=== PATIENT | male | born 1935 ===

== ENCOUNTER 2017-02-27 14:33 | Emergency (ER) | payer MEDICARE, OTHER ==
[2017-02-27 14:39] VITALS: TEMP 98.5
--- NOTE | 2017-02-27 14:57 | C.PDOC ---
History Of Present Illness 81 year old male with a history of hypertension was brought to the ED by family after concern for the patient becoming pale and unresponsive. Patient's in the ED a couple of hours prior to the symptoms onset. He denies chest pain, headache, nausea, or abdominal pain. Time Seen by Provider: 02/27/17 14:49 Chief Complaint (Nursing): Altered Mental Status History Per: Patient, Family History/Exam Limitations: None Onset/Duration Of Symptoms: Mins Onset Of Symptoms: <3 Hours (Patient's and while grieving in the ED symptoms began) Current Symptoms Are (Timing): Still Present Usual Baseline: Alert Oriented, Ambulatory Use Of Anticoag/Antiplatelets: No Recent travel outside of the [place]: No Associated Symptoms: denies: Fever, Chills, Chest Pain, Headache, Vomiting, Diarrhea Past Medical History Reviewed: Historical Data, Nursing Documentation, Vital Signs Vital Signs: Last Vital Signs Temp 98.5 F 02/27/17 14:35 Pulse 68 02/27/17 15:13 Resp 18 02/27/17 15:13 BP 130/72 02/27/17 15:13 Pulse Ox 97 02/27/17 16:39 - Medical History PMH: Alzheimer's Disease, Dementia, HTN Family History: States: Unknown Family Hx - Social History Hx Alcohol Use: No Hx Substance Use: No - Immunization History Hx Tetanus Toxoid Vaccination: No Hx Influenza Vaccination: Yes (2016) Hx Pneumococcal Vaccination: Yes (2016) Review Of Systems Constitutional: Positive for: Other (Patient was pale and cold as per family ). Negative for: Fever, Chills Cardiovascular: Negative for: Chest Pain Respiratory: Negative for: Shortness of Breath Gastrointestinal: Negative for: Nausea, Vomiting, Abdominal Pain, Diarrhea Physical Exam - Physical Exam Appears: Non-toxic, No Acute Distress Skin: Warm, Dry Head: Atraumatic Eye(s): bilateral: Normal Inspection, PERRL, EOMI Oral Mucosa: Moist Neck: Supple Chest: Symmetrical, No Deformity Cardiovascular: Rhythm Regular Respiratory: Normal Breath Sounds, No Rhonchi, No Wheezing Gastrointestinal/Abdominal: Soft, No Tenderness, No Distention, No Guarding, No Rebound Neurological/Psych: Oriented x3, Normal Speech, Normal Cognition, Normal Cranial Nerves, Normal Motor, Normal Sensation ED Course And Treatment O2 Sat by Pulse Oximetry: 97 (room air ) Progress Note: EKG was performed. Disposition Counseled Patient/Family Regarding: Diagnosis, Need For Followup - Disposition Disposition: HOME/ ROUTINE Disposition Time: 14:56 Instructions: Syncope (ED) Forms: [facility] (Hungarian), Gen Discharge Inst Ugandan - POA Present On Arrival: None - Clinical Impression Clinical Impression: Vasovagal episode - Scribe Statement The provider has reviewed the documentation as recorded by the Scribe Baylee Encarnacion All medical record entries made by the Annibe were at my direction and personally dictated by me. I have reviewed the chart and agree that the record accurately reflects my personal performance of the history, physical exam, medical decision making, and the department course for this patient. I have also personally directed, reviewed, and agree with the discharge instructions and disposition.
[2017-02-27 15:13] VITALS: BP 130/72; PULSE 68; RESP 18
[2017-02-27 16:31] VITALS: O2SAT 97
--- NOTE | 2017-02-28 12:28 | CARD ---
APPROVED REPORT EKG Measurement Heart [id number] <Conclusion> Sinus rhythm with 1st degree AV block with premature atrial complexes Incomplete right bundle branch block Cannot rule out Inferior infarct, age undetermined Abnormal ECG
== END 2017-02-27 15:14 | disposition home or self-care (01) ==
LOC: C.ER 14:33
DX: R55 Syncope and collapse (principal); I10 Essential (primary) hypertension; G30.9 Alzheimer's disease, unspecified; F02.80 Dementia in other diseases classified elsewhere, unspecified severity, without behavioral disturbance, psychotic disturbance, mood disturbance, and anxiety

== ENCOUNTER 2018-04-08 12:25 | Inpatient (IN) | payer MEDICARE ==
[2018-04-08 12:51] VITALS: BMI 24.4
[2018-04-08 13:22] LABS: EOS % 0.1 % (0.0-4.0); MONO # 1.6 K/uL (0.0-0.8)
[2018-04-08 13:36] LABS: ALBUMIN 3.3 g/dL (3.5-5.0); ALT/SGPT 59 U/L (21-72); AST/SGOT 32 U/L (17-59); BLOOD UREA NITROGEN 27 mg/dL (9-20); CALCIUM 9.8 mg/dl (8.6-10.4); GFR NON-AFRICAN AMERICAN > 60; LIPASE 73 U/L (23-300)
[2018-04-08 13:44] LABS: BASO # 0.2 K/uL (0.0-0.2); LYMPH # 1.5 K/uL (1.0-4.3); LYMPH % 8.8 % (20.0-40.0); MEAN CELL VOLUME 88.7 fL (80.0-94.0); MEAN CORPUSCULAR HEMOGLOBIN 32.4 pg (27.0-31.0); MEAN CORPUSCULAR HGB CONC 36.5 g/dL (33.0-37.0); MEAN PLATELET VOLUME 7.9 fL (7.2-11.7); MONO % 9.3 % (0.0-10.0); NEUT # 13.6 K/uL (1.8-7.0); NEUT % 80.8 % (50.0-75.0); PLATELET COUNT 259 K/uL (130-400); RBC 4.09 Mil/uL (4.40-5.90); RED CELL DISTRIBUTION WIDTH 13.9 % (11.5-14.5); WHITE BLOOD COUNT 16.8 K/uL (4.8-10.8)
[2018-04-08 13:45] LABS: HEMOGLOBIN 13.2 g/dL (12.0-18.0)
--- NOTE | 2018-04-08 13:53 | RAD ---
Date of service: 04/08/2018 PROCEDURE: Radiographs of the Lumbar Spine. HISTORY: low back pain, atraumatic COMPARISON: No prior. FINDINGS: BONES: There is mild degenerative retrolisthesis of L1 on L2. There is exaggerated lumbar lordosis. There is mild dextrocurvature in the lumbar spine. There is diffuse bone demineralization. There is no acute fracture. DISC SPACES: There are advanced multilevel degenerative changes with large anterior osteophytes, reduced disc heights and multilevel facet arthropathy, worse at L5-S1. OTHER FINDINGS: There are no pathologic soft tissue calcifications. Both sacroiliac joints are normal. IMPRESSION: No acute fracture. Advanced multilevel degenerative disc disease, worse at L5-S1.
[2018-04-08 13:57] LABS: SQUAMOUS EPITHIAL 6 /hpf (0-5); URINE BACTERIA RARE (<OCC); URINE BILIRUBIN 1+ (NEGATIVE); URINE BLOOD 1+ (NEGATIVE); URINE CLARITY Hazy (Clear); URINE COLOR Amber (YELLOW); URINE GLUCOSE (UA) NORMAL (Normal); URINE LEUKOCYTE ESTERASE 2+ Leu/uL (Negative); URINE PROTEIN 1+ mg/dL (NEGATIVE)
--- NOTE | 2018-04-08 14:08 | C.PDOC ---
History Of Present Illness 82 y/o male with PMHx of Alzheimer's Disease and HTN brought to ED by EMS for evaluation of worsening low back pain for the past 3 months. Patient states he "can't take it anymore". Patient is poor historian secondary to Alzheimer's disease. He denies abdominal pain, fever, sensory changes, extremity weakness, urinary retention, bowel/bladder incontinence, chest pain, SOB, palpitations, dysuria, hematuria, fever. Time Seen by Provider: 04/08/18 12:53 Chief Complaint (Nursing): Back Pain History Per: Patient, EMS History/Exam Limitations: no limitations Onset/Duration Of Symptoms: Persistent (months) Current Symptoms Are (Timing): Still Present Quality Of Discomfort: "Pain" Severity: Moderate Past Medical History Reviewed: Historical Data, Nursing Documentation, Vital Signs Vital Signs: Last Vital Signs Temp 98.4 F 04/13/18 07:51 Pulse 81 04/13/18 07:51 Resp 20 04/13/18 07:51 BP 173/71 H 04/13/18 07:51 Pulse Ox 95 04/13/18 07:51 - Medical History PMH: Alzheimer's Disease, Dementia, HTN Surgical History: No Surg Hx Family History: States: No Known Family Hx - Social History Hx Alcohol Use: No Hx Substance Use: No - Immunization History Hx Tetanus Toxoid Vaccination: No Hx Influenza Vaccination: Yes (2016) Hx Pneumococcal Vaccination: Yes (2016) Review Of Systems Constitutional: Negative for: Fever, Chills Cardiovascular: Negative for: Chest Pain, Palpitations Respiratory: Negative for: Cough, Shortness of Breath Gastrointestinal: Negative for: Nausea, Vomiting, Abdominal Pain, Diarrhea Genitourinary: Negative for: Dysuria, Hematuria Musculoskeletal: Positive for: Back Pain. Negative for: Neck Pain Skin: Negative for: Rash Neurological: Negative for: Weakness, Numbness Physical Exam - Physical Exam Appears: Well, Non-toxic, Other (In mild pain) Skin: Warm, Dry, No Rash Head: Atraumatic, Normacephalic Eye(s): bilateral: Normal Inspection Oral Mucosa: Moist Neck: Normal, Normal ROM, No Midline Cervical Tenderness, No Paracervical Tenderness, No Step Off Deformity, Supple Cardiovascular: Rhythm Regular Respiratory: Normal Breath Sounds, No Rales, No Rhonchi, No Wheezing Gastrointestinal/Abdominal: Normal Exam, Bowel Sounds, Soft, No Tenderness, No Guarding, No Rebound, Other (Obese abdomen) Back: No CVA Tenderness, Other (Diffuse lumbar tenderness to palpation) Extremity: Normal ROM, No Deformity, No Swelling Extremity: Bilateral: Atraumatic, Normal Color And Temperature, Normal ROM Neurological/Psych: Normal Motor, Normal Sensation, Other (awake, alert, mildly confused ) ED Course And Treatment - Laboratory Results Result Diagrams: 04/10/18 08:45 04/12/18 07:06 O2 Sat by Pulse Oximetry: 95 (RA) Pulse Ox Interpretation: Normal - Other Rad LS SPINE XRAY X-Ray: Viewed By Me, Read By Radiologist Interpretation: Accession No. : [id number]. Patient Name / ID : WALDEMAR JACOBSEN / [id number]. Exam Date : 04/08/2018 13:13:37 ( Approved ). Study Comment : Sex / Age : M / 82Y. Creator : Katie Mejia MD. Dictator : Katie Mejia MD. Geophysical Computer : Organizational Development Director : Katie Mejia MD. Approver2 : Report Date : 04/08/2018 13:51:51. My Comment : . Date of service: 04/08/2018. PROCEDURE: Radiographs of the Lumbar Spine. HISTORY: low back pain, atraumatic. COMPARISON: No prior. FINDINGS: BONES: There is mild degenerative retrolisthesis of L1 on L2. There is exaggerated lumbar lordosis. There is mild dextrocurvature in the lumbar spine. There is diffuse bone demineralization. There is no acute fracture. DISC SPACES: There are advanced multilevel degenerative changes with large anterior osteophytes, reduced disc heights and multilevel facet arthropathy, worse at L5-S1. OTHER FINDINGS: There are no pathologic soft tissue calcifications. Both sacroiliac joints are normal. IMPRESSION: No acute fracture. Advanced multilevel degenerative disc disease, worse at L5-S1. - CT Scan/US ct abd/pelvis Other Rad Studies (CT/US): Read By Radiologist, Radiology Report Reviewed CT/US Interpretation: Accession No. : [id number]. Patient Name / ID : WALDEMAR JACOBSEN / [id number]. Exam Date : 04/08/2018 14:44:12 ( Approved ). Study Comment : Sex / Age : M / 82Y. Creator : Katie Mejia MD. Dictator : Katie Mejia MD. Geophysical Computer : Organizational Development Director : Katie Mejia MD. Approver2 : Report Date : 04/08/2018 15:13:16. My Comment : . Date of service: 04/08/2018. PROCEDURE: CT Abdomen and Pelvis without intravenous contrast. HISTORY: SEVERE BACK PAIN, ABD PAIN. COMPARISON: None. TECHNIQUE : CT scan of the abdomen and pelvis was performed without administration of intravenous contrast. Oral contrast was not administered. Coronal and sagittal reformatted images were obtained. . Radiation dose: Total exam DLP = 1147.12 mGy-cm. This CT exam was performed using one or more of the following dose reduction techniques: Automated exposure control, adjustment of the mA and/or kV according to patient size, and/or use of iterative reconstruction technique. FINDINGS: LOWER THORAX: Mild centrilobular emphysema in the lung bases. Mild cardiomegaly and trace pericardial effusion. There is a small sliding hiatal hernia. LIVER: Normal in size. No intrahepatic ductal dilatation. GALLBLADDER AND BILE DUCTS: There is hyperdense sludge/gallstones within the gallbladder. PANCREAS: Normal in size. No ductal dilatation. SPLEEN: Mild splenomegaly. ADRENALS: Normal in size. No discrete nodule. KIDNEYS AND URETERS: Normal in size without nephrolithiasis. No hydronephrosis. VASCULATURE: No aortic aneurysm. BOWEL: The small bowel loops are normal in caliber. There is scattered colonic diverticulosis without CT evidence for acute diverticulitis. No bowel dilatation or wall thickening. No bowel obstruction. APPENDIX: Normal appendix. PERITONEUM: No free fluid. No free air. LYMPH NODES: No enlarged lymph nodes. BLADDER: Well distended and grossly normal in appearance. REPRODUCTIVE: There is severe enlargement of the prostate gland with median lobe hypertrophy and mass effect on the bladder base. BONES: No acute fracture. Diffuse bone demineralization and advanced multilevel degenerative disc disease. OTHER FINDINGS: None. IMPRESSION: 1. No acute abdominal or pelvic abnormality. Scattered colonic diverticulosis without CT evidence for acute diverticulitis. Severe enlargement of the prostate gland with median lobe hypertrophy indenting on the base of the urinary bladder. Please correlate with PSA levels. Small sliding hiatal hernia. Progress Note: Blood work, UA, Xray LS spine, and CT abd/pelvis ordered and reviewed. Patient given IV NS bolus, IV toradol, IV rocephin for UTI, PO Kdur for mild hypokalemia. - Physician Consult Information Physician Contacted: Esau Jacobs Outcome Of Conversation: Discussed patient with Dr. Jacobs, he agrees with admission to his service for UTI, severely enlarged prostate, leukocytosis, lumbar arthritis, severe low back pain. Disposition - Disposition Disposition: HOSPITALIZED Disposition Time: 16:26 Condition: STABLE - Clinical Impression Clinical Impression: Arthritis, lumbar spine, Leukocytosis, Enlarged prostate, Low back pain, UTI ( urinary tract infection) - Scribe Statement The provider has reviewed the documentation as recorded by the Scribheaven Sandhu All medical record entries made by the Scribe were at my direction and personally dictated by me. I have reviewed the chart and agree that the record accurately reflects my personal performance of the history, physical exam, medical decision making, and the department course for this patient. I have also personally directed, reviewed, and agree with the discharge instructions and disposition. Decision To Admit - Pt Status Changed To: Hospital Disposition Of: Inpatient - Admit Certification Admit to Inpatient:: After my assessment, the patient will require hospitalization for at least two midnights. This is because of the severity of symptoms shown, intensity of services needed, and/or the medical risk in this patient being treated as an outpatient. - InPatient: Physician Admission Certification:: see notes - . Bed Request Type: Regular Admitting Physician: Esau Jacobs Patient Diagnosis: Low back pain, Arthritis, lumbar spine, UTI (urinary tract infection), Leukocytosis, Enlarged prostate
[2018-04-08 14:14] LABS: BANDS 1 % (0-2); LYMPHOCYTE 7 % (20-40); MONOCYTE 9 % (0-10); NEUTROPHIL 82 % (50-75); NUCLEATED RED BLOOD CELL 1 % (0-0); PLATELET ESTIMATE NORMAL (NORMAL); REACTIVE LYMPHOCYTES 1 % (0-0); TOTAL CELLS COUNTED 100
[2018-04-08 14:15] LABS: ANISOCYTOSIS SLIGHT; HYPOCHROMIC SLIGHT; POLYCHROMIC SLIGHT
[2018-04-08] MEDS ORDERED: Sodium Chloride 0.9% 500 ML IV ONE ×2 (14:25→14:34)
[2018-04-08] MEDS ORDERED: cefTRIAXone IV 1 gm in Dextros 50 ML IV STA (14:30)
[2018-04-08] MEDS ORDERED: Potassium Chloride 20 mEq ER Tab PO STA (14:31)
--- NOTE | 2018-04-08 15:14 | CT ---
Date of service: 04/08/2018 PROCEDURE: CT Abdomen and Pelvis without intravenous contrast HISTORY: SEVERE BACK PAIN, ABD PAIN COMPARISON: None. TECHNIQUE: CT scan of the abdomen and pelvis was performed without administration of intravenous contrast. Oral contrast was not administered. Coronal and sagittal reformatted images were obtained. . Radiation dose: Total exam DLP = 1147.12 mGy-cm. This CT exam was performed using one or more of the following dose reduction techniques: Automated exposure control, adjustment of the mA and/or kV according to patient size, and/or use of iterative reconstruction technique. FINDINGS: LOWER THORAX: Mild centrilobular emphysema in the lung bases. Mild cardiomegaly and trace pericardial effusion. There is a small sliding hiatal hernia. LIVER: Normal in size. No intrahepatic ductal dilatation. GALLBLADDER AND BILE DUCTS: There is hyperdense sludge/gallstones within the gallbladder. PANCREAS: Normal in size. No ductal dilatation. SPLEEN: Mild splenomegaly. ADRENALS: Normal in size. No discrete nodule. KIDNEYS AND URETERS: Normal in size without nephrolithiasis. No hydronephrosis. VASCULATURE: No aortic aneurysm. BOWEL: The small bowel loops are normal in caliber. There is scattered colonic diverticulosis without CT evidence for acute diverticulitis. No bowel dilatation or wall thickening. No bowel obstruction. APPENDIX: Normal appendix. PERITONEUM: No free fluid. No free air. LYMPH NODES: No enlarged lymph nodes. BLADDER: Well distended and grossly normal in appearance. REPRODUCTIVE: There is severe enlargement of the prostate gland with median lobe hypertrophy and mass effect on the bladder base. BONES: No acute fracture. Diffuse bone demineralization and advanced multilevel degenerative disc disease. OTHER FINDINGS: None. IMPRESSION: 1. No acute abdominal or pelvic abnormality. Scattered colonic diverticulosis without CT evidence for acute diverticulitis. Severe enlargement of the prostate gland with median lobe hypertrophy indenting on the base of the urinary bladder. Please correlate with PSA levels. Small sliding hiatal hernia.
--- NOTE | 2018-04-08 17:58 | RAD ---
HISTORY: admission, fever COMPARISON: None available TECHNIQUE: Chest, one view. FINDINGS: Examination markedly limited by habitus and hypoinflation. LUNGS: Moderate interstitial prominence may reflect edema or infection. Please note that chest x-ray has limited sensitivity for the detection of pulmonary masses. PLEURA: No significant pleural effusion identified. No definite pneumothorax . CARDIOVASCULAR: Borderline cardiomegaly. Atherosclerotic calcifications. OSSEOUS STRUCTURES: Degenerative changes of the spine. VISUALIZED UPPER ABDOMEN: Unremarkable. OTHER FINDINGS: None. IMPRESSION: Hypoinflation. Borderline cardiomegaly. Moderate interstitial prominence consistent with edema or infection. Correlate clinically.
[2018-04-08] MEDS ORDERED: Sodium Chloride 0.9% 1,000 ML ONE (17:59)
[2018-04-08] MEDS: Sodium Chloride 0.9% 1,000 ML IV SCH (18:05)
[2018-04-08 19:05] VITALS: RESP 20
--- NOTE | 2018-04-08 22:55 | CP.PCM.HP ---
Past Patient History - Past Medical History & Family History Past Medical History?: Yes - Past Social History Smoking Status: Never Smoked - CARDIAC Hx Hypertension: Yes - NEUROLOGICAL Hx Alzheimer's Disease: Yes Hx Dementia: Yes - MUSCULOSKELETAL/RHEUMATOLOGICAL Hx Falls: Yes - PSYCHIATRIC Hx Substance Use: No - SURGICAL HISTORY Hx Surgeries: No - ANESTHESIA Hx Anesthesia: No Meds Allergies/Adverse Reactions: Allergies Allergy/AdvReac Type Severity Reaction Status Date / Time No Known Allergies Allergy Verified 02/27/17 14:40 Results - Vital Signs Recent Vital Signs: Last Vital Signs Temp 99.3 F 04/08/18 19:04 Pulse 97 H 04/08/18 19:04 Resp 20 04/08/18 19:04 BP 145/75 04/08/18 19:04 Pulse Ox 97 04/08/18 19:04 - Labs Result Diagrams: 04/08/18 13:17 04/08/18 13:17 Labs: Laboratory Results - last 24 hr 04/08/18 04/08/18 04/08/18 13:17 13:17 13:43 WBC 16.8 H RBC 4.09 L Hgb 13.2 Hct 36.2 MCV 88.7 MCH 32.4 H MCHC 36.5 RDW 13.9 Plt Count 259 MPV 7.9 Neut % (Auto) 80.8 H Lymph % (Auto) 8.8 L [place] % (Auto) 9.3 Eos % (Auto) 0.1 Baso % (Auto) 1.0 Neut # (Auto) 13.6 H Lymph # (Auto) 1.5 [place] # (Auto) 1.6 H Eos # (Auto) 0.0 Baso # (Auto) 0.2 Neutrophils % (Manual) 82 H Band Neutrophils % 1 Lymphocytes % (Manual) 7 L Reactive Lymphs % 1 H Monocytes % (Manual) 9 Nucleated RBC % 1 H Platelet Estimate Normal Polychromasia Slight Hypochromasia (manual) Slight Anisocytosis (manual) Slight Sodium 137 Potassium 3.3 L Chloride 98 Carbon Dioxide 25 Anion Gap 17 BUN 27 H Creatinine 0.8 Est GFR ( Amer) > 60 Est GFR (Non-Af Amer) > 60 Random Glucose 133 H Calcium 9.8 Total Bilirubin 5.4 H AST 32 ALT 59 Alkaline Phosphatase 154 H Total Protein 6.6 Albumin 3.3 L Globulin 3.4 Albumin/Globulin Ratio 1.0 Lipase 73 Prostate Specific Ag Urine Color Marni Urine Clarity Hazy Urine pH 5.0 Ur Specific [place] 1.026 Urine Protein 1+ H Urine Glucose (UA) Normal Urine Ketones Negative Urine Blood 1+ H Urine Nitrate Negative Urine Bilirubin 1+ H Urine Urobilinogen 4.0 Ur Leukocyte Esterase 2+ H Urine WBC (Auto) 82 H Urine RBC (Auto) 8 H Ur Squamous Epith Cells 6 H Urine Bacteria Rare 04/08/18 16:58 WBC RBC Hgb Hct MCV MCH MCHC RDW Plt Count MPV Neut % (Auto) Lymph % (Auto) [place] % (Auto) Eos % (Auto) Baso % (Auto) Neut # (Auto) Lymph # (Auto) [place] # (Auto) Eos # (Auto) Baso # (Auto) Neutrophils % (Manual) Band Neutrophils % Lymphocytes % (Manual) Reactive Lymphs % Monocytes % (Manual) Nucleated RBC % Platelet Estimate Polychromasia Hypochromasia (manual) Anisocytosis (manual) Sodium Potassium Chloride Carbon Dioxide Anion Gap BUN Creatinine Est GFR ( Amer) Est GFR (Non-Af Amer) Random Glucose Calcium Total Bilirubin AST ALT Alkaline Phosphatase Total Protein Albumin Globulin Albumin/Globulin Ratio Lipase Prostate Specific Ag 5.00 H Urine Color Urine Clarity Urine pH Ur Specific [place] Urine Protein Urine Glucose (UA) Urine Ketones Urine Blood Urine Nitrate Urine Bilirubin Urine Urobilinogen Ur Leukocyte Esterase Urine WBC (Auto) Urine RBC (Auto) Ur Squamous Epith Cells Urine Bacteria
[2018-04-09] MEDS: Sodium Chloride 0.9% 1,000 ML IV SCH ×3 (05:47→23:43)
--- NOTE | 2018-04-09 06:59 | HP ---
CHIEF COMPLAINT: Severe weakness. HISTORY OF PRESENT ILLNESS: This is an 82-year-old male, who has history of underlying Alzheimer's. He also has history of benign prostatic hyperplasia. He was brought into emergency room by his family because of neck pain and back pain. According to the family, the patient has history of Alzheimer's and hypertension. The patient has been deteriorating health felder in last few months, poor health at home and he has been more and more bedridden, sick, weak, tired, and fatigued. According to the patient, "I cannot take anymore." The patient is a poor historian. He keeps complaining of some abdominal symptoms, he is not able to describe. The patient denies any fever, chills, rigor. He denies any tingling, numbness, paresthesia. He has lower abdominal pain. He has also incontinence. He denies any history of shortness of breath, chest pain, hematuria, pyuria. He denies any sneezing, itchy eyes, itchy nose. He denies any history of chest pain. He denies any history of trauma or fall. No seizure like activity. There is no history of joint back, but he has incontinence. He has frequency of urination. He has urgency, hesitancy. PAST MEDICAL HISTORY: Alzheimer's, hypertension. SOCIAL HISTORY: Nonsmoker, non-ETOH user. CURRENT MEDICATIONS: He is on Namenda and losartan. ALLERGIES: UNKNOWN ALLERGIES. PHYSICAL EXAMINATION: GENERAL: An elderly male, in no acute distress, looks sick . VITAL SIGNS: BP 168/92, pulse 104, respiratory rate 18, temperature 100.6. SKIN: Flush. No bruises. No purpura. No petechiae. HEENT: Atraumatic, normocephalic. Negative pallor. Negative jaundice. Extraocular movements are intact. NECK: Supple. No JVD. No lymph node. No thyromegaly. No carotid bruit. CHEST WALL: Bilaterally symmetrical expansion. LUNGS: Bilaterally clear. No rales. No rhonchi. CVS: S1 and S2. Regular. No heave, no thrill. ABDOMEN: Soft. Nontender. Bowel sounds are positive. RECTAL: Enlarged prostate. No tenderness. No adenopathy. EXTREMITIES: No clubbing, cyanosis, or edema. PRESS SUPERVISOR: The patient is awake, alert, is forgetful. Moves all extremities. Power seems to be 5/5 in all four extremities. Unable to assess sensory system, gait, or cerebellar signs. ASSESSMENT: 1. Urinary tract infection, rule out septicemia. 2. Enlarged prostrate, rule out benign prostatic versus malignancy. 3. Alzheimer. 4. Dehydration. PLAN: Admit. The patient is discussed with ER doctor. Orders have been placed. The patient has been seen and examined. The patient will be followed up closely. Esau Jacobs MD
[2018-04-09] MEDS: Enoxaparin 30 mg Syringe SC SCH (10:21)
--- NOTE | 2018-04-09 18:22 | US ---
Date of service: 04/09/2018 PROCEDURE: Ultrasound of the Kidneys HISTORY: ultrasound before and after passing urine to see COMPARISON: None available. TECHNIQUE: Sonogram of the kidneys. FINDINGS: RIGHT KIDNEY: Measures: 4.9 x 11.6 cm. Normal in size, contour and echogenicity. No stone, solid mass lesion or hydronephrosis visualized. LEFT KIDNEY: Measures: 6.3 x 12.9 cm. Normal in size, contour and echogenicity. No stone, solid mass lesion or hydronephrosis visualized. OTHER FINDINGS: Urinary bladder assessment: Prevoid volume: 227.3 ml Postvoid residual: 108.2 ml Intrinsic, mural, perivesical abnormalities: None Ureteral jets: Documented bilaterally. Transabdominal prostate volume 55.6 mL. IMPRESSION: Small capacitance bladder, large postvoid residual. No focal urinary bladder abnormalities identified. Unremarkable upper tracts
--- NOTE | 2018-04-09 22:44 | CP.PCM.PN ---
Objective - Vital Signs/Intake and Output Vital Signs (last 24 hours): Temp Pulse Resp BP Pulse Ox 99.3 F 77 20 160/81 H 97 04/09/18 16:01 04/09/18 16:01 04/09/18 16:01 04/09/18 16:01 04/09/18 16:01 Intake and Output: 04/09/18 04/10/18 18:59 06:59 Intake Total 800 Output Total 300 Balance 500 - Medications Medications: Current Medications Acetaminophen (Tylenol 325mg Tab) 650 mg PO Q6 PRN PRN Reason: Pain, moderate (4-7) Enoxaparin Sodium (Lovenox) 30 mg SC DAILY [facility] Last Admin: 04/09/18 10:21 Dose: 30 mg Hydrochlorothiazide (Microzide) 12.5 mg PO BID [facility] Last Admin: 04/09/18 18:10 Dose: 12.5 mg Ceftriaxone Sodium 1 gm/ (Sodium Chloride) 100 mls @ 100 mls/hr IVPB DAILY [facility] PRN Reason: Protocol Last Admin: 04/09/18 10:22 Dose: 100 mls/hr Sodium Chloride (Sodium Chloride 0.9%) 1,000 mls @ 100 mls/hr IV .Q10H [facility] Last Admin: 04/09/18 15:23 Dose: 100 mls/hr Losartan Potassium (Cozaar) 100 mg PO DAILY [facility] Memantine (Namenda) 5 mg PO DAILY [facility] Last Admin: 04/09/18 10:21 Dose: 5 mg Tamsulosin HCl (Flomax) 0.4 mg PO BID [facility] Last Admin: 04/09/18 18:10 Dose: 0.4 mg Tramadol HCl (Ultram) 50 mg PO TID PRN PRN Reason: Pain, severe (8-10) - Labs Labs: 04/08/18 13:17 04/08/18 13:17
--- NOTE | 2018-04-10 02:29 | CON ---
DATE: 04/09/2018 HISTORY OF PRESENT ILLNESS: The patient is an 82-year-old [place] gentleman who was admitted to the hospital because of back pain. CT scan revealed large prostate. The patient has wbc's in his urine, mild frequency but no dysuria and no hematuria. The patient did not have any surgery, did not complain of any flank pain. PSA with a large prostate came back moderate on the level of 5. PHYSICAL EXAMINATION: GASTROINTESTINAL: Revealed abdomen is soft. No flank tenderness. No kidney palpable. GENITOURINARY: No suprapubic fullness or tenderness. Testes in the scrotum. Penis within normal limits. RECTAL: Could not be done. NEUROLOGIC: The patient cannot move from the bed to the side. IMPRESSION: Prostatic hypertrophy, recurrent urinary tract infections, and elevated prostate-specific antigen. PLAN: Pelvic ultrasound before and after voiding to evaluate the residual and estimate the prostate size. Plan to follow him. Bettina Sage MD
--- NOTE | 2018-04-10 03:40 | PN ---
DATE: 04/09/2018 SUBJECTIVE: The patient feels better. He is more alert. He is afebrile. Son on bedside. I explained to him the working diagnosis and plan of care. He understands and agrees. The patient has been seen by Urology. PHYSICAL EXAMINATION: VITAL SIGNS: BP 161/96, pulse 88, respiratory rate 16, temperature 99. LUNGS: Clear. CARDIOVASCULAR SYSTEM: S1 and S2 regular. ABDOMEN: Soft. ASSESSMENT: 1. Urinary tract infection, rule out septicemia. 2. Obstructive uropathy, rule out benign prostatic hypertrophy. 3. Hypertension. 4. Dehydration, . PLAN: Urology evaluation. Antibiotics. Monitor the patient. Esau Jacobs MD
[2018-04-10 09:24] LABS: BASO # 0.1 K/uL (0.0-0.2); BASO % 0.6 % (0.0-2.0); EOS % 0.4 % (0.0-4.0); HEMOGLOBIN 12.6 g/dL (12.0-18.0); LYMPH # 1.4 K/uL (1.0-4.3); LYMPH % 11.9 % (20.0-40.0); MEAN CELL VOLUME 88.5 fL (80.0-94.0); MEAN CORPUSCULAR HEMOGLOBIN 31.9 pg (27.0-31.0); MEAN PLATELET VOLUME 8.1 fL (7.2-11.7); MONO # 1.3 K/uL (0.0-0.8); MONO % 11.5 % (0.0-10.0); NEUT # 8.6 K/uL (1.8-7.0); NEUT % 75.6 % (50.0-75.0); NRBC % 0.2 % (0.0-2.0); RBC 3.94 Mil/uL (4.40-5.90); RED CELL DISTRIBUTION WIDTH 14.1 % (11.5-14.5); WHITE BLOOD COUNT 11.4 K/uL (4.8-10.8)
[2018-04-10 09:33] LABS: BLOOD UREA NITROGEN 18 mg/dL (9-20); CALCIUM 8.6 mg/dl (8.6-10.4); GFR NON-AFRICAN AMERICAN > 60
[2018-04-10] MEDS: Sodium Chloride 0.9% 1,000 ML IV SCH (10:00)
[2018-04-10] MEDS: Enoxaparin 30 mg Syringe SC SCH (10:54)
[2018-04-10] MEDS ORDERED: Potassium Chloride 20 mEq ER Tab PO ONE (12:00)
--- NOTE | 2018-04-10 22:40 | CP.PCM.PN ---
Objective - Vital Signs/Intake and Output Vital Signs (last 24 hours): Temp Pulse Resp BP Pulse Ox 97.9 F 78 20 134/69 95 04/10/18 16:00 04/10/18 16:00 04/10/18 16:00 04/10/18 16:00 04/10/18 16:00 Intake and Output: 04/10/18 04/11/18 18:59 06:59 Intake Total 780 Output Total 300 Balance 480 - Medications Medications: Current Medications Acetaminophen (Tylenol 325mg Tab) 650 mg PO Q6 PRN PRN Reason: Pain, moderate (4-7) Enoxaparin Sodium (Lovenox) 30 mg SC DAILY [facility] Last Admin: 04/10/18 10:54 Dose: 30 mg Hydrochlorothiazide (Microzide) 12.5 mg PO BID [facility] Last Admin: 04/10/18 17:20 Dose: 12.5 mg Ceftriaxone Sodium 1 gm/ (Sodium Chloride) 100 mls @ 100 mls/hr IVPB DAILY [facility] PRN Reason: Protocol Last Admin: 04/10/18 10:00 Dose: 100 mls/hr Losartan Potassium (Cozaar) 100 mg PO DAILY [facility] Last Admin: 04/10/18 10:54 Dose: 100 mg Memantine (Namenda) 5 mg PO DAILY [facility] Last Admin: 04/10/18 10:53 Dose: 5 mg Tamsulosin HCl (Flomax) 0.4 mg PO BID [facility] Last Admin: 04/10/18 17:20 Dose: 0.4 mg Tramadol HCl (Ultram) 50 mg PO TID [facility] Last Admin: 04/10/18 17:20 Dose: 50 mg - Labs Labs: 04/10/18 08:45 04/10/18 08:45
--- NOTE | 2018-04-11 08:10 | PN ---
DATE: 04/10/2018 The patient voiding okay. No dysuria. No urgency. No suprapubic fullness. Has low back pain, improved. The patient with the prostatic hypertrophy. We will follow his pelvic ultra and post-void residual. Bettina Sage MD
--- NOTE | 2018-04-11 09:56 | PN ---
DATE: 04/10/2018 SUBJECTIVE: The patient is feeling better. He is stronger. Blood pressure went down. No fever. PHYSICAL EXAMINATION: VITAL SIGNS: Blood pressure 134/69, pulse 78, respiratory rate 20, temperature 97.9. LUNGS: Clear. CARDIOVASCULAR: S1 and S2, regular. ABDOMEN: Soft. ASSESSMENT: 1. Urinary tract infection. 2. Obstructive uropathy. 3. Alzheimer's. PLAN: Monitor the patient. The patient had a bladder ultrasound done and the urinary bladder ultrasound revealed small capacity bladder with large postvoid residual, and the patient will be followed up by Urology. In the meantime, we will monitor the patient. His prostate specific antigen is 5. Esau Jacobs MD
[2018-04-11] MEDS: Enoxaparin 30 mg Syringe SC SCH (10:20)
[2018-04-11 12:10] LABS: BLOOD UREA NITROGEN 19 mg/dL (9-20); CALCIUM 9.3 mg/dl (8.6-10.4); GFR NON-AFRICAN AMERICAN > 60
[2018-04-11] MEDS: Potassium Chloride 20 mEq ER Tab PO SCH (12:37)
--- NOTE | 2018-04-11 22:29 | CP.PCM.PN ---
Objective - Vital Signs/Intake and Output Vital Signs (last 24 hours): Temp Pulse Resp BP Pulse Ox 98.3 F 82 20 126/76 95 04/11/18 16:54 04/11/18 16:54 04/11/18 16:54 04/11/18 16:54 04/11/18 16:54 Intake and Output: 04/11/18 04/12/18 18:59 06:59 Intake Total 550 Output Total 400 Balance 150 - Medications Medications: Current Medications Acetaminophen (Tylenol 325mg Tab) 650 mg PO Q6 PRN PRN Reason: Pain, moderate (4-7) Enoxaparin Sodium (Lovenox) 30 mg SC DAILY [facility] Last Admin: 04/11/18 10:20 Dose: 30 mg Hydrochlorothiazide (Microzide) 12.5 mg PO BID [facility] Last Admin: 04/11/18 17:41 Dose: 12.5 mg Ceftriaxone Sodium 1 gm/ (Sodium Chloride) 100 mls @ 100 mls/hr IVPB DAILY [facility] PRN Reason: Protocol Last Admin: 04/11/18 10:21 Dose: 100 mls/hr Losartan Potassium (Cozaar) 100 mg PO DAILY [facility] Last Admin: 04/11/18 10:22 Dose: 100 mg Memantine (Namenda) 5 mg PO DAILY [facility] Last Admin: 04/11/18 10:21 Dose: 5 mg Potassium Chloride (K-Dur 20 Meq Er Tab) 40 meq PO DAILY [facility] Stop: 04/13/18 12:16 Last Admin: 04/11/18 12:37 Dose: 40 meq Tamsulosin HCl (Flomax) 0.4 mg PO BID [facility] Last Admin: 04/11/18 17:41 Dose: 0.4 mg Tramadol HCl (Ultram) 50 mg PO TID [facility] Last Admin: 04/11/18 17:41 Dose: 50 mg - Labs Labs: 04/10/18 08:45 04/11/18 11:41
--- NOTE | 2018-04-12 04:55 | PN ---
DATE: 04/11/2018 SUBJECTIVE: The patient is feeling better. Afebrile. He has responded to any kind of urological procedure. He is afebrile. He is on antibiotics. His cultures have been negative; however, he needed antibiotics. PHYSICAL EXAMINATION: VITAL SIGNS: BP 126/76, pulse 82, respiratory rate 20, temperature 98.3. LUNGS: Clear. CARDIOVASCULAR SYSTEM: S1 and S2, regular. CENTRAL NERVOUS SYSTEM: The patient has dementia with poor memory. ASSESSMENT: 1. Urinary tract infection. 2. Obstructive uropathy. 3. Hypertension. 4. Alzheimer's. PLAN: Continue current medications. Monitor the patient. Esau Jacobs MD
[2018-04-12 08:00] LABS: BLOOD UREA NITROGEN 17 mg/dL (9-20); CALCIUM 8.8 mg/dl (8.6-10.4); GFR NON-AFRICAN AMERICAN > 60
[2018-04-12] MEDS: Enoxaparin 30 mg Syringe SC SCH (11:43)
[2018-04-12] MEDS: Potassium Chloride 20 mEq ER Tab PO SCH (11:47)
--- NOTE | 2018-04-12 12:19 | CP.PCM.PN ---
Subjective - Date & Time of Evaluation Date of Evaluation: 04/12/18 Time of Evaluation: 11:00 - Subjective Subjective: Patient seen today, denies any chest pain, sob, abdominal pain, dysuria, c/o pain to the back , improved with pain medications, reported voiding better a febrile Objective - Vital Signs/Intake and Output Vital Signs (last 24 hours): Temp Pulse Resp BP Pulse Ox 98.2 F 86 20 135/75 96 04/12/18 07:30 04/12/18 07:30 04/12/18 07:30 04/12/18 07:30 04/12/18 07:30 Intake and Output: 04/12/18 04/12/18 06:59 18:59 Intake Total 660 Output Total 400 Balance 260 - Medications Medications: Current Medications Acetaminophen (Tylenol 325mg Tab) 650 mg PO Q6 PRN PRN Reason: Pain, moderate (4-7) Enoxaparin Sodium (Lovenox) 30 mg SC DAILY [facility] Last Admin: 04/12/18 11:43 Dose: 30 mg Hydrochlorothiazide (Microzide) 12.5 mg PO BID [facility] Last Admin: 04/12/18 11:47 Dose: 12.5 mg Ceftriaxone Sodium 1 gm/ (Sodium Chloride) 100 mls @ 100 mls/hr IVPB DAILY [facility] PRN Reason: Protocol Last Admin: 04/12/18 11:47 Dose: 100 mls/hr Losartan Potassium (Cozaar) 100 mg PO DAILY [facility] Last Admin: 04/12/18 11:44 Dose: 100 mg Memantine (Namenda) 5 mg PO DAILY [facility] Last Admin: 04/12/18 11:47 Dose: 5 mg Potassium Chloride (K-Dur 20 Meq Er Tab) 40 meq PO DAILY [facility] Stop: 04/13/18 12:16 Last Admin: 04/12/18 11:47 Dose: 40 meq Tamsulosin HCl (Flomax) 0.4 mg PO BID [facility] Last Admin: 04/12/18 11:47 Dose: 0.4 mg Tramadol HCl (Ultram) 50 mg PO TID [facility] Last Admin: 04/12/18 11:43 Dose: 50 mg - Labs Labs: 04/10/18 08:45 04/12/18 07:06 Assessment and Plan - Assessment and Plan (Free Text) Assessment: A/P 82 y/o male with PMHx of Alzheimer's Disease and HTN brought to ED by EMS for evaluation of worsening bhaskar back pain for the past 3 months and admitted with UTI and started on antibiotics Dr. Sage consulted for enlarged prostate , started on flomax , and patient voids better Dr. Sage d/w Patient son regarding urological procedure and son reluctant for any procedure Patient accepted at [facility] fo r rehab D/W Dr. Jacobs cleared for discharge to [facility] today
[2018-04-12 22:56] LABS: SQUAMOUS EPITHIAL < 1 /hpf (0-5); URINE BACTERIA OCC (<OCC); URINE BILIRUBIN NEGATIVE (NEGATIVE); URINE BLOOD NEGATIVE (NEGATIVE); URINE CLARITY Clear (Clear); URINE GLUCOSE (UA) NORMAL (Normal); URINE LEUKOCYTE ESTERASE TRACE Leu/uL (Negative); URINE PROTEIN NEGATIVE (NEGATIVE)
[2018-04-12 23:12] LABS: URINE COLOR YELLOW (YELLOW)
--- NOTE | 2018-04-13 00:05 | CP.PCM.PN ---
Subjective - Date & Time of Evaluation Date of Evaluation: 04/12/18 - Subjective Subjective: feels better, no fever, no sob, bp is better, no fever Objective - Vital Signs/Intake and Output Vital Signs (last 24 hours): Temp Pulse Resp BP Pulse Ox 98.2 F 77 20 147/77 96 04/12/18 16:49 04/12/18 16:49 04/12/18 16:49 04/12/18 16:49 04/12/18 16:49 Intake and Output: 04/12/18 04/13/18 18:59 06:59 Intake Total 340 Output Total 350 Balance -10 - Medications Medications: Current Medications Acetaminophen (Tylenol 325mg Tab) 650 mg PO Q6 PRN PRN Reason: Pain, moderate (4-7) Aspirin (Aspirin Chewable) 81 mg PO DAILY [facility] Last Admin: 04/12/18 18:02 Dose: 81 mg Enoxaparin Sodium (Lovenox) 30 mg SC DAILY [facility] Last Admin: 04/12/18 11:43 Dose: 30 mg Finasteride (Proscar) 5 mg PO DAILY [facility] Hydrochlorothiazide (Microzide) 12.5 mg PO BID [facility] Last Admin: 04/12/18 18:02 Dose: 12.5 mg Ceftriaxone Sodium 1 gm/ (Sodium Chloride) 100 mls @ 100 mls/hr IVPB DAILY [facility] PRN Reason: Protocol Last Admin: 04/12/18 11:47 Dose: 100 mls/hr Losartan Potassium (Cozaar) 100 mg PO DAILY [facility] Last Admin: 04/12/18 11:44 Dose: 100 mg Memantine (Namenda) 5 mg PO DAILY [facility] Last Admin: 04/12/18 11:47 Dose: 5 mg Potassium Chloride (K-Dur 20 Meq Er Tab) 40 meq PO DAILY [facility] Stop: 04/13/18 12:16 Last Admin: 04/12/18 11:47 Dose: 40 meq Rosuvastatin Calcium (Crestor) 5 mg PO HS [facility] Last Admin: 04/12/18 22:25 Dose: 5 mg Tamsulosin HCl (Flomax) 0.4 mg PO BID [facility] Last Admin: 04/12/18 18:03 Dose: 0.4 mg Tramadol HCl (Ultram) 50 mg PO TID [facility] Last Admin: 04/12/18 18:03 Dose: 50 mg - Labs Labs: 04/10/18 08:45 04/12/18 07:06 - Constitutional Appears: Non-toxic, No Acute Distress - Head Exam Head Exam: ATRAUMATIC, NORMAL INSPECTION, NORMOCEPHALIC - Eye Exam Eye Exam: EOMI, Normal appearance, PERRL Pupil Exam: NORMAL ACCOMODATION - ENT Exam ENT Exam: Mucous Membranes Moist, Normal Exam, Normal Oropharynx, TM's Normal Bilaterally - Neck Exam Neck Exam: Normal Inspection - Respiratory Exam Respiratory Exam: NORMAL BREATHING PATTERN - Cardiovascular Exam Cardiovascular Exam: REGULAR RHYTHM, +S1, +S2 - GI/Abdominal Exam GI & Abdominal Exam: Soft, Normal Bowel Sounds - Rectal Exam Rectal Exam: NORMAL INSPECTION - Extremities Exam Extremities Exam: Normal Capillary Refill - Neurological Exam Neurological Exam: Abnormal Gait, Alert, Awake, CN II-XII Intact. 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
[2018-04-13 07:51] VITALS: BP 173/71; PULSE 81; TEMP 98.4; O2SAT 95
[2018-04-13] MEDS: Potassium Chloride 20 mEq ER Tab PO SCH (09:34)
[2018-04-13] MEDS: Enoxaparin 30 mg Syringe SC SCH (09:35)
--- NOTE | 2018-04-13 19:57 | CP.PCM.PN ---
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
== END 2018-04-13 10:16 | DRG 690 ==
LOC: C.ER 12:25 → C.9E 16:26 → C.3T 18:19
PROVIDERS: ADMIT Internal Medicine; ATTEND Internal Medicine
DX: N39.0 Urinary tract infection, site not specified (principal); N40.1 Benign prostatic hyperplasia with lower urinary tract symptoms; E86.0 Dehydration; R97.20 Elevated prostate specific antigen [PSA]; D72.829 Elevated white blood cell count, unspecified; M47.897 Other spondylosis, lumbosacral region; I10 Essential (primary) hypertension; M46.96 Unspecified inflammatory spondylopathy, lumbar region; M40.57 Lordosis, unspecified, lumbosacral region; G30.9 Alzheimer's disease, unspecified; F02.80 Dementia in other diseases classified elsewhere, unspecified severity, without behavioral disturbance, psychotic disturbance, mood disturbance, and anxiety; K44.9 Diaphragmatic hernia without obstruction or gangrene; K57.30 Diverticulosis of large intestine without perforation or abscess without bleeding; Z87.440 Personal history of urinary (tract) infections; Z74.01 Bed confinement status

== ENCOUNTER 2018-04-30 12:49 | Inpatient (IN) | payer MEDICARE ==
[2018-04-30 12:49] VITALS: BMI 24.4
[2018-04-30] MEDS ORDERED: Piperacillin/Tazobact 3.375 gm 100 ML IV STA (13:14)
[2018-04-30] MEDS ORDERED: Sodium Chloride 0.9% 1,000 ML IV ONE (13:15)
[2018-04-30] MEDS ORDERED: Vancomycin 1 GM 1 GM/250 ML BAG IV STA (13:15)
[2018-04-30 13:35] LABS: VENOUS BLOOD GAS BASE EXCESS 2.2 mmol/L (0.0-2.0); VENOUS BLOOD GAS PCO2 33 mmHg (40-60); VENOUS BLOOD GAS PO2 46 mm/Hg (30-55); VENOUS BLOOD PH 7.49 (7.32-7.43)
[2018-04-30 13:41] LABS: BASO % 0.4 % (0.0-2.0); HEMOGLOBIN 12.4 g/dL (12.0-18.0); LYMPH % 17.8 % (20.0-40.0); MEAN CORPUSCULAR HEMOGLOBIN 32.4 pg (27.0-31.0); MEAN CORPUSCULAR HGB CONC 36.4 g/dL (33.0-37.0); MEAN PLATELET VOLUME 8.8 fL (7.2-11.7); MONO % 8.3 % (0.0-10.0); NEUT # 8.4 K/uL (1.8-7.0); NEUT % 73.5 % (50.0-75.0); NRBC % 0.1 % (0.0-2.0); RBC 3.82 Mil/uL (4.40-5.90); RED CELL DISTRIBUTION WIDTH 14.3 % (11.5-14.5); WHITE BLOOD COUNT 11.4 K/uL (4.8-10.8)
[2018-04-30] MEDS ORDERED: Vancomycin 1 GM 1 GM/250 ML BAG IVPB ONE (13:50)
[2018-04-30] MEDS ORDERED: Sodium Chloride 0.9% 1,000 ML ONE (13:50)
[2018-04-30 13:51] LABS: ALB/GLOB RATIO 0.9 (1.0-2.1); ALBUMIN 3.1 g/dL (3.5-5.0); ALT/SGPT 64 U/L (21-72); AST/SGOT 39 U/L (17-59); BLOOD UREA NITROGEN 47 mg/dL (9-20); CALCIUM 9.2 mg/dl (8.6-10.4); GFR NON-AFRICAN AMERICAN > 60
[2018-04-30 14:00] LABS: B-TYPE NATRIURETIC PEPTIDE 1430 pg/mL (0-900)
--- NOTE | 2018-04-30 14:56 | C.PDOC ---
History Of Present Illness 83 y/o male brought [facility] ER by ambulance [facility] for fever and lethargy. long term staff states that patient does not want to eat. Patient was admitted for UTI at [facility] in March 2018.Denies having CP, SOB, n ausea, and vomiting. Time Seen by Provider: 04/30/18 13:03 Chief Complaint (Nursing): Fever History Per: Patient History/Exam Limitations: no limitations Onset/Duration Of Symptoms: Days Current Symptoms Are (Timing): Still Present Severity: Moderate Past Medical History Reviewed: Historical Data, Nursing Documentation, Vital Signs Vital Signs: Last Vital Signs Temp 101.9 F H 04/30/18 13:03 Pulse 98 H 04/30/18 13:58 Resp 20 04/30/18 13:58 BP 146/81 04/30/18 13:58 Pulse Ox 98 04/30/18 13:58 - Medical History PMH: Alzheimer's Disease, Arthritis (back), COPD, Dementia, HTN Surgical History: No Surg Hx Family History: States: No Known Family Hx - Social History Hx Alcohol Use: No Hx Substance Use: No - Immunization History Hx Tetanus Toxoid Vaccination: No Hx Influenza Vaccination: Yes (2016) Hx Pneumococcal Vaccination: Yes (2016) Review Of Systems Except As Marked, All Systems Reviewed And Found Negative. Constitutional: Positive for: Fever, Other (lethargy). Negative for: Chills Cardiovascular: Negative for: Chest Pain Respiratory: Negative for: Shortness of Breath Gastrointestinal: Negative for: Nausea, Vomiting Physical Exam - Physical Exam Appears: Non-toxic, No Acute Distress Skin: Normal Color, Warm, Dry Head: Atraumatic, Normacephalic Eye(s): bilateral: Normal Inspection Nose: Normal Oral Mucosa: Moist Throat: Normal, No Erythema, No Exudate Neck: Supple Chest: Symmetrical Cardiovascular: Rhythm Regular, Murmur (holosystolic murmur with carotid upstroke) Respiratory: Normal Breath Sounds, No Rales, No Rhonchi, No Wheezing Male Genital: Other (urethral stricture,unable to pass urine) Neurological/Psych: Other (patient has dementia) ED Course And Treatment - Laboratory Results Result Diagrams: 04/30/18 13:24 04/30/18 13:24 Lab Interpretation: Abnormal ECG: Interpreted By Ne ECG Rhythm: Atrial Fibrillation (87) O2 Sat by Pulse Oximetry: 98 Pulse Ox Interpretation: Normal - Radiology CXR: Interpreted by Me CXR Interpretation: Yes: No Acute Disease Reevaluation Time: 14:57 Reassessment Condition: Improved - Physician Consult Information Outcome Of Conversation: 1615 and 1500: d/w Dr. Jacobs, ok to admit tele. 134o: d/w Dr. Carrillo, as req Dr. Jacobs, unavailable Medical Decision Making Medical Decision Making: urinary incontinence with uretheral stricture, only 130 cc's on bladder scan, no need for emergent Brown Cover empirically for UTI/Sepsis Suppose recurrent UTI as 03/16 but unable to collect urine neg lactate and coherent pt, ok for tele adm Disposition Doctor Will See Patient In The: Hospital Counseled Patient/Family Regarding: Studies Performed, Diagnosis - Disposition Disposition: HOSPITALIZED Disposition Time: 14:59 Condition: GOOD - Clinical Impression Clinical Impression: Fever - Scribe Statement The provider has reviewed the documentation as recorded by the Jr Ellison Provider Attestation: All medical record entries made by the Scribe were at my direction and personally dictated by me. I have reviewed the chart and agree that the record accurately reflects my personal performance of the history, physical exam, medical decision making, and the department course for this patient. I have also personally directed, reviewed, and agree with the discharge instructions and disposition.
[2018-04-30] MEDS ORDERED: Piperacillin/Tazobact 3.375 gm 100 ML IVPB ONE (15:32)
--- NOTE | 2018-04-30 15:59 | RAD ---
Date of service: 04/30/2018 PROCEDURE: CHEST RADIOGRAPH, 1 VIEW HISTORY: SOB COMPARISON: None available. FINDINGS: LUNGS: Shallow lung volumes. No ward consolidation. PLEURA: No pneumothorax. Small bilateral pleural effusions probable CARDIOVASCULAR: Despite the shallow inspiration, cardiomegaly and mild pulmonary venous congestion are still suspect. OSSEOUS STRUCTURES: Thoracic spondylosis. Bilateral shoulder arthrosis. Left acromioclavicular joint asymmetrically wider correlate clinically. No superior inferior offset here VISUALIZED UPPER ABDOMEN: Normal. OTHER FINDINGS: None. IMPRESSION: Shallow lung volumes. Nevertheless cardiomegaly and pulmonary venous congestion are suspect. Small bilateral pleural effusions right slightly greater than left also suspect. No ward consolidation appreciated Other findings as above.
[2018-04-30] MEDS: Magnesium Hydroxide Susp 30 ml UD PO SCH (21:58)
[2018-04-30] MEDS ORDERED: Piperacill/Tazo 3.375gm in Dex 3.375 GM/50 ML BAG IVPB SCH (22:00)
[2018-04-30] MEDS: Piperacill/Tazo 3.375gm in Dex 3.375 GM/50 ML BAG IVPB SCH (22:01)
[2018-04-30 22:20] LABS: SQUAMOUS EPITHIAL 2 /hpf (0-5); URINE BACTERIA FEW (<OCC); URINE BILIRUBIN NEGATIVE (NEGATIVE); URINE BLOOD NEGATIVE (NEGATIVE); URINE CLARITY Clear (Clear); URINE COLOR Amber (YELLOW); URINE GLUCOSE (UA) NORMAL (Normal); URINE LEUKOCYTE ESTERASE 2+ Leu/uL (Negative); URINE PROTEIN NEGATIVE (NEGATIVE)
[2018-05-01] MEDS: Piperacill/Tazo 3.375gm in Dex 3.375 GM/50 ML BAG IVPB SCH ×3 (05:48→21:43)
[2018-05-01 09:12] LABS: BLOOD UREA NITROGEN 40 mg/dL (9-20); CALCIUM 8.9 mg/dl (8.6-10.4); GFR NON-AFRICAN AMERICAN > 60
[2018-05-01 09:17] LABS: HEMOGLOBIN 12.5 g/dL (12.0-18.0); MEAN CORPUSCULAR HEMOGLOBIN 33.4 pg (27.0-31.0); MEAN CORPUSCULAR HGB CONC 36.6 g/dL (33.0-37.0); MEAN PLATELET VOLUME 8.4 fL (7.2-11.7); RBC 3.75 Mil/uL (4.40-5.90); RED CELL DISTRIBUTION WIDTH 14.5 % (11.5-14.5)
[2018-05-01 09:21] LABS: MEAN CELL VOLUME 91.3 fL (80.0-94.0)
[2018-05-01] MEDS ORDERED: Influenza Vaccine 60 MCG/0.5 ML SYR (3 yr & up) IM ONE (10:00)
[2018-05-01] MEDS: Enoxaparin 30 mg Syringe SC SCH (12:24)
--- NOTE | 2018-05-01 13:19 | CARD ---
APPROVED REPORT Date of service: 04/30/2018 EKG Measurement Heart [id number] <Conclusion> Atrial fibrillation with premature ventricular or aberrantly conducted complexes Nonspecific intraventricular conduction delay Abnormal ECG
[2018-05-01] MEDS: Magnesium Sulfate 1 gm in D5W 1 GM/100 ML BAG IVPB SCH ×2 (21:00→21:42)
[2018-05-01] MEDS: Magnesium Hydroxide Susp 30 ml UD PO SCH (21:44)
[2018-05-01] MEDS: Dextrose 5%/0.45% NS 1,000 ML IV SCH (21:44)
--- NOTE | 2018-05-01 22:19 | CP.PCM.HP ---
Past Patient History - Past Medical History & Family History Past Medical History?: Yes - Past Social History Smoking Status: Never Smoked - CARDIAC Hx Hypertension: Yes - PULMONARY Hx Chronic Obstructive Pulmonary Disease (COPD): Yes - NEUROLOGICAL Hx Neurological Disorder: Yes Hx Alzheimer's Disease: Yes Hx Dementia: Yes - HEENT Hx HEENT Problems: No - RENAL Hx Chronic Kidney Disease: No - ENDOCRINE/METABOLIC Hx Endocrine Disorders: No - HEMATOLOGICAL/ONCOLOGICAL Hx Blood Disorders: No - INTEGUMENTARY Hx Dermatological Problems: No - MUSCULOSKELETAL/RHEUMATOLOGICAL Hx Arthritis: Yes - GASTROINTESTINAL Hx Gastrointestinal Disorders: No - GENITOURINARY/GYNECOLOGICAL Hx Genitourinary Disorders: Yes Hx Prostate Problems: Yes (enlarged prostate) Hx Urinary Tract Infection: Yes - PSYCHIATRIC Hx Psychophysiologic Disorder: No Hx Substance Use: No - SURGICAL HISTORY Hx Surgeries: No - ANESTHESIA Hx Anesthesia: No Hx Anesthesia Reactions: No Hx Malignant Hyperthermia: No Has any member of the family had a problem w/ anesthesia?: No Meds Allergies/Adverse Reactions: Allergies Allergy/AdvReac Type Severity Reaction Status Date / Time No Known Allergies Allergy Verified 02/27/17 14:40 Results - Vital Signs Recent Vital Signs: Last Vital Signs Temp 98.0 F 05/01/18 16:00 Pulse 79 05/01/18 17:00 Resp 20 05/01/18 16:00 BP 147/85 05/01/18 16:00 Pulse Ox 100 05/01/18 16:00 - Labs Result Diagrams: 05/01/18 08:50 05/01/18 08:50 Labs: Laboratory Results - last 24 hr 04/30/18 04/30/18 05/01/18 22:10 22:33 08:50 WBC 12.0 H RBC 3.75 L Hgb 12.5 Hct 34.2 L MCV 91.3 D MCH 33.4 H MCHC 36.6 RDW 14.5 Plt Count 193 MPV 8.4 Sodium Potassium Chloride Carbon Dioxide Anion Gap BUN Creatinine Est GFR ( Amer) Est GFR (Non-Af Amer) POC Glucose (mg/dL) 111 H Random Glucose Calcium Magnesium Urine Color Marni Urine Clarity Clear Urine pH 5.0 Ur Specific [place] 1.020 Urine Protein Negative Urine Glucose (UA) Normal Urine Ketones Negative Urine Blood Negative Urine Nitrate Negative Urine Bilirubin Negative Urine Urobilinogen 4.0 Ur Leukocyte Esterase 2+ H Urine WBC (Auto) 12 H Urine RBC (Auto) 1 Ur Squamous Epith Cells 2 Urine Bacteria Few H 05/01/18 08:50 WBC RBC Hgb Hct MCV MCH MCHC RDW Plt Count MPV Sodium 140 Potassium 3.3 L Chloride 103 Carbon Dioxide 27 Anion Gap 14 BUN 40 H Creatinine 1.1 Est GFR ( Amer) > 60 Est GFR (Non-Af Amer) > 60 POC Glucose (mg/dL) Random Glucose 99 Calcium 8.9 Magnesium 1.3 L Urine Color Urine Clarity Urine pH Ur Specific [place] Urine Protein Urine Glucose (UA) Urine Ketones Urine Blood Urine Nitrate Urine Bilirubin Urine Urobilinogen Ur Leukocyte Esterase Urine WBC (Auto) Urine RBC (Auto) Ur Squamous Epith Cells Urine Bacteria
[2018-05-02] MEDS: Vancomycin 750mg/NS 150 ml 150 ML IVPB SCH ×3 (00:11→22:56)
[2018-05-02] MEDS: Piperacill/Tazo 3.375gm in Dex 3.375 GM/50 ML BAG IVPB SCH ×3 (06:01→22:09)
--- NOTE | 2018-05-02 08:09 | HP ---
CHIEF COMPLAINT: Fever x4 days and poor intake for four days. HISTORY OF PRESENT ILLNESS: This is an 83-year-old male, well known to me with Alzheimer's, obstructive uropathy, hypertension who is currently in a subacute rehab facility in [place] who is mostly wheelchair bound, and he is dependent on rehab for activities of daily living. He is mostly wheelchair bound. The patient is compliant with diet and medication. The patient was recently seen by me. For the last four days, he has been having difficulty staying awake. He feels weak, drowsy, lethargic along with fever, and he was brought into emergency room. Poor oral intake. Getting more and more dehydrated. The patient is a poor historian but as per record, there is no history of dysuria or hematuria. There is a history of frequency of urination and incontinence. He has nausea. No vomiting. He has generalized aches, pains, body aches, headache, fever, and chills. There is no history of back pain, hip pain, leg pain. He denies any tingling, numbness, paresthesias of extremity. CURRENT MEDICATIONS: At home, the patient is on magnesium hydroxide, Cipro, nystatin, Silvadene cream, Flomax, Tylenol, Microzide, Namenda, Cozaar, aspirin, Ultram, Crestor. SOCIAL HISTORY: Nonsmoker, nonEtOH user. PAST MEDICAL HISTORY: Obstructive uropathy. ASSESSMENT: 1. Gram-positive septicemia. The patient's blood cultures are positive for gram-positive cocci. 2. Dehydration. 3. Obstructive uropathy. 4. Hypertension. 5. Dementia. PLAN: Septic workup. Continue antibiotics. Monitor the patient. Esau Jacobs MD
[2018-05-02 10:55] LABS: BASO # 0.1 K/uL (0.0-0.2); EOS # 0.1 K/uL (0.0-0.7); HEMOGLOBIN 11.8 g/dL (12.0-18.0); MONO # 1.3 K/uL (0.0-0.8)
[2018-05-02] MEDS: Enoxaparin 30 mg Syringe SC SCH (10:57)
[2018-05-02 11:20] LABS: BASO % 0.7 % (0.0-2.0); EOS % 0.7 % (0.0-4.0); LYMPH # 2.7 K/uL (1.0-4.3); LYMPH % 22.5 % (20.0-40.0); MEAN CORPUSCULAR HGB CONC 36.1 g/dL (33.0-37.0); MEAN PLATELET VOLUME 8.1 fL (7.2-11.7); MONO % 10.7 % (0.0-10.0); NEUT # 7.7 K/uL (1.8-7.0); NEUT % 65.4 % (50.0-75.0); NRBC % 0.3 % (0.0-2.0); RBC 3.82 Mil/uL (4.40-5.90); RED CELL DISTRIBUTION WIDTH 14.3 % (11.5-14.5); WHITE BLOOD COUNT 11.8 K/uL (4.8-10.8)
[2018-05-02 11:21] LABS: BLOOD UREA NITROGEN 29 mg/dL (9-20); CALCIUM 9.1 mg/dl (8.6-10.4); GFR NON-AFRICAN AMERICAN > 60
[2018-05-02 11:24] LABS: MEAN CELL VOLUME 88.5 fL (80.0-94.0)
[2018-05-02] MEDS: Dextrose 5%/0.45% NS 1,000 ML IV SCH ×2 (11:50→16:27)
--- NOTE | 2018-05-02 12:55 | CT ---
Date of service: 05/02/2018 PROCEDURE: CT HEAD WITHOUT CONTRAST. HISTORY: lathargic, ams COMPARISON: None available. TECHNIQUE: Axial computed tomography images were obtained through the head/brain without intravenous contrast. Radiation dose: Total exam DLP = 1521.72 mGy-cm. This CT exam was performed using one or more of the following dose reduction techniques: Automated exposure control, adjustment of the mA and/or kV according to patient size, and/or use of iterative reconstruction technique. FINDINGS: HEMORRHAGE: No intracranial hemorrhage. BRAIN: Diffuse moderate atrophy with prominence of the ventricles and sulci noted. No mass effect or edema. Dense intracranial atherosclerosis. Patchy hypodense regions involving the medial right frontal vertex; finding may reflect chronic ischemia however acute/subacute component is not excluded. VENTRICLES: No hydrocephalus. CALVARIUM: Unremarkable. PARANASAL SINUSES: Unremarkable as visualized. No significant inflammatory changes. MASTOID AIR CELLS: Unremarkable as visualized. No inflammatory changes. OTHER FINDINGS: None. IMPRESSION: Patchy hypodense regions involving the medial right frontal vertex; finding may reflect chronic ischemic infarction however acute/subacute component is not excluded.Please note that MRI with diffusion imaging is more sensitive in the detection of acute ischemic event. Moderate atrophy. Nonspecific white matter changes. Findings discussed with the patient's RN Ariadna on 05/02/18 at 12:52 p.m.
--- NOTE | 2018-05-02 17:27 | PCM.URO ---
Urology Progress Note - Objective Lab Studies: Reviewed (will discuss plans thanks for gu consult no intervention for now) Lab Results Last 24 Hours: Laboratory Results - last 24 hr 05/02/18 05/02/18 05/02/18 10:48 10:48 10:48 WBC 11.8 H RBC 3.82 L Hgb 11.8 L Hct 32.8 L MCV 88.5 D MCH 31.0 MCHC 36.1 RDW 14.3 Plt Count 221 MPV 8.1 Neut % (Auto) 65.4 Lymph % (Auto) 22.5 [place] % (Auto) 10.7 H Eos % (Auto) 0.7 Baso % (Auto) 0.7 Neut # (Auto) 7.7 H Lymph # (Auto) 2.7 [place] # (Auto) 1.3 H Eos # (Auto) 0.1 Baso # (Auto) 0.1 Sodium 140 Potassium 3.3 L Chloride 105 Carbon Dioxide 26 Anion Gap 12 BUN 29 H Creatinine 0.7 L Est GFR ( Amer) > 60 Est GFR (Non-Af Amer) > 60 Random Glucose 132 H Calcium 9.1 Ammonia 20 Intake & Output: Intake & Output 05/01/18 05/02/18 05/02/18 18:59 06:59 18:59 Intake Total 0 570 Output Total 400 Balance -400 570 Intake: Intake, IV Amount 570 Left Hand 570 Oral 0 Output: Urine 400 Urine, Voided 400 Other: # Bowel Movements 0 1 Vital Signs: Vital Signs - 24 hr 05/01/18 05/02/18 05/02/18 23:50 01:00 07:34 Temperature 97.6 F Pulse Rate 71 83 66 Respiratory 20 Rate Blood Pressure 121/62 O2 Sat by Pulse 98 Oximetry 05/02/18 05/02/18 05/02/18 08:10 12:00 16:06 Temperature 98.0 F 983 F H Pulse Rate 75 66 77 Respiratory 20 20 Rate Blood Pressure 127/65 156/71 H O2 Sat by Pulse 97 98 Oximetry
--- NOTE | 2018-05-02 21:56 | CP.PCM.PN ---
Subjective - Subjective Subjective: dictated Objective - Vital Signs/Intake and Output Vital Signs (last 24 hours): Temp Pulse Resp BP Pulse Ox 983 F H 77 20 156/71 H 98 05/02/18 16:06 05/02/18 16:06 05/02/18 16:06 05/02/18 16:06 05/02/18 16:06 Intake and Output: 05/02/18 05/03/18 18:59 06:59 Intake Total 570 Balance 570 - Medications Medications: Current Medications Acetaminophen (Tylenol 325mg Tab) 650 mg PO Q6 PRN PRN Reason: Pain, moderate (4-7) Aspirin (Aspirin Chewable) 81 mg PO DAILY [facility] Last Admin: 05/02/18 10:48 Dose: Not Given Clopidogrel Bisulfate (Plavix) 75 mg PO DAILY [facility] Last Admin: 05/02/18 14:15 Dose: Not Given Enoxaparin Sodium (Lovenox) 30 mg SC DAILY [facility] Last Admin: 05/02/18 10:57 Dose: 30 mg Hydrochlorothiazide (Microzide) 12.5 mg PO BID [facility] Last Admin: 05/02/18 17:10 Dose: 12.5 mg Piperacillin Sod/Tazobactam Sod (Zosyn 3.375 Gm Iv Premix) 3.375 gm in 50 mls @ 100 mls/hr IVPB Q8 [facility]; Protocol Last Admin: 05/02/18 15:06 Dose: Not Given Dextrose/Sodium Chloride (Dextrose 5%/0.45% Ns 1000 Ml) 1,000 mls @ 70 mls/hr IV .[id number] [facility] Last Admin: 05/02/18 16:27 Dose: 70 mls/hr Vancomycin HCl (Vancocin 750mg/Ns 150 Ml) 150 mls @ 125 mls/hr IVPB Q12 [facility]; Protocol Last Admin: 05/02/18 10:57 Dose: 125 mls/hr Losartan Potassium (Cozaar) 100 mg PO DAILY [facility] Last Admin: 05/02/18 10:48 Dose: Not Given Magnesium Hydroxide (Milk Of Magnesia) 30 ml PO Q24H [facility] Last Admin: 05/01/18 21:44 Dose: 30 ml Memantine (Namenda) 5 mg PO DAILY [facility] Last Admin: 05/02/18 10:48 Dose: Not Given Nystatin (Nystop Topical Powder) 0 applic TOP TID [facility] Last Admin: 05/02/18 17:10 Dose: 1 applic Rosuvastatin Calcium (Crestor) 5 mg PO HS [facility] Last Admin: 05/01/18 21:44 Dose: 5 mg Tamsulosin HCl (Flomax) 0.4 mg PO BID [facility] Last Admin: 05/02/18 17:10 Dose: 0.4 mg - Labs Labs: 05/02/18 10:48 05/02/18 10:48
[2018-05-02] MEDS: Magnesium Hydroxide Susp 30 ml UD PO SCH (22:04)
--- NOTE | 2018-05-02 22:35 | CARD ---
APPROVED REPORT Date of service: 05/02/2018 EXAM: Two-dimensional and M-mode echocardiogram with Doppler and color Doppler. Other Information Quality : TDSRhythm : INDICATION CVA/TIA Fever RISK FACTORS Hypertension 2D DIMENSIONS IVSd1.5 (0.7-1.1cm)LVDd4.1 (3.9-5.9cm) LVOT Diameter2.0 (1.8-2.4cm)PWd1.3 (0.7-1.1cm) LA Inpijv31 (18-58mL)LVDs2.5 (2.5-4.0cm) FS (%) 39.9 %LVEF (%)71.0 (>50%) LVEF (Garza's)60.98 % M-Mode DIMENSIONS Left Atrium (MM)4.74 (2.5-4.0cm)IVSd1.37 (0.7-1.1cm) Aortic Root4.23 (2.2-3.7cm)LVDd4.73 (4.0-5.6cm) Aortic Cusp Exc.2.48 (1.5-2.0cm)PWd1.24 (0.7-1.1cm) FS (%) 32 %LVDs3.22 (2.0-3.8cm) LVEF (%)60 (>50%) Aortic Valve AoV Peak Ofrviyqn084.7cm/sAoV VTI49.1cmAO Peak GR.32mmHg LVOT Peak Wbiwyrnt138.9cm/sLVOT VTI21.08cmAO Mean GR.20mmHg POORNIMA (VMAX)1.36la7YSY (VTI)1.98ox9GX P 1/2 [id number] Mitral Valve MV E Rywaxdoj817.7cm/sE/A ratio0.0 TDI Lateral E' Peak V12.00cm/sMedial E' Peak V8.61cm/sE/Lateral E'11.6 E/Medial E'16.2 Tricuspid Valve TR Peak Syseenzc984lh/sTR Peak Gr.07wlEiTWXY31axVs LEFT VENTRICLE The left ventricle is normal size. There is mild concentric left ventricular hypertrophy. Left ventricle systolic function is normal. The Ejection Fraction is 60-65%. There is normal LV segmental wall motion. The left ventricular diastolic function is normal. No left ventricle thrombus noted on this study. RIGHT VENTRICLE The right ventricle is normal size. The right ventricular systolic function is normal. ATRIA The left atrium is moderately dilated. The interatrial septum is intact with no evidence for an atrial septal defect. AORTIC VALVE The aortic valve is moderately to severely calcified. The aortic valve is trileaflet. There is mild to moderate aortic regurgitation. There is moderate valvular aortic stenosis. Calculated aortic valve area is 1.1 cm2 with maximum pressure gradient of 32 mmHg and mean pressure gradient of 20 mmHg. Cannot exclude aortic valvular vegetation. MITRAL VALVE Mitral annular calcification is mild. There is no evidence of mitral valve prolapse. There is no mitral valve stenosis. Mitral regurgitation is mild. TRICUSPID VALVE The tricuspid valve is normal in structure. There is mild tricuspid regurgitation. Right ventricular systolic pressure is estimated at 30-40 mmHg. There is no pulmonary hypertension. PULMONIC VALVE The pulmonic valve is not well visualized. There is no pulmonic valvular regurgitation. GREAT VESSELS There is mildmild aortic root dilatation. The IVC is normal in size and collapses >50% with inspiration. PERICARDIAL EFFUSION There is no pericardial effusion. There is no pleural effusion. <Conclusion> There is mild concentric left ventricular hypertrophy. Left ventricle systolic function is normal. The Ejection Fraction is 60-65%. The left ventricular diastolic function is normal. The right ventricle is normal size. The right ventricular systolic function is normal. The left atrium is moderately dilated. There is mild to moderate aortic regurgitation. There is moderate valvular aortic stenosis. Calculated aortic valve area is 1.1 cm2 with maximum pressure gradient of 32 mmHg and mean pressure gradient of 20 mmHg. Mitral regurgitation is mild. There is mild tricuspid regurgitation.
[2018-05-03] MEDS: Piperacill/Tazo 3.375gm in Dex 3.375 GM/50 ML BAG IVPB SCH ×3 (05:17→22:13)
--- NOTE | 2018-05-03 07:01 | PN ---
DATE: 05/02/2018 SUBJECTIVE: The patient remains drowsy and lethargic. The patient is afebrile. He is arousable. He opens eyes. He does not respond by answering questions. PHYSICAL EXAMINATION: VITAL SIGNS: Blood pressure 156/71, pulse 77, respiratory rate 20, temperature 98.3. LUNGS: Clear. CARDIOVASCULAR SYSTEM: S1 and S2, regular. ABDOMEN: Soft. ASSESSMENT: 1. Toxic metabolic encephalopathy. 2. Dehydration. 3. Hypertension. 4. Urinary tract infection, obstructive uropathy. PLAN: Continue antibiotics, cultures. The patient's blood cultures are positive for gram-positive cocci, pending sensitivity. In the meantime, we will continue his vancomycin. Monitor the patient. Esau Jacobs MD
--- NOTE | 2018-05-03 07:01 | CP.PCM.CON ---
History of Present Illness - History of Present Illness History of Present Illness: CONSULT DICTATED B/L CEREBRAL DYSFUNCTION LEFT HEMIPLEGIC CAT RGHT HIGH FRONTAL LUCENCY MASS /STROKE ?? POST ICTAL Vs ICTAL TOXIC/METABOLIC ENCEPHALOPATHY MRI/EEG/CAROTID/ECHO/LABS ASA/PLAVIX HYDRATION APPROPRIATE ANTIIBIOTIC Past Patient History - Past Medical History & Family History Past Medical History?: Yes - Past Social History Smoking Status: Never Smoked - CARDIAC Hx Hypertension: Yes - PULMONARY Hx Chronic Obstructive Pulmonary Disease (COPD): Yes - NEUROLOGICAL Hx Neurological Disorder: Yes Hx Alzheimer's Disease: Yes Hx Dementia: Yes - HEENT Hx HEENT Problems: No - RENAL Hx Chronic Kidney Disease: No - ENDOCRINE/METABOLIC Hx Endocrine Disorders: No - HEMATOLOGICAL/ONCOLOGICAL Hx Blood Disorders: No - INTEGUMENTARY Hx Dermatological Problems: No - MUSCULOSKELETAL/RHEUMATOLOGICAL Hx Arthritis: Yes - GASTROINTESTINAL Hx Gastrointestinal Disorders: No - GENITOURINARY/GYNECOLOGICAL Hx Genitourinary Disorders: Yes Hx Prostate Problems: Yes (enlarged prostate) Hx Urinary Tract Infection: Yes - PSYCHIATRIC Hx Psychophysiologic Disorder: No Hx Substance Use: No - SURGICAL HISTORY Hx Surgeries: No - ANESTHESIA Hx Anesthesia: No Hx Anesthesia Reactions: No Hx Malignant Hyperthermia: No Has any member of the family had a problem w/ anesthesia?: No Meds Allergies/Adverse Reactions: Allergies Allergy/AdvReac Type Severity Reaction Status Date / Time No Known Allergies Allergy Verified 02/27/17 14:40 - Medications Medications: Current Medications Acetaminophen (Tylenol 325mg Tab) 650 mg PO Q6 PRN PRN Reason: Pain, moderate (4-7) Aspirin (Aspirin Chewable) 81 mg PO DAILY [facility] Last Admin: 05/02/18 10:48 Dose: Not Given Clopidogrel Bisulfate (Plavix) 75 mg PO DAILY [facility] Last Admin: 05/02/18 14:15 Dose: Not Given Enoxaparin Sodium (Lovenox) 30 mg SC DAILY [facility] Last Admin: 05/02/18 10:57 Dose: 30 mg Hydrochlorothiazide (Microzide) 12.5 mg PO BID [facility] Last Admin: 05/02/18 17:10 Dose: 12.5 mg Piperacillin Sod/Tazobactam Sod (Zosyn 3.375 Gm Iv Premix) 3.375 gm in 50 mls @ 100 mls/hr IVPB Q8 [facility]; Protocol Last Admin: 05/03/18 05:17 Dose: 100 mls/hr Dextrose/Sodium Chloride (Dextrose 5%/0.45% Ns 1000 Ml) 1,000 mls @ 70 mls/hr IV .[id number] [facility] Last Admin: 05/02/18 16:27 Dose: 70 mls/hr Vancomycin HCl (Vancocin 750mg/Ns 150 Ml) 150 mls @ 125 mls/hr IVPB Q12 [facility]; Protocol Last Admin: 05/02/18 22:56 Dose: 125 mls/hr Losartan Potassium (Cozaar) 100 mg PO DAILY [facility] Last Admin: 05/02/18 10:48 Dose: Not Given Magnesium Hydroxide (Milk Of Magnesia) 30 ml PO Q24H [facility] Last Admin: 05/02/18 22:04 Dose: Not Given Memantine (Namenda) 5 mg PO DAILY [facility] Last Admin: 05/02/18 10:48 Dose: Not Given Nystatin (Nystop Topical Powder) 0 applic TOP TID [facility] Last Admin: 05/02/18 17:10 Dose: 1 applic Rosuvastatin Calcium (Crestor) 5 mg PO HS [facility] Last Admin: 05/02/18 22:08 Dose: 5 mg Tamsulosin HCl (Flomax) 0.4 mg PO BID [facility] Last Admin: 05/02/18 17:10 Dose: 0.4 mg Results - Vital Signs Recent Vital Signs: Last Vital Signs Temp 98.6 F 05/03/18 00:00 Pulse 89 05/03/18 00:10 Resp 20 05/03/18 00:00 BP 140/78 05/03/18 00:00 Pulse Ox 99 05/03/18 00:00 - Labs Result Diagrams: 05/02/18 10:48 05/02/18 10:48 Labs: Laboratory Results - last 24 hr 05/02/18 05/02/18 05/02/18 10:48 10:48 10:48 WBC 11.8 H RBC 3.82 L Hgb 11.8 L Hct 32.8 L MCV 88.5 D MCH 31.0 MCHC 36.1 RDW 14.3 Plt Count 221 MPV 8.1 Neut % (Auto) 65.4 Lymph % (Auto) 22.5 [place] % (Auto) 10.7 H Eos % (Auto) 0.7 Baso % (Auto) 0.7 Neut # (Auto) 7.7 H Lymph # (Auto) 2.7 [place] # (Auto) 1.3 H Eos # (Auto) 0.1 Baso # (Auto) 0.1 Sodium 140 Potassium 3.3 L Chloride 105 Carbon Dioxide 26 Anion Gap 12 BUN 29 H Creatinine 0.7 L Est GFR ( Amer) > 60 Est GFR (Non-Af Amer) > 60 Random Glucose 132 H Calcium 9.1 Ammonia 20
[2018-05-03 09:31] LABS: BLOOD UREA NITROGEN 24 mg/dL (9-20); CALCIUM 9.1 mg/dl (8.6-10.4); GFR NON-AFRICAN AMERICAN > 60; HDL CHOLESTEROL 19 mg/dL (30-70)
[2018-05-03 09:37] LABS: LDL CHOLESTEROL 49 mg/dL (0-129)
[2018-05-03] MEDS: Dextrose 5%/0.45% NS 1,000 ML IV SCH ×2 (10:34→20:29)
[2018-05-03] MEDS: Vancomycin 750mg/NS 150 ml 150 ML IVPB SCH ×2 (10:35→22:14)
[2018-05-03] MEDS: Enoxaparin 30 mg Syringe SC SCH (10:36)
--- NOTE | 2018-05-03 11:48 | VASCLAB ---
Date of service: 05/02/2018 PROCEDURE: Carotid Duplex Exam. HISTORY: Altered Mental Status COMPARISON: None available. TECHNIQUE: Grayscale and duplex Doppler evaluation of the cervical carotid and vertebral arteries were performed. The common carotid, carotid bifurcations and cervical Internal Carotid Artery (ICA) and proximal External Carotid Artery (ECA) were evaluated. The vertebral arteries were evaluated for gross patency and flow direction. Report prepared by JAYSON Barkley FINDINGS: RIGHT CAROTID ARTERIES: 1. Common Carotid Artery: Heterogeneous plaque formation of the right common carotid artery. Maximum Peak Systolic velocity: 126 cm/sec: End-diastolic velocity 12 cm/sec. 2. Carotid Bifurcation: Heterogeneous plaque formation. Maximum Peak Systolic velocity: 50 cm/sec: End-diastolic velocity 0 cm/sec. 3. Internal Carotid Artery: Plaque description: Heterogeneous 3.1. Proximal Segment: Peak systolic velocity 52 cm/sec: End-diastolic velocity 9 cm/sec - % stenosis 0-15% 3.2. Middle Segment: Peak systolic velocity 63 cm/sec: End-diastolic velocity 9 cm/sec - % stenosis 0-15% 3.3. Distal Segment: Peak systolic velocity 32 cm/sec: End-diastolic velocity 6 cm/sec - % stenosis 0-15% 4. External Carotid Artery: No significant focal plaque formation. Peak systolic velocity 85 cm/sec 5. ICA/CCA Ratio: 0.7 LEFT CAROTID ARTERIES: 1. Common Carotid Artery: No significant focal plaque formation of the left common carotid artery. Maximum Peak Systolic velocity: 82 cm/sec: End-diastolic velocity 0 cm/sec. 2. Carotid Bifurcation: plaque formation. Maximum Peak Systolic velocity: 51 cm/sec: End-diastolic velocity 0 cm/sec. 3. Internal Carotid Artery: Plaque description: Minimal calcific 3.1. Proximal Segment: Peak systolic velocity 63 cm/sec: End-diastolic velocity 10 cm/sec - % stenosis 0-15% 3.2. Middle Segment: Peak systolic velocity 51 cm/sec: End-diastolic velocity 8 cm/sec - % stenosis 0-15% 3.3. Distal Segment: Peak systolic velocity 66 cm/sec: End-diastolic velocity 19 cm/sec - % stenosis 0-15% 4. External Carotid Artery: No significant focal plaque formation. Peak systolic velocity 106 cm/sec 5. ICA/CCA Ratio: 1.2 VERTEBRAL ARTERIES: 1. Right Vertebral Artery: Unable to visualize. 2. Left Vertebral Artery: The left vertebral artery flow direction is antegrade. OTHER FINDINGS: None. IMPRESSION: RIGHT: Duplex scan does not suggest hemodynamically significant stenosis of the right extracranial carotid arteries. LEFT: Duplex scan does not suggest hemodynamically significant stenosis of the left extracranial carotid arteries.
--- NOTE | 2018-05-03 17:38 | CON ---
DATE: 05/03/2018 ATTENDING PHYSICIAN: Esau Jacobs MD REASON FOR CONSULTATION: Change in mental status and weakness. LOCATION: The patient is in room #556, bed A. CHIEF COMPLAINT: The patient was brought in from the senior care abnormal CAT scan and from neurological point of view, I was called in to evaluate him for further management. HISTORY OF PRESENT ILLNESS: Mr. Fredrick Dennison is an 83-year-old moderately built senior care resident being brought into [facility] with a history of dizziness, fever, and weakness. No obvious history of fall, involuntary movements, or loss of consciousness from the documentation. The patient was recently discharged from [facility] last year for her urinary tract infection. No further history is available at this time. PAST MEDICAL HISTORY: Significant for dementia, arthritis, COPD, and hypertension. SOCIAL HISTORY: No history of smoking or alcohol use as per the documentation. ALLERGIES: NO KNOWN ALLERGIES. REVIEW OF SYSTEMS: The 12-point system being reviewed. From neuro, no change in mental status, and weakness with abnormal CAT scan. MEDICATIONS: Aspirin, Cozaar, Crestor, Flomax, Lovenox, Microzide, magnesium supplement, Namenda, statin, Tylenol, vancomycin, piperacillin. PHYSICAL EXAMINATION: VITAL SIGNS: Blood pressure 140/78, mean artery pressure of 98, respiratory rate 18-20 per minute, pulse rate 89 and regular, respiratory rate 16, temperature 98.3 degrees Fahrenheit. HEENT: Eyes are closed. Spontaneous movement noted on the right side. NECK: Supple. No meningismus. No Brudzinski sign or Kernig sign noted. HEART: Heart sounds tachycardic. EXTREMITIES: Both legs are externally rotated. NEUROLOGIC: The patient is not arousable on calling his first as well as the last name. On noxious stimuli, some moaning noted. Spontaneous movement of right side noted purposefully to compare with the left side. No movement noted at all during my examination on his left side. Speech: Only mumbling. No output of speech noted. Eyes are closed. On forcefully opening the eyelid, a little bit of spasm. Some rolling conjugate gaze noted. Good corneal reflex. Pupils could not be assessed at this time. No facial asymmetry. There is gag, I am unable to establish at present. Mouth seems to be dry. Motor examination: Left hemiplegia. Both legs are externally rotated. Deep tendon reflexes areflexic. Plantars are upgoing on both sides. Sensory examination: Noxious stimuli. Responds to pain on his right side. Left side, some moaning on pain. Coordination: Gait deferred at this time. IMPRESSION: As per neurological examination, Ms. Fredrick Dennison has been presenting with global cerebral dysfunction superimposed with left hemiplegia, probably secondary to right cerebral dysfunction consistent with a CAT scan finding of new vascular versus space-occupying lesion at high sagittal right frontoparietal region. WORKUP: CT of the head reviewed by me as documented above. EKG: Normal sinus rhythm. LABORATORY DATA: Blood workup: WBC 11.8, hemoglobin 11.8, hematocrit 32.8, platelets 221. ABG in room air was pH level 7.49, pO2 was 46, pCO2 was 33, bicarbonate 26.1, with saturations of 89.1% at the time of admission. No followup blood gas was done. Chemistries: Sodium 140, potassium 3.3 on potassium supplement, chloride 105, bicarbonate 26, BUN 29, creatinine 0.6, GFR more than 60, glucose 132, calcium 9.1. Urinalysis shows 2+ leukocyte esterase, wbc's 12, few bacteria noted. RECOMMENDATIONS: 1. Proper hydration with antibiotics. 2. No stroke prophylaxis. Plavix is added in addition to aspirin because of respiratory failure. 3. Blood workup as per the order. 4. MRI of the brain to further assess her radiological evidence of CAT scan finding. 5. EEG to rule out seizures. 6. Echocardiogram to assess the cardiac status for his neurological presentation. 7. Carotid Doppler to assess the stenosis. The patient should be hydrated well. Fall precaution and EEG to be done to rule out nonconvulsive seizures. The patient should follow up with his seizures for evaluation and keep him with aspiration precaution. Matthew Rendon MD JR
--- NOTE | 2018-05-03 17:51 | CT ---
Date of service: 05/03/2018 PROCEDURE: CT HEAD WITHOUT CONTRAST. HISTORY: Repeat exam COMPARISON: None available. TECHNIQUE: Axial computed tomography images were obtained through the head/brain without intravenous contrast. Radiation dose: Total exam DLP = 1521.72 mGy-cm. This CT exam was performed using one or more of the following dose reduction techniques: Automated exposure control, adjustment of the mA and/or kV according to patient size, and/or use of iterative reconstruction technique. FINDINGS: HEMORRHAGE: No intracranial hemorrhage. BRAIN: Diffuse cerebral atrophy and limited chronic microangiopathy are reiterated. However, there is a geographic lucency identified at the medial right frontal lobe near the vertex with limited local mass-effect suspicious for possible infarct in evolution and a branch of the right DOMI distribution. Follow-up MRI is advised for added characterization of this finding. No additional pertinent parenchymal findings VENTRICLES: Unremarkable. No hydrocephalus. CALVARIUM: Unremarkable. PARANASAL SINUSES: Unremarkable as visualized. No significant inflammatory changes. MASTOID AIR CELLS: Unremarkable as visualized. No inflammatory changes. OTHER FINDINGS: None. 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 There is a minimal local mass effect related to the site of likely infarction. Follow-up MRI recommended without contrast when feasible. Reiterated age related neuro degenerative findings. Findings discussed with Dr. Rendon with written down and read back verification 05/03/2018 at 5:45 p.m..
--- NOTE | 2018-05-03 19:22 | CP.PCM.CON ---
History of Present Illness - History of Present Illness History of Present Illness: INFECTIOUS DISEASE CONSULT; HPI; 83-year-old male who was brought in to [facility] on 04/30/18 by ambulance from alf for increasing fever and lethargy. As noted by the nursing staff patient was eating very poorly. Patient also was noted to be in A. fib with temperature of 101. A CT scan of the head on admission without contrast showed patchy hypodense region medial right frontal vertex ? Chronic ischemic changes-moderate atrophy and nonspecific white matter changes. Neurology was involved and presently on the case. Patient was admitted in March 2018 at [facility] for evaluation of worsening back pain for about past 3 months and UTI. Patient was found to have enlarged prostate and started on Flomax and voiding well as per chart. Infectious disease consult requested by PMD as blood cultures today reported as strep. viridans. History obtained mainly from the chart/and nurse practitioner MS MOTA. Patient presently sedated with Ativan for MRI of the head as reported today. PATIENT WAS PLACED ON iv ZOSYN 3.375 MILLIGRAMS iv PIGGYBAC EVERY 8 HOURLY ON 04/30/18 AND iv VANCOMYCIN 750 MILLIGRAMS IVPB EVERY 12 HOURLY SINCE 05/01/18.FOR PROBABLE UROSEPSIS/AND BACTEREMIA PMH: Alzheimer's Disease, Arthritis (back), COPD, Dementia, HTN Surgical History: No Surg Hx Family History: States: No Known Family Hx - Social History Hx Alcohol Use: No Hx Substance Use: No - Immunization History Hx Tetanus Toxoid Vaccination: No Hx Influenza Vaccination: Yes (2016) Hx Pneumococcal Vaccination: Yes (2016) Review Of Systems PER CHART. Except As Marked, All Systems Reviewed And Found Negative. Constitutional: Positive for: Fever, Other (lethargy). 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 aS PER NEURO. Past Patient History - Past Medical History & Family History Past Medical History?: Yes - Past Social History Smoking Status: Never Smoked - CARDIAC Hx Hypertension: Yes - PULMONARY Hx Chronic Obstructive Pulmonary Disease (COPD): Yes - NEUROLOGICAL Hx Neurological Disorder: Yes Hx Alzheimer's Disease: Yes Hx Dementia: Yes - HEENT Hx HEENT Problems: No - RENAL Hx Chronic Kidney Disease: No - ENDOCRINE/METABOLIC Hx Endocrine Disorders: No - HEMATOLOGICAL/ONCOLOGICAL Hx Blood Disorders: No - INTEGUMENTARY Hx Dermatological Problems: No - MUSCULOSKELETAL/RHEUMATOLOGICAL Hx Arthritis: Yes - GASTROINTESTINAL Hx Gastrointestinal Disorders: No - GENITOURINARY/GYNECOLOGICAL Hx Genitourinary Disorders: Yes Hx Prostate Problems: Yes (enlarged prostate) Hx Urinary Tract Infection: Yes - PSYCHIATRIC Hx Psychophysiologic Disorder: No Hx Substance Use: No - SURGICAL HISTORY Hx Surgeries: No - ANESTHESIA Hx Anesthesia: No Hx Anesthesia Reactions: No Hx Malignant Hyperthermia: No Has any member of the family had a problem w/ anesthesia?: No Meds Allergies/Adverse Reactions: Allergies Allergy/AdvReac Type Severity Reaction Status Date / Time No Known Allergies Allergy Verified 02/27/17 14:40 - Medications Medications: Current Medications Acetaminophen (Tylenol 325mg Tab) 650 mg PO Q6 PRN PRN Reason: Pain, moderate (4-7) Aspirin (Aspirin Chewable) 81 mg PO DAILY [facility] Last Admin: 05/03/18 10:35 Dose: 81 mg Clopidogrel Bisulfate (Plavix) 75 mg PO DAILY [facility] Last Admin: 05/03/18 10:35 Dose: 75 mg Enoxaparin Sodium (Lovenox) 30 mg SC DAILY [facility] Last Admin: 05/03/18 10:36 Dose: 30 mg Hydrochlorothiazide (Microzide) 12.5 mg PO BID [facility] Last Admin: 05/03/18 18:51 Dose: Not Given Piperacillin Sod/Tazobactam Sod (Zosyn 3.375 Gm Iv Premix) 3.375 gm in 50 mls @ 100 mls/hr IVPB Q8 [facility]; Protocol Last Admin: 05/03/18 14:03 Dose: 100 mls/hr Dextrose/Sodium Chloride (Dextrose 5%/0.45% Ns 1000 Ml) 1,000 mls @ 70 mls/hr IV .[id number] [facility] Last Admin: 05/03/18 10:34 Dose: 70 mls/hr Vancomycin HCl (Vancocin 750mg/Ns 150 Ml) 150 mls @ 125 mls/hr IVPB Q12 [facility]; Protocol Last Admin: 05/03/18 10:35 Dose: 125 mls/hr Losartan Potassium (Cozaar) 100 mg PO DAILY [facility] Last Admin: 05/03/18 10:35 Dose: 100 mg Magnesium Hydroxide (Milk Of Magnesia) 30 ml PO Q24H [facility] Last Admin: 05/02/18 22:04 Dose: Not Given Memantine (Namenda) 5 mg PO DAILY [facility] Last Admin: 05/03/18 10:35 Dose: 5 mg Nystatin (Nystop Topical Powder) 0 applic TOP TID [facility] Last Admin: 05/03/18 13:59 Dose: 1 applic Potassium Chloride (Potassium Chloride Oral Soln) 20 meq PO DAILY [facility] Rosuvastatin Calcium (Crestor) 5 mg PO HS [facility] Last Admin: 05/02/18 22:08 Dose: 5 mg Tamsulosin HCl (Flomax) 0.4 mg PO BID [facility] Last Admin: 05/03/18 18:51 Dose: Not Given Physical Exam - Constitutional Appears: No Acute Distress Additional comments: DROWSY, YAWNING. sEDATED-RECEIVED aTIVAN FOR mri OF THE HEAD. - Head Exam Head Exam: NORMAL INSPECTION - Eye Exam Eye Exam: PERRL, Scleral icterus - ENT Exam ENT Exam: Mucous Membranes Dry - Neck Exam Neck exam: Positive for: Normal Inspection. Negative for: Meningismus - Respiratory Exam Respiratory Exam: Decreased Breath Sounds - Cardiovascular Exam Cardiovascular Exam: Tachycardia, Irregular Rhythm, +S1, +S2 - GI/Abdominal Exam GI & Abdominal Exam: Normal Bowel Sounds, Soft. absent: Organomegaly, Tenderness - Extremities Exam Extremities exam: Positive for: pedal edema (1+), pedal pulses present. Negative for: calf tenderness - Neurological Exam Neurological exam: Altered - Skin Skin Exam: Normal Color, Warm Results - Vital Signs Recent Vital Signs: Last Vital Signs Temp 98.0 F 05/03/18 15:00 Pulse 77 05/03/18 16:39 Resp 20 05/03/18 15:00 BP 114/62 05/03/18 15:00 Pulse Ox 98 05/03/18 15:00 - Labs Result Diagrams: 05/04/18 17:10 05/04/18 06:44 Labs: Laboratory Results - last 24 hr 05/03/18 05/03/18 08:12 09:04 Sodium 142 Potassium 3.4 L Chloride 107 Carbon Dioxide 24 Anion Gap 14 BUN 24 H Creatinine 0.8 Est GFR ( Amer) > 60 Est GFR (Non-Af Amer) > 60 Random Glucose 128 H Calcium 9.1 Magnesium 1.6 Ammonia 22 Triglycerides 101 Cholesterol 87 LDL Cholesterol Direct 49 HDL Cholesterol 19 L Assessment & Plan (1) Streptococcus viridans infection Assessment and Plan: CONTINUE iv ZOSYN 3.375 iv PIGGYBACK EVERY 8 HOURLY. 04/30/18 CONTINUE iv VANCOMYCIN 750 MG EVERY 12 HOURLY 05/01/18. F/U vANCO TROUGH PRIOR TO THE FOURTH DOSE-AND KEEP BETWEEN 10 AND 20. ESR CRP C2,C4.CH50. RHEUMATOID FACTOR. ASO TITRE. IRINA R/O SBE CT LUMBOSACRAL SPINE R/O DISCITIS VS EPIDURAL ABSCESS. PATIENT UNDERGOING NEURO WORKUP PER NEUROLOGY RULE OUT CVA . Status: Acute (2) Fever Status: Acute (3) Leukocytosis Status: Acute (4) Low back pain Assessment and Plan: history of chronic low back pain. X-ray lumbosacral spine 04/08/18 -ve fracture Advanced multilevel degenerative disc disease worse at L5-S1. Status: Acute (5) Alzheimer disease Status: Chronic (6) Hypertension Status: Chronic (7) Enlarged prostate Assessment and Plan: psa 04/08/18 5.0 SEEN BY UROLOGY, THEN. SON REFUSED THE PROCEDURE ? SUGGESTED BY UROLOGY. CHECK PSA Status: Acute
[2018-05-03] MEDS: Magnesium Hydroxide Susp 30 ml UD PO SCH (21:18)
--- NOTE | 2018-05-03 23:32 | CP.PCM.PN ---
Objective - Vital Signs/Intake and Output Vital Signs (last 24 hours): Temp Pulse Resp BP Pulse Ox 98.0 F 72 20 114/62 98 05/03/18 15:00 05/03/18 20:33 05/03/18 15:00 05/03/18 15:00 05/03/18 15:00 Intake and Output: 05/03/18 05/04/18 18:59 06:59 Intake Total 760 Output Total 200 Balance 760 -200 - Medications Medications: Current Medications Acetaminophen (Tylenol 325mg Tab) 650 mg PO Q6 PRN PRN Reason: Pain, moderate (4-7) Aspirin (Aspirin Chewable) 81 mg PO DAILY [facility] Last Admin: 05/03/18 10:35 Dose: 81 mg Clopidogrel Bisulfate (Plavix) 75 mg PO DAILY [facility] Last Admin: 05/03/18 10:35 Dose: 75 mg Enoxaparin Sodium (Lovenox) 30 mg SC DAILY [facility] Last Admin: 05/03/18 10:36 Dose: 30 mg Hydrochlorothiazide (Microzide) 12.5 mg PO BID [facility] Last Admin: 05/03/18 18:51 Dose: Not Given Piperacillin Sod/Tazobactam Sod (Zosyn 3.375 Gm Iv Premix) 3.375 gm in 50 mls @ 100 mls/hr IVPB Q8 [facility]; Protocol Last Admin: 05/03/18 22:13 Dose: 100 mls/hr Dextrose/Sodium Chloride (Dextrose 5%/0.45% Ns 1000 Ml) 1,000 mls @ 70 mls/hr IV .[id number] [facility] Last Admin: 05/03/18 10:34 Dose: 70 mls/hr Vancomycin HCl (Vancocin 750mg/Ns 150 Ml) 150 mls @ 125 mls/hr IVPB Q12 [facility]; Protocol Last Admin: 05/03/18 22:14 Dose: 125 mls/hr Dextrose/Sodium Chloride (Dextrose 5%/0.45% Ns 1000 Ml) 1,000 mls @ 100 mls/hr IV .Q10H [facility] Last Admin: 05/03/18 20:29 Dose: 100 mls/hr Losartan Potassium (Cozaar) 100 mg PO DAILY [facility] Last Admin: 05/03/18 10:35 Dose: 100 mg Magnesium Hydroxide (Milk Of Magnesia) 30 ml PO Q24H [facility] Last Admin: 05/03/18 21:18 Dose: Not Given Memantine (Namenda) 5 mg PO DAILY [facility] Last Admin: 05/03/18 10:35 Dose: 5 mg Nystatin (Nystop Topical Powder) 0 applic TOP TID [facility] Last Admin: 05/03/18 20:29 Dose: 1 applic Potassium Chloride (Potassium Chloride Oral Soln) 20 meq PO DAILY [facility] Rosuvastatin Calcium (Crestor) 5 mg PO HS [facility] Last Admin: 05/03/18 21:17 Dose: Not Given Tamsulosin HCl (Flomax) 0.4 mg PO BID [facility] Last Admin: 05/03/18 18:51 Dose: Not Given - Labs Labs: 05/02/18 10:48 05/03/18 08:12
--- NOTE | 2018-05-04 00:35 | CON ---
DATE: 05/03/2018 REASON FOR CONSULTATION: Acute CVA, atrial fibrillation and history of bacteremia. HISTORY OF PRESENT ILLNESS: The history was obtained from the chart and the HEADER UP. The patient is lethargic and does not give any verbal answers to my questions. The patient is an 83 years old male, a half-way resident, was brought in from the half-way because of fever and lethargy. The patient was recently treated for UTI at [facility] and was just discharged back to the half-way. The patient was found to be in atrial fibrillation. Blood cultures, two sets were positive for Streptococcus viridans. The patient was evaluated by urologist, Dr. Del Castillo and neurologist, Dr. Rendon for possible stroke. From the admission in 03/2018, there was no evidence of urology procedures. SOCIAL HISTORY: Unobtainable at this time. REVIEW OF SYSTEMS: Unobtainable at this time. MEDICATIONS: Aspirin 81 mg once a day, Cozaar 100 mg daily, Crestor 5 mg at bedtime, Flomax 0.4 mg twice a day, Lovenox 30 mg subcutaneously daily, hydrochlorothiazide 12.5 mg twice a day, milk of magnesia 30 mL every 24 hours, Namenda 5 mg daily, intravenous potassium chloride replacement, Zosyn 3.375 gm intravenously every 8 hours, vancomycin 750 mg intravenously every 12 hours. PHYSICAL EXAMINATION: GENERAL: The patient is an elderly male who is lethargic, but was able to swallow soft diet provided to him by the nurse recruitment and outreach assistant. However, he does not verbally answer my questions and does not appear to be in any respiratory distress. VITAL SIGNS: Blood pressure 123/71, heart rate 77, temperature 98.1, respirations 20. HEENT: Normocephalic. CHEST: Diminished breath sounds at the bases. HEART: S1, S2, regular. Grade 3/6 ejection systolic murmur over left sternal border. ABDOMEN: Soft. EXTREMITIES: No edema. LABORATORY DATA: Today's SMA-7, sodium 142, potassium 3.4, chloride 107, CO2 24, glucose 128, BUN 24, creatinine 0.8. Hemoglobin and hematocrit 11.8 and 32.8, white count 11.8, platelet count 221,000. Two sets of blood cultures were positive for Streptococcus viridans. EKG, atrial fibrillation with PVCs versus aberrancy, nonspecific interventricular conduction delay. Echocardiographic study revealed mild concentric LVH with normal ejection fraction, [id number] aortic insufficiency and moderate valve aortic stenosis, calculated valve area is 1.1 sq cm, mild mitral insufficiency and mild tricuspid insufficiency. Head CT scan without contrast; patchy hypodense lesion involving the medial right frontal cortex finding may reflect chronic ischemic infarct; however, acute/subacute component is not excluded. ASSESSMENT: 1. Streptococcus viridans bacteremia. 2. Moderate aortic stenosis. 3. Rule out bacterial endocarditis. 4. Rule out acute cerebrovascular accident. 5. New onset atrial fibrillation. 6. Recent urinary tract infections. RECOMMENDATIONS: Continue aspirin 81 mg once a day, Cozaar at 100 mg once a day, Crestor at 5 mg once a day, hydrochlorothiazide 12.5 mg once a day. Start KCl 20 mEq elixir orally beside intravenous potassium replacement. Change Lovenox to therapeutic regimen once the patient is cleared by neurologist. Obtain Infectious Disease consultation and treat for presumptive bacterial endocarditis. Obtain TSH level. Ronny Solano MD
[2018-05-04] MEDS: Dextrose 5%/0.45% NS 1,000 ML IV SCH ×3 (03:26→21:17)
[2018-05-04] MEDS: Piperacill/Tazo 3.375gm in Dex 3.375 GM/50 ML BAG IVPB SCH ×3 (05:48→21:18)
[2018-05-04 07:39] LABS: ALB/GLOB RATIO 0.8 (1.0-2.1); ALBUMIN 2.7 g/dL (3.5-5.0); ALT/SGPT 46 U/L (21-72); AST/SGOT 35 U/L (17-59); BLOOD UREA NITROGEN 21 mg/dL (9-20); CALCIUM 9.1 mg/dl (8.6-10.4); GFR NON-AFRICAN AMERICAN > 60
[2018-05-04 07:57] LABS: HEPATITIS B SURFACE AG Negative (NEGATIVE)
[2018-05-04 08:03] LABS: HEPATITIS A IGM NEGATIVE (NEGATIVE); HEPATITIS B CORE AB NEGATIVE (NEGATIVE)
[2018-05-04 08:15] LABS: HEPATITIS C ANTIBODY NEGATIVE (NEGATIVE)
[2018-05-04 08:18] LABS: HEPATITIS C ANTIBODY NEGATIVE (NEGATIVE)
[2018-05-04] MEDS: Vancomycin 750mg/NS 150 ml 150 ML IVPB SCH ×2 (09:56→22:44)
[2018-05-04] MEDS: Enoxaparin 30 mg Syringe SC SCH (10:05)
[2018-05-04] MEDS: Potassium Chloride 20 mEq/15 ml LIQ UD PO SCH (10:07)
[2018-05-04] MEDS ORDERED: Magnesium Sulfate 1 gm in D5W 1 GM/100 ML BAG IVPB SCH (13:45)
--- NOTE | 2018-05-04 14:25 | MRI ---
Date of service: 05/04/2018 PROCEDURE: MRI BRAIN WITHOUT CONTRAST HISTORY: Abnormal CT rule out new infarct vs old. COMPARISON: Comparison made with prior CT scan brain dated 05/03/2018. TECHNIQUE: Multiplanar, multisequence MR images of the brain were obtained without intravenous contrast enhancement. FINDINGS: HEMORRHAGE: No acute parenchymal, subarachnoid or extra-axial hemorrhage patient DWI: There is an acute infarct right parasagittal frontal lobe extending posteriorly to the frontoparietal watershed zone; right-sided anterior cerebral artery (DOMI) territory. BRAIN PARENCHYMA: In addition, there are mild diffuse and confluent chronic periventricular white matter ischemic changes seen extending peripherally into the deep and subcortical white matter both cerebral hemispheres. Multiple small chronic appearing lacunar type infarcts scattered about the deep and subcortical white matter as well as both basal nuclei. No obvious parenchymal nor extra-axial mass or collection seen on this noncontrast exam Moderate to significant generalized volume loss. VENTRICLES: No obstructive hydrocephalus. CRANIUM: Unremarkable. ORBITS: Changes of bilateral cataract surgery again noted. PARANASAL SINUSES/MASTOIDS: Clear VASCULAR SYSTEM: Visualized major vascular flow voids at skull base appear patent OTHER FINDINGS: None. 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 No acute intracranial hemorrhage. Mild chronic white matter ischemic changes. Moderate to significant generalized volume loss. These findings discussed with Dr. Rendon at approximately 2:15 p.m. with written down and read back verification.
--- NOTE | 2018-05-04 16:21 | PN ---
DATE: 05/04/2018 SUBJECTIVE: The patient is lethargic and monitor revealed periods of slow atrial fibrillation at 30 to 45. PHYSICAL EXAMINATION: VITAL SIGNS: Blood pressure 123/60, heart rate 62, temperature 98.1, respirations 20. HEENT: Normocephalic. CHEST: Diminished breath sounds bilaterally. HEART: S1 and S2, regular. Grade 3/6 ejection systolic murmur over left sternal border. ABDOMEN: Soft. EXTREMITIES: No edema. LABORATORY DATA: SMA-7: Sodium 142, potassium 3.5, chloride 107, CO2 25, glucose 105, BUN 21, creatinine 0.7. TSH level is normal at 1.12. prostate specific antigen is elevated at 18.6. EKG was done now and revealed atrial fibrillation with PVCs versus aberrancy and right bundle-branch block. ASSESSMENT: 1. Streptococcus viridans bacteremia. 2. Moderate aortic stenosis. 3. Rule out bacterial endocarditis. 4. Atrial fibrillation. 5. Rule out acute cerebrovascular accident. RECOMMENDATIONS: The patient will be evaluated by Dr. Tom Churchill, the Infectious Disease specialist. Continue current IV vancomycin at 750 mg every 12 hours, IV Zosyn 3.375 g intravenously every 8 hours, Lovenox mg subcutaneously daily, Cozaar at 100 mg once a day, aspirin 81 mg once a day. Consider initiating thyroid replacement therapy. I will discuss the case with both, the primary physician and Dr. Tom Churchill, the Infectious Disease specialist. Ronny Solano MD
[2018-05-04] MEDS: Magnesium Sulfate 1 gm in D5W 1 GM/100 ML BAG IVPB SCH (16:53)
[2018-05-04 17:00] LABS: VENOUS BLOOD GAS BASE EXCESS 1.5 mmol/L (0.0-2.0); VENOUS BLOOD GAS PCO2 43 mmHg (40-60); VENOUS BLOOD GAS PO2 25 mm/Hg (30-55)
[2018-05-04 17:39] LABS: EOS # 0.2 K/uL (0.0-0.7)
[2018-05-04 18:07] LABS: BASO # 0.2 K/uL (0.0-0.2); BASO % 1.2 % (0.0-2.0); EOS % 1.2 % (0.0-4.0); MEAN CORPUSCULAR HEMOGLOBIN 30.9 pg (27.0-31.0); MEAN CORPUSCULAR HGB CONC 35.8 g/dL (33.0-37.0); MONO # 1.2 K/uL (0.0-0.8); MONO % 9.2 % (0.0-10.0); NEUT # 8.7 K/uL (1.8-7.0); NEUT % 65.4 % (50.0-75.0); RBC 4.09 Mil/uL (4.40-5.90); RED CELL DISTRIBUTION WIDTH 14.5 % (11.5-14.5); WHITE BLOOD COUNT 13.2 K/uL (4.8-10.8)
[2018-05-04 18:08] LABS: MEAN CELL VOLUME 86.4 fL (80.0-94.0)
[2018-05-04 18:11] LABS: HEMOGLOBIN 12.6 g/dL (12.0-18.0)
[2018-05-04] MEDS: Magnesium Hydroxide Susp 30 ml UD PO SCH (21:17)
--- NOTE | 2018-05-04 22:11 | CP.PCM.PN ---
Subjective - Subjective Subjective: dictated Objective - Vital Signs/Intake and Output Vital Signs (last 24 hours): Temp Pulse Resp BP Pulse Ox 98 F 76 20 145/67 100 05/04/18 16:52 05/04/18 18:00 05/04/18 16:52 05/04/18 16:52 05/04/18 16:52 Intake and Output: 05/04/18 05/05/18 18:59 06:59 Intake Total 800 Output Total 550 Balance 250 - Medications Medications: Current Medications Acetaminophen (Tylenol 325mg Tab) 650 mg PO Q6 PRN PRN Reason: Pain, moderate (4-7) Aspirin (Aspirin Chewable) 81 mg PO DAILY [facility] Last Admin: 05/04/18 10:05 Dose: 81 mg Clopidogrel Bisulfate (Plavix) 75 mg PO DAILY [facility] Last Admin: 05/04/18 10:05 Dose: 75 mg Enoxaparin Sodium (Lovenox) 30 mg SC DAILY [facility] Last Admin: 05/04/18 10:05 Dose: 30 mg Hydrochlorothiazide (Microzide) 12.5 mg PO BID [facility] Last Admin: 05/04/18 18:41 Dose: 12.5 mg Piperacillin Sod/Tazobactam Sod (Zosyn 3.375 Gm Iv Premix) 3.375 gm in 50 mls @ 100 mls/hr IVPB Q8 [facility]; Protocol Last Admin: 05/04/18 21:18 Dose: 100 mls/hr Dextrose/Sodium Chloride (Dextrose 5%/0.45% Ns 1000 Ml) 1,000 mls @ 70 mls/hr IV .[id number] [facility] Last Admin: 05/04/18 21:17 Dose: 70 mls/hr Vancomycin HCl (Vancocin 750mg/Ns 150 Ml) 150 mls @ 125 mls/hr IVPB Q12 [facility]; Protocol Last Admin: 05/04/18 09:56 Dose: 125 mls/hr Dextrose/Sodium Chloride (Dextrose 5%/0.45% Ns 1000 Ml) 1,000 mls @ 100 mls/hr IV .Q10H [facility] Last Admin: 05/04/18 06:34 Dose: Not Given Losartan Potassium (Cozaar) 100 mg PO DAILY [facility] Last Admin: 05/04/18 10:06 Dose: 100 mg Magnesium Hydroxide (Milk Of Magnesia) 30 ml PO Q24H [facility] Last Admin: 05/04/18 21:17 Dose: Not Given Memantine (Namenda) 5 mg PO DAILY [facility] Last Admin: 05/04/18 10:05 Dose: 5 mg Nystatin (Nystop Topical Powder) 0 applic TOP TID [facility] Last Admin: 05/04/18 18:38 Dose: 1 applic Potassium Chloride (Potassium Chloride Oral Soln) 20 meq PO DAILY [facility] Last Admin: 05/04/18 10:07 Dose: 20 meq Rosuvastatin Calcium (Crestor) 5 mg PO HS [facility] Last Admin: 05/04/18 21:20 Dose: 5 mg Tamsulosin HCl (Flomax) 0.4 mg PO BID [facility] Last Admin: 05/04/18 18:41 Dose: 0.4 mg - Labs Labs: 05/04/18 17:10 05/04/18 06:44
--- NOTE | 2018-05-04 23:56 | CP.PCM.PN ---
Subjective - Date & Time of Evaluation Date of Evaluation: 05/04/18 Time of Evaluation: 23:56 - Subjective Subjective: CHIEF COMPLAINTS TODAY : AFEBRILE VSS LETHARGIC ,NONVERBAL Poorly arousable to painful stimuli. ROS. On observation only. HEENT : N. Resp : No cough, wheezing ,pleuritic CP ,or hemoptysis Cardio : No anginal CP, PND, orthopnea, palpitation GI : No abd.pain, n/v ,diarrhea or GI bleeding . 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 Musculoskel : No joint swelling , Derm : No rash Psych : Normal affect. Ext : No swelling ,calf pain PE. Pt. LETHARGIC, POORLY AROUSABLE, in no distress. V.S As noted in the chart Head ,ear nose,throat and eyes : Normal. Neck : Supple with normal carotids. Lungs: DIMINISHED BREATH SOUNDS AT THE BASES. Heart : S1 & S2 IRREGULAR . No murmur. Abd : Soft non tender with normal bowel sounds. Neuro : ? left-sided weakness .( as per neuro ) Ext : No edema with intact pulses.Non tender calves. Derm : No rashes or decubitus ulcer. LABS/RADIOLOGY: WBC 13.2 h/h /12.6 35.4 Creatinine normal PSA ANTIGEN 18.6 ESR 96 CRP 14.10 ELEVATED tOTAL BILI 2.4 TRANSAMINASES NORMAL aLKALINE PHOSPHATASE 145 hEP SCREEN NEGATIVE. BRAIN MRI WITHOUT CONTRAST; -p Objective - Vital Signs/Intake and Output Vital Signs (last 24 hours): Temp Pulse Resp BP Pulse Ox 98 F 76 20 145/67 100 05/04/18 16:52 05/04/18 18:00 05/04/18 16:52 05/04/18 16:52 05/04/18 16:52 Intake and Output: 05/04/18 05/05/18 18:59 06:59 Intake Total 800 Output Total 550 Balance 250 - Medications Medications: Current Medications Acetaminophen (Tylenol 325mg Tab) 650 mg PO Q6 PRN PRN Reason: Pain, moderate (4-7) Aspirin (Aspirin Chewable) 81 mg PO DAILY [facility] Last Admin: 05/04/18 10:05 Dose: 81 mg Clopidogrel Bisulfate (Plavix) 75 mg PO DAILY [facility] Last Admin: 05/04/18 10:05 Dose: 75 mg Enoxaparin Sodium (Lovenox) 30 mg SC DAILY [facility] Last Admin: 05/04/18 10:05 Dose: 30 mg Hydrochlorothiazide (Microzide) 12.5 mg PO BID [facility] Last Admin: 05/04/18 18:41 Dose: 12.5 mg Piperacillin Sod/Tazobactam Sod (Zosyn 3.375 Gm Iv Premix) 3.375 gm in 50 mls @ 100 mls/hr IVPB Q8 [facility]; Protocol Last Admin: 05/04/18 21:18 Dose: 100 mls/hr Dextrose/Sodium Chloride (Dextrose 5%/0.45% Ns 1000 Ml) 1,000 mls @ 70 mls/hr IV .[id number] [facility] Last Admin: 05/04/18 21:17 Dose: 70 mls/hr Vancomycin HCl (Vancocin 750mg/Ns 150 Ml) 150 mls @ 125 mls/hr IVPB Q12 [facility]; Protocol Last Admin: 05/04/18 22:44 Dose: 125 mls/hr Dextrose/Sodium Chloride (Dextrose 5%/0.45% Ns 1000 Ml) 1,000 mls @ 100 mls/hr IV .Q10H [facility] Last Admin: 05/04/18 06:34 Dose: Not Given Losartan Potassium (Cozaar) 100 mg PO DAILY [facility] Last Admin: 05/04/18 10:06 Dose: 100 mg Magnesium Hydroxide (Milk Of Magnesia) 30 ml PO Q24H [facility] Last Admin: 05/04/18 21:17 Dose: Not Given Memantine (Namenda) 5 mg PO DAILY [facility] Last Admin: 05/04/18 10:05 Dose: 5 mg Nystatin (Nystop Topical Powder) 0 applic TOP TID [facility] Last Admin: 05/04/18 18:38 Dose: 1 applic Potassium Chloride (Potassium Chloride Oral Soln) 20 meq PO DAILY [facility] Last Admin: 05/04/18 10:07 Dose: 20 meq Rosuvastatin Calcium (Crestor) 5 mg PO HS [facility] Last Admin: 05/04/18 21:20 Dose: 5 mg Tamsulosin HCl (Flomax) 0.4 mg PO BID [facility] Last Admin: 05/04/18 18:41 Dose: 0.4 mg - Labs Labs: 05/04/18 17:10 05/04/18 06:44 Assessment and Plan (1) Streptococcus viridans infection Assessment & Plan: BLOOD CULTURES 04/30/18 2: 2 SETS +VE STREP VIRIDANS-S -P CONTINUE iv ZOSYN 3.375 iv PIGGYBACK EVERY 8 HOURLY. 04/30/18 CONTINUE iv VANCOMYCIN 750 MG EVERY 12 HOURLY 05/01/18. F/U vANCO TROUGH PRIOR TO THE FOURTH DOSE-AND KEEP BETWEEN 10 AND 20. F/U CULTURES TO ADJUST ABX ' WILL DISCUSS WITH CARDIOLOGY REGARDING IRINA R/O SBE. Status: Acute (2) Fever Assessment & Plan: PT ON ABX Status: Acute (3) Leukocytosis Status: Acute (4) Low back pain Assessment & Plan: CONSIDER CT LUMBOSACRAL SPINE R/O DISCITIS -CHRONIC BACKPAIN /DEG. ARTHRITIS SPINE PATIENT UNDERGOING NEURO WORKUP PER NEUROLOGY RULE OUT CVA . MRI BRAIN PER NEURO .-P Status: Acute (5) Alzheimer disease Status: Chronic (6) Hypertension Status: Chronic (7) Enlarged prostate Status: Acute
[2018-05-05] MEDS: Dextrose 5%/0.45% NS 1,000 ML IV SCH ×2 (03:14→18:25)
[2018-05-05] MEDS: Piperacill/Tazo 3.375gm in Dex 3.375 GM/50 ML BAG IVPB SCH ×3 (05:15→21:53)
[2018-05-05] MEDS: Vancomycin 750mg/NS 150 ml 150 ML IVPB SCH ×2 (10:18→22:31)
[2018-05-05] MEDS: Enoxaparin 30 mg Syringe SC SCH (10:19)
[2018-05-05] MEDS: Potassium Chloride 20 mEq/15 ml LIQ UD PO SCH (10:20)
--- NOTE | 2018-05-05 19:17 | CP.PCM.PN ---
Subjective - Subjective Subjective: dictat ed Objective - Vital Signs/Intake and Output Vital Signs (last 24 hours): Temp Pulse Resp BP Pulse Ox 97.7 F 75 20 151/66 H 96 05/05/18 17:17 05/05/18 17:17 05/05/18 17:17 05/05/18 17:17 05/05/18 17:17 - Medications Medications: Current Medications Acetaminophen (Tylenol 325mg Tab) 650 mg PO Q6 PRN PRN Reason: Pain, moderate (4-7) Aspirin (Aspirin Chewable) 81 mg PO DAILY [facility] Last Admin: 05/05/18 10:19 Dose: 81 mg Clopidogrel Bisulfate (Plavix) 75 mg PO DAILY [facility] Last Admin: 05/05/18 10:19 Dose: 75 mg Enoxaparin Sodium (Lovenox) 30 mg SC DAILY [facility] Last Admin: 05/05/18 10:19 Dose: 30 mg Hydrochlorothiazide (Microzide) 12.5 mg PO BID [facility] Last Admin: 05/05/18 18:11 Dose: 12.5 mg Piperacillin Sod/Tazobactam Sod (Zosyn 3.375 Gm Iv Premix) 3.375 gm in 50 mls @ 100 mls/hr IVPB Q8 [facility]; Protocol Last Admin: 05/05/18 14:29 Dose: 100 mls/hr Dextrose/Sodium Chloride (Dextrose 5%/0.45% Ns 1000 Ml) 1,000 mls @ 70 mls/hr IV .[id number] [facility] Last Admin: 05/05/18 18:25 Dose: 70 mls/hr Vancomycin HCl (Vancocin 750mg/Ns 150 Ml) 150 mls @ 125 mls/hr IVPB Q12 [facility]; Protocol Last Admin: 05/05/18 10:18 Dose: 125 mls/hr Dextrose/Sodium Chloride (Dextrose 5%/0.45% Ns 1000 Ml) 1,000 mls @ 100 mls/hr IV .Q10H [facility] Last Admin: 05/05/18 03:14 Dose: Not Given Losartan Potassium (Cozaar) 100 mg PO DAILY [facility] Last Admin: 05/05/18 10:19 Dose: 100 mg Magnesium Hydroxide (Milk Of Magnesia) 30 ml PO Q24H [facility] Last Admin: 05/04/18 21:17 Dose: Not Given Memantine (Namenda) 5 mg PO DAILY [facility] Last Admin: 05/05/18 10:19 Dose: 5 mg Nystatin (Nystop Topical Powder) 0 applic TOP TID [facility] Last Admin: 05/05/18 18:12 Dose: 1 applic Potassium Chloride (Potassium Chloride Oral Soln) 20 meq PO DAILY [facility] Last Admin: 05/05/18 10:20 Dose: 20 meq Rosuvastatin Calcium (Crestor) 5 mg PO HS [facility] Last Admin: 05/04/18 21:20 Dose: 5 mg Tamsulosin HCl (Flomax) 0.4 mg PO BID [facility] Last Admin: 05/05/18 18:11 Dose: 0.4 mg - Labs Labs: 05/04/18 17:10 05/04/18 06:44
[2018-05-05] MEDS: Magnesium Hydroxide Susp 30 ml UD PO SCH (21:51)
[2018-05-06] MEDS: Dextrose 5%/0.45% NS 1,000 ML IV SCH ×3 (02:07→19:11)
[2018-05-06] MEDS: Piperacill/Tazo 3.375gm in Dex 3.375 GM/50 ML BAG IVPB SCH ×3 (05:28→22:14)
--- NOTE | 2018-05-06 06:18 | PN ---
DATE: 05/05/2018 SUBJECTIVE: The patient is lethargic, but does not appear to be in any respiratory distress. No reported bradycardia on the monitor. PHYSICAL EXAMINATION: VITAL SIGNS: Blood pressure 137/66, heart rate 75, temperature 99.4, and respirations 18. HEENT: Head is normocephalic. CHEST: Diminished breath sounds over the bases. HEART: S1 and S2 regular. ABDOMEN: Soft. EXTREMITIES: No edema. LABORATORY DATA: Today's lactic acid is 1.3 within normal limit. TSH level yesterday was 1.12. Brain MRI revealed acute right anterior cerebral artery territory infarct. No acute intra-cranial hemorrhage. Mild chronic white matter ischemic changes. [id number] generalized volume loss. ASSESSMENT: 1. 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 2. Streptococcus viridans bacteremia. Consider bacterial endocarditis. 3. Moderate valvular aortic stenosis. 4. New onset atrial fibrillation. RECOMMENDATIONS: Continue current aspirin 81 mg once a day, Cozaar 100 mg once a day, Crestor at 5 mg once a day, hydrochlorothiazide 12.5 mg twice a day, Plavix 75 mg once a day, vancomycin 750 mg intravenously every 12 hours, and Zosyn 3.375 g intravenously every 8 hours. Advance Lovenox to a therapeutic regimen if approved by design studio consultant neurologist. Ronny Solano MD
--- NOTE | 2018-05-06 06:21 | PN ---
DATE: 05/05/2018 SUBJECTIVE: The patient is more alert. He is afebrile. He is on antibiotics. No nausea, vomiting, seen by ID. PHYSICAL EXAMINATION: VITAL SIGNS: BP 151/66, pulse 75, respiratory rate 20, temperature 97.7. LUNGS: Clear. CVS: S1, S2, regular. VOCATIONAL PLACEMENT SPECIALIST: Arousable. Moves all extremities. ASSESSMENT: 1. Cerebrovascular disease. 2. Septicemia with Streptococcus Viridans, rule out infective endocarditis. 3. Atrial fibrillation, new onset. 4. Hypertension. 5. Dementia. PLAN: Continue antibiotics. ID followup. Monitor the patient. Esau Jacobs MD
--- NOTE | 2018-05-06 06:30 | PN ---
DATE: 05/04/2018 NEUROLOGICAL FOLLOWUP EVALUATION Neurological problem, change in mental status with his abnormal CAT scan finding. Vital signs, blood pressure 123/60, mean artery pressure of 81, respiratory rate 18, temperature 98.1, pulse rate is 62 and regular. The patient is lethargic, moves right arm and leg spontaneously. Arousable, calling his name. His mental status is somewhat improved to compare with my yesterday's exam. The patient did have a followup CT of the head consistent with right DOMI territory ischemic process. The patient was scheduled to have MRI of the brain. However, MRI was not done for unknown reason. The patient is advised to have MRI today. The patient's condition also discussed with a technologist in the MRI place. Continue the present management. Keep the blood pressure, mean artery pressure around 100. Speech and swallow evaluation to be followed if sign of aspiration hold off with oral feeding, and keep him NG feeding. DVT prophylaxis should be continued. The patient will be followed closely with you. Matthew Rendon MD
--- NOTE | 2018-05-06 08:38 | PN ---
DATE: 05/04/2018 SUBJECTIVE: Fredrick Dennison is drowsy. He is afebrile. No shortness of breath. No nausea or vomiting. PHYSICAL EXAMINATION: VITAL SIGNS: Blood pressure 145/67, pulse 68, respiratory rate 20, and temperature 98. LUNGS: Clear. No rales. No rhonchi. CARDIOVASCULAR SYSTEM: S1 and S2 regular. ABDOMEN: Soft, nontender. Bowel sounds are positive. ASSESSMENT: 1. Cerebrovascular accident. 2. Hypertension. 3. New onset atrial fibrillation. 4. Urinary tract infection, rule out septicemia. PLAN: Continue current medication. Monitor the patient. Esau Jacobs MD
--- NOTE | 2018-05-06 08:38 | PN ---
DATE: 05/03/2018 SUBJECTIVE: The patient, Juma, has a stroke on CT of the head. PHYSICAL EXAMINATION: GENERAL: The patient is not in any distress. he is not awake, but he is arousable and he opens eyes. VITAL SIGNS: Blood pressure 114/62, pulse 85, respiratory rate 20, and temperature 98. LUNGS: Clear. CARDIOVASCULAR SYSTEM: S1, S2 regular. ABDOMEN: Soft. ASSESSMENT: 1. Stroke, cerebrovascular accident. 2. Septicemia. 3. Due to streptococcal viridans, rule out infective endocarditis. 4. New onset atrial fibrillation. 5. Hypertension. PLAN: Antibiotics. Cardiology evaluation. Monitor the patient. Esau Jacobs MD
--- NOTE | 2018-05-06 10:12 | PN ---
DATE: 05/06/2018 DATE OF EVALUATION: 05/06/2018. TIME OF EVALUATION: 06:55 a.m. NEUROLOGICAL PROBLEM: Change in mental status with left hemiparesis secondary to his anterior cerebral artery ischemic process on his right side and metabolic versus toxic encephalopathy. VITAL SIGNS: Blood pressure 149/70, mean artery pressure of 96, respiratory rate 18, and temperature afebrile. The patient is arousable on calling his name. Speech is audible. He follows commands verbally. Still has weakness more on his left side, manifesting with leg more than his arm. Tone is increased on his left side. Spontaneous movement noted on his right side as before examination. Rest of the examination which is unchanged. Recent MRI is being reviewed consistent with subacute process of right DOMI ischemic process. The patient's condition is being also discussed with his son. LABORATORY DATA: His recent blood workup: WBC 13.2, hemoglobin 12.6, hematocrit 212. Sodium 142, potassium 3.5, chloride 107, bicarbonate 25, BUN 21, creatinine 0.7, GFR more than 60, magnesium 1.5, bilirubin 2.4, direct bilirubin 1, alkaline phosphatase 145, prostate-specific antigen is 18.6. RECOMMENDATIONS: 1. Continue hydration. 2. Speech and swallow followup. Feeding only with assistance if it is recommended by speech and swallow therapist. 3. DVT prophylaxis. Continue antiplatelets as recommended. The patient should be get out of bed, and bedside physical therapy should be instituted. The patient's condition has been well discussed with his son. Matthew Rendon MD
[2018-05-06] MEDS: Potassium Chloride 20 mEq/15 ml LIQ UD PO SCH (10:17)
[2018-05-06] MEDS: Vancomycin 750mg/NS 150 ml 150 ML IVPB SCH ×2 (10:17→22:15)
[2018-05-06] MEDS: Enoxaparin 30 mg Syringe SC SCH (10:17)
[2018-05-06 12:47] LABS: BASO # 0.1 K/uL (0.0-0.2); BASO % 0.6 % (0.0-2.0); EOS # 0.2 K/uL (0.0-0.7); EOS % 1.6 % (0.0-4.0); HEMOGLOBIN 11.2 g/dL (12.0-18.0); LYMPH # 2.9 K/uL (1.0-4.3); LYMPH % 23.3 % (20.0-40.0); MEAN CORPUSCULAR HEMOGLOBIN 31.9 pg (27.0-31.0); MEAN CORPUSCULAR HGB CONC 35.6 g/dL (33.0-37.0); MEAN PLATELET VOLUME 7.8 fL (7.2-11.7); MONO # 1.3 K/uL (0.0-0.8); MONO % 10.1 % (0.0-10.0); NEUT % 64.4 % (50.0-75.0); RBC 3.5 Mil/uL (4.40-5.90); RED CELL DISTRIBUTION WIDTH 14.4 % (11.5-14.5); WHITE BLOOD COUNT 12.4 K/uL (4.8-10.8)
[2018-05-06 12:49] LABS: MEAN CELL VOLUME 89.4 fL (80.0-94.0)
[2018-05-06 13:03] LABS: ALB/GLOB RATIO 0.8 (1.0-2.1); ALBUMIN 2.7 g/dL (3.5-5.0); ALT/SGPT 55 U/L (21-72); AST/SGOT 41 U/L (17-59); BLOOD UREA NITROGEN 17 mg/dL (9-20); CALCIUM 8.7 mg/dl (8.6-10.4); GFR NON-AFRICAN AMERICAN > 60
--- NOTE | 2018-05-06 21:00 | CARD ---
APPROVED REPORT Date of service: 05/04/2018 EKG Measurement Heart [id number] <Conclusion> Atrial fibrillation with premature ventricular or aberrantly conducted complexes Right bundle branch block Abnormal ECG
--- NOTE | 2018-05-06 22:03 | CP.PCM.PN ---
Subjective - Subjective Subjective: dictated Objective - Vital Signs/Intake and Output Vital Signs (last 24 hours): Temp Pulse Resp BP Pulse Ox 98.1 F 81 20 126/61 95 05/06/18 16:00 05/06/18 16:00 05/06/18 16:00 05/06/18 16:00 05/06/18 16:00 Intake and Output: 05/06/18 05/07/18 18:59 06:59 Intake Total 850 Balance 850 - Medications Medications: Current Medications Acetaminophen (Tylenol 325mg Tab) 650 mg PO Q6 PRN PRN Reason: Pain, moderate (4-7) Aspirin (Aspirin Chewable) 81 mg PO DAILY [facility] Last Admin: 05/06/18 10:17 Dose: 81 mg Clopidogrel Bisulfate (Plavix) 75 mg PO DAILY [facility] Last Admin: 05/06/18 10:17 Dose: 75 mg Enoxaparin Sodium (Lovenox) 30 mg SC DAILY [facility] Last Admin: 05/06/18 10:17 Dose: 30 mg Hydrochlorothiazide (Microzide) 12.5 mg PO BID [facility] Last Admin: 05/06/18 18:47 Dose: Not Given Piperacillin Sod/Tazobactam Sod (Zosyn 3.375 Gm Iv Premix) 3.375 gm in 50 mls @ 100 mls/hr IVPB Q8 [facility]; Protocol Last Admin: 05/06/18 13:40 Dose: 100 mls/hr Dextrose/Sodium Chloride (Dextrose 5%/0.45% Ns 1000 Ml) 1,000 mls @ 70 mls/hr IV .[id number] [facility] Last Admin: 05/06/18 02:07 Dose: Not Given Vancomycin HCl (Vancocin 750mg/Ns 150 Ml) 150 mls @ 125 mls/hr IVPB Q12 [facility]; Protocol Last Admin: 05/06/18 10:17 Dose: 125 mls/hr Dextrose/Sodium Chloride (Dextrose 5%/0.45% Ns 1000 Ml) 1,000 mls @ 100 mls/hr IV .Q10H [facility] Last Admin: 05/06/18 19:11 Dose: 100 mls/hr Losartan Potassium (Cozaar) 100 mg PO DAILY [facility] Last Admin: 05/06/18 10:17 Dose: 100 mg Magnesium Hydroxide (Milk Of Magnesia) 30 ml PO Q24H [facility] Last Admin: 05/05/18 21:51 Dose: Not Given Memantine (Namenda) 5 mg PO DAILY [facility] Last Admin: 05/06/18 10:17 Dose: 5 mg Nystatin (Nystop Topical Powder) 0 applic TOP TID [facility] Last Admin: 05/06/18 19:11 Dose: 1 applic Potassium Chloride (Potassium Chloride Oral Soln) 20 meq PO DAILY [facility] Last Admin: 05/06/18 10:17 Dose: 20 meq Rosuvastatin Calcium (Crestor) 5 mg PO HS [facility] Last Admin: 05/05/18 21:51 Dose: Not Given Tamsulosin HCl (Flomax) 0.4 mg PO BID [facility] Last Admin: 05/06/18 18:47 Dose: Not Given - Labs Labs: 05/06/18 12:36 05/06/18 12:36
--- NOTE | 2018-05-06 22:58 | CP.PCM.PN ---
Subjective - Date & Time of Evaluation Date of Evaluation: 05/06/18 Time of Evaluation: 22:58 - Subjective Subjective: CHIEF COMPLAINTS TODAY : AFEBRILE VSS Poorly arousable. incoherant ROS. On observation only. HEENT : N. Resp : No cough, wheezing ,pleuritic CP ,or hemoptysis Cardio : No anginal CP, PND, orthopnea, palpitation GI : No abd.pain, n/v ,diarrhea or GI bleeding . POLYMER TESTER : No headache, vertigo, focal deficit. Musculoskel : No joint swelling , Derm : No rash Psych : Normal affect. Ext : No swelling ,calf pain PE. Pt. LETHARGIC, POORLY AROUSABLE, in no distress. V.S As noted in the chart Head ,ear nose,throat and eyes : Normal. Neck : Supple with normal carotids. Lungs: DIMINISHED BREATH SOUNDS AT THE BASES. Heart : S1 & S2 IRREGULAR . No murmur. Abd : Soft non tender with normal bowel sounds. Neuro : ? left-sided weakness .( as per neuro ) Ext : No edema with intact pulses.Non tender calves. Derm : No rashes or decubitus ulcer. LABS/RADIOLOGY: WBC 13.2 h/h /12.6 35.4 Creatinine normal PSA ANTIGEN 18.6 ESR 96 CRP 14.10 ELEVATED tOTAL BILI 2.4 TRANSAMINASES NORMAL aLKALINE PHOSPHATASE 145 hEP SCREEN NEGATIVE. BRAIN MRI WITHOUT CONTRAST; - 2D ECHO ? AV VEGETATIONS CANNOT BE EXCLUDED. Objective - Vital Signs/Intake and Output Vital Signs (last 24 hours): Temp Pulse Resp BP Pulse Ox 98.1 F 81 20 126/61 95 05/06/18 16:00 05/06/18 16:00 05/06/18 16:00 05/06/18 16:00 05/06/18 16:00 Intake and Output: 05/06/18 05/07/18 18:59 06:59 Intake Total 850 Balance 850 - Medications Medications: Current Medications Acetaminophen (Tylenol 325mg Tab) 650 mg PO Q6 PRN PRN Reason: Pain, moderate (4-7) Aspirin (Aspirin Chewable) 81 mg PO DAILY [facility] Last Admin: 05/06/18 10:17 Dose: 81 mg Clopidogrel Bisulfate (Plavix) 75 mg PO DAILY [facility] Last Admin: 05/06/18 10:17 Dose: 75 mg Enoxaparin Sodium (Lovenox) 30 mg SC DAILY [facility] Last Admin: 05/06/18 10:17 Dose: 30 mg Hydrochlorothiazide (Microzide) 12.5 mg PO BID [facility] Last Admin: 05/06/18 18:47 Dose: Not Given Piperacillin Sod/Tazobactam Sod (Zosyn 3.375 Gm Iv Premix) 3.375 gm in 50 mls @ 100 mls/hr IVPB Q8 [facility]; Protocol Last Admin: 05/06/18 22:14 Dose: 100 mls/hr Dextrose/Sodium Chloride (Dextrose 5%/0.45% Ns 1000 Ml) 1,000 mls @ 70 mls/hr IV .[id number] [facility] Last Admin: 05/06/18 02:07 Dose: Not Given Vancomycin HCl (Vancocin 750mg/Ns 150 Ml) 150 mls @ 125 mls/hr IVPB Q12 [facility]; Protocol Last Admin: 05/06/18 22:15 Dose: 125 mls/hr Dextrose/Sodium Chloride (Dextrose 5%/0.45% Ns 1000 Ml) 1,000 mls @ 100 mls/hr IV .Q10H [facility] Last Admin: 05/06/18 19:11 Dose: 100 mls/hr Losartan Potassium (Cozaar) 100 mg PO DAILY [facility] Last Admin: 05/06/18 10:17 Dose: 100 mg Magnesium Hydroxide (Milk Of Magnesia) 30 ml PO Q24H [facility] Last Admin: 05/05/18 21:51 Dose: Not Given Memantine (Namenda) 5 mg PO DAILY [facility] Last Admin: 05/06/18 10:17 Dose: 5 mg Nystatin (Nystop Topical Powder) 0 applic TOP TID [facility] Last Admin: 05/06/18 19:11 Dose: 1 applic Potassium Chloride (Potassium Chloride Oral Soln) 20 meq PO DAILY [facility] Last Admin: 05/06/18 10:17 Dose: 20 meq Rosuvastatin Calcium (Crestor) 5 mg PO HS [facility] Last Admin: 05/06/18 22:24 Dose: Not Given Tamsulosin HCl (Flomax) 0.4 mg PO BID [facility] Last Admin: 05/06/18 18:47 Dose: Not Given - Labs Labs: 05/06/18 12:36 05/06/18 12:36 Assessment and Plan (1) Streptococcus viridans infection Assessment & Plan: BLOOD CULTURES 04/30/18 2: 2 SETS +VE STREP VIRIDANS-S -cefotriaxone,PCN, VANCO REPEAT BLOOD CULTURE 05/02/18 -VE GROWTH TO DATE DISCONTINUE iv ZOSYN 3.375 iv PIGGYBACK EVERY 8 HOURLY. 04/30/18 IN AM DISCONTINUE iv VANCOMYCIN 750 MG EVERY 12 HOURLY 05/01/18.IN AM CASE DISCUSSED WITH ORE CRUSHING DUST COLLECTOR MR VANESSA Kraft STATES PTS CONDITION TOO UNSTABLE FOR IRINA PER CARDOLOGY. TO RX NOORVIK VALVE ENDOCARDITIS X 6WKS 'START IV AMPICILLIN 2GM IVPB Q 6HRLY X 6WKS 05/07/18 START IV CEFOTRIAXONE 2GMS IVPB Q 24HRLY X 6WKS 05/07/18 F/U CBC , CMP .LFTS ,ESR WEEKLY. PT WILL NEED PICCLINE FOR IV ABX. Status: Acute (2) Fever Status: Acute (3) Leukocytosis Assessment & Plan: IMPROVING Status: Acute (4) Low back pain Status: Acute (5) Alzheimer disease Status: Chronic (6) Hypertension Status: Chronic (7) Enlarged prostate Status: Acute (8) CVA (cerebral vascular accident) Assessment & Plan: MRI 05/04/18 -REPORT NOTED . ACUTE RT DOMI TERRITORY +VE INFARCTION (SEE FULL REPORT ) PER NEURO. Status: Acute
[2018-05-07] MEDS: Piperacill/Tazo 3.375gm in Dex 3.375 GM/50 ML BAG IVPB SCH ×3 (05:20→22:11)
--- NOTE | 2018-05-07 06:12 | PN ---
DATE: 05/06/2018 SUBJECTIVE: The patient is still lethargic and does not verbalize when I ask him any question. He does not appear to be in respiratory distress. PHYSICAL EXAMINATION: VITAL SIGNS: Blood pressure 151/77, heart rate 85, temperature 98.8, respirations 20. HEENT: Normocephalic. CHEST: Diminished breath sounds bilaterally. HEART: S1 and S2 are regular. Grade 4/6 ejection systolic murmur over left sternal border. ABDOMEN: Soft. EXTREMITIES: No edema. LABORATORY DATA: Today's hemoglobin and hematocrit 11.2 and 31.3, white count 12.4, and platelet count 204,000. Today's SMA-7 within normal limits except chloride of 108. Today's total bilirubin is 1.9. ASSESSMENT: 1. Bacterial endocarditis. 2. Subacute cerebrovascular accident involving the right anterior cerebral artery. 3. Persistent atrial fibrillation. 4. Streptococcus Viridans bacteremia. 5. Moderate valvular aortic stenosis with mild to moderate aortic insufficiency. RECOMMENDATIONS: Continue aspirin 81 mg once a day, Cozaar at 100 mg daily, Crestor at 5 mg once a day, hydrochlorothiazide 12.5 mg twice a day, Plavix 75 mg once a day, IV vancomycin at 750 mg every 12 hours, IV Zosyn at 3.375 gm every 8 hours. Regarding anticoagulation, I did review Dr. Rendon's neurology followup and his recommendation is DVT prophylaxis. I will discuss for anticoagulation with Dr. Rendon, the neurologist. Regarding the need for IRINA, the patient in this lethargic condition is not stable for sedation and he may develop respiratory failure that would required intubation during the procedure and the fact hat the patient is not a surgical candidate, IRINA can be withheld for now until the patient is more neurologically stable and the treatment should be directed to Streptococcus Viridans aortic valve endocarditis as I stated in my initial consult. Ronny Solano MD
--- NOTE | 2018-05-07 06:59 | PN ---
DATE: 05/06/2018 SUBJECTIVE: Juma is more alert. He is afebrile. No shortness of breath. No chest pain. No nausea or vomiting. He denies any cough, sore throat, or runny nose. He denies any sneezing. The patient is tolerating some diet. He is on IV fluids. PHYSICAL EXAMINATION: VITAL SIGNS: Blood pressure 126/61, pulse 79, respiratory rate 20, temperature 98.1. LUNGS: Clear. CARDIOVASCULAR SYSTEM: S1 and S2, regular. ABDOMEN: Soft. CENTRAL NERVOUS SYSTEM: Arousable. ASSESSMENT: 1. Cerebrovascular accident. 2. Urinary tract infection. 3. Infective endocarditis, Streptococcus viridans. 4. Hypertension. PLAN: We will discuss with ID to continue empiric treatment for infective endocarditis. Monitor the patient. Esau Jacobs MD
[2018-05-07] MEDS: Enoxaparin 30 mg Syringe SC SCH (10:10)
[2018-05-07] MEDS: Potassium Chloride 20 mEq/15 ml LIQ UD PO SCH (10:10)
[2018-05-07] MEDS: Vancomycin 750mg/NS 150 ml 150 ML IVPB SCH ×2 (10:12→22:51)
--- NOTE | 2018-05-07 12:37 | EEG ---
DATE: 05/03/2018 This is a 16-channel electroencephalogram of an adult. During the study, photic stimulation was performed. Hyperventilation was not performed. The resting electroencephalogram consists of moderate voltage of 30 to 40 microvolt, diffuse delta mixed with low theta activity is noted at parietal and occipital leads. Anteriorly, fast activity superimposed with 2 to 3 Hz of delta activity seen. Bilateral temporal and frontal muscle artifact contaminated the rhythm intermittently. Some blink artifacts noted. The photic stimulation did not evoke driving response noted at 2 to 20 Hz. IMPRESSION: This is an abnormal electroencephalogram of a drowsy adult. During the study, neither electroencephalographic paroxysmal activities nor focal slowing noted. Matthew Rendon MD JR
--- NOTE | 2018-05-07 17:51 | RAD ---
HISTORY: PICC Insertion COMPARISON: Chest x-ray performed 04/30/18 TECHNIQUE: Chest, one view. FINDINGS: Examination limited by habitus and hypoinflation. Right-sided PICC extends to the expected location of the SVC. LUNGS: Moderate pulmonary venous congestion.Bilateral hilar prominence/central vascular congestion. Please note that chest x-ray has limited sensitivity for the detection of pulmonary masses. PLEURA: No significant pleural effusion identified. No definite pneumothorax . CARDIOVASCULAR: Cardiomegaly. OSSEOUS STRUCTURES: Degenerative changes. VISUALIZED UPPER ABDOMEN: Unremarkable. OTHER FINDINGS: None. IMPRESSION: Moderate pulmonary venous congestion. Bilateral hilar prominence/central vascular congestion. Cardiomegaly. Hypoinflation.
[2018-05-07 18:58] LABS: BASO # 0.1 K/uL (0.0-0.2); BASO % 1.2 % (0.0-2.0); EOS # 0.2 K/uL (0.0-0.7); EOS % 1.8 % (0.0-4.0); LYMPH # 2.5 K/uL (1.0-4.3); MEAN CELL VOLUME 89.9 fL (80.0-94.0); MEAN CORPUSCULAR HEMOGLOBIN 32.8 pg (27.0-31.0); MEAN CORPUSCULAR HGB CONC 36.5 g/dL (33.0-37.0); MEAN PLATELET VOLUME 7.7 fL (7.2-11.7); MONO % 9.5 % (0.0-10.0); NEUT # 6.6 K/uL (1.8-7.0); NEUT % 63.5 % (50.0-75.0); NRBC % 0.1 % (0.0-2.0); RBC 3.36 Mil/uL (4.40-5.90); RED CELL DISTRIBUTION WIDTH 15.4 % (11.5-14.5); WHITE BLOOD COUNT 10.4 K/uL (4.8-10.8)
[2018-05-07 19:13] LABS: ALB/GLOB RATIO 0.8 (1.0-2.1); ALBUMIN 2.6 g/dL (3.5-5.0); ALT/SGPT 58 U/L (21-72); AST/SGOT 31 U/L (17-59); BLOOD UREA NITROGEN 18 mg/dL (9-20); CALCIUM 8.6 mg/dl (8.6-10.4); GFR NON-AFRICAN AMERICAN > 60
[2018-05-07] MEDS ORDERED: Potassium Chloride 20 mEq/15 ml LIQ UD PO ONE (19:30)
[2018-05-07] MEDS: Magnesium Sulfate 1 gm in D5W 1 GM/100 ML BAG IVPB SCH ×2 (20:02→21:06)
--- NOTE | 2018-05-07 20:30 | PN ---
DATE: 05/07/2018 SUBJECTIVE: The patient is still lethargic; however, he is being spoon-fed without any choking. The patient hardly verbalizes words. PHYSICAL EXAMINATION: VITAL SIGNS: Blood pressure 114/56, heart rate 89, temperature 97.3, and respirations 20. HEENT: The patient is closing his eye for most of the time. NECK: No JVD. CHEST: Diminished breath sounds over the bases. HEART: S1, S2 regular. ABDOMEN: Soft. EXTREMITIES: No edema. ASSESSMENT: 1. Subacute cerebrovascular accident involving right anterior cerebral artery territory. 2. History of Viridans bacteremia, and consider underlying endocarditis. 3. Moderate aortic stenosis. 4. Hypertension. 5. Persistent atrial fibrillation. RECOMMENDATIONS: 1. Continue aspirin 81 mg once a day. 2. Cozaar at 100 mg once a day. 3. Crestor at 5 mg once a day. 4. Lovenox at 30 mg once a day. 5. Hydrochlorothiazide 12.5 mg twice a day. 6. IV Zosyn and IV vancomycin. 7. Advance Lovenox as therapeutic regimen if clear from the Neurology point of view. Ronny Solano MD
[2018-05-07] MEDS: Magnesium Hydroxide Susp 30 ml UD PO SCH (21:17)
--- NOTE | 2018-05-07 21:47 | CP.PCM.PN ---
Subjective - Subjective Subjective: dictated Objective - Vital Signs/Intake and Output Vital Signs (last 24 hours): Temp Pulse Resp BP Pulse Ox 97.3 F L 68 20 114/56 L 99 05/07/18 15:00 05/07/18 18:00 05/07/18 15:00 05/07/18 15:00 05/07/18 15:00 Intake and Output: 05/07/18 05/08/18 18:59 06:59 Intake Total 400 Output Total 75 Balance 325 - Medications Medications: Current Medications Acetaminophen (Tylenol 325mg Tab) 650 mg PO Q6 PRN PRN Reason: Pain, moderate (4-7) Aspirin (Aspirin Chewable) 81 mg PO DAILY [facility] Last Admin: 05/07/18 10:10 Dose: 81 mg Clopidogrel Bisulfate (Plavix) 75 mg PO DAILY [facility] Last Admin: 05/07/18 10:10 Dose: 75 mg Enoxaparin Sodium (Lovenox) 30 mg SC DAILY [facility] Last Admin: 05/07/18 10:10 Dose: 30 mg Hydrochlorothiazide (Microzide) 12.5 mg PO BID [facility] Last Admin: 05/07/18 17:37 Dose: Not Given Piperacillin Sod/Tazobactam Sod (Zosyn 3.375 Gm Iv Premix) 3.375 gm in 50 mls @ 100 mls/hr IVPB Q8 [facility]; Protocol Last Admin: 05/07/18 13:29 Dose: 100 mls/hr Vancomycin HCl (Vancocin 750mg/Ns 150 Ml) 150 mls @ 125 mls/hr IVPB Q12 [facility]; Protocol Last Admin: 05/07/18 10:12 Dose: 125 mls/hr Losartan Potassium (Cozaar) 100 mg PO DAILY [facility] Last Admin: 05/07/18 10:10 Dose: 100 mg Magnesium Hydroxide (Milk Of Magnesia) 30 ml PO Q24H [facility] Last Admin: 05/07/18 21:17 Dose: Not Given Memantine (Namenda) 5 mg PO DAILY [facility] Last Admin: 05/07/18 10:10 Dose: 5 mg Nystatin (Nystop Topical Powder) 0 applic TOP TID [facility] Last Admin: 05/07/18 17:55 Dose: 1 applic Potassium Chloride (Potassium Chloride Oral Soln) 20 meq PO DAILY [facility] Last Admin: 05/07/18 10:10 Dose: 20 meq Rosuvastatin Calcium (Crestor) 5 mg PO HS [facility] Last Admin: 05/07/18 21:12 Dose: 5 mg Tamsulosin HCl (Flomax) 0.4 mg PO BID [facility] Last Admin: 05/07/18 17:44 Dose: 0.4 mg - Labs Labs: 05/07/18 18:54 05/07/18 18:54
--- NOTE | 2018-05-07 22:24 | CP.PCM.PN ---
Subjective - Date & Time of Evaluation Date of Evaluation: 05/07/18 Time of Evaluation: 22:24 - Subjective Subjective: CHIEF COMPLAINTS TODAY : AFEBRILE VSS Arousable. SPEECH NOT CLEAR S/P RT ARM PICC LINE ROS. On observation only. HEENT : N. Resp : No cough, wheezing ,pleuritic CP ,or hemoptysis Cardio : No anginal CP, PND, orthopnea, palpitation GI : No abd.pain, n/v ,diarrhea or GI bleeding . PHONE OPERATOR : No headache, vertigo, focal deficit. Musculoskel : No joint swelling , Derm : No rash Psych : Normal affect. Ext : No swelling ,calf pain PE. Pt. LETHARGIC, AROUSABLE, in no distress. V.S As noted in the chart Head ,ear nose,throat and eyes : Normal. Neck : Supple with normal carotids. Lungs: DIMINISHED BREATH SOUNDS AT THE BASES. Heart : S1 & S2 IRREGULAR . No murmur. Abd : Soft non tender with normal bowel sounds. Neuro : ? left-sided weakness .( as per neuro ) Ext : No edema with intact pulses.Non tender calves. Derm : No rashes or decubitus ulcer. LABS/RADIOLOGY: REVIEWED CXR -P Objective - Vital Signs/Intake and Output Vital Signs (last 24 hours): Temp Pulse Resp BP Pulse Ox 97.3 F L 68 20 114/56 L 99 05/07/18 15:00 05/07/18 18:00 05/07/18 15:00 05/07/18 15:00 05/07/18 15:00 Intake and Output: 05/07/18 05/08/18 18:59 06:59 Intake Total 400 Output Total 75 Balance 325 - Medications Medications: Current Medications Acetaminophen (Tylenol 325mg Tab) 650 mg PO Q6 PRN PRN Reason: Pain, moderate (4-7) Aspirin (Aspirin Chewable) 81 mg PO DAILY [facility] Last Admin: 05/07/18 10:10 Dose: 81 mg Clopidogrel Bisulfate (Plavix) 75 mg PO DAILY [facility] Last Admin: 05/07/18 10:10 Dose: 75 mg Enoxaparin Sodium (Lovenox) 30 mg SC DAILY [facility] Last Admin: 05/07/18 10:10 Dose: 30 mg Hydrochlorothiazide (Microzide) 12.5 mg PO BID [facility] Last Admin: 05/07/18 17:37 Dose: Not Given Piperacillin Sod/Tazobactam Sod (Zosyn 3.375 Gm Iv Premix) 3.375 gm in 50 mls @ 100 mls/hr IVPB Q8 [facility]; Protocol Last Admin: 05/07/18 22:11 Dose: 100 mls/hr Vancomycin HCl (Vancocin 750mg/Ns 150 Ml) 150 mls @ 125 mls/hr IVPB Q12 [facility]; Protocol Last Admin: 05/07/18 10:12 Dose: 125 mls/hr Losartan Potassium (Cozaar) 100 mg PO DAILY [facility] Last Admin: 05/07/18 10:10 Dose: 100 mg Magnesium Hydroxide (Milk Of Magnesia) 30 ml PO Q24H [facility] Last Admin: 05/07/18 21:17 Dose: Not Given Memantine (Namenda) 5 mg PO DAILY [facility] Last Admin: 05/07/18 10:10 Dose: 5 mg Nystatin (Nystop Topical Powder) 0 applic TOP TID [facility] Last Admin: 05/07/18 17:55 Dose: 1 applic Potassium Chloride (Potassium Chloride Oral Soln) 20 meq PO DAILY [facility] Last Admin: 05/07/18 10:10 Dose: 20 meq Rosuvastatin Calcium (Crestor) 5 mg PO HS [facility] Last Admin: 05/07/18 21:12 Dose: 5 mg Tamsulosin HCl (Flomax) 0.4 mg PO BID [facility] Last Admin: 05/07/18 17:44 Dose: 0.4 mg - Labs Labs: 05/07/18 18:54 05/07/18 18:54 Assessment and Plan (1) Streptococcus viridans infection Assessment & Plan: 2D ECHO ? AV VEGETATIONS CANNOT BE EXCLUDED. BLOOD CULTURES 04/30/18 2: 2 SETS +VE STREP VIRIDANS-S -cefotriaxone,PCN, VANCO REPEAT BLOOD CULTURE 05/02/18 -VE GROWTH TO DATE DISCONTINUE iv ZOSYN 3.375 iv PIGGYBACK EVERY 8 HOURLY. 04/30/18 ON D/C DISCONTINUE iv VANCOMYCIN 750 MG EVERY 12 HOURLY 05/01/18. ON D/C CASE DISCUSSED WITH WASTE SALVAGER MR VANESSA Kraft STATES PTS CONDITION TOO UNSTABLE FOR [place] PER CARDOLOGY. TO RX [place] VALVE ENDOCARDITIS X 6WKS 'START IV AMPICILLIN 2GM IVPB Q 6HRLY X 6WKS ON D/C START IV CEFOTRIAXONE 2GMS IVPB Q 24HRLY X 6WKS ON D/C F/U CBC , CMP .LFTS ,ESR WEEKLY. PICCLINE PLACED 05/07/18. PICC LINE CARE. PT FOR [facility] UNDER CARE OF PMD. WILL SIGN OFF . RECALL IF NEEDED. Status: Acute (2) Fever Status: Acute (3) Leukocytosis Status: Acute (4) Low back pain Status: Acute (5) Alzheimer disease Status: Chronic (6) Hypertension Status: Chronic (7) Enlarged prostate Status: Acute (8) CVA (cerebral vascular accident) Assessment & Plan: MRI 05/04/18 -REPORT NOTED . ACUTE RT DOMI TERRITORY +VE INFARCTION (SEE FULL REPORT ) PER NEURO / PMD. CONDITION POOR. Status: Acute
--- NOTE | 2018-05-08 05:58 | PN ---
DATE: 05/07/2018 SUBJECTIVE: Fredrick Dennison is on empiric antibiotic treatment for infective endocarditis. He has blood culture positive for Strep viridans. The patient is gradually waking up. He is on physiotherapy. The patient has a stroke. No nausea or vomiting. No shortness of breath. PHYSICAL EXAMINATION: VITAL SIGNS: Blood pressure 114/56, pulse 99, respiratory rate 20, temperature 97.3. LUNGS: Clear. CVS: S1, S2 regular. ABDOMEN: Soft. OCCUPATIONAL HEALTH RN: He is arousable. ASSESSMENT: 1. Hypokalemia, hypomagnesemia. 2. Cerebrovascular accident. 3. Urinary tract infection. 4. Obstructive uropathy. PLAN: Continue current medication. Monitor the patient. Esau Jacobs MD
[2018-05-08] MEDS: Vancomycin 750mg/NS 150 ml 150 ML IVPB SCH ×2 (10:04→21:19)
[2018-05-08] MEDS: Enoxaparin 30 mg Syringe SC SCH (10:07)
[2018-05-08] MEDS: Potassium Chloride 20 mEq/15 ml LIQ UD PO SCH (10:18)
[2018-05-08 11:37] LABS: BLOOD UREA NITROGEN 17 mg/dL (9-20); CALCIUM 8.5 mg/dl (8.6-10.4); GFR NON-AFRICAN AMERICAN > 60
--- NOTE | 2018-05-08 12:11 | PN ---
DATE: 05/08/2018 TIME OF EVALUATION: 07:05 a.m. NEUROLOGICAL PROBLEM: Right DOMI stroke manifesting with left hemiplegia. PHYSICAL EXAMINATION: VITAL SIGNS: Blood pressure 137/52, mean arterial pressure of 80, respiratory rate 18, temperature 98.8 with a pulse rate of 70 and regular. The patient is awake. Speech is much better. He knows he is in the hospital. He is aware of left-sided weakness from the stroke. He moves right side as per the command. RECOMMENDATION: Case is discussed with physician dental office assistant yesterday. From neurological point of view, the patient is cleared to go for acute rehabilitation. In the meantime, blood pressure control and stroke prophylaxis should be followed as recommended. Matthew Rendon MD
[2018-05-08] MEDS: Piperacill/Tazo 3.375gm in Dex 3.375 GM/50 ML BAG IVPB SCH ×2 (13:54→21:15)
--- NOTE | 2018-05-08 19:21 | PN ---
DATE: 05/08/2018 SUBJECTIVE: The patient looks much better. He is oriented to place and he denies any chest pain. PHYSICAL EXAMINATION: VITAL SIGNS: Blood pressure 137/52, heart rate 70, temperature 98.8, respirations 18. HEENT: Normocephalic. CHEST: Clear. HEART: S1 and S2, regular. Grade 4/6 ejection systolic murmur over left sternal border. ABDOMEN: Soft. EXTREMITIES: No edema. ASSESSMENT: 1. 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 2. Moderate aortic stenosis. 3. Streptococcus viridans septicemia. 4. Recent cerebrovascular accident involving the left anterior cerebral artery territory. 5. Rule out aspiration. The most chest x-ray revealed moderate pulmonary venous congestion, bilateral hilar prominence/central vascular congestion, cardiomegaly, . RECOMMENDATIONS: Continue current aspirin 81 mg once a day, Cozaar 100 mg once a day, Crestor 5 mg once a day, Lovenox 30 mg subcutaneous once a day, hydrochlorothiazide 12.5 mg twice a day, Namenda 5 mg once a day, Plavix 75 mg once a day, potassium chloride elixir at 20 mg daily, IV vancomycin at 125 mg every 12 hours, and IV Zosyn 3.375 g intravenously every 8 hours. Repeat transthoracic echocardiography study next week. Ronny Solano MD
[2018-05-08] MEDS: Magnesium Hydroxide Susp 30 ml UD PO SCH (21:15)
--- NOTE | 2018-05-08 23:57 | CP.PCM.PN ---
Subjective - Subjective Subjective: dictated Objective - Vital Signs/Intake and Output Vital Signs (last 24 hours): Temp Pulse Resp BP Pulse Ox 98.3 F 72 20 137/61 97 05/08/18 15:36 05/08/18 15:36 05/08/18 15:36 05/08/18 15:36 05/08/18 15:36 - Medications Medications: Current Medications Acetaminophen (Tylenol 325mg Tab) 650 mg PO Q6 PRN PRN Reason: Pain, moderate (4-7) Aspirin (Aspirin Chewable) 81 mg PO DAILY [facility] Last Admin: 05/08/18 10:12 Dose: 81 mg Clopidogrel Bisulfate (Plavix) 75 mg PO DAILY [facility] Last Admin: 05/08/18 10:08 Dose: 75 mg Enoxaparin Sodium (Lovenox) 30 mg SC DAILY [facility] Last Admin: 05/08/18 10:07 Dose: 30 mg Hydrochlorothiazide (Microzide) 12.5 mg PO BID [facility] Last Admin: 05/08/18 17:53 Dose: 12.5 mg Piperacillin Sod/Tazobactam Sod (Zosyn 3.375 Gm Iv Premix) 3.375 gm in 50 mls @ 100 mls/hr IVPB Q8 [facility]; Protocol Last Admin: 05/08/18 21:15 Dose: 100 mls/hr Vancomycin HCl (Vancocin 750mg/Ns 150 Ml) 150 mls @ 125 mls/hr IVPB Q12 [facility]; Protocol Last Admin: 05/08/18 21:19 Dose: 125 mls/hr Losartan Potassium (Cozaar) 100 mg PO DAILY [facility] Last Admin: 05/08/18 10:08 Dose: 100 mg Magnesium Hydroxide (Milk Of Magnesia) 30 ml PO Q24H [facility] Last Admin: 05/08/18 21:15 Dose: 30 ml Memantine (Namenda) 5 mg PO DAILY [facility] Last Admin: 05/08/18 10:08 Dose: 5 mg Nystatin (Nystop Topical Powder) 0 applic TOP TID [facility] Last Admin: 05/08/18 18:00 Dose: Not Given Potassium Chloride (Potassium Chloride Oral Soln) 20 meq PO DAILY [facility] Last Admin: 05/08/18 10:18 Dose: 20 meq Rosuvastatin Calcium (Crestor) 5 mg PO HS [facility] Last Admin: 05/08/18 21:15 Dose: 5 mg Tamsulosin HCl (Flomax) 0.4 mg PO BID [facility] Last Admin: 05/08/18 17:53 Dose: 0.4 mg - Labs Labs: 05/07/18 18:54 05/08/18 11:15
[2018-05-09] MEDS: Piperacill/Tazo 3.375gm in Dex 3.375 GM/50 ML BAG IVPB SCH ×3 (05:06→21:03)
--- NOTE | 2018-05-09 06:33 | PN ---
DATE: 05/09/2018 SUBJECTIVE: I attempted to call the patient's son to reach out to him as per his request, but his number was busy. The patient is for empiric treatment for infective endocarditis. The patient is afebrile. No shortness of breath. No chest pain. PHYSICAL EXAMINATION: VITAL SIGNS: Blood pressure 137/61, pulse 72, respiratory rate 20, and temperature 98.3. LUNGS: Clear. No rale. No rhonchi. CVS: S1 and S2 regular. ABDOMEN: Soft. Nontender. Bowel sounds are positive. ASSESSMENT: 1. Cerebrovascular accident. 2. Infective endocarditis. 3. Obstructive uropathy. 4. Hypertension. PLAN: Medical management. Monitor the patient. Esau Jacobs MD
[2018-05-09] MEDS: Potassium Chloride 20 mEq/15 ml LIQ UD PO SCH (10:36)
[2018-05-09] MEDS: Enoxaparin 30 mg Syringe SC SCH (10:37)
[2018-05-09] MEDS: Vancomycin 750mg/NS 150 ml 150 ML IVPB SCH ×2 (10:42→21:57)
--- NOTE | 2018-05-09 14:37 | PN ---
DATE: 05/09/2018 TIME OF EVALUATION: 07:10 a.m. NEUROLOGICAL PROBLEM: Right anterior cerebral artery infarction manifesting with left hemiplegia with bilateral cerebral dysfunction. PHYSICAL EXAMINATION: VITAL SIGNS: Blood pressure 130/68, mean arterial pressure of 88, respiratory rate 18, pulse rate is 72 regular, temperature 98.9. The patient is sleepy, arousable verbally. Moves his right side spontaneously. Left side unchanged to compare with my previous examination. From a neurological point of view, all workup is done. The patient is awaiting for rehabilitation. Continue the anti-platelets, statin and blood pressure medication as recommended. From neurological point of view, I am signing him off for further followup. If any change in neuro status, please do not hesitate to call me back. Matthew Rendon MD
--- NOTE | 2018-05-09 19:41 | CP.PCM.CON ---
History of Present Illness - History of Present Illness History of Present Illness: Cardiothoracic Surgery Re: Infective endocarditis HPI: 83M presented to the ER on 04/30/18 with 4 days of lethargy, weakness, fever/chills, headache, generalized aches and pains, poor intake. Found to have strep viridans bacteremia and infective endocarditis. Pt subsequently developed neurologic deficits 2/2 atrial fibrillation found on ECG done on 04/30/18. On 05/04/18, brain MRI revealed an acute R DOMI infarct causing L hemiplegia with bilateral cerebral dysfunction. Echocardiogram showed EF 60-65%, no vegetation, mild to moderate aortic regurg, moderate aortic valve stenosis (1.1 cm^2, max gradient 32, mean 20). Currently denies any complaints, although he is difficult to understand 2/2 his difficulty with speech after his stroke. PMH: Alzheimer dementia, obstructive uropathy, hx UTI, hypertension, COPD, arthritis (back), BPH, atrial fibrillation, right bundle branch block PSH: Pt denied FH: Non contributory SH: No hx smoking or alcohol use as per documentation All: NKDA Meds: See MAR, on Apixaban and ASA Review of Systems - Review of Systems All systems: reviewed and no additional remarkable complaints except (as per HPI) Past Patient History - Past Medical History & Family History Past Medical History?: Yes - Past Social History Smoking Status: Never Smoked - CARDIAC Hx Hypertension: Yes - PULMONARY Hx Chronic Obstructive Pulmonary Disease (COPD): Yes - NEUROLOGICAL Hx Neurological Disorder: Yes Hx Alzheimer's Disease: Yes Hx Dementia: Yes - HEENT Hx HEENT Problems: No - RENAL Hx Chronic Kidney Disease: No - ENDOCRINE/METABOLIC Hx Endocrine Disorders: No - HEMATOLOGICAL/ONCOLOGICAL Hx Blood Disorders: No - INTEGUMENTARY Hx Dermatological Problems: No - MUSCULOSKELETAL/RHEUMATOLOGICAL Hx Arthritis: Yes - GASTROINTESTINAL Hx Gastrointestinal Disorders: No - GENITOURINARY/GYNECOLOGICAL Hx Genitourinary Disorders: Yes Hx Prostate Problems: Yes (enlarged prostate) Hx Urinary Tract Infection: Yes - PSYCHIATRIC Hx Psychophysiologic Disorder: No Hx Substance Use: No - SURGICAL HISTORY Hx Surgeries: No - ANESTHESIA Hx Anesthesia: No Hx Anesthesia Reactions: No Hx Malignant Hyperthermia: No Has any member of the family had a problem w/ anesthesia?: No Meds Allergies/Adverse Reactions: Allergies Allergy/AdvReac Type Severity Reaction Status Date / Time No Known Allergies Allergy Verified 02/27/17 14:40 - Medications Medications: Current Medications Acetaminophen (Tylenol 325mg Tab) 650 mg PO Q6 PRN PRN Reason: Pain, moderate (4-7) Apixaban (Eliquis) 5 mg PO BID [facility] Last Admin: 05/09/18 17:51 Dose: 5 mg Aspirin (Aspirin Chewable) 81 mg PO DAILY [facility] Last Admin: 05/09/18 10:37 Dose: 81 mg Hydrochlorothiazide (Microzide) 12.5 mg PO BID [facility] Last Admin: 05/09/18 17:51 Dose: 12.5 mg Piperacillin Sod/Tazobactam Sod (Zosyn 3.375 Gm Iv Premix) 3.375 gm in 50 mls @ 100 mls/hr IVPB Q8 [facility]; Protocol Last Admin: 05/09/18 13:36 Dose: 100 mls/hr Vancomycin HCl (Vancocin 750mg/Ns 150 Ml) 150 mls @ 125 mls/hr IVPB Q12 [facility]; Protocol Last Admin: 05/09/18 10:42 Dose: 125 mls/hr Losartan Potassium (Cozaar) 100 mg PO DAILY [facility] Last Admin: 05/09/18 10:36 Dose: 100 mg Magnesium Hydroxide (Milk Of Magnesia) 30 ml PO Q24H [facility] Last Admin: 05/08/18 21:15 Dose: 30 ml Memantine (Namenda) 5 mg PO DAILY [facility] Last Admin: 05/09/18 10:36 Dose: 5 mg Nystatin (Nystop Topical Powder) 0 applic TOP TID [facility] Last Admin: 05/09/18 17:54 Dose: 1 applic Potassium Chloride (Potassium Chloride Oral Soln) 20 meq PO DAILY [facility] Last Admin: 05/09/18 10:36 Dose: 20 meq Rosuvastatin Calcium (Crestor) 5 mg PO HS [facility] Last Admin: 05/08/18 21:15 Dose: 5 mg Tamsulosin HCl (Flomax) 0.4 mg PO BID [facility] Last Admin: 05/09/18 17:51 Dose: 0.4 mg Physical Exam - Constitutional Appears: Non-toxic, No Acute Distress, Chronically Ill - Head Exam Head Exam: ATRAUMATIC, NORMOCEPHALIC - Eye Exam Eye Exam: absent: Conjunctival injection, Scleral icterus - ENT Exam ENT Exam: Mucous Membranes Dry Additional comments: trachea midline - Neck Exam Neck exam: Negative for: Lymphadenopathy, Tenderness - Respiratory Exam Respiratory Exam: NORMAL BREATHING PATTERN. absent: Respiratory Distress - Cardiovascular Exam Cardiovascular Exam: Irregular Rhythm, +S1, +S2, Systolic Murmur - GI/Abdominal Exam GI & Abdominal Exam: Soft. absent: Distended, Tenderness - Rectal Exam Rectal Exam: Deferred - Extremities Exam Extremities exam: Positive for: normal capillary refill. Negative for: calf tenderness - Neurological Exam Neurological exam: Alert, Motor Sensory Deficit (L hemiplegia) - Skin Skin Exam: Dry, Warm Results - Vital Signs Recent Vital Signs: Last Vital Signs Temp 99.2 F 05/09/18 15:00 Pulse 85 05/09/18 17:54 Resp 18 05/09/18 15:00 BP 157/84 H 05/09/18 17:54 Pulse Ox 97 05/09/18 15:00 - Labs Result Diagrams: 05/07/18 18:54 05/08/18 11:15 Labs: Laboratory Results - last 24 hr 05/04/18 06:44 Rheumatoid Factor IgG 12 H Rheumatoid Factor IgA 30 H Rheumatoid Factor IgM >100 H - Imaging and Cardiology CT scan - head Status: Image reviewed by me, Report reviewed by me MRI - head Status: Image reviewed by me, Report reviewed by me Assessment & Plan - Assessment and Plan (Free Text) Assessment: 83M with suspected infective endocarditis without vegetation on echo. Plan: No indication for immediate/urgent surgery. Continue abx per ID, may resolve with antibiotics alone. Monitor labs. Pt declined surgery at this time but will contact son who is the decision maker. D/W Dr. Steward, who will discuss case with Industrial Relations Analyst, Dr. Solano, tomorrow. PGY4
[2018-05-09] MEDS: Magnesium Hydroxide Susp 30 ml UD PO SCH (21:57)
--- NOTE | 2018-05-09 22:19 | PN ---
DATE: 05/09/2018 SUBJECTIVE: The patient denies chest pain. He is in atrial fibrillation with at times slow heart rate, the lowest was 39 beats per minute. OBJECTIVE: VITAL SIGNS: Blood pressure 125/67, heart 70, temperature 97.7, respirations 18. HEENT: Normocephalic. CHEST: Bibasilar rhonchi. HEART: S1, S2 regular. Grade 4/6 ejection systolic murmur over left sternal border. ABDOMEN: Soft. EXTREMITIES: Trace leg edema. ASSESSMENT: 1. Acute aortic valve endocarditis. 2. Moderate aortic stenosis. 3. Strep viridans bacteremia. 4. Atrial fibrillation. 5. Status post cerebrovascular accident involving the right anterior cerebral artery territory. RECOMMENDATIONS: Continue current aspirin 81 mg once a day, Cozaar 100 mg once a day, Eliquis 5 mg was started today with the approval of the neurologist. Subcutaneous Lovenox was discontinued. I will discontinue Plavix. In the meantime, continue IV vancomycin and IV Zosyn. The case was discussed at length with Dr. Esau Jacobs as well as with the JANITOR HEAD. Repeat echocardiography study was requested and I did request cardiothoracic surgical evaluation. TSH level was within normal limits and slow atrial fibrillation may be related to aortic valve endocarditis, abscess. Ronny Solano MD
--- NOTE | 2018-05-09 22:57 | CP.PCM.PN ---
Subjective - Subjective Subjective: dictated Objective - Vital Signs/Intake and Output Vital Signs (last 24 hours): Temp Pulse Resp BP Pulse Ox 99.2 F 96 H 18 126/64 97 05/09/18 15:00 05/09/18 20:44 05/09/18 15:00 05/09/18 21:06 05/09/18 15:00 Intake and Output: 05/09/18 05/10/18 18:59 06:59 Intake Total 450 400 Output Total 200 Balance 250 400 - Medications Medications: Current Medications Acetaminophen (Tylenol 325mg Tab) 650 mg PO Q6 PRN PRN Reason: Pain, moderate (4-7) Apixaban (Eliquis) 5 mg PO BID [facility] Last Admin: 05/09/18 17:51 Dose: 5 mg Aspirin (Aspirin Chewable) 81 mg PO DAILY [facility] Last Admin: 05/09/18 10:37 Dose: 81 mg Hydrochlorothiazide (Microzide) 12.5 mg PO BID [facility] Last Admin: 05/09/18 17:51 Dose: 12.5 mg Piperacillin Sod/Tazobactam Sod (Zosyn 3.375 Gm Iv Premix) 3.375 gm in 50 mls @ 100 mls/hr IVPB Q8 [facility]; Protocol Last Admin: 05/09/18 21:03 Dose: 100 mls/hr Vancomycin HCl (Vancocin 750mg/Ns 150 Ml) 150 mls @ 125 mls/hr IVPB Q12 [facility]; Protocol Last Admin: 05/09/18 21:57 Dose: 125 mls/hr Losartan Potassium (Cozaar) 100 mg PO DAILY [facility] Last Admin: 05/09/18 10:36 Dose: 100 mg Magnesium Hydroxide (Milk Of Magnesia) 30 ml PO Q24H [facility] Last Admin: 05/09/18 21:57 Dose: 30 ml Memantine (Namenda) 5 mg PO DAILY [facility] Last Admin: 05/09/18 10:36 Dose: 5 mg Nystatin (Nystop Topical Powder) 0 applic TOP TID [facility] Last Admin: 05/09/18 17:54 Dose: 1 applic Potassium Chloride (Potassium Chloride Oral Soln) 20 meq PO DAILY [facility] Last Admin: 05/09/18 10:36 Dose: 20 meq Rosuvastatin Calcium (Crestor) 5 mg PO HS [facility] Last Admin: 05/09/18 21:57 Dose: 5 mg Tamsulosin HCl (Flomax) 0.4 mg PO BID [facility] Last Admin: 05/09/18 17:51 Dose: 0.4 mg - Labs Labs: 05/07/18 18:54 05/08/18 11:15
[2018-05-10] MEDS: Piperacill/Tazo 3.375gm in Dex 3.375 GM/50 ML BAG IVPB SCH ×3 (05:26→21:09)
--- NOTE | 2018-05-10 09:09 | CP.PCM.PN ---
Subjective - Date & Time of Evaluation Date of Evaluation: 05/10/18 Time of Evaluation: 09:07 - Subjective Subjective: Ct Sx: Dr Steward Pt S&E. Condition unchanged. No complaints. NAEO. Objective - Vital Signs/Intake and Output Vital Signs (last 24 hours): Temp Pulse Resp BP Pulse Ox 99.1 F 83 20 142/65 96 05/10/18 08:04 05/10/18 08:04 05/10/18 08:04 05/10/18 08:04 05/10/18 08:04 Intake and Output: 05/10/18 05/10/18 06:59 18:59 Intake Total 400 Balance 400 - Medications Medications: Current Medications Acetaminophen (Tylenol 325mg Tab) 650 mg PO Q6 PRN PRN Reason: Pain, moderate (4-7) Apixaban (Eliquis) 5 mg PO BID [facility] Last Admin: 05/09/18 17:51 Dose: 5 mg Aspirin (Aspirin Chewable) 81 mg PO DAILY [facility] Last Admin: 05/09/18 10:37 Dose: 81 mg Hydrochlorothiazide (Microzide) 12.5 mg PO BID [facility] Last Admin: 05/09/18 17:51 Dose: 12.5 mg Piperacillin Sod/Tazobactam Sod (Zosyn 3.375 Gm Iv Premix) 3.375 gm in 50 mls @ 100 mls/hr IVPB Q8 [facility]; Protocol Last Admin: 05/10/18 05:26 Dose: 100 mls/hr Vancomycin HCl (Vancocin 750mg/Ns 150 Ml) 150 mls @ 125 mls/hr IVPB Q12 [facility]; Protocol Last Admin: 05/09/18 21:57 Dose: 125 mls/hr Losartan Potassium (Cozaar) 100 mg PO DAILY [facility] Last Admin: 05/09/18 10:36 Dose: 100 mg Magnesium Hydroxide (Milk Of Magnesia) 30 ml PO Q24H [facility] Last Admin: 05/09/18 21:57 Dose: 30 ml Memantine (Namenda) 5 mg PO DAILY [facility] Last Admin: 05/09/18 10:36 Dose: 5 mg Nystatin (Nystop Topical Powder) 0 applic TOP TID [facility] Last Admin: 05/09/18 17:54 Dose: 1 applic Potassium Chloride (Potassium Chloride Oral Soln) 20 meq PO DAILY [facility] Last Admin: 05/09/18 10:36 Dose: 20 meq Rosuvastatin Calcium (Crestor) 5 mg PO HS [facility] Last Admin: 05/09/18 21:57 Dose: 5 mg Tamsulosin HCl (Flomax) 0.4 mg PO BID [facility] Last Admin: 05/09/18 17:51 Dose: 0.4 mg - Labs Labs: 05/07/18 18:54 05/08/18 11:15 - Constitutional Appears: Non-toxic, No Acute Distress - Respiratory Exam Respiratory Exam: absent: Accessory Muscle Use, Respiratory Distress - Cardiovascular Exam Cardiovascular Exam: absent: Tachycardia Assessment and Plan - Assessment and Plan (Free Text) Assessment: 83M with possible endocarditis Plan: no surgical intervention planned unclear if family would want intervention even if indicated cont IV abx will d/w Dr Nichelle Greene, PGY4
--- NOTE | 2018-05-10 09:09 | PN ---
DATE: 05/09/2018 SUBJECTIVE: I spoke to his son and the patient's discharge is on hold because of infective endocarditis and there is a need to consult Cardiothoracic Surgery. The patient is drowsy but he is more alert. He is eating somewhat better. No fever, no chills. Blood cultures repeat are negative. On antibiotics. PHYSICAL EXAMINATION: VITAL SIGNS: Blood pressure 126/64, pulse 96, respiratory rate 20, temperature 98. LUNGS: Clear. CVS: S1, S2, regular. 2/6 ejection systolic murmur at the apex. ABDOMEN: Soft, nontender. Bowel sounds are positive. PROPERTY ASSISTANT: The patient opens eyes. ASSESSMENT: 1. Cerebrovascular accident. 2. Infective endocarditis. 3. Obstructive uropathy. 4. Hypertension. 5. Atrial fibrillation. PLAN: Antibiotics. Cardiothoracic surgical consult. Monitor the patient. Esau Jacobs MD
[2018-05-10] MEDS: Potassium Chloride 20 mEq/15 ml LIQ UD PO SCH (10:51)
[2018-05-10 11:46] LABS: BASO # 0.1 K/uL (0.0-0.2); BASO % 0.7 % (0.0-2.0); EOS # 0.1 K/uL (0.0-0.7); EOS % 0.7 % (0.0-4.0); HEMOGLOBIN 11.8 g/dL (12.0-18.0); LYMPH # 2.1 K/uL (1.0-4.3); MEAN CELL VOLUME 89.7 fL (80.0-94.0); MEAN CORPUSCULAR HEMOGLOBIN 32.5 pg (27.0-31.0); MEAN CORPUSCULAR HGB CONC 36.2 g/dL (33.0-37.0); MONO # 1.4 K/uL (0.0-0.8); MONO % 11.3 % (0.0-10.0); NEUT # 8.5 K/uL (1.8-7.0); NEUT % 70.3 % (50.0-75.0); NRBC % 0.1 % (0.0-2.0); RBC 3.62 Mil/uL (4.40-5.90); RED CELL DISTRIBUTION WIDTH 15.9 % (11.5-14.5); WHITE BLOOD COUNT 12.1 K/uL (4.8-10.8)
[2018-05-10] MEDS: Vancomycin 750mg/NS 150 ml 150 ML IVPB SCH ×2 (12:29→21:36)
[2018-05-10 12:37] LABS: ALB/GLOB RATIO 0.9 (1.0-2.1); ALBUMIN 2.8 g/dL (3.5-5.0); ALT/SGPT 39 U/L (21-72); AST/SGOT 23 U/L (17-59); BLOOD UREA NITROGEN 17 mg/dL (9-20); CALCIUM 8.9 mg/dl (8.6-10.4); GFR NON-AFRICAN AMERICAN > 60
--- NOTE | 2018-05-10 15:32 | CARD ---
APPROVED REPORT Date of service: 05/09/2018 EKG Measurement Heart [id number] <Conclusion> Atrial fibrillation with premature ventricular or aberrantly conducted complexes Incomplete right bundle branch block Nonspecific T wave abnormality Abnormal ECG
--- NOTE | 2018-05-10 17:07 | PN ---
DATE: 05/10/2018 SUBJECTIVE: The patient is lethargic, but does not appear to be in respiratory distress. PHYSICAL EXAMINATION: VITAL SIGNS: Blood pressure 142/65, heart rate 83, temperature 99.1, and respirations 20. HEENT: Normocephalic. CHEST: Clear. HEART: S1 and S2 regular. EXTREMITIES: 1+ pitting edema. LABORATORY DATA: Hemoglobin and hematocrit 11.8 and 32.5, white count 12.1, and platelet count 208,000. Today's SMA-7 is within normal limit except for potassium of 3.5 and creatinine of 0.7. I did review the recent echocardiographic study and was highly suggestive of an aortic valve vegetation. ASSESSMENT: 1. Consider bacterial endocarditis. 2. Aortic stenosis. 3. 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 4. Atrial fibrillation. RECOMMENDATIONS: Continue current aspirin 81 mg once a day, Cozaar 100 mg once a day, Eliquis at 5 mg twice a day, hydrochlorothiazide 12.5 mg twice a day, vancomycin 750 mg a day every 12 hours, Zosyn 3.375 mg intravenously every 8 hours. cardiac study. The procedure was fully discussed with the patient's son on the phone risk of complications, especially respiratory failure were explained and the patient is scheduled for Sunday around noontime. The son will be contacted prior to that for obtaining the consent and the patient will be evaluated by anesthesia team in the meantime. Ronny Solano MD
[2018-05-10] MEDS: Magnesium Hydroxide Susp 30 ml UD PO SCH (21:36)
--- NOTE | 2018-05-10 23:24 | CP.PCM.PN ---
Subjective - Subjective Subjective: dictated Objective - Vital Signs/Intake and Output Vital Signs (last 24 hours): Temp Pulse Resp BP Pulse Ox 98.2 F 90 20 145/71 97 05/10/18 16:00 05/10/18 16:12 05/10/18 16:00 05/10/18 17:25 05/10/18 16:00 Intake and Output: 05/10/18 05/11/18 18:59 06:59 Intake Total 370 Balance 370 - Medications Medications: Current Medications Acetaminophen (Tylenol 325mg Tab) 650 mg PO Q6 PRN PRN Reason: Pain, moderate (4-7) Apixaban (Eliquis) 5 mg PO BID [facility] Last Admin: 05/10/18 17:20 Dose: 5 mg Aspirin (Aspirin Chewable) 81 mg PO DAILY [facility] Last Admin: 05/10/18 10:52 Dose: 81 mg Hydrochlorothiazide (Microzide) 12.5 mg PO BID [facility] Last Admin: 05/10/18 17:20 Dose: 12.5 mg Piperacillin Sod/Tazobactam Sod (Zosyn 3.375 Gm Iv Premix) 3.375 gm in 50 mls @ 100 mls/hr IVPB Q8 [facility]; Protocol Last Admin: 05/10/18 21:09 Dose: 100 mls/hr Vancomycin HCl (Vancocin 750mg/Ns 150 Ml) 150 mls @ 125 mls/hr IVPB Q12 [facility]; Protocol Last Admin: 05/10/18 21:36 Dose: 125 mls/hr Losartan Potassium (Cozaar) 100 mg PO DAILY [facility] Last Admin: 05/10/18 10:52 Dose: 100 mg Magnesium Hydroxide (Milk Of Magnesia) 30 ml PO Q24H [facility] Last Admin: 05/10/18 21:36 Dose: 30 ml Memantine (Namenda) 5 mg PO DAILY [facility] Last Admin: 05/10/18 10:52 Dose: 5 mg Nystatin (Nystop Topical Powder) 0 applic TOP TID [facility] Last Admin: 05/10/18 17:20 Dose: 1 applic Potassium Chloride (Potassium Chloride Oral Soln) 20 meq PO DAILY [facility] Last Admin: 05/10/18 10:51 Dose: 20 meq Rosuvastatin Calcium (Crestor) 5 mg PO HS [facility] Last Admin: 05/10/18 21:36 Dose: 5 mg Tamsulosin HCl (Flomax) 0.4 mg PO BID [facility] Last Admin: 05/10/18 17:20 Dose: 0.4 mg - Labs Labs: 05/10/18 11:31 05/10/18 11:31
[2018-05-11] MEDS: Piperacill/Tazo 3.375gm in Dex 3.375 GM/50 ML BAG IVPB SCH (05:39)
[2018-05-11] MEDS: Potassium Chloride 20 mEq/15 ml LIQ UD PO SCH (12:22)
[2018-05-11] MEDS ORDERED: Vancomycin 750mg/NS 150 ml 150 ML IVPB SCH (13:00)
[2018-05-11] MEDS ORDERED: Piperacill/Tazo 3.375gm in Dex 3.375 GM/50 ML BAG IVPB SCH (14:00)
[2018-05-11] MEDS ORDERED: Piperacillin/Tazobact 3.375 gm 100 ML IVPB SCH (14:00)
[2018-05-11] MEDS: AMPicillin 2 GM in Sodium Chloride 100 ML IVPB SCH ×2 (14:44→22:55)
[2018-05-11] MEDS ORDERED: cefTRIAXone 2 GM in Sodium Chloride 0.9% 100 ML IVPB SCH (15:00)
[2018-05-11] MEDS: cefTRIAXone 2 GM in Sodium Chloride 0.9% 100 ML IVPB SCH (18:05)
--- NOTE | 2018-05-11 20:08 | CP.PCM.PN ---
Subjective - Subjective Subjective: dictated Objective - Vital Signs/Intake and Output Vital Signs (last 24 hours): Temp Pulse Resp BP Pulse Ox 98.9 F 82 20 131/55 L 97 05/11/18 15:00 05/11/18 15:00 05/11/18 15:00 05/11/18 15:00 05/11/18 15:00 Intake and Output: 05/11/18 05/12/18 18:59 06:59 Output Total 120 Balance -120 - Medications Medications: Current Medications Acetaminophen (Tylenol 325mg Tab) 650 mg PO Q6 PRN PRN Reason: Pain, moderate (4-7) Apixaban (Eliquis) 5 mg PO BID [facility] Last Admin: 05/11/18 18:05 Dose: 5 mg Aspirin (Aspirin Chewable) 81 mg PO DAILY [facility] Last Admin: 05/11/18 12:23 Dose: 81 mg Hydrochlorothiazide (Microzide) 12.5 mg PO BID [facility] Last Admin: 05/11/18 12:22 Dose: 12.5 mg Ampicillin 2 gm/ Sodium (Chloride) 100 mls @ 50 mls/hr IVPB Q6H [facility]; Protocol Last Admin: 05/11/18 14:44 Dose: 50 mls/hr Ceftriaxone Sodium 2 gm/ (Sodium Chloride) 100 mls @ 100 mls/hr IVPB Q24H [facility]; Protocol Last Admin: 05/11/18 18:05 Dose: 100 mls/hr Losartan Potassium (Cozaar) 100 mg PO DAILY [facility] Last Admin: 05/11/18 12:24 Dose: Not Given Magnesium Hydroxide (Milk Of Magnesia) 30 ml PO Q24H [facility] Last Admin: 05/10/18 21:36 Dose: 30 ml Memantine (Namenda) 5 mg PO DAILY [facility] Last Admin: 05/11/18 12:22 Dose: 5 mg Nystatin (Nystop Topical Powder) 0 applic TOP TID [facility] Last Admin: 05/11/18 14:49 Dose: 1 applic Potassium Chloride (Potassium Chloride Oral Soln) 20 meq PO DAILY [facility] Last Admin: 05/11/18 12:22 Dose: 20 meq Rosuvastatin Calcium (Crestor) 5 mg PO HS [facility] Last Admin: 05/10/18 21:36 Dose: 5 mg Tamsulosin HCl (Flomax) 0.4 mg PO BID [facility] Last Admin: 05/11/18 12:22 Dose: 0.4 mg - Labs Labs: 05/10/18 11:31 05/10/18 11:31
--- NOTE | 2018-05-11 21:07 | PN ---
DATE: 05/11/2018 SUBJECTIVE: The patient is sleepy, does not appear to be in any respiratory distress, and not bradycardic today. PHYSICAL EXAMINATION: VITAL SIGNS: Blood pressure 127/63, heart rate 94, temperature 99.8, and respirations 22. HEENT: Normocephalic. CHEST: Diminished breath sounds over the bases. HEART: S1 and S2 regular. ABDOMEN: Soft. EXTREMITIES: No edema. ASSESSMENT: 1. Viridans bacteremia. 2. Moderate aortic stenosis. 3. Consider aortic valve bacterial endocarditis. 4. Chronic atrial fibrillation. 6. Periods of bradycardia. RECOMMENDATIONS: Continue ampicillin 2 g intravenously every 6 hours, started today. Continue Rocephin 2 g intravenously daily, Cozaar 100 mg orally daily, Crestor 5 mg once a day, Eliquis 5 mg twice a day, hydrochlorothiazide 12.5 mg twice a day, potassium chloride oral solution 20 mEq daily. The case was discussed with primary physician, Dr. Esau Jacobs and the plan is to perform transesophageal echocardiographic study on the patient on Sunday. Ronny Solano MD
[2018-05-11] MEDS: Magnesium Hydroxide Susp 30 ml UD PO SCH (22:54)
--- NOTE | 2018-05-11 23:42 | CP.PCM.PN ---
Subjective - Date & Time of Evaluation Date of Evaluation: 05/11/18 Time of Evaluation: 23:41 - Subjective Subjective: CHIEF COMPLAINTS TODAY :05/11/18 events noted. CLINICALLY SAME notified by RECTANGULAR TANK COOPER -MS MOTA / RN PT STILL IN HOUSE, SEEN BY CARDIOTHORACIC SURGERY. PT SCHEDULED NOW FOR IRINA ON SUNDAY BY CARDIOLOGY TO R/O AV-VEGS/?RING ABSCESS RT ARM PICC LINE IN PLACE ROS. On observation only. HEENT : N. Resp : No cough, wheezing ,pleuritic CP ,or hemoptysis Cardio : No anginal CP, PND, orthopnea, palpitation GI : No abd.pain, n/v ,diarrhea or GI bleeding . [employer]ENT[employer]IVE METALS : No headache, vertigo, focal deficit. Musculoskel : No joint swelling , Derm : No rash Psych : Normal affect. Ext : No swelling ,calf pain PE. Pt. LETHARGIC, AROUSABLE, in no distress. V.S As noted in the chart Head ,ear nose,throat and eyes : Normal. Neck : Supple with normal carotids. Lungs: DIMINISHED BREATH SOUNDS AT THE BASES. Heart : S1 & S2 IRREGULAR . No murmur. Abd : Soft non tender with normal bowel sounds. Neuro : ? left-sided weakness .( as per neuro ) Ext : No edema with intact pulses.Non tender calves. Derm : No rashes or decubitus ulcer. LABS/RADIOLOGY: REVIEWED REPEAT BLOOD CULTURE 05/02/18 -VE GROWTH TO DATE. REPEAT BLOOD CULTURE 05/06/18 -VE GROWTH X 5 DAYS Objective - Vital Signs/Intake and Output Vital Signs (last 24 hours): Temp Pulse Resp BP Pulse Ox 98.9 F 82 20 131/55 L 97 05/11/18 15:00 05/11/18 15:00 05/11/18 15:00 05/11/18 15:00 05/11/18 15:00 Intake and Output: 05/11/18 05/12/18 18:59 06:59 Output Total 120 Balance -120 - Medications Medications: Current Medications Acetaminophen (Tylenol 325mg Tab) 650 mg PO Q6 PRN PRN Reason: Pain, moderate (4-7) Apixaban (Eliquis) 5 mg PO BID [facility] Last Admin: 05/11/18 18:05 Dose: 5 mg Aspirin (Aspirin Chewable) 81 mg PO DAILY [facility] Last Admin: 05/11/18 12:23 Dose: 81 mg Hydrochlorothiazide (Microzide) 12.5 mg PO BID [facility] Last Admin: 05/11/18 18:55 Dose: 12.5 mg Ampicillin 2 gm/ Sodium (Chloride) 100 mls @ 50 mls/hr IVPB Q6H [facility]; Protocol Last Admin: 05/11/18 22:55 Dose: 50 mls/hr Ceftriaxone Sodium 2 gm/ (Sodium Chloride) 100 mls @ 100 mls/hr IVPB Q24H [facility]; Protocol Last Admin: 05/11/18 18:05 Dose: 100 mls/hr Losartan Potassium (Cozaar) 100 mg PO DAILY [facility] Last Admin: 05/11/18 12:24 Dose: Not Given Magnesium Hydroxide (Milk Of Magnesia) 30 ml PO Q24H [facility] Last Admin: 05/11/18 22:54 Dose: 30 ml Memantine (Namenda) 5 mg PO DAILY [facility] Last Admin: 05/11/18 12:22 Dose: 5 mg Nystatin (Nystop Topical Powder) 0 applic TOP TID [facility] Last Admin: 05/11/18 18:35 Dose: 1 applic Potassium Chloride (Potassium Chloride Oral Soln) 20 meq PO DAILY [facility] Last Admin: 05/11/18 12:22 Dose: 20 meq Rosuvastatin Calcium (Crestor) 5 mg PO HS [facility] Last Admin: 05/11/18 22:55 Dose: 5 mg Tamsulosin HCl (Flomax) 0.4 mg PO BID [facility] Last Admin: 05/11/18 18:55 Dose: 0.4 mg - Labs Labs: 05/10/18 11:31 05/10/18 11:31 Assessment and Plan (1) Streptococcus viridans infection Assessment & Plan: 2D ECHO ? AV VEGETATIONS CANNOT BE EXCLUDED. BLOOD CULTURES 04/30/18 2: 2 SETS +VE STREP VIRIDANS-S -cefotriaxone,PCN, VANCO REPEAT BLOOD CULTURE 05/02/18 -VE GROWTH TO DATE REPEAT BLOOD CULTURE 05/06/18 -VE X 5 DAYS DISCONTINUE IV ZOSYN. DISCONTINUE iv VANCOMYCIN. CASE DISCUSSED WITH RECTANGULAR TANK COOPER SVETLANA PT FOR IRINA ON SUNDAY PER CARDIOLOGY. 'START IV AMPICILLIN 2GM IVPB Q 6HRLY 05/11/18 START IV CEFOTRIAXONE 2GMS IVPB Q 24HRLY 05/11/18. F/U CARDIO -THORACIC SURGERY NOTED. Status: Acute (2) Fever Status: Acute (3) Leukocytosis Status: Acute (4) Low back pain Status: Acute (5) Alzheimer disease Status: Chronic (6) Hypertension Status: Chronic (7) Enlarged prostate Status: Acute (8) CVA (cerebral vascular accident) Assessment & Plan: MRI 05/04/18 -REPORT NOTED . ACUTE RT DOMI TERRITORY +VE INFARCTION (SEE FULL REPORT ) PER NEURO / PMD. Status: Acute
[2018-05-12] MEDS: AMPicillin 2 GM in Sodium Chloride 100 ML IVPB SCH ×4 (03:35→21:48)
[2018-05-12 08:03] LABS: BASO # 0.1 K/uL (0.0-0.2); BASO % 0.8 % (0.0-2.0); EOS % 0.3 % (0.0-4.0); HEMOGLOBIN 10.2 g/dL (12.0-18.0); LYMPH % 17.9 % (20.0-40.0); MEAN CELL VOLUME 92.5 fL (80.0-94.0); MEAN CORPUSCULAR HEMOGLOBIN 33.8 pg (27.0-31.0); MEAN CORPUSCULAR HGB CONC 36.5 g/dL (33.0-37.0); MONO # 1.3 K/uL (0.0-0.8); MONO % 11.8 % (0.0-10.0); NEUT # 7.7 K/uL (1.8-7.0); NEUT % 69.2 % (50.0-75.0); NRBC % 0.1 % (0.0-2.0); RBC 3.03 Mil/uL (4.40-5.90); RED CELL DISTRIBUTION WIDTH 16.3 % (11.5-14.5)
[2018-05-12 08:15] LABS: BLOOD UREA NITROGEN 24 mg/dL (9-20); CALCIUM 9.1 mg/dl (8.6-10.4); GFR NON-AFRICAN AMERICAN > 60
[2018-05-12] MEDS: Potassium Chloride 20 mEq/15 ml LIQ UD PO SCH (11:15)
--- NOTE | 2018-05-12 18:02 | CP.PCM.PN ---
Subjective - Subjective Subjective: dictated Objective - Vital Signs/Intake and Output Vital Signs (last 24 hours): Temp Pulse Resp BP Pulse Ox 98.9 F 95 H 20 134/66 96 05/12/18 15:45 05/12/18 15:45 05/12/18 15:45 05/12/18 15:45 05/12/18 15:45 Intake and Output: 05/12/18 05/12/18 06:59 18:59 Output Total 150 Balance -150 - Medications Medications: Current Medications Acetaminophen (Tylenol 325mg Tab) 650 mg PO Q6 PRN PRN Reason: Pain, moderate (4-7) Apixaban (Eliquis) 5 mg PO BID [facility] Last Admin: 05/12/18 11:14 Dose: 5 mg Aspirin (Aspirin Chewable) 81 mg PO DAILY [facility] Last Admin: 05/12/18 11:15 Dose: 81 mg Hydrochlorothiazide (Microzide) 12.5 mg PO BID [facility] Last Admin: 05/12/18 11:15 Dose: 12.5 mg Ampicillin 2 gm/ Sodium (Chloride) 100 mls @ 50 mls/hr IVPB Q6H [facility]; Protocol Last Admin: 05/12/18 14:06 Dose: 50 mls/hr Ceftriaxone Sodium 2 gm/ (Sodium Chloride) 100 mls @ 100 mls/hr IVPB Q24H [facility]; Protocol Last Admin: 05/11/18 18:05 Dose: 100 mls/hr Losartan Potassium (Cozaar) 100 mg PO DAILY [facility] Last Admin: 05/12/18 11:14 Dose: 100 mg Magnesium Hydroxide (Milk Of Magnesia) 30 ml PO Q24H [facility] Last Admin: 05/11/18 22:54 Dose: 30 ml Memantine (Namenda) 5 mg PO DAILY [facility] Last Admin: 05/12/18 11:14 Dose: 5 mg Nystatin (Nystop Topical Powder) 0 applic TOP TID [facility] Last Admin: 05/12/18 14:06 Dose: 1 applic Potassium Chloride (Potassium Chloride Oral Soln) 20 meq PO DAILY [facility] Last Admin: 05/12/18 11:15 Dose: 20 meq Rosuvastatin Calcium (Crestor) 5 mg PO HS [facility] Last Admin: 05/11/18 22:55 Dose: 5 mg Tamsulosin HCl (Flomax) 0.4 mg PO BID [facility] Last Admin: 05/12/18 11:18 Dose: 0.4 mg - Labs Labs: 05/12/18 07:52 05/12/18 07:52
[2018-05-12] MEDS: cefTRIAXone 2 GM in Sodium Chloride 0.9% 100 ML IVPB SCH (18:34)
[2018-05-12] MEDS: Magnesium Hydroxide Susp 30 ml UD PO SCH (21:47)
--- NOTE | 2018-05-12 23:12 | PN ---
DATE: 05/12/2018 SUBJECTIVE: The patient is lethargic and sleepy. The patient's son is at the bedside. No reported hypotension. PHYSICAL EXAMINATION: VITAL SIGNS: Blood pressure 124/69, heart rate 99, temperature 98.3, respirations 20. HEENT: Head normocephalic. CHEST: Diminished breath sounds over the bases. HEART: S1 and S2, regular. ABDOMEN: Soft. EXTREMITIES: No edema. LABORATORY DATA: Labs show hemoglobin and hematocrit 10.1 and 28, white count 11, platelet count 195,000. Today's BUN and creatinine are 24 and 0.7, the rest of SMA-7 is within normal limits. ASSESSMENT: 1. Streptococcus viridans bacteremia. 2. Consider aortic valve bacterial endocarditis. 3. Chronic atrial fibrillation. 4. Acute right frontal lobe cerebrovascular accident. RECOMMENDATIONS: Case discussed with the patient's son. Continue current IV ampicillin 2 g every 6 hours, IV Rocephin 2 g intravenously daily. Continue aspirin 81 mg once a day, Eliquis 5 mg twice a day. The patient will be kept n.p.o. after midnight for IRINA around noon time. It was discussed with the patient's son that if the patient is not considered a suitable candidate for sedation by anesthesia team, the procedure would be canceled and the patient will be treated for total six weeks of IV antibiotics for bacterial endocarditis. Ronny Solano MD
[2018-05-13] MEDS: AMPicillin 2 GM in Sodium Chloride 100 ML IVPB SCH ×4 (02:33→21:15)
--- NOTE | 2018-05-13 06:25 | PN ---
DATE: 05/11/2018 SUBJECTIVE: Fredrick Dennison is for transesophageal echocardiogram on Sunday to assess the valve function. The patient is on Rocephin and ampicillin. No fever. PHYSICAL EXAMINATION: VITAL SIGNS: Blood pressure 131/55, pulse 82, respiratory rate 22, temperature 98.9. LUNGS: Clear. Bilateral scattered rhonchi. CVS: S1 and S2, regular. ABDOMEN: Soft. Nontender. Bowel sounds are positive. ASSESSMENT: 1. Infective endocarditis. The patient is on antibiotics. 2. Hypertension. 3. Obstructive uropathy, benign prostatic hyperplasia. 4. Dementia. PLAN: Transesophageal echocardiogram, Sunday. Continue ampicillin and Rocephin per Infectious Disease. Monitor the patient. Esau Jacobs MD
--- NOTE | 2018-05-13 06:26 | PN ---
DATE: 05/10/2018 SUBJECTIVE: The patient, Fredrick Dennison, is afebrile. He is on antibiotics. PHYSICAL EXAMINATION: VITAL SIGNS: Blood pressure 145/71, pulse 90, respiratory rate 20, temperature 98.2. LUNGS: Clear. No rales. No rhonchi. CARDIOVASCULAR SYSTEM: S1 and S2 are regular. No heave. No thrill. ABDOMEN: Soft, nontender. Bowel sounds are positive. ASSESSMENT: 1. Infective endocarditis. 2. Cerebrovascular accident. 3. Diabetes. 4. Hyperkalemia. 5. Hypertension. PLAN: Continue antibiotics. Monitor the patient. Esau Jacobs MD
--- NOTE | 2018-05-13 06:26 | PN ---
DATE: 05/12/2018 SUBJECTIVE: Fredrick Dennison is afebrile. He is for a transesophageal echocardiogram in the a.m. No shortness of breath. No chest pain. PHYSICAL EXAMINATION: VITAL SIGNS: BP 148/79, pulse 99, respiratory rate 20, temperature 98.9. LUNGS: Clear. CARDIOVASCULAR SYSTEM: S1 and S2, regular. ABDOMEN: Soft. ASSESSMENT: 1. Infective endocarditis, on antibiotics and transesophageal echocardiogram in the morning. 2. Hypertension. 3. Benign prostatic hyperplasia. PLAN: Continue current medication. Monitor the patient. Esau Jacobs MD
[2018-05-13] MEDS: Potassium Chloride 20 mEq/15 ml LIQ UD PO SCH (10:59)
[2018-05-13] MEDS ORDERED: Propofol 10 mg/ml Inj (20 ML) ONE (12:20)
[2018-05-13] MEDS ORDERED: Etomidate 20 mg/10ml Inj IV ONE (12:22)
[2018-05-13] MEDS ORDERED: Phenylephrine 10 mg/ml Inj ONE (12:22)
[2018-05-13] MEDS ORDERED: ePHEDrine 50 mg/ml Inj ONE (12:22)
[2018-05-13] MEDS ORDERED: Lidocaine 4% (Laryng-O-Jet) Kit MM ONE (12:25)
[2018-05-13] MEDS ORDERED: Esmolol 100 mg/10ml Inj IV ONE (12:43)
--- NOTE | 2018-05-13 16:06 | CT ---
Date of service: 05/13/2018 PROCEDURE: CT HEAD WITHOUT CONTRAST. HISTORY: CVA COMPARISON: None available. TECHNIQUE: Axial computed tomography images were obtained through the head/brain without intravenous contrast. Radiation dose: Total exam DLP = mGy-cm. This CT exam was performed using one or more of the following dose reduction techniques: Automated exposure control, adjustment of the mA and/or kV according to patient size, and/or use of iterative reconstruction technique. FINDINGS: HEMORRHAGE: No intracranial hemorrhage. BRAIN: No mass effect or edema. Moderate atrophy and mild chronic microvascular ischemic changes. VENTRICLES: Unremarkable. No hydrocephalus. CALVARIUM: Unremarkable. PARANASAL SINUSES: Unremarkable as visualized. No significant inflammatory changes. MASTOID AIR CELLS: Unremarkable as visualized. No inflammatory changes. OTHER FINDINGS: None. IMPRESSION: No acute hemorrhage.
--- NOTE | 2018-05-13 17:11 | CARD ---
APPROVED REPORT Date of service: 05/13/2018 EXAM: Transesophageal echocardiogram with color flow Doppler. INDICATION Infection : Rule out subacute bacterial endocarditis Reason For Test : Rule out endocarditis. PROCEDURE After obtaining informed consent, patient underwent transesophageal echo in the [employer]. Type of Sedation : Conscious Sedation Sedation was provided by anesthesiologist. Sedation was achieved with intravenously. Transesophageal probe was inserted and advanced into esophagus without difficulty. The IRINA was performed without complications. Throughout the procedure, the blood pressure, pulse oximetry, cardiac rhythm, and rate were monitored. The patient tolerated the procedure without adverse effects. Recovery from conscious sedation was uneventful and vital signs were stable. LEFT VENTRICLE The left ventricle is normal size. There is normal left ventricular wall thickness. The left ventricular function is normal. The left ventricular ejection fraction is within the normal range. RIGHT VENTRICLE The right ventricle is normal size. There is normal right ventricular wall thickness. The right ventricular systolic function is normal. ATRIA The left atrium size is normal. The right atrium size is normal. The interatrial septum is intact with no evidence for an atrial septal defect. AORTIC VALVE The aortic valve is severely thickened. 6X7 mm Aortic Valve vegetation noted No evidence suggestive of a root abscess There is severe aortic regurgitation. MITRAL VALVE The mitral valve is normal in structure. There is no mitral valve stenosis. There is no mitral valve regurgitation noted. TRICUSPID VALVE The tricuspid valve is normal in structure. <Conclusion> The aortic valve is severely thickened. 6X7 mm Aortic Valve vegetation noted No evidence suggestive of a root abscess There is severe aortic regurgitation.
[2018-05-13] MEDS: cefTRIAXone 2 GM in Sodium Chloride 0.9% 100 ML IVPB SCH (18:35)
--- NOTE | 2018-05-13 19:28 | PN ---
DATE: 05/13/2018 SUBJECTIVE: The patient underwent a IRINA today. The study was limited to evaluation of the aortic valve. The patient received minimal sedation because of his overall lethargy and neurological condition. The findings of the IRINA revealed significantly thickened aortic valve with a small aortic valve vegetation measuring nearly 0.6 x 0.7 mm with significant aortic insufficiency and no evidence suggestive of ring abscess. PHYSICAL EXAMINATION: VITAL SIGNS: Blood pressure 161/75, heart rate 95, temperature 100.1, respirations 18. HEENT: Head normocephalic. CHEST: Diminished breath sounds bilaterally. HEART: S1, S2 regular. EXTREMITIES: No edema. IMAGING: Repeat head CT scan revealed no acute hemorrhage, moderate atrophy and mild chronic microvascular ischemic changes. ASSESSMENT: 1. 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 2. Status post cerebrovascular accident involving the right anterior cerebral artery territory. 3. Chronic atrial fibrillation. RECOMMENDATIONS: Case was discussed at length with the patient's son. The patient will be maintained on intravenous antibiotics for a total of 6 weeks which will include ampicillin 2 gm every 6 hours, Rocephin 2 gm intravenously daily. Continue Eliquis at 5 mg twice a day which can be reduced if the patient has significant hematuria. Continue Crestor at 5 mg once a day, Cozaar at 100 mg once a day, hydrochlorothiazide at 12.5 mg twice a day and KCl elixir at 20 mEq daily. Ronny Solano MD
[2018-05-13] MEDS: Magnesium Hydroxide Susp 30 ml UD PO SCH (21:15)
--- NOTE | 2018-05-13 23:35 | CP.PCM.PN ---
Subjective - Subjective Subjective: dictated Objective - Vital Signs/Intake and Output Vital Signs (last 24 hours): Temp Pulse Resp BP Pulse Ox 99.5 F 92 H 18 161/75 H 96 05/13/18 17:51 05/13/18 18:58 05/13/18 15:00 05/13/18 15:00 05/13/18 15:00 Intake and Output: 05/13/18 05/14/18 18:59 06:59 Intake Total 100 420 Output Total 300 Balance -200 420 - Medications Medications: Current Medications Acetaminophen (Tylenol 325mg Tab) 650 mg PO Q6 PRN PRN Reason: Pain, moderate (4-7) Apixaban (Eliquis) 5 mg PO BID [facility] Last Admin: 05/13/18 17:45 Dose: 5 mg Aspirin (Aspirin Chewable) 81 mg PO DAILY [facility] Last Admin: 05/13/18 10:50 Dose: 81 mg Hydrochlorothiazide (Microzide) 12.5 mg PO BID [facility] Last Admin: 05/13/18 17:45 Dose: 12.5 mg Ampicillin 2 gm/ Sodium (Chloride) 100 mls @ 50 mls/hr IVPB Q6H [facility]; Protocol Last Admin: 05/13/18 21:15 Dose: 50 mls/hr Ceftriaxone Sodium 2 gm/ (Sodium Chloride) 100 mls @ 100 mls/hr IVPB Q24H [facility]; Protocol Last Admin: 05/13/18 18:35 Dose: 100 mls/hr Losartan Potassium (Cozaar) 100 mg PO DAILY [facility] Last Admin: 05/13/18 10:51 Dose: 100 mg Magnesium Hydroxide (Milk Of Magnesia) 30 ml PO Q24H [facility] Last Admin: 05/13/18 21:15 Dose: 30 ml Memantine (Namenda) 5 mg PO DAILY [facility] Last Admin: 05/13/18 10:50 Dose: 5 mg Nystatin (Nystop Topical Powder) 0 applic TOP TID [facility] Last Admin: 05/13/18 18:36 Dose: 1 applic Potassium Chloride (Potassium Chloride Oral Soln) 20 meq PO DAILY [facility] Last Admin: 05/13/18 10:59 Dose: Not Given Rosuvastatin Calcium (Crestor) 5 mg PO HS [facility] Last Admin: 05/13/18 21:15 Dose: 5 mg Tamsulosin HCl (Flomax) 0.4 mg PO BID [facility] Last Admin: 05/13/18 17:45 Dose: 0.4 mg - Labs Labs: 05/12/18 07:52 05/12/18 07:52
[2018-05-14] MEDS: AMPicillin 2 GM in Sodium Chloride 100 ML IVPB SCH ×3 (02:06→14:34)
[2018-05-14 07:47] VITALS: RESP 18; O2SAT 97
--- NOTE | 2018-05-14 07:50 | PN ---
DATE: 05/13/2018 SUBJECTIVE: The patient, Fredrick Dennison, has low-grade fever, 100.1. He is status post transesophageal echocardiogram, and he was found to have vegetation. It is a small vegetation. His blood cultures repeat are negative. Initially, he was positive for Streptococcus viridans. No nausea or vomiting. The patient feels drowsy. He is arousable. PHYSICAL EXAMINATION: VITAL SIGNS: Blood pressure 161/75, pulse 92, respiratory rate 18, temperature 99.5. LUNGS: Bilateral rales. Decreased air entry. CARDIOVASCULAR SYSTEM: S1 and S2, regular. ABDOMEN: Soft. ASSESSMENT: 1. Infective endocarditis. 2. Hypertension. 3. Obstructive uropathy. 4. Anemia. PLAN: Antibiotics. Medical management. Monitor the patient. Esau Jacobs MD
[2018-05-14] MEDS: Potassium Chloride 20 mEq/15 ml LIQ UD PO SCH (10:38)
[2018-05-14 13:15] LABS: MEAN PLATELET VOLUME 7.7 fL (7.2-11.7)
[2018-05-14 13:26] LABS: BASO # 0.1 K/uL (0.0-0.2); BASO % 0.9 % (0.0-2.0); EOS % 0.4 % (0.0-4.0); LYMPH # 1.8 K/uL (1.0-4.3); LYMPH % 21.3 % (20.0-40.0); MEAN CELL VOLUME 93.2 fL (80.0-94.0); MEAN CORPUSCULAR HEMOGLOBIN 34.3 pg (27.0-31.0); MONO # 0.9 K/uL (0.0-0.8); MONO % 10.4 % (0.0-10.0); NEUT # 5.5 K/uL (1.8-7.0); NRBC % 0.1 % (0.0-2.0); RBC 2.91 Mil/uL (4.40-5.90); RED CELL DISTRIBUTION WIDTH 16.1 % (11.5-14.5); WHITE BLOOD COUNT 8.3 K/uL (4.8-10.8)
[2018-05-14 13:28] LABS: BLOOD UREA NITROGEN 28 mg/dL (9-20); CALCIUM 9.2 mg/dl (8.6-10.4); GFR NON-AFRICAN AMERICAN > 60
[2018-05-14 13:29] LABS: MEAN CORPUSCULAR HGB CONC 35.9 g/dL (33.0-37.0)
[2018-05-14] MEDS ORDERED: Potassium Chloride 20 mEq/15 ml LIQ UD PO ONE (14:00)
[2018-05-14 15:24] VITALS: BP 142/65; TEMP 98.6
--- NOTE | 2018-05-14 16:34 | CP.PCM.PN ---
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 Patient seen today, sleeping arousable seems comfortable, NAD vss and labs reviewed- a febrile Objective - Vital Signs/Intake and Output Vital Signs (last 24 hours): Temp Pulse Resp BP Pulse Ox 98.6 F 95 H 18 142/65 97 05/14/18 15:00 05/14/18 15:00 05/14/18 15:00 05/14/18 15:00 05/14/18 15:00 Intake and Output: 05/14/18 05/14/18 06:59 18:59 Intake Total 570 320 Output Total 200 400 Balance 370 -80 - Medications Medications: Current Medications Acetaminophen (Tylenol 325mg Tab) 650 mg PO Q6 PRN PRN Reason: Pain, moderate (4-7) Apixaban (Eliquis) 5 mg PO BID [facility] Last Admin: 05/14/18 10:38 Dose: 5 mg Aspirin (Aspirin Chewable) 81 mg PO DAILY [facility] Last Admin: 05/14/18 10:38 Dose: 81 mg Hydrochlorothiazide (Microzide) 12.5 mg PO BID [facility] Last Admin: 05/14/18 14:33 Dose: 12.5 mg Ampicillin 2 gm/ Sodium (Chloride) 100 mls @ 50 mls/hr IVPB Q6H [facility]; Protocol Last Admin: 05/14/18 14:34 Dose: 50 mls/hr Ceftriaxone Sodium 2 gm/ (Sodium Chloride) 100 mls @ 100 mls/hr IVPB Q24H [facility]; Protocol Last Admin: 05/13/18 18:35 Dose: 100 mls/hr Losartan Potassium (Cozaar) 100 mg PO DAILY [facility] Last Admin: 05/14/18 10:38 Dose: 100 mg Magnesium Hydroxide (Milk Of Magnesia) 30 ml PO Q24H [facility] Last Admin: 05/13/18 21:15 Dose: 30 ml Memantine (Namenda) 5 mg PO DAILY [facility] Last Admin: 05/14/18 10:38 Dose: 5 mg Nystatin (Nystop Topical Powder) 0 applic TOP TID [facility] Last Admin: 05/14/18 15:11 Dose: 1 applic Potassium Chloride (Potassium Chloride Oral Soln) 20 meq PO BID [facility] Rosuvastatin Calcium (Crestor) 5 mg PO HS [facility] Last Admin: 05/13/18 21:15 Dose: 5 mg Tamsulosin HCl (Flomax) 0.4 mg PO BID [facility] Last Admin: 05/14/18 14:34 Dose: 0.4 mg - Labs Labs: 05/14/18 13:11 05/14/18 13:11
--- NOTE | 2018-05-14 16:53 | CP.PCM.PN ---
Subjective - Date & Time of Evaluation Date of Evaluation: 05/14/18 Time of Evaluation: 16:53 Objective - Vital Signs/Intake and Output Vital Signs (last 24 hours): Temp Pulse Resp BP Pulse Ox 98.6 F 95 H 18 142/65 97 05/14/18 15:00 05/14/18 15:00 05/14/18 15:00 05/14/18 15:00 05/14/18 15:00 Intake and Output: 05/14/18 05/14/18 06:59 18:59 Intake Total 570 320 Output Total 200 400 Balance 370 -80 - Medications Medications: Current Medications Acetaminophen (Tylenol 325mg Tab) 650 mg PO Q6 PRN PRN Reason: Pain, moderate (4-7) Apixaban (Eliquis) 5 mg PO BID [facility] Last Admin: 05/14/18 10:38 Dose: 5 mg Aspirin (Aspirin Chewable) 81 mg PO DAILY [facility] Last Admin: 05/14/18 10:38 Dose: 81 mg Hydrochlorothiazide (Microzide) 12.5 mg PO BID [facility] Last Admin: 05/14/18 14:33 Dose: 12.5 mg Ampicillin 2 gm/ Sodium (Chloride) 100 mls @ 50 mls/hr IVPB Q6H [facility]; Protocol Last Admin: 05/14/18 14:34 Dose: 50 mls/hr Ceftriaxone Sodium 2 gm/ (Sodium Chloride) 100 mls @ 100 mls/hr IVPB Q24H [facility]; Protocol Last Admin: 05/13/18 18:35 Dose: 100 mls/hr Losartan Potassium (Cozaar) 100 mg PO DAILY [facility] Last Admin: 05/14/18 10:38 Dose: 100 mg Magnesium Hydroxide (Milk Of Magnesia) 30 ml PO Q24H [facility] Last Admin: 05/13/18 21:15 Dose: 30 ml Memantine (Namenda) 5 mg PO DAILY [facility] Last Admin: 05/14/18 10:38 Dose: 5 mg Nystatin (Nystop Topical Powder) 0 applic TOP TID [facility] Last Admin: 05/14/18 15:11 Dose: 1 applic Potassium Chloride (Potassium Chloride Oral Soln) 20 meq PO BID [facility] Rosuvastatin Calcium (Crestor) 5 mg PO HS [facility] Last Admin: 05/13/18 21:15 Dose: 5 mg Tamsulosin HCl (Flomax) 0.4 mg PO BID [facility] Last Admin: 05/14/18 14:34 Dose: 0.4 mg - Labs Labs: 05/14/18 13:11 05/14/18 13:11 Assessment and Plan (1) Streptococcus viridans infection Status: Acute (2) Fever Status: Acute (3) Leukocytosis Status: Acute (4) Low back pain Status: Acute (5) Alzheimer disease Status: Chronic (6) Hypertension Status: Chronic (7) Enlarged prostate Status: Acute (8) CVA (cerebral vascular accident) Status: Acute
[2018-05-14] MEDS: cefTRIAXone 2 GM in Sodium Chloride 0.9% 100 ML IVPB SCH (17:22)
[2018-05-14] MEDS ORDERED: Potassium Chloride 20 mEq/15 ml LIQ UD PO SCH (18:00)
[2018-05-14 18:36] VITALS: PULSE 99
--- NOTE | 2018-05-14 19:48 | PN ---
DATE: 05/14/2018 SUBJECTIVE: The patient is sleepy and lethargic, but does not appear to be in any respiratory distress. PHYSICAL EXAMINATION: VITAL SIGNS: Blood pressure 145/65, heart rate 95, earlier temperature was 99.4, currently 98.6, respirations 18. HEENT: Normocephalic. CHEST: Diminished breath sounds bilaterally. HEART: S1 and S2 regular. EXTREMITIES: No edema. LABORATORY DATA: Today's hemoglobin and hematocrit 10 and 27.2. White count and platelet count are within normal limit. Today's SMA-7; sodium 145, potassium 3.5, chloride 110, CO2 of 28, glucose 131, BUN 28, creatinine 0.7. Repeat head CT scan done yesterday revealed no acute hemorrhage. ASSESSMENT: 1. Bacterial endocarditis. 2. Atrial fibrillation. 3. History of recent cerebrovascular accident involving the right anterior cerebral artery territory. 4. Hypertension. 5. Hypokalemia. RECOMMENDATIONS: Continue IV ampicillin 2 g every 6 hours, IV Rocephin 2 g daily. Continue Cozaar 100 mg once a day, Crestor 5 mg once a day, Eliquis 5 mg twice a day, hydrochlorothiazide 12.5 mg twice a day. Increase KCl to 20 mEq elixir twice. Ronny Solano MD
--- NOTE | 2018-05-14 22:43 | CP.PCM.DIS ---
Provider - Provider Date of Admission: 04/30/18 14:52 Attending physician: Esau Jacobs MD Hospital Course - Lab Results Lab Results: Micro Results 05/06/18 19:30 Blood-Venous Blood Culture - Final NO GROWTH AFTER 5 DAYS 05/06/18 19:30 Blood-Venous Gram Stain - Final TEST NOT PERFORMED 05/06/18 19:30 Blood-Venous Blood Culture - Final NO GROWTH AFTER 5 DAYS 05/06/18 19:30 Blood-Venous Gram Stain - Final TEST NOT PERFORMED 05/02/18 00:23 Blood Blood Culture - Final NO GROWTH AFTER 5 DAYS 05/02/18 00:23 Blood Gram Stain - Final TEST NOT PERFORMED 04/30/18 15:11 Blood-Venous Blood Culture - Final Streptococcus Viridans 04/30/18 15:11 Blood-Venous Gram Stain - Final 04/30/18 15:11 Blood-Venous S.aureus & Coag-Neg Staph PNA FISH - Final 04/30/18 15:11 Blood-Venous Blood Culture - Final Streptococcus Viridans 04/30/18 15:11 Blood-Venous Gram Stain - Final Most Recent Lab Values WBC 8.3 K/uL (4.8-10.8) 05/14/18 13:11 RBC 2.91 Mil/uL (4.40-5.90) L 05/14/18 13:11 Hgb 10.0 g/dL (12.0-18.0) L 05/14/18 13:11 Hct 27.2 % (35.0-51.0) L 05/14/18 13:11 MCV 93.2 fL (80.0-94.0) 05/14/18 13:11 MCH 34.3 pg (27.0-31.0) H 05/14/18 13:11 MCHC 35.9 g/dL (33.0-37.0) 05/14/18 13:11 RDW 16.1 % (11.5-14.5) H 05/14/18 13:11 Plt Count 249 K/uL (130-400) 05/14/18 13:11 MPV 7.7 fL (7.2-11.7) 05/14/18 13:11 Neut % (Auto) 67.0 % (50.0-75.0) 05/14/18 13:11 Lymph % (Auto) 21.3 % (20.0-40.0) 05/14/18 13:11 [place] % (Auto) 10.4 % (0.0-10.0) H 05/14/18 13:11 Eos % (Auto) 0.4 % (0.0-4.0) 05/14/18 13:11 Baso % (Auto) 0.9 % (0.0-2.0) 05/14/18 13:11 Neut # (Auto) 5.5 K/uL (1.8-7.0) 05/14/18 13:11 Lymph # (Auto) 1.8 K/uL (1.0-4.3) 05/14/18 13:11 [place] # (Auto) 0.9 K/uL (0.0-0.8) H 05/14/18 13:11 Eos # (Auto) 0.0 K/uL (0.0-0.7) 05/14/18 13:11 Baso # (Auto) 0.1 K/uL (0.0-0.2) 05/14/18 13:11 ESR 96 mm/hr (0-15) H 05/04/18 17:10 pO2 25 mm/Hg (30-55) L 05/04/18 16:51 VBG pH 7.40 (7.32-7.43) 05/04/18 16:51 VBG pCO2 43 mmHg (40-60) 05/04/18 16:51 VBG HCO3 24.7 mmol/L 05/04/18 16:51 VBG Total CO2 27.9 mmol/L (22-28) 05/04/18 16:51 VBG O2 Sat (Calc) 49.9 % (40-65) 05/04/18 16:51 VBG Base Excess 1.5 mmol/L (0.0-2.0) 05/04/18 16:51 VBG Potassium 3.7 mmol/L (3.6-5.2) 05/04/18 16:51 Sodium 141.0 mmol/l (132-148) 05/04/18 16:51 Chloride 108.0 mmol/L (98-107) H 05/04/18 16:51 Glucose 107 mg/dl (75-110) 05/04/18 16:51 Lactate 2.1 mmol/L (0.7-2.1) 05/04/18 16:51 Sodium 145 mmol/L (132-148) 05/14/18 13:11 Potassium 3.5 mmol/L (3.6-5.2) L 05/14/18 13:11 Chloride 110 mmol/L (98-107) H 05/14/18 13:11 Carbon Dioxide 28 mmol/L (22-30) 05/14/18 13:11 Anion Gap 12 (10-20) 05/14/18 13:11 BUN 28 mg/dL (9-20) H 05/14/18 13:11 Creatinine 0.7 mg/dL (0.8-1.5) L 05/14/18 13:11 Est GFR ( Amer) > 60 05/14/18 13:11 Est GFR (Non-Af Amer) > 60 05/14/18 13:11 POC Glucose (mg/dL) 111 mg/dL (65-110) H 04/30/18 22:33 Random Glucose 131 mg/dL (75-110) H 05/14/18 13:11 Lactic Acid 1.3 mmol/L (0.7-2.1) 05/05/18 07:48 Calcium 9.2 mg/dl (8.6-10.4) 05/14/18 13:11 Magnesium 1.7 mg/dL (1.6-2.3) 05/08/18 11:15 Total Bilirubin 2.4 mg/dL (0.2-1.3) H 05/10/18 11:31 Direct Bilirubin 1.0 mg/dL (0.0-0.4) H 05/04/18 06:44 AST 23 U/L (17-59) 05/10/18 11:31 ALT 39 U/L (21-72) 05/10/18 11:31 Alkaline Phosphatase 151 U/L (38-126) H 05/10/18 11:31 Ammonia 22 umol/L (9-33) 05/03/18 09:04 Troponin I 0.0380 ng/mL (0.00-0.120) 04/30/18 13:24 C-Reactive Protein 14.10 mg/L (0.0-9.9) H 05/04/18 06:44 NT-Pro-B Natriuret Pep 1430 pg/mL (0-900) H 04/30/18 13:24 Total Protein 6.0 g/dL (6.3-8.3) L 05/10/18 11:31 Albumin 2.8 g/dL (3.5-5.0) L 05/10/18 11:31 Globulin 3.2 gm/dL (2.2-3.9) 05/10/18 11:31 Albumin/Globulin Ratio 0.9 (1.0-2.1) L 05/10/18 11:31 Triglycerides 101 mg/dL (0-149) 05/03/18 08:12 Cholesterol 87 mg/dL (0-199) 05/03/18 08:12 LDL Cholesterol Direct 49 mg/dL (0-129) 05/03/18 08:12 HDL Cholesterol 19 mg/dL (30-70) L 05/03/18 08:12 Prostate Specific Ag 18.6 ng/mL (0.00-4.0) H 05/04/18 06:44 TSH 3rd Generation 1.12 mIU/L (0.46-4.68) 05/04/18 06:44 Venous Blood Potassium 3.7 mmol/L (3.6-5.2) 05/04/18 16:51 Urine Color Marni (YELLOW) 04/30/18 22:10 Urine Clarity Clear (Clear) 04/30/18 22:10 Urine pH 5.0 (5.0-8.0) 04/30/18 22:10 Ur Specific [place] 1.020 (1.003-1.030) 04/30/18 22:10 Urine Protein Negative mg/dL (NEGATIVE) 04/30/18 22:10 Urine Glucose (UA) Normal mg/dL (Normal) 04/30/18 22:10 Urine Ketones Negative mg/dL (NEGATIVE) 04/30/18 22:10 Urine Blood Negative (NEGATIVE) 04/30/18 22:10 Urine Nitrate Negative (NEGATIVE) 04/30/18 22:10 Urine Bilirubin Negative (NEGATIVE) 04/30/18 22:10 Urine Urobilinogen 4.0 mg/dL (0.2-1.0) 04/30/18 22:10 Ur Leukocyte Esterase 2+ Jefe/uL (Negative) H 04/30/18 22:10 Urine WBC (Auto) 12 /hpf (0-5) H 04/30/18 22:10 Urine RBC (Auto) 1 /hpf (0-3) 04/30/18 22:10 Ur Squamous Epith Cells 2 /hpf (0-5) 04/30/18 22:10 Urine Bacteria Few (<OCC) H 04/30/18 22:10 Vancomycin Trough 9.5 ug/mL (5.0-10.0) 05/11/18 13:02 Rheumatoid Factor IgG 12 U (<=6) H 05/04/18 06:44 Rheumatoid Factor IgA 30 U (<=6) H 05/04/18 06:44 Rheumatoid Factor IgM >100 U (<=6) H 05/04/18 06:44 Complement C2 1.4 mg/dL (1.6-3.5) L 05/04/18 06:44 Complement C4 14.0 mg/dL (14.0-44.0) 05/04/18 06:44 Tot Complement (CH50) 42 U/mL (31-60) 05/04/18 06:44 Hepatitis A IgM Ab Negative (NEGATIVE) 05/04/18 06:44 Hep Bs Antigen Negative (NEGATIVE) 05/04/18 06:44 Hep B Core IgM Ab Negative (NEGATIVE) 05/04/18 06:44 Hepatitis C Antibody Negative (NEGATIVE) 05/04/18 06:44 Discharge Exam - Head Exam Head Exam: ATRAUMATIC, NORMOCEPHALIC Discharge Plan - Follow Up Plan Condition: GOOD Disposition: REHAB FACILITY/REHAB UNIT Instructions: Stroke (DC) Additional Instructions: Please admit patient under [facility] service Continue ampicillin and rocephin for total of 6 weeks ( started on 05/11/18) continue medication as per med. rec. cbc, bmp q 3days Referrals: Ronny Solano MD [Staff Provider] - Matthew Rendon MD [Staff Provider] - Esau Jacobs MD [Staff Provider] -
--- NOTE | 2018-05-15 08:26 | DS ---
HISTORY OF PRESENT ILLNESS: The patient, Fredrick Dennison, is for discharge to [facility]. The patient will be monitored in LTACH. He needs a lot more aggressive physiotherapy for embolism. He will be maintained on antibiotics for infective endocarditis, status post transesophageal echocardiogram. PHYSICAL EXAMINATION: VITAL SIGNS: Blood pressure 142/65, pulse 99, respiratory rate 18, and temperature 98.6. LUNGS: Clear. CVS: S1 and S2 regular. ABDOMEN: Soft. ASSESSMENT: 1. Infective endocarditis. 2. Cerebrovascular accident. 3. Hypertension. 4. Obstructive uropathy. PLAN: Discharge the patient. Monitor the patient. Esau Jacobs MD
== END 2018-05-14 19:25 | DRG 871 ==
LOC: C.ER 12:49 → C.9E 14:52 → C.5S 16:34
PROVIDERS: ADMIT Internal Medicine; ATTEND Internal Medicine
PROC: 02HV33Z Insertion of Infusion Device into Superior Vena Cava, Percutaneous Approach (ICD-10-PCS; principal; 2018-05-07)
DX: A40.8 Other streptococcal sepsis (principal); I63.9 Cerebral infarction, unspecified; I63.521 Cerebral infarction due to unspecified occlusion or stenosis of right anterior cerebral artery; I33.0 Acute and subacute infective endocarditis; G92 Toxic encephalopathy; G81.94 Hemiplegia, unspecified affecting left nondominant side; I48.1 Persistent atrial fibrillation; N39.0 Urinary tract infection, site not specified; N13.8 Other obstructive and reflux uropathy; F02.80 Dementia in other diseases classified elsewhere, unspecified severity, without behavioral disturbance, psychotic disturbance, mood disturbance, and anxiety; G30.9 Alzheimer's disease, unspecified; Z86.73 Personal history of transient ischemic attack (TIA), and cerebral infarction without residual deficits; I35.1 Nonrheumatic aortic (valve) insufficiency; J44.9 Chronic obstructive pulmonary disease, unspecified; I35.2 Nonrheumatic aortic (valve) stenosis with insufficiency; I10 Essential (primary) hypertension; E87.6 Hypokalemia; E87.5 Hyperkalemia; E11.9 Type 2 diabetes mellitus without complications; D64.9 Anemia, unspecified; E83.42 Hypomagnesemia; N40.1 Benign prostatic hyperplasia with lower urinary tract symptoms; E86.0 Dehydration; Z74.01 Bed confinement status; A41.89 Other specified sepsis

== ENCOUNTER 2018-06-24 17:14 | Inpatient (IN) | payer MEDICARE ==
[2018-06-24 17:15] VITALS: BMI 24.4
[2018-06-24] MEDS ORDERED: Sodium Chloride 0.9% 500 ML IV ONE (19:41)
--- NOTE | 2018-06-24 20:00 | C.PDOC ---
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 As per [facility] records was noticed to be tac hycardic with a rate of 140. As oer [facility] patient is currently taking antibiotics for his endocarditis. Patient not following commands unable to obtain further history. Time Seen by Provider: 06/24/18 17:52 Chief Complaint (Nursing): Weakness/Neurological Deficit History Per: Other ([facility]) History/Exam Limitations: clinical condition Onset/Duration Of Symptoms: Days Current Symptoms Are (Timing): Still Present Associated Symptoms Preceding Syncopal Episode: No Predromal Symptoms (Sudden Onset) Seizure Or Post-ictal Symptoms: None Fall Associated With With Symptoms: No Severity: None Recent travel outside of the [place]: No Additional History Per: [facility] Past Medical History Reviewed: Historical Data, Nursing Documentation, Vital Signs Vital Signs: Last Vital Signs Temp 97.2 F L 06/24/18 17:58 Pulse 122 H 06/24/18 19:36 Resp 16 06/24/18 17:58 BP 109/46 L 06/24/18 19:36 Pulse Ox 96 06/24/18 19:36 - Medical History PMH: Alzheimer's Disease, Arthritis, COPD, CVA, Dementia, HTN Denies: Chronic Kidney Disease Other PMH: Endocarditis Surgical History: No Surg Hx - [facility] Procedures INSERTION OF INFUSION DEV INTO SUP VENA CAVA, PERC APPROACH (04/30/18) Family History: States: Unknown Family Hx - Social History Hx Alcohol Use: No Hx Substance Use: No - Immunization History Hx Tetanus Toxoid Vaccination: No Hx Influenza Vaccination: Yes (2016) Hx Pneumococcal Vaccination: Yes (2016) Review Of Systems Review Of Systems: ROS cannot be obtained secondary to pt's inabilty to answer questions. Physical Exam - Physical Exam Appears: Non-toxic Skin: Warm, Dry, Other (pink and dry) Head: Atraumatic, Normacephalic Eye(s): bilateral: Normal Inspection, PERRL, EOMI Oral Mucosa: Dry Neck: Normal ROM, Supple Chest: Symmetrical Cardiovascular: Rhythm Irregular (irregularly, tachycardic) Respiratory: Decreased Breath Sounds, No Rales, No Rhonchi, No Wheezing Gastrointestinal/Abdominal: Soft, No Tenderness, No Guarding, No Rebound Extremity: Normal ROM, No Pedal Edema, No Swelling, Other (PICC line right upper extremity) Neurological/Psych: Other (not following commands) Gait: Unable To Assess ED Course And Treatment - Laboratory Results Result Diagrams: 06/27/18 10:19 06/27/18 11:41 ECG: Interpreted By Me, Viewed By Me ECG Rhythm: Atrial Fibrillation (with RVR) Interpretation Of ECG: Normal QRS and QT intervals. Normal axis, no ST elevations Rate From EC (BPM) O2 Sat by Pulse Oximetry: 96 (On RA) Pulse Ox Interpretation: Normal Medical Decision Making Medical Decision Making: Plan: * EKG * Labs * Cardizem 10 mg IVP * IV fluids * UA Dr. Jacobs saw patient while in the ED, wants the patient to be admitted under his service. Dr. Jacobs states patient normal is 90% of the time AOx3. 20:05- Patient's HR went down from 120 to 105 after 500 cc bolus and 10 mg of cardizem. Plan is to continue monitoring patient's HR. 21:29- Patient's HR was down to 99 23:45- called Dr. Jacobs left message for callback. 23:55 - Dr. Jacobs accepts patient for admission under his service. Disposition - Disposition Disposition: HOSPITALIZED Disposition Time: 23:55 Condition: STABLE - Clinical Impression Clinical Impression: Atrial fibrillation - Scribe Statement The provider has reviewed the documentation as recorded by the Scribe Valdemar Perez All medical record entries made by the Scribe were at my direction and personally dictated by me. I have reviewed the chart and agree that the record accurately reflects my personal performance of the history, physical exam, [facility] decision making, and the department course for this patient. I have also personally directed, reviewed, and agree with the discharge instructions and disposition.
[2018-06-24] MEDS: Sodium Chloride 0.9% 1,000 ML IV SCH (20:43)
[2018-06-24 21:58] LABS: BASO # 0.1 K/uL (0.0-0.2); BASO % 0.5 % (0.0-2.0); LYMPH # 0.8 K/uL (1.0-4.3); LYMPH % 6.3 % (20.0-40.0); MEAN CELL VOLUME 93.2 fL (80.0-94.0); MEAN CORPUSCULAR HGB CONC 34.3 g/dL (33.0-37.0); MEAN PLATELET VOLUME 9.6 fL (7.2-11.7); MONO # 0.5 K/uL (0.0-0.8); MONO % 3.8 % (0.0-10.0); NEUT # 10.9 K/uL (1.8-7.0); NEUT % 89.4 % (50.0-75.0); NRBC % 0.1 % (0.0-2.0); PLATELET COUNT 156 K/uL (130-400); RBC 4.08 Mil/uL (4.40-5.90); RED CELL DISTRIBUTION WIDTH 17.2 % (11.5-14.5); WHITE BLOOD COUNT 12.2 K/uL (4.8-10.8)
[2018-06-24 22:21] LABS: ANISOCYTOSIS SLIGHT; BANDS 4 % (0-2); LYMPHOCYTE 12 % (20-40); MONOCYTE 4 % (0-10); NEUTROPHIL 80 % (50-75); PLATELET ESTIMATE NORMAL (NORMAL); TOTAL CELLS COUNTED 100
[2018-06-24 23:08] LABS: ALB/GLOB RATIO 0.9 (1.0-2.1); ALBUMIN 2.6 g/dL (3.5-5.0); ALT/SGPT 45 U/L (21-72); AST/SGOT 43 U/L (17-59); BLOOD UREA NITROGEN 47 mg/dL (9-20); CALCIUM 9.1 mg/dl (8.6-10.4); GFR NON-AFRICAN AMERICAN > 60
[2018-06-24 23:29] LABS: B-TYPE NATRIURETIC PEPTIDE 4860 pg/mL (0-900)
--- NOTE | 2018-06-25 02:03 | CP.PCM.HP ---
Past Patient History - Past Medical History & Family History Past Medical History?: Yes - Past Social History Smoking Status: Never Smoked - CARDIAC Hx Hypertension: Yes - PULMONARY Hx Chronic Obstructive Pulmonary Disease (COPD): Yes - NEUROLOGICAL Hx Alzheimer's Disease: Yes Hx Dementia: Yes - HEENT Hx HEENT Problems: No - RENAL Hx Chronic Kidney Disease: No - ENDOCRINE/METABOLIC Hx Endocrine Disorders: No - HEMATOLOGICAL/ONCOLOGICAL Hx Blood Disorders: No - INTEGUMENTARY Hx Dermatological Problems: No - MUSCULOSKELETAL/RHEUMATOLOGICAL Hx Arthritis: Yes - GASTROINTESTINAL Hx Gastrointestinal Disorders: No - GENITOURINARY/GYNECOLOGICAL Hx Genitourinary Disorders: Yes Hx Prostate Problems: Yes (enlarged prostate) Hx Urinary Tract Infection: Yes - PSYCHIATRIC Hx Substance Use: No - SURGICAL HISTORY Hx Surgeries: No - ANESTHESIA Hx Anesthesia: No Hx Anesthesia Reactions: No Hx Malignant Hyperthermia: No Meds Allergies/Adverse Reactions: Allergies Allergy/AdvReac Type Severity Reaction Status Date / Time No Known Allergies Allergy Verified 06/24/18 17:23 Results - Vital Signs Recent Vital Signs: Last Vital Signs Temp 97.2 F L 06/24/18 17:58 Pulse 99 H 06/24/18 20:44 Resp 12 06/24/18 20:44 BP 115/51 L 06/24/18 20:44 Pulse Ox 96 06/25/18 00:10 - Labs Result Diagrams: 06/24/18 21:54 06/24/18 22:52 Labs: Laboratory Results - last 24 hr 06/24/18 06/24/18 06/24/18 18:55 21:54 22:52 WBC 12.2 H RBC 4.08 L Hgb 13.0 D Hct 38.0 MCV 93.2 MCH 32.0 H MCHC 34.3 RDW 17.2 H Plt Count 156 MPV 9.6 Neut % (Auto) 89.4 H Lymph % (Auto) 6.3 L [place] % (Auto) 3.8 Eos % (Auto) 0.0 Baso % (Auto) 0.5 Neut # (Auto) 10.9 H Lymph # (Auto) 0.8 L [place] # (Auto) 0.5 Eos # (Auto) 0.0 Baso # (Auto) 0.1 Neutrophils % (Manual) 80 H Band Neutrophils % 4 H Lymphocytes % (Manual) 12 L Monocytes % (Manual) 4 Platelet Estimate Normal Anisocytosis (manual) Slight Sodium 142 Potassium 4.4 Chloride 110 H Carbon Dioxide 21 L Anion Gap 15 BUN 47 H Creatinine 0.9 Est GFR ( Amer) > 60 Est GFR (Non-Af Amer) > 60 POC Glucose (mg/dL) 122 H Random Glucose 125 H Calcium 9.1 Total Bilirubin 1.9 H AST 43 ALT 45 Alkaline Phosphatase 117 Troponin I 0.2820 H* NT-Pro-B Natriuret Pep 4860 H Total Protein 5.6 L Albumin 2.6 L Globulin 3.0 Albumin/Globulin Ratio 0.9 L
[2018-06-25 05:54] LABS: CK-MB 0.43 ng/mL (0.0-3.38)
[2018-06-25] MEDS: Piperacillin/Tazobact 2.25 GM in Sodium Chloride 100 ML IVPB SCH ×3 (06:36→14:37)
--- NOTE | 2018-06-25 08:20 | RAD ---
Date of service: 06/24/2018 PROCEDURE: CHEST RADIOGRAPH, 1 VIEW HISTORY: chest pain COMPARISON: 05/07/2018 FINDINGS: LUNGS: Shallow lung volumes-concomitant mild bibasilar atelectatic changes associated with bilateral pleural effusions and hypo ventilation possible PLEURA: No pneumothorax appreciated. Small bilateral pleural effusions CARDIOVASCULAR: There is presence of aortic atherosclerotic calcification on x-ray. Cardiomegaly present-findings similar. Pulmonary venous congestion present-slightly less now than before OSSEOUS STRUCTURES: Thoracic spondylosis VISUALIZED UPPER ABDOMEN: Normal. OTHER FINDINGS: None. IMPRESSION: Cardiomegaly pulmonary venous congestion and small pleural effusions-findings compatible with CHF. Pulmonary venous congestion less now than before. Shallow lung volumes-concomitant hypoventilatory and compressive mild bibasilar atelectatic changes/with small pleural effusions also needs to be considered
--- NOTE | 2018-06-25 08:55 | CT ---
Date of service: 06/25/2018 PROCEDURE: CT HEAD WITHOUT CONTRAST. HISTORY: lethargy COMPARISON: Comparison is made with 05/13/2018 TECHNIQUE: Axial computed tomography images were obtained through the head/brain without intravenous contrast. Radiation dose: Total exam DLP = 1172.41 mGy-cm. This CT exam was performed using one or more of the following dose reduction techniques: Automated exposure control, adjustment of the mA and/or kV according to patient size, and/or use of iterative reconstruction technique. FINDINGS: HEMORRHAGE: No intracranial hemorrhage. BRAIN: There is suspicious for focal hypodensity in the right frontal parasagittal region surrounding with edema which appears more conspicuous and larger compared to the previous exam. Findings may represent sequela of recent infarction versus underline brain lesion with adjacent vasogenic edema. Pawx-al-qjjeofip volume loss and mild chronic microvascular white matter ischemic disease are again noted. VENTRICLES: Unremarkable. No hydrocephalus. CALVARIUM: Unremarkable. PARANASAL SINUSES: Unremarkable as visualized. No significant inflammatory changes. MASTOID AIR CELLS: Unremarkable as visualized. No inflammatory changes. OTHER FINDINGS: None. IMPRESSION: Increase in the size of the hypodensity at the right frontal parasagittal area since the previous exam. Findings likely represent a sequela of recent infarction. Possibility of underlying neoplasm is not totally excluded. If clinically warranted follow-up enhanced MRI may be obtained. Otherwise no significant interval changes since the previous CT.
[2018-06-25] MEDS: Sodium Chloride 0.9% 1,000 ML IV SCH ×2 (08:57→23:00)
[2018-06-25] MEDS ORDERED: Sodium Chloride 0.9% 1,000 ML ONE (08:58)
--- NOTE | 2018-06-25 09:13 | HP ---
CHIEF COMPLAINT: Tachycardia. HISTORY OF PRESENT ILLNESS: This is an 83-year-old male, well known to me, with a history of infected endocarditis, on antibiotics; Alzheimer's; COPD; hypertension; CVA with left-sided hemiparesis and hemiplegia. The patient was referred to me by the nursing staff at [facility] in [place], tachycardia with a heart rate of 140. The patient is being treated for antibiotics for infective endocarditis with no further infective endocarditis. The patient was recently at [facility]. The patient was found to have Strep viridans on 04/30/2018, and the patient was diagnosed with infective endocarditis and the patient is on antibiotics in the subacute rehab facility. The patient has thick aortic valve with a large 6 x 7 mm vegetation and Strep viridans, and the patient in the [facility] was found to be tachycardic, weak, lethargic, confused, drowsy, not arousable easily, and the patient was transferred to emergency room and the patient is hospitalized. The patient was in his usual status of health on rehab floor, getting physiotherapy. The patient right now is not able to give any further information. There is no history of fall, seizure-like activity, or loss of consciousness. There is no history of abdominal pain or diarrhea. There is no history of polyuria, polydipsia, or polyphagia. There is no history of sneezing or itchy eyes. PAST MEDICAL HISTORY: Alzheimer's, arthritis, hypertension, COPD, CVA, and infective endocarditis. SOCIAL HISTORY: Nonsmoker, non-EtOH user. CURRENT MEDICATIONS: At the [facility] are Cozaar, Namenda, hydrochlorothiazide, nystatin powder, KCL, Tylenol, aspirin, and Eliquis. PHYSICAL EXAMINATION: GENERAL: An elderly male who is drowsy, confused. He is arousable. VITAL SIGNS: Blood pressure 102/52, pulse 98, respiratory rate 14, temperature 99. SKIN: Senile turgor, extensive wound. HEENT: Atraumatic and normocephalic. Negative pallor. Negative jaundice. Unable to assess extraocular movements. NECK: Supple. No JVD. Slight neck pain. CHEST WALL: Bilateral symmetrical expansion. No masses. LUNGS: Bilaterally clear. No rales. No rhonchi. CARDIOVASCULAR SYSTEM: PMI not localized. S1 and S2, plus S3 positive. A 2/6 ejection systolic murmur and 2/6 early diastolic murmur. ABDOMEN: Soft and nontender. Bowel sounds are positive. EXTREMITIES: No clubbing, cyanosis, or edema. CENTRAL NERVOUS SYSTEM: Awake and alert. The patient is drowsy, and he is not arousable. ASSESSMENT: 1. Altered mental status which looks like toxic metabolic encephalopathy with dehydration. 2. Atrial fibrillation with rapid ventricular response. 3. Infective endocarditis. 4. Alzheimer's. PLAN: We will check fall, seizure precaution. Accu-Chek sliding scale. Resume antibiotics. Monitor the patient. Esau Jacobs MD
[2018-06-25] MEDS ORDERED: hydrALAZINE 12.5 mg Tab PO SCH (10:00)
[2018-06-25 12:40] LABS: CK-MB 0.47 ng/mL (0.0-3.38)
--- NOTE | 2018-06-25 14:20 | CP.PCM.CON ---
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 Patient was also found to be weak, lethargic, confused not easily arousable and therefore patient was transferred to the emergency room for further evaluation. As reported patient was in his usual status of health on the rehabilitation floor getting physiotherapy. There is no history of loss of consciousness or seizure-like activity. NO HISTORY OF ABDOMINAL PAIN, DIARRHEA, NAUSEA VOMITING. In the ER patient was appropriately cultured and started on IV Zosyn 2.25 g every 6 hourly. History obtained from the chart as patient unable to give any details. Patient is nonverbal and with dense hemiplegia of the left side.ct OF THE HEAD OBTAINED ON 06/25/18 SHOWS INCREASE IN THE HYPODENSITY AT THE RIGHT FRONTAL PARASAGITTAL AREA SINCE THE PREVIOUS EXAM. fINDINGS LIKELY REPRESENT SEQUELAE OF RECENT INFARCTION? NEOPLASM COULD NOT BE RULED OUT. Infectious disease consultation requested by PMD DR Hetal HASSAN for further evaluation. Blood cultures 06/25/18 reported by RN as positive for 2 out of 2 sets with GRAM-NEGATIVE RODS. Patient also has a midline present, REPORTED - PLACEMENT WHEN NOT SURE ! .PMH: Alzheimer's Disease, Arthritis (back), COPD, Dementia, HTN Surgical History: No Surg Hx Family History: States: No Known Family Hx - Social History Hx Alcohol Use: No Hx Substance Use: No - Immunization History Hx Tetanus Toxoid Vaccination: No Hx Influenza Vaccination: Yes (2016) Hx Pneumococcal Vaccination: Yes (2016) ALLERGY ; NKDA. Review of Systems - Review of Systems Systems not reviewed;Unavailable: Altered Mental Status (PATIENT NONVER BAL,MINIMALLY RESPONSIVE TO NAME.) Past Patient History - Past Medical History & Family History Past Medical History?: Yes - Past Social History Smoking Status: Never Smoked - CARDIAC Hx Hypertension: Yes - PULMONARY Hx Chronic Obstructive Pulmonary Disease (COPD): Yes - NEUROLOGICAL HX Cerebrovascular Accident: Yes (left hemiplegia) - HEENT Hx HEENT Problems: No - RENAL Hx Chronic Kidney Disease: No - ENDOCRINE/METABOLIC Hx Endocrine Disorders: No - HEMATOLOGICAL/ONCOLOGICAL Hx Blood Disorders: No - INTEGUMENTARY Hx Dermatological Problems: No - MUSCULOSKELETAL/RHEUMATOLOGICAL Hx Arthritis: Yes - GASTROINTESTINAL Hx Gastrointestinal Disorders: No - GENITOURINARY/GYNECOLOGICAL Hx Genitourinary Disorders: Yes Hx Prostate Problems: Yes (enlarged prostate) Hx Urinary Tract Infection: Yes - PSYCHIATRIC Hx Substance Use: No - SURGICAL HISTORY Hx Surgeries: No - ANESTHESIA Hx Anesthesia: No Hx Anesthesia Reactions: No Hx Malignant Hyperthermia: No Meds Allergies/Adverse Reactions: Allergies Allergy/AdvReac Type Severity Reaction Status Date / Time No Known Allergies Allergy Verified 06/24/18 17:23 - Medications Medications: Current Medications Acetaminophen (Tylenol 325mg Tab) 650 mg PO Q6 PRN PRN Reason: Pain, moderate (4-7) Apixaban (Eliquis) 5 mg PO BID [facility] Last Admin: 06/25/18 09:57 Dose: 5 mg Aspirin (Aspirin Chewable) 81 mg PO DAILY [facility] Last Admin: 06/25/18 09:57 Dose: 81 mg Diltiazem HCl (Cardizem) 30 mg PO Q8 [facility] Hydrochlorothiazide (Microzide) 12.5 mg PO BID [facility] Last Admin: 06/25/18 09:46 Dose: Not Given Sodium Chloride (Sodium Chloride 0.9%) 1,000 mls @ 75 mls/hr IV .[id number] [facility] Last Admin: 06/25/18 08:57 Dose: 75 mls/hr Piperacillin Sod/Tazobactam (Sod 2.25 gm/ Sodium Chloride) 100 mls @ 200 mls/hr IVPB Q6H [facility]; Protocol Last Admin: 06/25/18 08:15 Dose: 200 mls/hr Losartan Potassium (Cozaar) 100 mg PO DAILY [facility] Last Admin: 06/25/18 09:46 Dose: Not Given Memantine (Namenda) 5 mg PO BID [facility] Last Admin: 06/25/18 09:57 Dose: 5 mg Rosuvastatin Calcium (Crestor) 5 mg PO [facility] Physical Exam - Constitutional Appears: No Acute Distress, Confused - Head Exam Head Exam: NORMAL INSPECTION - Eye Exam Eye Exam: Normal appearance Pupil Exam: Unequal (LT EYE PTOSIS) - ENT Exam ENT Exam: Mucous Membranes Dry - Neck Exam Neck exam: Positive for: Normal Inspection - Respiratory Exam Respiratory Exam: Decreased Breath Sounds, NORMAL BREATHING PATTERN - Cardiovascular Exam Cardiovascular Exam: Tachycardia, Irregular Rhythm, +S1, +S2, +S4 - GI/Abdominal Exam GI & Abdominal Exam: Normal Bowel Sounds, Soft. absent: Organomegaly, Tender ness - Extremities Exam Extremities exam: Positive for: pedal edema (1+), pedal pulses present. Negative for: calf tenderness - Neurological Exam Neurological exam: Altered Additional comments: lEFT SIDED WEAKNESS. - Psychiatric Exam Psychiatric exam: Flat Affect - Skin Skin Exam: Normal Color, Warm Results - Vital Signs Recent Vital Signs: Last Vital Signs Temp 97.5 F L 06/25/18 14:13 Pulse 91 H 06/25/18 13:07 Resp 20 06/25/18 14:13 BP 123/62 06/25/18 14:13 Pulse Ox 97 06/25/18 14:13 - Labs Result Diagrams: 06/25/18 22:16 06/25/18 22:16 Labs: Laboratory Results - last 24 hr 06/24/18 06/24/18 06/24/18 18:55 21:54 22:52 WBC 12.2 H RBC 4.08 L Hgb 13.0 D Hct 38.0 MCV 93.2 MCH 32.0 H MCHC 34.3 RDW 17.2 H Plt Count 156 MPV 9.6 Neut % (Auto) 89.4 H Lymph % (Auto) 6.3 L [place] % (Auto) 3.8 Eos % (Auto) 0.0 Baso % (Auto) 0.5 Neut # (Auto) 10.9 H Lymph # (Auto) 0.8 L [place] # (Auto) 0.5 Eos # (Auto) 0.0 Baso # (Auto) 0.1 Neutrophils % (Manual) 80 H Band Neutrophils % 4 H Lymphocytes % (Manual) 12 L Monocytes % (Manual) 4 Platelet Estimate Normal Anisocytosis (manual) Slight Sodium 142 Potassium 4.4 Chloride 110 H Carbon Dioxide 21 L Anion Gap 15 BUN 47 H Creatinine 0.9 Est GFR ( Amer) > 60 Est GFR (Non-Af Amer) > 60 POC Glucose (mg/dL) 122 H Random Glucose 125 H Lactic Acid Calcium 9.1 Total Bilirubin 1.9 H AST 43 ALT 45 Alkaline Phosphatase 117 Total Creatine Kinase CK-MB (Mass) Troponin I 0.2820 H* NT-Pro-B Natriuret Pep 4860 H Total Protein 5.6 L Albumin 2.6 L Globulin 3.0 Albumin/Globulin Ratio 0.9 L TSH 3rd Generation 06/25/18 06/25/18 06/25/18 03:38 05:11 11:26 WBC RBC Hgb Hct MCV MCH MCHC RDW Plt Count MPV Neut % (Auto) Lymph % (Auto) [place] % (Auto) Eos % (Auto) Baso % (Auto) Neut # (Auto) Lymph # (Auto) [place] # (Auto) Eos # (Auto) Baso # (Auto) Neutrophils % (Manual) Band Neutrophils % Lymphocytes % (Manual) Monocytes % (Manual) Platelet Estimate Anisocytosis (manual) Sodium Potassium Chloride Carbon Dioxide Anion Gap BUN Creatinine Est GFR ( Amer) Est GFR (Non-Af Amer) POC Glucose (mg/dL) Random Glucose Lactic Acid 2.1 Calcium Total Bilirubin AST ALT Alkaline Phosphatase Total Creatine Kinase < 20 L < 20 L CK-MB (Mass) 0.43 0.47 Troponin I 0.2290 H* 0.1860 H* NT-Pro-B Natriuret Pep Total Protein Albumin Globulin Albumin/Globulin Ratio TSH 3rd Generation 0.69 - Imaging and Cardiology CT scan - head Status: Report reviewed by me (SEE FULL REPORT.) Chest x-ray Status: Report reviewed by me (CARDIOMEGALY, pvc, SMALL BILATERAL EFFUSION CONSISTENT WITH CHF. bY BASILAR ATELECTASIS.) Assessment & Plan (1) Gram negative sepsis Assessment and Plan: PANCULTURES. ESR. CRP UA/URINE CULTURE PSA. DC IV zOSYN DC IV VANCOMYCIN. IV AMIKACIN 1 G iv PIGGYBACK INFUSED OVER 30 MINUTES X1 1 DOSE STAT.06/25/18. START iv MERREM 1 G iv PIGGYBACK [id number].06/25/18. 2D ECHO TO EVALUATE LEFT VENTRICLE SYSTOLIC /AND AORTIC VALVE. SOURCE OF GRAM-NEGATIVE SEPSIS NOT CLEAR ?LINE RELATED VS . DC ALL CATHETHERS/AND- MID LINE. CASE DISCUSSED WITH STAFF /RN. Status: Acute (2) NSTEMI (non-ST elevated myocardial infarction) Assessment and Plan: PT HAS +VE TROPONINS CANNOT R/O ISCHEMIC HEART DISEASE. PER PMD AND CARDIOLOGY. Status: Acute (3) Aortic valve endocarditis Assessment and Plan: PT HAS HX OF STREPT-VIRIDANS AV-ENDOCARDITIS ON RX WITH IV AMPICILLIN/IV CEFOTRIAXONE SINCE 04/30/[address] [facility]. Status: Acute (4) Streptococcus viridans infection Assessment and Plan: HX OF STREPT-VIRIDANS BACTEREMIA AND AV -ENDOCARDITIS. Status: Acute (5) Atrial fibrillation Assessment and Plan: PT ON CARDIAZEM PER CARDIOLOGY. Status: Acute (6) CVA (cerebral vascular accident) Assessment and Plan: HX OF CVA IN PAST AND ?RECENT ACUTE INFARCT ? NEOPLASM (SEE CT HEAD REPORT. ) Status: Acute (7) Enlarged prostate Assessment and Plan: CHECK PSA. UA/URINE CULTURE. Status: Acute (8) Hypertension Assessment and Plan: PER CARDIOLOGY. Status: Chronic (9) Alzheimer disease Status: Chronic
[2018-06-25] MEDS ORDERED: Vancomycin 1 gm/NS 200 ml 1 GM/200 ML BAG IVPB SCH ×2 (14:30→16:00)
--- NOTE | 2018-06-25 17:08 | CARD ---
APPROVED REPORT Date of service: 06/24/2018 EKG Measurement Heart [id number] <Conclusion> Atrial fibrillation with rapid ventricular response Abnormal ECG
[2018-06-25] MEDS: Meropenem 1 GM in Sodium Chloride 0.9% 100 ML IVPB SCH (18:18)
--- NOTE | 2018-06-25 20:18 | CP.PCM.CON ---
History of Present Illness - History of Present Illness History of Present Illness: I was contacted for consultation. Upon my review of the records from last month the patient was followed by Dr Waters. I discussed with Dr Waters who states he will follow the patient. Past Patient History - Past Medical History & Family History Past Medical History?: Yes - Past Social History Smoking Status: Unknown If Ever Smoked - CARDIAC Hx Cardiac Disorders: Yes Hx Hypertension: Yes Other/Comment: endocarditis - PULMONARY Hx Respiratory Disorders: Yes Hx Chronic Obstructive Pulmonary Disease (COPD): Yes - NEUROLOGICAL Hx Neurological Disorder: Yes HX Cerebrovascular Accident: Yes (left hemiplegia) - HEENT Hx HEENT Problems: No - RENAL Hx Chronic Kidney Disease: No - ENDOCRINE/METABOLIC Hx Endocrine Disorders: No - HEMATOLOGICAL/ONCOLOGICAL Hx Blood Disorders: No - INTEGUMENTARY Hx Dermatological Problems: No - MUSCULOSKELETAL/RHEUMATOLOGICAL Hx Musculoskeletal Disorders: Yes Hx Arthritis: Yes Hx Falls: Yes - GASTROINTESTINAL Hx Gastrointestinal Disorders: No - GENITOURINARY/GYNECOLOGICAL Hx Genitourinary Disorders: Yes Hx Prostate Problems: Yes (enlarged prostate) Hx Urinary Tract Infection: Yes - PSYCHIATRIC Hx Substance Use: (Unknown) - SURGICAL HISTORY Hx Surgeries: No - ANESTHESIA Hx Anesthesia: No Hx Anesthesia Reactions: No Hx Malignant Hyperthermia: No Has any member of the family had a problem w/ anesthesia?: No Meds Allergies/Adverse Reactions: Allergies Allergy/AdvReac Type Severity Reaction Status Date / Time No Known Allergies Allergy Verified 06/24/18 17:23 - Medications Medications: Current Medications Acetaminophen (Tylenol 325mg Tab) 650 mg PO Q6 PRN PRN Reason: Pain, moderate (4-7) Apixaban (Eliquis) 5 mg PO BID [facility] Last Admin: 06/25/18 18:14 Dose: 5 mg Aspirin (Aspirin Chewable) 81 mg PO DAILY [facility] Last Admin: 06/25/18 09:57 Dose: 81 mg Diltiazem HCl (Cardizem) 30 mg PO Q8 [facility] Hydrochlorothiazide (Microzide) 12.5 mg PO BID [facility] Last Admin: 06/25/18 17:19 Dose: Not Given Sodium Chloride (Sodium Chloride 0.9%) 1,000 mls @ 75 mls/hr IV .[id number] [facility] Last Admin: 06/25/18 08:57 Dose: 75 mls/hr Meropenem 1 gm/ Sodium (Chloride) 100 mls @ 100 mls/hr IVPB Q8H [facility]; Protocol Last Admin: 06/25/18 18:18 Dose: 100 mls/hr Losartan Potassium (Cozaar) 100 mg PO DAILY [facility] Last Admin: 06/25/18 09:46 Dose: Not Given Memantine (Namenda) 5 mg PO BID [facility] Last Admin: 06/25/18 18:14 Dose: 5 mg Rosuvastatin Calcium (Crestor) 5 mg PO [facility] Results - Vital Signs Recent Vital Signs: Last Vital Signs Temp 98.1 F 06/25/18 15:00 Pulse 100 H 06/25/18 17:20 Resp 20 06/25/18 15:00 BP 100/59 L 06/25/18 17:20 Pulse Ox 98 06/25/18 15:00 - Labs Result Diagrams: 06/24/18 21:54 06/24/18 22:52 Labs: Laboratory Results - last 24 hr 06/24/18 06/24/18 06/25/18 21:54 22:52 03:38 WBC 12.2 H RBC 4.08 L Hgb 13.0 D Hct 38.0 MCV 93.2 MCH 32.0 H MCHC 34.3 RDW 17.2 H Plt Count 156 MPV 9.6 Neut % (Auto) 89.4 H Lymph % (Auto) 6.3 L [place] % (Auto) 3.8 Eos % (Auto) 0.0 Baso % (Auto) 0.5 Neut # (Auto) 10.9 H Lymph # (Auto) 0.8 L [place] # (Auto) 0.5 Eos # (Auto) 0.0 Baso # (Auto) 0.1 Neutrophils % (Manual) 80 H Band Neutrophils % 4 H Lymphocytes % (Manual) 12 L Monocytes % (Manual) 4 Platelet Estimate Normal Anisocytosis (manual) Slight Sodium 142 Potassium 4.4 Chloride 110 H Carbon Dioxide 21 L Anion Gap 15 BUN 47 H Creatinine 0.9 Est GFR ( Amer) > 60 Est GFR (Non-Af Amer) > 60 POC Glucose (mg/dL) Random Glucose 125 H Lactic Acid 2.1 Calcium 9.1 Total Bilirubin 1.9 H AST 43 ALT 45 Alkaline Phosphatase 117 Total Creatine Kinase CK-MB (Mass) Troponin I 0.2820 H* NT-Pro-B Natriuret Pep 4860 H Total Protein 5.6 L Albumin 2.6 L Globulin 3.0 Albumin/Globulin Ratio 0.9 L TSH 3rd Generation 06/25/18 06/25/18 06/25/18 05:11 11:26 16:17 WBC RBC Hgb Hct MCV MCH MCHC RDW Plt Count MPV Neut % (Auto) Lymph % (Auto) [place] % (Auto) Eos % (Auto) Baso % (Auto) Neut # (Auto) Lymph # (Auto) [place] # (Auto) Eos # (Auto) Baso # (Auto) Neutrophils % (Manual) Band Neutrophils % Lymphocytes % (Manual) Monocytes % (Manual) Platelet Estimate Anisocytosis (manual) Sodium Potassium Chloride Carbon Dioxide Anion Gap BUN Creatinine Est GFR ( Amer) Est GFR (Non-Af Amer) POC Glucose (mg/dL) 96 Random Glucose Lactic Acid Calcium Total Bilirubin AST ALT Alkaline Phosphatase Total Creatine Kinase < 20 L < 20 L CK-MB (Mass) 0.43 0.47 Troponin I 0.2290 H* 0.1860 H* NT-Pro-B Natriuret Pep Total Protein Albumin Globulin Albumin/Globulin Ratio TSH 3rd Generation 0.69
--- NOTE | 2018-06-25 21:56 | CP.PCM.PN ---
Subjective - Subjective Subjective: dictated Objective - Vital Signs/Intake and Output Vital Signs (last 24 hours): Temp Pulse Resp BP Pulse Ox 98.1 F 100 H 20 100/59 L 98 06/25/18 15:00 06/25/18 17:20 06/25/18 15:00 06/25/18 17:20 06/25/18 15:00 - Medications Medications: Current Medications Acetaminophen (Tylenol 325mg Tab) 650 mg PO Q6 PRN PRN Reason: Pain, moderate (4-7) Apixaban (Eliquis) 5 mg PO BID [facility] Last Admin: 06/25/18 18:14 Dose: 5 mg Aspirin (Aspirin Chewable) 81 mg PO DAILY [facility] Last Admin: 06/25/18 09:57 Dose: 81 mg Diltiazem HCl (Cardizem) 30 mg PO Q8 [facility] Hydrochlorothiazide (Microzide) 12.5 mg PO BID [facility] Last Admin: 06/25/18 17:19 Dose: Not Given Sodium Chloride (Sodium Chloride 0.9%) 1,000 mls @ 75 mls/hr IV .[id number] [facility] Last Admin: 06/25/18 08:57 Dose: 75 mls/hr Meropenem 1 gm/ Sodium (Chloride) 100 mls @ 100 mls/hr IVPB Q8H [facility]; Protocol Last Admin: 06/25/18 18:18 Dose: 100 mls/hr Losartan Potassium (Cozaar) 50 mg PO DAILY [facility] Memantine (Namenda) 5 mg PO BID [facility] Last Admin: 06/25/18 18:14 Dose: 5 mg Rosuvastatin Calcium (Crestor) 5 mg PO HS [facility] - Labs Labs: 06/24/18 21:54 06/24/18 22:52
--- NOTE | 2018-06-25 22:09 | PCM.RRT ---
BULK LOADER Nurses Assessment - Situation Date: 06/25/18 Time BULK LOADER was called: 21:52 BULK LOADER Responder Arrival Time:: 21:53 BULK LOADER Location:: Med/Surg Room Number: 563-A BULK LOADER Reason for Call: Change in Mental Status BULK LOADER Called By: RN - Respiratory BULK LOADER Delivery Method: Nasal Cannula @L/min (4L) - Diagnostic Test Ordered EKG: Yes (Afib with RVR @ 122) - Stat Labs Ordered BULK LOADER Stat Labs Ordered: CBC, BMP, TROPONIN - Recommendations 5) BULK LOADER Level of Care Recommendations: Remain in current setting I.Reason for BULK LOADER - A) Acute Change in Patient: (Select all that apply): Acute change in mental status - Neurological Status (Select all that apply): Responsive, Verbal, Lethargic - Respiratory Oxygen Delivery Method: Nasal Cannula @L/min (4L) - Constitutional Appears: Non-toxic, No Acute Distress Additional Comments: generalized shaking - Head Head Exam: ATRAUMATIC, NORMOCEPHALIC - Eyes Eye Exam: EOMI, PERRL - Respiratory Exam Respiratory Exam: Clear to Ausculation Bilateral, NORMAL BREATHING PATTERN - Cardiovascular Exam Cardiovascular Exam: Tachycardia, +S1, +S2. absent: JVD - GI/Abdominal Exam GI & Abdominal Exam: Soft, Normal Bowel Sounds. absent: Tenderness - Neurological Exam Neurological Exam: Alert, Awake, Oriented x3 - Extremities Exam Extremities Exam: Normal Capillary Refill. absent: Calf Tenderness, Tenderness Additional comments: Line pulled from R arm Plan - Assessment of Findings&Treatment Plan BULK LOADER called by RN for AMS @ 2152 Vitals on arrival T 98.3 HR 143 BP 159/79 RR 18 O2 97 on NC 4L O2 Accucheck 158 Patient admitted from SNF with midline which hasn't been checked (don't know when it was put in), so can't be used yet Patient has known history of Afib with RVR. Afternoon dose of Cardizem 30 po was held for no swallow eval yet Cardizem 10mg IVP stat given Repeat EKG shows Afib with RVR@122. BW drawn: CHONG, CBC, CMP, PT/PTT Patient eyes are now open, however he is shaking all over BP 142/71 HR 110 Recheck vitals in [address] Jacobs and Dr. Solano if HR spikes <120 BULK LOADER ended at [address] Jacobs as possible source of infection. Line had a clot when pulled. Patient clotted within 5 min. Changing Cardizem PO to IVP since hasn't passed swallow eval per Dr. Solano.
[2018-06-25 22:20] LABS: LYMPH # 1.1 K/uL (1.0-4.3); MONO # 0.1 K/uL (0.0-0.8)
[2018-06-25 22:24] LABS: BASO % 0.3 % (0.0-2.0); EOS % 0.2 % (0.0-4.0); HEMOGLOBIN 13.3 g/dL (12.0-18.0); LYMPH % 14.3 % (20.0-40.0); MEAN CORPUSCULAR HEMOGLOBIN 32.8 pg (27.0-31.0); MEAN CORPUSCULAR HGB CONC 34.5 g/dL (33.0-37.0); MEAN PLATELET VOLUME 9.2 fL (7.2-11.7); MONO % 1.2 % (0.0-10.0); NEUT # 6.2 K/uL (1.8-7.0); NRBC % 0.1 % (0.0-2.0); RBC 4.06 Mil/uL (4.40-5.90); RED CELL DISTRIBUTION WIDTH 17.2 % (11.5-14.5); WHITE BLOOD COUNT 7.4 K/uL (4.8-10.8)
[2018-06-25 22:28] LABS: INR 1.8; PROTHROMBIN TIME 20.2 SECONDS (9.7-12.2)
[2018-06-25 22:48] LABS: ALBUMIN 2.9 g/dL (3.5-5.0); ALT/SGPT 79 U/L (21-72); AST/SGOT 84 U/L (17-59); BLOOD UREA NITROGEN 42 mg/dL (9-20); CALCIUM 8.9 mg/dl (8.6-10.4); GFR NON-AFRICAN AMERICAN > 60
[2018-06-25 22:58] LABS: ALB/GLOB RATIO 0.9 (1.0-2.1)
[2018-06-26] MEDS: Meropenem 1 GM in Sodium Chloride 0.9% 100 ML IVPB SCH ×3 (00:33→17:55)
--- NOTE | 2018-06-26 01:11 | CP.PCM.CON ---
History of Present Illness - History of Present Illness History of Present Illness: CCM 83 yo male NHR sent to ED b/o change in MS. Pt c/o weakness. Pt has hx Alzheimers Dementia/ COPD /HTN/A-fib /CVA with left HP / Infective Endocarditis with Strep/ treated for rapid A-fib in ED. Pt admitted to floor and today had rapid response called for episode of rigors with RVR and disoriented. Pt treated with IV cardizem and HR improved. found to have gram maria d bacteremia and picc line was removed. Pt ate dinner earlier. Denied comiplaint when seen by me. ID eval has adjusted Ab coverage. Pt denied sob /pain /nausea. ROS- as ntoed All-NKDA Social- Meds- reviewed FH- Unknown PE T- P- 104 R-18 BP-159/74 resting,responsive/ followed commands Perrl Neck- no jvd lungs- bilat bs Heart-irreg irreg Abd- bs+, soft, nontender Ext-nontender Neuro- sl. left sided weakness Labs, EKG,[id number] A&P A-fib Sepsis Gram Neg. Bacteremia Endocarditis + Trop Alzheimers COPD HTN CVA Arthritis cont meds Cont fluid Ab as per ID cont Cardizem PO for rate control f/u cultures and sensitivities maintain optimal lytes f/u labs /lactate ECHO may cont tx on telemetry unit re-consult prn critical care time with patient 40 min Past Patient History - Past Medical History & Family History Past Medical History?: Yes - Past Social History Smoking Status: Never Smoked - CARDIAC Hx Hypertension: Yes - PULMONARY Hx Chronic Obstructive Pulmonary Disease (COPD): Yes - NEUROLOGICAL HX Cerebrovascular Accident: Yes (left hemiplegia) - HEENT Hx HEENT Problems: No - RENAL Hx Chronic Kidney Disease: No - ENDOCRINE/METABOLIC Hx Endocrine Disorders: No - HEMATOLOGICAL/ONCOLOGICAL Hx Blood Disorders: No - INTEGUMENTARY Hx Dermatological Problems: No - MUSCULOSKELETAL/RHEUMATOLOGICAL Hx Arthritis: Yes - GASTROINTESTINAL Hx Gastrointestinal Disorders: No - GENITOURINARY/GYNECOLOGICAL Hx Genitourinary Disorders: Yes Hx Prostate Problems: Yes (enlarged prostate) Hx Urinary Tract Infection: Yes - PSYCHIATRIC Hx Substance Use: No - SURGICAL HISTORY Hx Surgeries: No - ANESTHESIA Hx Anesthesia: No Hx Anesthesia Reactions: No Hx Malignant Hyperthermia: No Meds Allergies/Adverse Reactions: Allergies Allergy/AdvReac Type Severity Reaction Status Date / Time No Known Allergies Allergy Verified 06/24/18 17:23 - Medications Medications: Current Medications Acetaminophen (Tylenol 325mg Tab) 650 mg PO Q6 PRN PRN Reason: Pain, moderate (4-7) Apixaban (Eliquis) 5 mg PO BID [facility] Last Admin: 06/25/18 18:14 Dose: 5 mg Aspirin (Aspirin Chewable) 81 mg PO DAILY [facility] Last Admin: 06/25/18 09:57 Dose: 81 mg Diltiazem HCl (Cardizem) 30 mg IVP TID [facility] Hydrochlorothiazide (Microzide) 12.5 mg PO BID [facility] Last Admin: 06/25/18 17:19 Dose: Not Given Sodium Chloride (Sodium Chloride 0.9%) 1,000 mls @ 75 mls/hr IV .[id number] [facility] Last Admin: 06/25/18 23:00 Dose: 75 mls/hr Meropenem 1 gm/ Sodium (Chloride) 100 mls @ 100 mls/hr IVPB Q8H [facility]; Protocol Last Admin: 06/26/18 00:33 Dose: 100 mls/hr Losartan Potassium (Cozaar) 50 mg PO DAILY [facility] Last Admin: 06/25/18 22:00 Dose: Not Given Memantine (Namenda) 5 mg PO BID [facility] Last Admin: 06/25/18 18:14 Dose: 5 mg Metoprolol Tartrate (Lopressor) 12.5 mg NG BID [facility] Rosuvastatin Calcium (Crestor) 5 mg PO HS [facility] Last Admin: 06/25/18 22:00 Dose: Not Given Results - Vital Signs Recent Vital Signs: Last Vital Signs Temp 98.1 F 06/26/18 00:00 Pulse 111 H 06/26/18 00:00 Resp 20 06/26/18 00:00 BP 107/54 L 06/26/18 00:00 Pulse Ox 96 06/26/18 00:00 - Labs Result Diagrams: 06/25/18 22:16 06/25/18 22:16 Labs: Laboratory Results - last 24 hr 06/25/18 06/25/18 06/25/18 03:38 05:11 11:26 WBC RBC Hgb Hct MCV MCH MCHC RDW Plt Count MPV Neut % (Auto) Lymph % (Auto) [place] % (Auto) Eos % (Auto) Baso % (Auto) Neut # (Auto) Lymph # (Auto) [place] # (Auto) Eos # (Auto) Baso # (Auto) Differential Comment PT INR APTT Sodium Potassium Chloride Carbon Dioxide Anion Gap BUN Creatinine Est GFR ( Amer) Est GFR (Non-Af Amer) POC Glucose (mg/dL) Random Glucose Lactic Acid 2.1 Calcium Total Bilirubin AST ALT Alkaline Phosphatase Total Creatine Kinase < 20 L < 20 L CK-MB (Mass) 0.43 0.47 Troponin I 0.2290 H* 0.1860 H* Total Protein Albumin Globulin Albumin/Globulin Ratio TSH 3rd Generation 0.69 06/25/18 06/25/18 06/25/18 16:17 21:33 21:53 WBC RBC Hgb Hct MCV MCH MCHC RDW Plt Count MPV Neut % (Auto) Lymph % (Auto) [place] % (Auto) Eos % (Auto) Baso % (Auto) Neut # (Auto) Lymph # (Auto) [place] # (Auto) Eos # (Auto) Baso # (Auto) Differential Comment PT INR APTT Sodium Potassium Chloride Carbon Dioxide Anion Gap BUN Creatinine Est GFR ( Amer) Est GFR (Non-Af Amer) POC Glucose (mg/dL) 96 164 H 158 H Random Glucose Lactic Acid Calcium Total Bilirubin AST ALT Alkaline Phosphatase Total Creatine Kinase CK-MB (Mass) Troponin I Total Protein Albumin Globulin Albumin/Globulin Ratio [facility] 3rd Generation 06/25/18 06/25/18 06/25/18 22:16 22:16 22:16 WBC 7.4 RBC 4.06 L Hgb 13.3 Hct 38.6 MCV 95.0 H MCH 32.8 H MCHC 34.5 RDW 17.2 H Plt Count 117 L D MPV 9.2 Neut % (Auto) 84.0 H Lymph % (Auto) 14.3 L [place] % (Auto) 1.2 Eos % (Auto) 0.2 Baso % (Auto) 0.3 Neut # (Auto) 6.2 Lymph # (Auto) 1.1 [place] # (Auto) 0.1 Eos # (Auto) 0.0 Baso # (Auto) 0.0 Differential Comment PT 20.2 H INR 1.8 APTT 34 Sodium 145 Potassium 4.2 Chloride 112 H Carbon Dioxide 20 L Anion Gap 18 BUN 42 H Creatinine 0.9 Est GFR ( Amer) > 60 Est GFR (Non-Af Amer) > 60 POC Glucose (mg/dL) Random Glucose 139 H Lactic Acid Calcium 8.9 Total Bilirubin 2.1 H AST 84 H D ALT 79 H D Alkaline Phosphatase 190 H D Total Creatine Kinase < 20 L CK-MB (Mass) 0.50 Troponin I 0.1790 H* Total Protein 6.2 L Albumin 2.9 L Globulin 3.3 Albumin/Globulin Ratio 0.9 L TSH 3rd Generation 06/25/18 23:10 WBC RBC Hgb Hct MCV MCH MCHC RDW Plt Count MPV Neut % (Auto) Lymph % (Auto) [place] % (Auto) Eos % (Auto) Baso % (Auto) Neut # (Auto) Lymph # (Auto) [place] # (Auto) Eos # (Auto) Baso # (Auto) Differential Comment PT INR APTT Sodium Potassium Chloride Carbon Dioxide Anion Gap BUN Creatinine Est GFR ( Amer) Est GFR (Non-Af Amer) POC Glucose (mg/dL) Random Glucose Lactic Acid 3.7 H Calcium Total Bilirubin AST ALT Alkaline Phosphatase Total Creatine Kinase CK-MB (Mass) Troponin I Total Protein Albumin Globulin Albumin/Globulin Ratio TSH 3rd Generation Assessment & Plan (1) Atrial fibrillation Status: Chronic (2) Gram negative sepsis Status: Acute (3) Aortic valve endocarditis Status: Chronic (4) Alzheimer disease Status: Chronic (5) CVA (cerebral vascular accident) Status: Chronic (6) COPD (chronic obstructive pulmonary disease) Status: Chronic (7) Elevated troponin Status: Acute
[2018-06-26] MEDS ORDERED: Sodium Chloride 0.9% 500 ML IV ONE (01:16)
--- NOTE | 2018-06-26 04:31 | PN ---
DATE: 06/26/2018 I was notified by Dr. Del Cid about the patient late this evening. I had seen the patient on the most recent admission earlier last month. The patient was evaluated for acute CVA, atrial fibrillation, and Streptococcus bacteremia and IRINA was consistent with aortic valve vegetation. The patient was admitted this time because of rapid atrial fibrillation, which was reported by the [facility]p to be . The patient was evaluated earlier by Dr. Del Cid who transferred the care to me. The patient did have rapid response earlier because of unresponsiveness. An earlier head CT scan revealed increasing size of the hypodensity at the right frontal parasagittal area since previous exam. Findings likely represent sequelae of recent infarct. Possibility of underlying neoplasm is not completely excluded. I was also notified the patient is still in atrial fibrillation. I discussed the case with marketing teacher who evaluated the patient now. I requested the nurse to place a nasogastric tube by either the medical equipment repairer or the house physician for the administration of aspirin and oral cortisone instead of IV cortisone. In the meantime, the patient is being evaluated by Dr. Tom Churchill, the infectious disease specialist, and I recommended neurology evaluation. The patient will also be maintained on Crestor at 5 mg daily and Lopressor 12.5 mg twice a day will be started now. Repeat echocardiographic study for tomorrow has been ordered. Ronny Solano MD
--- NOTE | 2018-06-26 07:33 | PN ---
DATE: 06/26/2018 SUBJECTIVE: Fredrick Dennison has been tachycardic. He is more alert. He is afebrile. No shortness of breath. His blood cultures are positive for gram-negative rods, pending identity. He is on antibiotics, being seen by ID. PHYSICAL EXAMINATION: VITAL SIGNS: Blood pressure is 124/57, pulse 104, respiratory rate 20, and temperature 98.1. LUNGS: Clear. No rales, no rhonchi. CARDIOVASCULAR SYSTEM: S1 and S2 regular. ABDOMEN: Soft and nontender. Bowel sounds are positive. Changes about 2 cm, stage II sacral decubitus in the sacral area. ASSESSMENT: 1. Septicemia and now presents with a history of infective endocarditis, being treated with six weeks of antibiotics. The patient is on meropenem. 2. Hypertension. 3. Toxic metabolic encephalopathy. PLAN: Continue antibiotics. Pending sensitivity. ID followup. Esau Jacobs MD
[2018-06-26 08:01] LABS: BASO % 0.2 % (0.0-2.0); LYMPH # 1.4 K/uL (1.0-4.3); LYMPH % 19.4 % (20.0-40.0); MEAN CELL VOLUME 93.8 fL (80.0-94.0); MEAN CORPUSCULAR HEMOGLOBIN 33.1 pg (27.0-31.0); MEAN CORPUSCULAR HGB CONC 35.3 g/dL (33.0-37.0); MEAN PLATELET VOLUME 9.8 fL (7.2-11.7); MONO # 0.8 K/uL (0.0-0.8); MONO % 10.9 % (0.0-10.0); NEUT # 5.2 K/uL (1.8-7.0); NEUT % 69.5 % (50.0-75.0); RBC 3.35 Mil/uL (4.40-5.90); RED CELL DISTRIBUTION WIDTH 16.6 % (11.5-14.5); WHITE BLOOD COUNT 7.4 K/uL (4.8-10.8)
[2018-06-26 08:13] LABS: HEMOGLOBIN 11.1 g/dL (12.0-18.0)
[2018-06-26 08:31] LABS: ALB/GLOB RATIO 0.9 (1.0-2.1); ALBUMIN 2.4 g/dL (3.5-5.0); ALT/SGPT 90 U/L (21-72); AST/SGOT 74 U/L (17-59); BILIRUBIN,DIRECT 1.2 mg/dL (0.0-0.4); BLOOD UREA NITROGEN 40 mg/dL (9-20); CALCIUM 8.6 mg/dl (8.6-10.4); CK-MB 0.47 ng/mL (0.0-3.38); GFR NON-AFRICAN AMERICAN > 60
[2018-06-26] MEDS: Sodium Chloride 0.9% 1,000 ML IV SCH ×2 (14:14→22:24)
[2018-06-26] MEDS ORDERED: Potassium Chloride 20 mEq ER Tab PO ONE (22:00)
--- NOTE | 2018-06-26 22:34 | CP.PCM.PN ---
Subjective - Subjective Subjective: dictated Objective - Vital Signs/Intake and Output Vital Signs (last 24 hours): Temp Pulse Resp BP Pulse Ox 98 F 99 H 20 124/66 97 06/26/18 16:20 06/26/18 17:55 06/26/18 16:20 06/26/18 17:55 06/26/18 16:20 - Medications Medications: Current Medications Acetaminophen (Tylenol 325mg Tab) 650 mg PO Q6 PRN PRN Reason: Pain, moderate (4-7) Apixaban (Eliquis) 5 mg PO BID [facility] Last Admin: 06/26/18 17:55 Dose: 5 mg Aspirin (Aspirin Chewable) 81 mg PO DAILY [facility] Last Admin: 06/26/18 09:11 Dose: Not Given Meropenem 1 gm/ Sodium (Chloride) 100 mls @ 100 mls/hr IVPB Q8H [facility]; Protocol Last Admin: 06/26/18 17:55 Dose: 100 mls/hr Amikacin Sulfate 500 mg/ (Sodium Chloride) 102 mls @ 102 mls/hr IVPB Q24H [facility]; Protocol Stop: 06/27/18 17:59 Last Admin: 06/26/18 18:59 Dose: 102 mls/hr Sodium Chloride (Sodium Chloride 0.9%) 1,000 mls @ 50 mls/hr IV .Q20H [facility] Last Admin: 06/26/18 22:24 Dose: 50 mls/hr Influenza Virus Vaccine (Fluzone Quad [id number]) 60 mcg IM .ONCE ONE Stop: 06/28/18 10:01 Losartan Potassium (Cozaar) 50 mg PO DAILY [facility] Last Admin: 06/26/18 09:11 Dose: Not Given Memantine (Namenda) 5 mg PO BID [facility] Last Admin: 06/26/18 17:55 Dose: 5 mg Metoprolol Tartrate (Lopressor) 25 mg NG BID [facility] Potassium Chloride (K-Dur 20 Meq Er Tab) 40 meq PO ONCE ONE Stop: 06/27/18 10:01 Rosuvastatin Calcium (Crestor) 5 mg PO [facility] Last Admin: 06/26/18 22:24 Dose: 5 mg - Labs Labs: 06/26/18 07:44 06/26/18 07:44 PT 20.2 SECONDS (9.7-12.2) H 11/27/18 22:16 INR 1.8 06/25/18 22:16 APTT 34 SECONDS (21-34) 06/25/18 22:16
--- NOTE | 2018-06-26 22:41 | CP.PCM.PN ---
Subjective - Date & Time of Evaluation Date of Evaluation: 06/26/18 Time of Evaluation: 22:41 - Subjective Subjective: AFEBRILE, VS BP 123/55 TMAX 98.3 PULSE 93/MIN PULSE OX 97% ON 2L /NC POORLY RESPONSIVE Objective - Vital Signs/Intake and Output Vital Signs (last 24 hours): Temp Pulse Resp BP Pulse Ox 98 F 99 H 20 124/66 97 06/26/18 16:20 06/26/18 17:55 06/26/18 16:20 06/26/18 17:55 06/26/18 16:20 - Medications Medications: Current Medications Acetaminophen (Tylenol 325mg Tab) 650 mg PO Q6 PRN PRN Reason: Pain, moderate (4-7) Apixaban (Eliquis) 5 mg PO BID [facility] Last Admin: 06/26/18 17:55 Dose: 5 mg Aspirin (Aspirin Chewable) 81 mg PO DAILY [facility] Last Admin: 06/26/18 09:11 Dose: Not Given Meropenem 1 gm/ Sodium (Chloride) 100 mls @ 100 mls/hr IVPB Q8H [facility]; Protocol Last Admin: 06/26/18 17:55 Dose: 100 mls/hr Amikacin Sulfate 500 mg/ (Sodium Chloride) 102 mls @ 102 mls/hr IVPB Q24H [facility]; Protocol Stop: 06/27/18 17:59 Last Admin: 06/26/18 18:59 Dose: 102 mls/hr Sodium Chloride (Sodium Chloride 0.9%) 1,000 mls @ 50 mls/hr IV .Q20H [facility] Last Admin: 06/26/18 22:24 Dose: 50 mls/hr Influenza Virus Vaccine (Fluzone Quad [id number]) 60 mcg IM .ONCE ONE Stop: 06/28/18 10:01 Losartan Potassium (Cozaar) 50 mg PO DAILY [facility] Last Admin: 06/26/18 09:11 Dose: Not Given Memantine (Namenda) 5 mg PO BID [facility] Last Admin: 06/26/18 17:55 Dose: 5 mg Metoprolol Tartrate (Lopressor) 25 mg NG BID [facility] Potassium Chloride (K-Dur 20 Meq Er Tab) 40 meq PO ONCE ONE Stop: 06/27/18 10:01 Rosuvastatin Calcium (Crestor) 5 mg PO HS [facility] Last Admin: 06/26/18 22:24 Dose: 5 mg - Labs Labs: 06/26/18 07:44 06/26/18 07:44 PT 20.2 SECONDS (9.7-12.2) H 06/25/18 22:16 INR 1.8 06/25/18 22:16 APTT 34 SECONDS (21-34) 06/25/18 22:16 - Constitutional Appears: No Acute Distress - Head Exam Head Exam: NORMAL INSPECTION - Eye Exam Eye Exam: PERRL - ENT Exam ENT Exam: Mucous Membranes Dry - Neck Exam Neck Exam: Normal Inspection - Respiratory Exam Respiratory Exam: Decreased Breath Sounds (BASES) - Cardiovascular Exam Cardiovascular Exam: Tachycardia, Irregular Rhythm, +S1, +S2 - GI/Abdominal Exam GI & Abdominal Exam: Soft, Normal Bowel Sounds. absent: Distended, Organomegaly - Extremities Exam Extremities Exam: Normal Capillary Refill, Pedal Edema (1+). absent: Calf Tenderness - Neurological Exam Neurological Exam: Altered (LEFT SIDED WEAKNESS) Neuro motor strength exam: Left Upper Extremity: 0, Left Lower Extremity: 0 - Psychiatric Exam Psychiatric exam: Flat Affect - Skin Skin Exam: Dry, Normal Color Assessment and Plan (1) Gram negative sepsis Assessment & Plan: BLOOD CULTURES 2:2 SETS +VE GNR.-P-identification. ESR 66 CRP >15 S.LACTATE 3.7---> 1.4 TODAY CONTINUE iv MERREM 1 G iv PIGGYBACK [id number].06/25/18. IV AMIKACIN 1 G iv PIGGYBACK INFUSED OVER 30 MINUTES X1 1 DOSE STAT.06/25/18 CONTINUE IV AMIKACIN 500MG IVPB Q24 HRLY X 2 DOSES WHILE AWAITING CULTURE IDENTIFICATION SEEN BY CARDIOLOGY DR BENNETT. FOR 2D ECHO TO EVALUATE LEFT VENTRICLE SYSTOLIC FUNCTION /AND AORTIC VALVE SOURCE OF GRAM-NEGATIVE SEPSIS NOT CLEAR ?LINE RELATED VS . F/U URINE CULTURE DC ALL CATHETHERS/AND- MID LINE. F/U REPEAT BLOOD CULTURES IN AM . Status: Acute (2) NSTEMI (non-ST elevated myocardial infarction) Assessment & Plan: PT HAS +VE TROPONINS EVEN TODAY CANNOT R/O ISCHEMIC HEART DISEASE. PER CARDIOLOGY/PMD Status: Acute (3) Aortic valve endocarditis Assessment & Plan: HX OF STREPT-VIRIDANS BACTEREMIA AND AV -ENDOCARDITIS. Status: Chronic (4) Streptococcus viridans infection Status: Acute (5) Atrial fibrillation Status: Chronic (6) CVA (cerebral vascular accident) Assessment & Plan: ABNORMAL CT HEAD AWAIT NEURO EVAL PER PMD. Status: Chronic (7) Enlarged prostate Assessment & Plan: PSA- 5.66 SLIGHTLY HIGH UA/URINE CULTURE -P. Status: Acute (8) Hypertension Status: Chronic (9) Alzheimer disease Status: Chronic
--- NOTE | 2018-06-26 23:44 | CON ---
DATE: 06/26/2018 HISTORY OF PRESENT ILLNESS: The patient is an 83-year-old male, who has a history of Alzheimer, chronic atrial fibrillation, CVA with left-sided hemiparesis, who was recently diagnosed with aortic valve endocarditis and received 6 weeks of intravenous antibiotic therapy in a residential and he was referred from residential because of tachycardia. The patient does not give any information at this time and he is lethargic. When I was notified with the case yesterday after rapid response was conducted because of altered mental status, I requested that the patient be evaluated by the jack machine operator who evaluated the patient early this morning and the patient was kept on the floor, was not considered an ICU candidate. SOCIAL HISTORY: This patient is a residential resident. MEDICATIONS: Amikacin 500 mg intravenously daily, aspirin 81 mg daily, Cozaar 50 mg daily, Crestor 5 mg daily, Eliquis 5 mg twice a day, Lopressor 12.5 mg twice a day. All the oral medications have been on hold awaiting swallow evaluation. The patient also on IV meropenem at 1 g every 8 hours. REVIEW OF SYSTEMS: No reported seizures and no reported hypotension. No reported ventricular tachycardia. PHYSICAL EXAMINATION: GENERAL: The patient is an elderly male who is lethargic, nonverbal but does not appear to be in respiratory distress. VITAL SIGNS: Blood pressure 123/55, heart rate 93, temperature 98.3, respirations 20. HEENT: Normocephalic CHEST: Very poor air entry bilaterally. HEART: S1 and S2, regular. ABDOMEN: Soft. EXTREMITIES: No edema. LABORATORY DATA: INR is 1.8. PTT 34. SMA-7 today: Sodium 145, potassium 3.2, chloride 116, CO2 of 24, glucose 101, BUN 40, creatinine 0.9. Troponin 0.179 and 0.194. Hemoglobin and hematocrit are 11.1 and 31.4. White count 7.4, platelet count 96,000. EKG revealed atrial fibrillation with rapid ventricular response at rate of 127. Head CT scan without contrast, increase in size of the hypodensity at the right frontal parasagittal area since previous exam, findings likely represent sequelae of recent infarct. Possible underlying neoplasm is not excluded. If clinically warranted, followup enhanced MRI may be obtained. Chest x-ray: Cardiomegaly, pulmonary venous congestion, a small pleural effusion, findings compatible with CHF, pulmonary venous congestion is less than before. ASSESSMENT: 1. Rapid atrial fibrillation. 2. Bacterial endocarditis involving the aortic valve. 3. History of recent cerebrovascular event involving the right anterior cerebral artery territory which now has extended on the most recent head CT scan. 4. Hypertension. 5. Mild thrombocytopenia. 6. Hypokalemia. 7. Prerenal azotemia. 8. Borderline troponin elevation likely represents a cerebral infarct rather than a myocardial infarct. 9. Gram-negative bacteremia. The most recent blood culture was positive for Staphylococcus viridans when the patient was diagnosed with aortic valve endocarditis. RECOMMENDATIONS: Continue current IV amikacin and IV meropenem. I did request a followup 2-D echocardiography study once I discuss with the machining technician team. Place an NG tube and restart the aspirin, Cozaar, Crestor, Eliquis, and Lopressor. The patient is not a suitable candidate for any invasive cardiac workup at this time. I recommend neurology consult as well as a brain MRI. Ronny Solano MD
[2018-06-27] MEDS: Meropenem 1 GM in Sodium Chloride 0.9% 100 ML IVPB SCH ×3 (00:01→16:00)
--- NOTE | 2018-06-27 02:18 | PN ---
DATE: 06/26/2018 SUBJECTIVE: Fredrick Dennison is afebrile. No shortness of breath. Blood cultures are positive for gram-negative bacilli. He has a sacral decubitus, which was seen by the wound care nurse. PHYSICAL EXAMINATION: VITAL SIGNS: Blood pressure 123/65, pulse 95, respiratory rate 20, and temperature 98. LUNGS: Clear. No rales. No rhonchi. CARDIOVASCULAR SYSTEM: S1 and S2 are regular. ABDOMEN: Soft. ASSESSMENT: 1. Dehydration, prerenal azotemia. Continue intravenous fluids. Discontinue hydrochlorothiazide. 2. Gram-negative septicemia. Etiology of gram-negative septicemia could be urinary tract infection versus intra-abdominal infection. 3. Chronic kidney disease. 4. Alzheimer. 5. Infective endocarditis. PLAN: Continue antibiotics. Follow up sensitivity. Follow up the ID evaluation. Monitor the patient. Esau Jacobs MD
[2018-06-27] MEDS ORDERED: Iohexol 240 (50 ml) ONE (02:43)
[2018-06-27 04:56] LABS: URINE CLARITY Hazy (Clear); URINE COLOR YELLOW (YELLOW); URINE GLUCOSE (UA) NEGATIVE (Normal)
[2018-06-27 04:57] LABS: SQUAMOUS EPITHIAL 3 /hpf (0-5); URINE BILIRUBIN SMALL (NEGATIVE); URINE BLOOD NEGATIVE (NEGATIVE); URINE LEUKOCYTE ESTERASE NEGATIVE Leu/uL (Negative); URINE PROTEIN NEGATIVE (NEGATIVE)
[2018-06-27] MEDS ORDERED: Potassium Chloride 20 mEq ER Tab PO ONE ×3 (10:00→22:00)
[2018-06-27 10:21] LABS: BASO % 0.2 % (0.0-2.0); EOS % 0.1 % (0.0-4.0); HEMOGLOBIN 12.8 g/dL (12.0-18.0); LYMPH # 2.1 K/uL (1.0-4.3); MEAN CELL VOLUME 93.8 fL (80.0-94.0); MEAN CORPUSCULAR HEMOGLOBIN 32.7 pg (27.0-31.0); MEAN CORPUSCULAR HGB CONC 34.9 g/dL (33.0-37.0); MEAN PLATELET VOLUME 10.4 fL (7.2-11.7); MONO # 1.1 K/uL (0.0-0.8); MONO % 9.5 % (0.0-10.0); NEUT # 8.5 K/uL (1.8-7.0); NEUT % 72.2 % (50.0-75.0); RBC 3.91 Mil/uL (4.40-5.90); RED CELL DISTRIBUTION WIDTH 16.5 % (11.5-14.5); WHITE BLOOD COUNT 11.7 K/uL (4.8-10.8)
[2018-06-27 12:23] LABS: BLOOD UREA NITROGEN 44 mg/dL (9-20); CALCIUM 8.8 mg/dl (8.6-10.4); GFR NON-AFRICAN AMERICAN > 60
--- NOTE | 2018-06-27 14:47 | CP.PCM.PN ---
Subjective - Date & Time of Evaluation Date of Evaluation: 06/27/18 Time of Evaluation: 14:47 - Subjective Subjective: AFEBRILE, VSS MORE AWAKE AND RESPONSIVE NODS HIS HEAD,ON ASKING QUESTIONS.. LT SIDED WEAKNESS PERSISTS. Objective - Vital Signs/Intake and Output Vital Signs (last 24 hours): Temp Pulse Resp BP Pulse Ox 97.3 F L 101 H 18 128/64 100 06/27/18 07:56 06/27/18 08:00 06/27/18 07:56 06/27/18 09:30 06/27/18 07:56 Intake and Output: 06/27/18 06/27/18 06:59 18:59 Intake Total 400 Balance 400 - Medications Medications: Current Medications Acetaminophen (Tylenol 325mg Tab) 650 mg PO Q6 PRN PRN Reason: Pain, moderate (4-7) Apixaban (Eliquis) 5 mg PO BID [facility] Last Admin: 06/27/18 09:30 Dose: 5 mg Aspirin (Aspirin Chewable) 81 mg PO DAILY [facility] Last Admin: 06/27/18 09:30 Dose: 81 mg Meropenem 1 gm/ Sodium (Chloride) 100 mls @ 100 mls/hr IVPB Q8H [facility]; Protocol Last Admin: 06/27/18 09:29 Dose: 100 mls/hr Amikacin Sulfate 500 mg/ (Sodium Chloride) 102 mls @ 102 mls/hr IVPB Q24H [facility]; Protocol Stop: 06/27/18 17:59 Last Admin: 06/26/18 18:59 Dose: 102 mls/hr Sodium Chloride (Sodium Chloride 0.9%) 1,000 mls @ 50 mls/hr IV .Q20H [facility] Last Admin: 06/26/18 22:24 Dose: 50 mls/hr Influenza Virus Vaccine (Fluzone Quad [id number]) 60 mcg IM .ONCE ONE Stop: 06/28/18 10:01 Losartan Potassium (Cozaar) 50 mg PO DAILY [facility] Last Admin: 06/27/18 09:31 Dose: 50 mg Memantine (Namenda) 5 mg PO BID [facility] Last Admin: 06/27/18 09:31 Dose: 5 mg Metoprolol Tartrate (Lopressor) 25 mg NG BID [facility] Last Admin: 06/27/18 09:30 Dose: 25 mg Rosuvastatin Calcium (Crestor) 5 mg PO [facility] Last Admin: 06/26/18 22:24 Dose: 5 mg - Labs Labs: 06/27/18 10:19 06/27/18 11:41 PT 20.2 SECONDS (9.7-12.2) H 06/25/18 22:16 INR 1.8 06/25/18 22:16 APTT 34 SECONDS (21-34) 06/25/18 22:16 - Constitutional Appears: No Acute Distress - Head Exam Head Exam: NORMAL INSPECTION - Eye Exam Eye Exam: EOMI, PERRL - ENT Exam ENT Exam: Normal Oropharynx - Respiratory Exam Respiratory Exam: Decreased Breath Sounds (BASES.) - Cardiovascular Exam Cardiovascular Exam: Irregular Rhythm, +S1, +S2 - GI/Abdominal Exam GI & Abdominal Exam: Soft, Normal Bowel Sounds. absent: Tenderness - Extremities Exam Extremities Exam: Pedal Edema (1+ EDEMA). absent: Calf Tenderness - Neurological Exam Neurological Exam: Awake, CN II-XII Intact (LEFT-SIDED WEAKNESS BOTH UPPER AND LOWER EXTREMITY) - Psychiatric Exam Psychiatric exam: Normal Mood - Skin Skin Exam: Normal Color, Warm Assessment and Plan (1) Gram negative sepsis Assessment & Plan: BLOOD CULTURES 2:2 SETS +VE KLEIBSIELLA-OZAENAE S-MEROPENEM/GENTAMICIN URINE CULTURES NEGATIVE GROWTH. ESR 66 CRP >15 S.LACTATE 3.7---> 1.4 TODAY CONTINUE iv MERREM 1 G iv PIGGYBACK [id number].06/25/18. IV AMIKACIN 1 G iv PIGGYBACK INFUSED OVER 30 MINUTES X1 1 DOSE STAT.06/25/18 CONTINUE IV AMIKACIN 500MG IVPB Q24 HRLY X 2 DOSES WHILE AWAITING CULTURE IDENTIFICATION SEEN BY CARDIOLOGY DR BENNETT. F/U 2D ECHO-PENDING Status: Acute (2) NSTEMI (non-ST elevated myocardial infarction) Status: Acute (3) Aortic valve endocarditis Status: Chronic (4) Streptococcus viridans infection Assessment & Plan: S/P STREP VIRIDANS BACTEREMIA 04/30/18 Status: Acute (5) Atrial fibrillation Status: Chronic (6) CVA (cerebral vascular accident) Assessment & Plan: F/U MRI BRAIN ORDERED BY PMD. neuro eval . Status: Chronic (7) Enlarged prostate Status: Acute (8) Hypertension Status: Chronic (9) Alzheimer disease Status: Chronic
--- NOTE | 2018-06-27 15:49 | MRI ---
Date of service: 06/27/2018 PROCEDURE: MRI BRAIN WITH AND WITHOUT CONTRAST HISTORY: Lethargy. Abnormal CT scan. COMPARISON: Comparison made with CT scan of the brain 06/25/2018 and 05/13/2018. Comparison also made with prior MRI of the brain dated 05/04/2018.. TECHNIQUE: Multiplanar, multisequence MR images of the brain were obtained with and without intravenous contrast enhancement. 18 cc Omniscan injected for this examination note that the examination is slightly limited by motion artifact. FINDINGS: HEMORRHAGE: There appears to be some minimal hemorrhagic conversion along the anterior margin of a late subacute/chronic right anterior cerebral artery (DOMI) territory infarct associated with a small amount of contrast enhancement. DWI: There is persistent mild restricted diffusion along the right parasagittal superior frontal lobe consistent with late subacute infarct which was seen on prior MRI 05/04/2018. BRAIN PARENCHYMA: Mild chronic periventricular white matter ischemic changes again seen extending peripherally into the deep and subcortical white matter both cerebral hemispheres. Additionally, there are multiple small chronic appearing lacunar type infarcts scattered about the deep and subcortical white matter and both basal nuclei. Moderate-fairly significant generalized atrophy. ENHANCEMENT: As above. VENTRICLES: No obstructive hydrocephalus. CRANIUM: Unremarkable. ORBITS: Changes of bilateral cataract surgery again noted PARANASAL SINUSES/MASTOIDS: Clear VASCULAR SYSTEM: Visualized major vascular flow voids at skull base patent.. OTHER FINDINGS: None . IMPRESSION: Unremar small amount of hemorrhagic conversion along the anterior margin of a late subacute/chronic right DOMI territory infarct. Mild chronic white matter ischemic changes with scattered basal nuclei lacunar type infarcts. Moderate to fairly significant generalized volume loss
--- NOTE | 2018-06-27 17:44 | PN ---
DATE: 06/27/2018 SUBJECTIVE: The patient is oriented to place. He denies any chest pain. He is in atrial fibrillation with slightly rapid heart rate. PHYSICAL EXAMINATION: VITAL SIGNS: Blood pressure 128/64, heart rate 101, temperature 97.3, and respirations 18. HEENT: Normocephalic. CHEST: Clear. HEART: S1 and S2 regular. EXTREMITIES: No edema. LABORATORY DATA: Today's hemoglobin and hematocrit 12.8 and 36.7, white count 11.7, and platelet count 99,000. ASSESSMENT: 1. Chronic atrial fibrillation. 2. Klebsiella ozaenae bacteremia. 3. History of recent aortic valve endocarditis. 4. History of cerebrovascular accident with residual left hemiparesis. 5. Hypertension. 6. Mild thrombocytopenia. 7. Borderline troponin elevation. RECOMMENDATIONS: Continue current IV amikacin 500 mg daily, aspirin 81 mg once a day, Cozaar 50 mg once a day, Crestor 5 mg once a day, Eliquis 5 mg twice a day, Lopressor 25 mg twice a day, and IV meropenem 1 g every 8 hours. Official transthoracic echocardiographic study report is still pending. Ronny Solano MD
[2018-06-27] MEDS: Sodium Chloride 0.9% 1,000 ML IV SCH (21:31)
[2018-06-28] MEDS: Meropenem 1 GM in Sodium Chloride 0.9% 100 ML IVPB SCH ×3 (00:54→19:00)
--- NOTE | 2018-06-28 00:56 | CP.PCM.PN ---
Subjective - Date & Time of Evaluation Date of Evaluation: 06/27/18 - Subjective Subjective: dictated Objective - Vital Signs/Intake and Output Vital Signs (last 24 hours): Temp Pulse Resp BP Pulse Ox 97.9 F 93 H 20 122/58 L 95 06/27/18 23:59 06/27/18 23:59 06/27/18 23:59 06/27/18 23:59 06/27/18 23:59 - Medications Medications: Current Medications Acetaminophen (Tylenol 325mg Tab) 650 mg PO Q6 PRN PRN Reason: Pain, moderate (4-7) Meropenem 1 gm/ Sodium (Chloride) 100 mls @ 100 mls/hr IVPB Q8H [facility]; Protocol Last Admin: 06/28/18 00:54 Dose: 100 mls/hr Sodium Chloride (Sodium Chloride 0.9%) 1,000 mls @ 50 mls/hr IV .Q20H [facility] Last Admin: 06/27/18 21:31 Dose: Not Given Influenza Virus Vaccine (Fluzone Quad [id number]) 60 mcg IM .ONCE ONE Stop: 06/28/18 10:01 Losartan Potassium (Cozaar) 50 mg PO DAILY [facility] Last Admin: 06/27/18 09:31 Dose: 50 mg Memantine (Namenda) 5 mg PO BID [facility] Last Admin: 06/27/18 18:37 Dose: 5 mg Metoprolol Tartrate (Lopressor) 25 mg NG BID [facility] Last Admin: 06/27/18 18:36 Dose: 25 mg Rosuvastatin Calcium (Crestor) 5 mg PO HS [facility] Last Admin: 06/27/18 21:27 Dose: 5 mg - Labs Labs: 06/27/18 10:19 06/27/18 11:41 PT 20.2 SECONDS (9.7-12.2) H 06/25/18 22:16 INR 1.8 06/25/18 22:16 APTT 34 SECONDS (21-34) 06/25/18 22:16
--- NOTE | 2018-06-28 03:29 | PN ---
DATE: 06/28/2018 SUBJECTIVE: Fredrick Dennison is feeling better. His MRI of the head shows CVA with hemorrhagic conversion. He is afebrile. He is more alert. No nausea or vomiting. PHYSICAL EXAMINATION: VITAL SIGNS: Blood pressure 122/58, pulse 93, respiratory rate 20, temperature 97.9. LUNGS: Clear. CARDIOVASCULAR SYSTEM: S1 and S2 irregular. ABDOMEN: Soft. ASSESSMENT: 1. Septicemia due to Klebsiella ozaenae, the patient is on meropenem. 2. Hypokalemia. 3. Dehydration, prerenal azotemia. PLAN: Continue antibiotics. Monitor patient. Esau Jacobs MD
--- NOTE | 2018-06-28 07:20 | CP.PCM.CON ---
History of Present Illness - History of Present Illness History of Present Illness: CONSULTATION DICTATED LEFT SIDE WEAKNENSS - RIGHT DOMI INFARCT HEMORRHAGIC CONVERSION PER MRI WILL CHECK CAT TODAY IF NO EVIDENCE OF BLEED - RESUME ANTICOAGULATION CONTINUE ANTIBIOTICS PER ID EEG Past Patient History - Past Medical History & Family History Past Medical History?: Yes - Past Social History Smoking Status: Never Smoked - CARDIAC Hx Hypertension: Yes - PULMONARY Hx Chronic Obstructive Pulmonary Disease (COPD): Yes - NEUROLOGICAL Hx Alzheimer's Disease: Yes Hx Dementia: Yes - HEENT Hx HEENT Problems: No - RENAL Hx Chronic Kidney Disease: No - ENDOCRINE/METABOLIC Hx Endocrine Disorders: No - HEMATOLOGICAL/ONCOLOGICAL Hx Blood Disorders: No - INTEGUMENTARY Hx Dermatological Problems: No - MUSCULOSKELETAL/RHEUMATOLOGICAL Hx Arthritis: Yes - GASTROINTESTINAL Hx Gastrointestinal Disorders: No - GENITOURINARY/GYNECOLOGICAL Hx Genitourinary Disorders: Yes Hx Prostate Problems: Yes (enlarged prostate) Hx Urinary Tract Infection: Yes - PSYCHIATRIC Hx Substance Use: No - SURGICAL HISTORY Hx Surgeries: No - ANESTHESIA Hx Anesthesia: No Hx Anesthesia Reactions: No Hx Malignant Hyperthermia: No Meds Allergies/Adverse Reactions: Allergies Allergy/AdvReac Type Severity Reaction Status Date / Time No Known Allergies Allergy Verified 06/24/18 17:23 - Medications Medications: Current Medications Acetaminophen (Tylenol 325mg Tab) 650 mg PO Q6 PRN PRN Reason: Pain, moderate (4-7) Meropenem 1 gm/ Sodium (Chloride) 100 mls @ 100 mls/hr IVPB Q8H [facility]; Protocol Last Admin: 06/28/18 00:54 Dose: 100 mls/hr Sodium Chloride (Sodium Chloride 0.9%) 1,000 mls @ 50 mls/hr IV .Q20H [facility] Last Admin: 06/27/18 21:31 Dose: Not Given Influenza Virus Vaccine (Fluzone Quad [id number]) 60 mcg IM .ONCE ONE Stop: 06/28/18 10:01 Losartan Potassium (Cozaar) 50 mg PO DAILY [facility] Last Admin: 06/27/18 09:31 Dose: 50 mg Memantine (Namenda) 5 mg PO BID [facility] Last Admin: 06/27/18 18:37 Dose: 5 mg Metoprolol Tartrate (Lopressor) 25 mg NG BID [facility] Last Admin: 06/27/18 18:36 Dose: 25 mg Rosuvastatin Calcium (Crestor) 5 mg PO HS [facility] Last Admin: 06/27/18 21:27 Dose: 5 mg Results - Vital Signs Recent Vital Signs: Last Vital Signs Temp 97.9 F 06/27/18 23:59 Pulse 94 H 06/28/18 00:30 Resp 20 06/27/18 23:59 BP 122/58 L 06/27/18 23:59 Pulse Ox 95 06/27/18 23:59 - Labs Result Diagrams: 06/27/18 10:19 06/27/18 11:41 Labs: Laboratory Results - last 24 hr 06/27/18 06/27/18 06/27/18 08:58 10:19 11:41 WBC 11.7 H D RBC 3.91 L Hgb 12.8 Hct 36.7 MCV 93.8 MCH 32.7 H MCHC 34.9 RDW 16.5 H Plt Count 99 L Manual Plt Count 102 L MPV 10.4 Neut % (Auto) 72.2 Lymph % (Auto) 18.0 L [place] % (Auto) 9.5 Eos % (Auto) 0.1 Baso % (Auto) 0.2 Neut # (Auto) 8.5 H Lymph # (Auto) 2.1 [place] # (Auto) 1.1 H Eos # (Auto) 0.0 Baso # (Auto) 0.0 Sodium 147 Potassium 3.4 L Chloride 118 H Carbon Dioxide 24 Anion Gap 8 L BUN 44 H Creatinine 0.7 L Est GFR ( Amer) > 60 Est GFR (Non-Af Amer) > 60 Random Glucose 126 H Calcium 8.8 Magnesium 1.8
[2018-06-28 07:58] LABS: BASO % 0.2 % (0.0-2.0); EOS # 0.1 K/uL (0.0-0.7); EOS % 0.8 % (0.0-4.0); HEMOGLOBIN 12.6 g/dL (12.0-18.0); LYMPH % 20.5 % (20.0-40.0); MEAN CELL VOLUME 92.2 fL (80.0-94.0); MEAN CORPUSCULAR HEMOGLOBIN 32.7 pg (27.0-31.0); MEAN CORPUSCULAR HGB CONC 35.5 g/dL (33.0-37.0); MEAN PLATELET VOLUME 9.8 fL (7.2-11.7); MONO # 0.9 K/uL (0.0-0.8); MONO % 9.5 % (0.0-10.0); NEUT # 6.6 K/uL (1.8-7.0); NRBC % 0.1 % (0.0-2.0); RBC 3.87 Mil/uL (4.40-5.90); RED CELL DISTRIBUTION WIDTH 16.2 % (11.5-14.5); WHITE BLOOD COUNT 9.6 K/uL (4.8-10.8)
[2018-06-28 08:23] LABS: BLOOD UREA NITROGEN 39 mg/dL (9-20); CALCIUM 8.8 mg/dl (8.6-10.4); GFR NON-AFRICAN AMERICAN > 60
[2018-06-28] MEDS: Sodium Chloride 0.9% 1,000 ML IV SCH ×2 (09:22→14:31)
--- NOTE | 2018-06-28 09:36 | CT ---
Date of service: 06/28/2018 PROCEDURE: CT HEAD WITHOUT CONTRAST. HISTORY: HEMORRHAGIC CONVERSION COMPARISON: 06/25/2018 TECHNIQUE: Axial computed tomography images were obtained through the head/brain without intravenous contrast. Radiation dose: Total exam DLP = 2102.45 mGy-cm. This CT exam was performed using one or more of the following dose reduction techniques: Automated exposure control, adjustment of the mA and/or kV according to patient size, and/or use of iterative reconstruction technique. FINDINGS: HEMORRHAGE: No definite hemorrhage identified on this examination. BRAIN: No intracranial mass. Evidence of late subacute/chronic right DOMI territory infarct. Mild atrophy and chronic periventricular white matter ischemic change. VENTRICLES: Unremarkable. No hydrocephalus. CALVARIUM: Unremarkable. PARANASAL SINUSES: Unremarkable as visualized. No significant inflammatory changes. MASTOID AIR CELLS: Unremarkable as visualized. No inflammatory changes. OTHER FINDINGS: None. IMPRESSION: Late subacute/chronic right DOMI territory infarct with encephalomalacia change. No evidence of acute hemorrhage. Atrophy and mild chronic periventricular white matter ischemic change.
[2018-06-28] MEDS ORDERED: Influenza Vaccine 60 MCG/0.5 ML SYR (3 yr & up) IM ONE (10:00)
--- NOTE | 2018-06-28 14:21 | CP.PCM.CON ---
History of Present Illness - History of Present Illness History of Present Illness: Palliative consult requested by Hugh BUENROSTRO for goals of care discussion Patient is a 83 yo [place] 140. per [place] report, patient was on antibiotics for infectious endocarditis. At this hospital ID consult was called and IV Amikacin and IV Meropenum started. Blood cultures positive Klebs. On 06/25/2018 [employer] called for Afib and RVR, HR 122. Cardiology consult called. No aggressive interventions from Cardiology stand point advised. MRI brain suggested and done; chronic changes seen. patient admitted for further fallow up. PMH: Alzheimer's disease, infectious endocarditis, COPD,,CVA. HTN, Left sided weakness Soc. hx: , [place] resident, son Fredrick involved in care ) fam. Hx; Father from COPD complications Review of Systems - Review of Systems All systems: reviewed and no additional remarkable complaints except Review of Systems: ROS unobtainable from patient due to AMS. ROS obtained from nursing. per nursing patient had no acute events over night. Past Patient History - Past Medical History & Family History Past Medical History?: Yes - Past Social History Smoking Status: Never Smoked - CARDIAC Hx Hypertension: Yes - PULMONARY Hx Chronic Obstructive Pulmonary Disease (COPD): Yes - NEUROLOGICAL Hx Alzheimer's Disease: Yes Hx Dementia: Yes - HEENT Hx HEENT Problems: No - RENAL Hx Chronic Kidney Disease: No - ENDOCRINE/METABOLIC Hx Endocrine Disorders: No - HEMATOLOGICAL/ONCOLOGICAL Hx Blood Disorders: No - INTEGUMENTARY Hx Dermatological Problems: No - MUSCULOSKELETAL/RHEUMATOLOGICAL Hx Arthritis: Yes - GASTROINTESTINAL Hx Gastrointestinal Disorders: No - GENITOURINARY/GYNECOLOGICAL Hx Genitourinary Disorders: Yes Hx Prostate Problems: Yes (enlarged prostate) Hx Urinary Tract Infection: Yes - PSYCHIATRIC Hx Substance Use: No - SURGICAL HISTORY Hx Surgeries: No - ANESTHESIA Hx Anesthesia: No Hx Anesthesia Reactions: No Hx Malignant Hyperthermia: No Meds Allergies/Adverse Reactions: Allergies Allergy/AdvReac Type Severity Reaction Status Date / Time No Known Allergies Allergy Verified 06/24/18 17:23 - Medications Medications: Current Medications Acetaminophen (Tylenol 325mg Tab) 650 mg PO Q6 PRN PRN Reason: Pain, moderate (4-7) Aspirin (Aspirin Chewable) 81 mg PO DAILY [facility] Last Admin: 06/28/18 13:04 Dose: Not Given Meropenem 1 gm/ Sodium (Chloride) 100 mls @ 100 mls/hr IVPB Q8H [facility]; Protocol Last Admin: 06/28/18 09:22 Dose: 100 mls/hr Sodium Chloride (Sodium Chloride 0.9%) 1,000 mls @ 50 mls/hr IV .Q20H [facility] Last Admin: 06/28/18 09:22 Dose: 50 mls/hr Losartan Potassium (Cozaar) 50 mg PO DAILY [facility] Last Admin: 06/28/18 09:21 Dose: 50 mg Memantine (Namenda) 5 mg PO BID [facility] Last Admin: 06/28/18 09:22 Dose: 5 mg Metoprolol Tartrate (Lopressor) 25 mg NG BID [facility] Last Admin: 06/28/18 09:22 Dose: 25 mg Rosuvastatin Calcium (Crestor) 5 mg PO HS [facility] Last Admin: 06/27/18 21:27 Dose: 5 mg Physical Exam - Constitutional Appears: No Acute Distress, Chronically Ill - Head Exam Head Exam: ATRAUMATIC, NORMAL INSPECTION, NORMOCEPHALIC - Eye Exam Eye Exam: EOMI, Normal appearance, PERRL Pupil Exam: NORMAL ACCOMODATION, PERRL - ENT Exam ENT Exam: Mucous Membranes Moist, Normal Exam - Neck Exam Neck exam: Positive for: Normal Inspection - Respiratory Exam Respiratory Exam: Decreased Breath Sounds, Clear to Auscultation Bilateral, NORMAL BREATHING PATTERN - Cardiovascular Exam Cardiovascular Exam: Tachycardia - GI/Abdominal Exam GI & Abdominal Exam: Normal Bowel Sounds, Soft - Rectal Exam Rectal Exam: Deferred - Exam Exam: NORMAL INSPECTION - Extremities Exam Additional comments: foot drop - Back Exam Additional comments: left sided weakness - Neurological Exam Neurological exam: Alert, Altered - Psychiatric Exam Psychiatric exam: Flat Affect - Skin Skin Exam: Intact, Normal Color, Warm Results - Vital Signs Recent Vital Signs: Last Vital Signs Temp 98.2 F 06/28/18 07:00 Pulse 87 06/28/18 08:00 Resp 20 06/28/18 07:00 BP 115/62 06/28/18 09:22 Pulse Ox 98 06/28/18 07:00 - Labs Result Diagrams: 06/28/18 07:45 06/28/18 07:45 Labs: Laboratory Results - last 24 hr 06/28/18 06/28/18 07:45 07:45 WBC 9.6 RBC 3.87 L Hgb 12.6 Hct 35.7 MCV 92.2 MCH 32.7 H MCHC 35.5 RDW 16.2 H Plt Count 102 L MPV 9.8 Neut % (Auto) 69.0 Lymph % (Auto) 20.5 [place] % (Auto) 9.5 Eos % (Auto) 0.8 Baso % (Auto) 0.2 Neut # (Auto) 6.6 Lymph # (Auto) 2.0 [place] # (Auto) 0.9 H Eos # (Auto) 0.1 Baso # (Auto) 0.0 Sodium 149 H Potassium 3.6 Chloride 120 H Carbon Dioxide 23 Anion Gap 11 BUN 39 H Creatinine 0.7 L Est GFR ( Amer) > 60 Est GFR (Non-Af Amer) > 60 Random Glucose 99 Calcium 8.8 Assessment & Plan - Assessment and Plan (Free Text) Assessment: Palliative consult No Advance directive on chart, PPS 10% I reviewed Medical records, all diagnostic studies, examined patient in the bed and discussed goals of care with his son Fredrick over the phone. Patient is alert, keeps eyes closed, nonverbal and is not fallowing commends. Patient is not in acute distress. Patient looks well developed. Breathing is normal with diminished breath sounds. No cough observed. HR 93, afebrile. Abdomen soft. Patient needs to be assisted with feedings. Incontinent of urine. Record on I&O suggests only 50 cc of urine output. Patient moves freely his upper extremities. There are splints to both feet for foot drop. WBC 9.6, Hb 12.6, Plat 102, Na 149. BP 115/53, HR 93, O2Sat 98% Goals of care discussed with patient's son Fredrick. The son lives about 1.5 hr away from here and agreed to phone goals of care discussion. he is aware of his father's condition and his concern is his father's quality of life. Mr. Alcala was very clear that he would not want any agressive interventions to prolong his father life if ordinary measures fail. POLST reviewed. Mr. Alcala did not want CPR nor MV assistance. the PEG could be discussed later on if feeding becomes an issue. I prepared a POLST and faxed a copy to the son for signature. This was shared with Doctor Reynaldo and he co ncurred. Nursing made aware as well. Impression * Elderly male with cardiac arrhythmias * Nonverbal * Limited mobility * urine output record indicates very low urine output * Needs max assistance with feedings and ADLs * Son advocates for patient * Patient's wishes for the end of life care are not known. Son feels DNR/DNI is appropriate level of care for his father * POLST faxed over to son for signature Suggestions * Monitor HRs * Anticipate and meet patient's needs * Assist with feedings * Aspiration precautions * Bladder scan for urinary retention. Straight cath if indicated * DNR/DNI * Awaiting signed POLST from the son Palliative care will continue to fallow with patient and his son and offer support. Advance care planing 55 min
--- NOTE | 2018-06-28 14:33 | CP.PCM.PN ---
Subjective - Date & Time of Evaluation Date of Evaluation: 06/28/18 Time of Evaluation: 14:33 - Subjective Subjective: AFEBRILE, LETHARGIC POORLY RESPONSIVE. SEEN BY PALLIATIVE CARE. SEEN BY NEURO. ON IV ANIBIOTICS. REPEAT CAT SCAN HEAD NOTED. -SUBACUTE INFARCT-NO HGE. Objective - Vital Signs/Intake and Output Vital Signs (last 24 hours): Temp Pulse Resp BP Pulse Ox 98.2 F 87 20 115/62 98 06/28/18 07:00 06/28/18 08:00 06/28/18 07:00 06/28/18 09:22 06/28/18 07:00 Intake and Output: 06/28/18 06/28/18 06:59 18:59 Intake Total 400 Balance 400 - Medications Medications: Current Medications Acetaminophen (Tylenol 325mg Tab) 650 mg PO Q6 PRN PRN Reason: Pain, moderate (4-7) Aspirin (Aspirin Chewable) 81 mg PO DAILY [facility] Last Admin: 06/28/18 13:04 Dose: Not Given Meropenem 1 gm/ Sodium (Chloride) 100 mls @ 100 mls/hr IVPB Q8H [facility]; Protocol Last Admin: 06/28/18 09:22 Dose: 100 mls/hr Sodium Chloride (Sodium Chloride 0.9%) 1,000 mls @ 50 mls/hr IV .Q20H [facility] Last Admin: 06/28/18 14:31 Dose: Not Given Losartan Potassium (Cozaar) 50 mg PO DAILY [facility] Last Admin: 06/28/18 09:21 Dose: 50 mg Memantine (Namenda) 5 mg PO BID [facility] Last Admin: 06/28/18 09:22 Dose: 5 mg Metoprolol Tartrate (Lopressor) 25 mg NG BID [facility] Last Admin: 06/28/18 09:22 Dose: 25 mg Rosuvastatin Calcium (Crestor) 5 mg PO HS [facility] Last Admin: 06/27/18 21:27 Dose: 5 mg - Labs Labs: 06/28/18 07:45 06/28/18 07:45 PT 20.2 SECONDS (9.7-12.2) H 06/25/18 22:16 INR 1.8 06/25/18 22:16 APTT 34 SECONDS (21-34) 06/25/18 22:16 - Constitutional Appears: No Acute Distress - Head Exam Head Exam: NORMAL INSPECTION - Eye Exam Eye Exam: PERRL - ENT Exam ENT Exam: Normal Oropharynx - Neck Exam Neck Exam: Normal Inspection - Respiratory Exam Respiratory Exam: Decreased Breath Sounds, NORMAL BREATHING PATTERN - Cardiovascular Exam Cardiovascular Exam: Irregular Rhythm, +S1, +S2 - GI/Abdominal Exam GI & Abdominal Exam: Soft, Normal Bowel Sounds. absent: Tenderness, Organomegaly - Extremities Exam Extremities Exam: Normal Capillary Refill, Pedal Edema (1+). absent: Calf Tenderness - Neurological Exam Neurological Exam: Altered (LEFT SIDED WEAKNESS.) - Psychiatric Exam Psychiatric exam: Flat Affect - Skin Skin Exam: Normal Color, Warm Assessment and Plan (1) Gram negative sepsis Assessment & Plan: CONTINUE iv MERREM 1 G iv PIGGYBACK [id number].06/25/18. IV AMIKACIN 1 G iv PIGGYBACK INFUSED OVER 30 MINUTES X1 1 DOSE STAT.06/25/18 COMPLETED TOTAL OF 3 DOSES IV AMIKACIN 500MG IVPB Q24 [facility] ON 06/27/[address] BENNETT. F/U 2D ECHO-PENDING Status: Acute (2) NSTEMI (non-ST elevated myocardial infarction) Status: Acute (3) Aortic valve endocarditis Status: Chronic (4) Streptococcus viridans infection Status: Acute (5) Atrial fibrillation Status: Chronic (6) CVA (cerebral vascular accident) Status: Chronic (7) Enlarged prostate Status: Acute (8) Hypertension Status: Chronic (9) Alzheimer disease Status: Chronic
--- NOTE | 2018-06-28 16:12 | PN ---
DATE: 06/28/2018 SUBJECTIVE: The patient is lethargic; however, he ate his breakfast today according to the nurse aide. PHYSICAL EXAMINATION: VITAL SIGNS: Blood pressure 115/53, heart rate 93, temperature 98.2, respirations 20. HEENT: Normocephalic. CHEST: Diminished breath sounds at the bases. HEART: S1 and S2 regular. EXTREMITIES: No edema. LABORATORY DATA: Today hemoglobin and hematocrit 12.6 and 35.7, white count 9.6, platelet count 102,000. Today's SMA-7: Sodium 149, potassium 3.6, chloride 120, CO2 of 23, glucose 99, BUN 39, creatinine 2.7. Review of today's monitor: The patient had runs of aberrant AFib that was misread by the computer as ventricular tachycardia, but they are clearly aberrantly conducted AFib beats. Repeat CT scan without contrast revealed late subacute/chronic right mid cerebral artery territory infarct with encephalomalacia changes. No extensive acute hemorrhage. ASSESSMENT: 1. Acute/subacute cerebrovascular accident with questionable hemorrhagic conversion in the right anterior cerebral artery territory. 2. Chronic atrial fibrillation. 3. Hypertension. Extension of the previous right frontal lobe infarct, although the MRI mentioned small amount of hemorrhagic conversion that did not materialize on today's CAT scan; however, for complete resolution of that conflict, I recommend either revision of the MRI interpretation or repeat another MRI of the brain. RECOMMENDATIONS: Continue Cozaar 50 mg once a day, Crestor at 5 mg once a day, Lopressor 25 mg twice a day, IV meropenem at 1 g every 8 hours, and we will start aspirin 81 mg daily, hold on further antiplatelet or anticoagulation until the conflict of hemorrhagic conversion is definitely resolved. Ronny Solano MD
--- NOTE | 2018-06-28 18:36 | CON ---
DATE: 06/28/2018 REASON FOR CONSULTATION: Change in mental status and progression of his weakness. CHIEF COMPLAINT: The patient was brought into [facility] from the care home with a history of increased heart rate. The patient also had a history of stroke. From neurologic point of view I was called into evaluate him for further management. HISTORY OF PRESENTING ILLNESS: Mr. Fredrick Dennison is 83-year-old male who was seen by me during his previous hospitalization and being found to have a new stroke process involving in his right anterior cerebral artery distribution manifesting with left-sided weakness, been treated. During the hospitalization, the patient found to have a rapid atrial fibrillation and been anticoagulated and the patient also had a workup, found that he did have Streptococcus viridans then endocarditis, been on antibiotics the last month. The patient was sent to the care home and brought it back to [facility] with history of rapid ventricular rate. the patient was also found to be lethargic. Followup CAT scan did not show any bleed and MRI was recommended that showed hemorrhagic conversion of his stroke lesion. All anticoagulation and antiplatelets been discontinued at that point, since yesterday. PAST MEDICAL HISTORY: Arthritis, stroke, COPD, dementia, hypertension, atrial fibrillation. PERSONAL HISTORY: Denies smoking or alcohol use. ALLERGIES: NO KNOWN ALLERGIES. REVIEW OF SYSTEMS: A 12-point system being reviewed. From neuro, change in mental status and weakness. MEDICATIONS: Cozaar, Crestor, Lopressor, Namenda, acetaminophen, and IV fluids. PHYSICAL EXAMINATION: VITAL SIGNS: Blood pressure 122/58, mean artery pressure of 79, respiratory rate 18, pulse rate 94, temperature 97.9. NECK: Supple. No carotid bruits. HEART: Sounds are tachy with systolic murmur. EXTREMITIES: Both legs are externally rotated. NEUROLOGIC EXAMINATION: MENTAL STATUS EXAMINATION: He is arousable with calling his name. He moves right upper extremity. Left upper extremity is somewhat limited. Spontaneous movement of the right leg also noted. Both legs were externally rotated. Deep tendon reflexes are absent. Plantars are upgoing on both sides. Sensory examination, responds to pain symmetrically on both sides. Coordination and gait, deferred at this time. CONCLUSION: Fredrick Dennison has been presenting with increasing lethargy superimposed with left-sided weakness, all related to intracranial insult from his previous stroke. His mental status and increasing lethargy probably related to his hemorrhagic conversion.. WORKUP: MRI of the brain reviewed subacute infarction at right DOMI territory with hemorrhagic component noted. The periventricular feature is also noted in MRI with atrophy. Blood workup, WBC 11.7, hemoglobin 12.8, hematocrit 36.7, platelet 99. PT 20.2, INR 1.8, PTT 34. Sodium 147, potassium 3.4, chloride 118, bicarbonate 24, BUN 44, creatinine 0.7, GFR more than 60, glucose 126. Urinalysis shows ketonuria. RECOMMENDATIONS: 1. CT of the head is recommended to have a followup for the hemorrhagic conversion. If CT does not show hemorrhagic conversion or bleed, the patient can be resumed his anticoagulation because of potential risk of stroke. 2. Continue antibiotics as per recommendation from ID for his endocarditis. 3. Sequential stockings for DVT prevention. Nutritional assessment, temporary nutritional status. The patient also scheduled to have electroencephalogram to rule out any paroxysmal activities for hidden nonconvulsive seizures. The patient will be followed closely with you. Matthew Rendon MD
--- NOTE | 2018-06-28 23:55 | CP.PCM.PN ---
Subjective - Subjective Subjective: dictated Objective - Vital Signs/Intake and Output Vital Signs (last 24 hours): Temp Pulse Resp BP Pulse Ox 97.9 F 87 20 129/81 99 06/28/18 15:58 06/28/18 16:00 06/28/18 15:58 06/28/18 19:36 06/28/18 15:58 - Medications Medications: Current Medications Acetaminophen (Tylenol 325mg Tab) 650 mg PO Q6 PRN PRN Reason: Pain, moderate (4-7) Aspirin (Aspirin Chewable) 81 mg PO DAILY [facility] Last Admin: 06/28/18 13:04 Dose: Not Given Meropenem 1 gm/ Sodium (Chloride) 100 mls @ 100 mls/hr IVPB Q8H [facility]; Protocol Last Admin: 06/28/18 19:00 Dose: 100 mls/hr Sodium Chloride (Sodium Chloride 0.9%) 1,000 mls @ 50 mls/hr IV .Q20H [facility] Last Admin: 06/28/18 14:31 Dose: Not Given Losartan Potassium (Cozaar) 50 mg PO DAILY [facility] Last Admin: 06/28/18 09:21 Dose: 50 mg Memantine (Namenda) 5 mg PO BID [facility] Last Admin: 06/28/18 19:37 Dose: 5 mg Metoprolol Tartrate (Lopressor) 25 mg NG BID [facility] Last Admin: 06/28/18 19:36 Dose: 25 mg Rosuvastatin Calcium (Crestor) 5 mg PO HS [facility] Last Admin: 06/28/18 21:57 Dose: 5 mg - Labs Labs: 06/28/18 07:45 06/28/18 07:45 PT 20.2 SECONDS (9.7-12.2) H 06/25/18 22:16 INR 1.8 06/25/18 22:16 APTT 34 SECONDS (21-34) 06/25/18 22:16
[2018-06-29] MEDS: Meropenem 1 GM in Sodium Chloride 0.9% 100 ML IVPB SCH ×3 (00:34→17:58)
--- NOTE | 2018-06-29 04:22 | PN ---
DATE: 06/29/2018 SUBJECTIVE: Family signed DNR/DNI. The patient is on the floor. He is afebrile. No shortness of breath. No chest pain. He has acute CVA, and he is arousable. No nausea, vomiting. He is tolerating some diet. PHYSICAL EXAMINATION: VITAL SIGNS: Blood pressure 129/81, pulse 91, respiratory rate 20, temperature 97.9. LUNGS: Clear. CARDIOVASCULAR SYSTEM: S1, S2 plus S3 positive. ABDOMEN: Soft. CENTRAL NERVOUS SYSTEM: The patient is arousable. ASSESSMENT: 1. Cerebrovascular accident. 2. Hyponatremia, dehydration. 3. Hypertension. 4. Alzheimer. PLAN: Continue current medication. Monitor the patient. Esau Jacobs MD
[2018-06-29 09:16] LABS: BASO % 0.2 % (0.0-2.0); EOS # 0.1 K/uL (0.0-0.7); EOS % 0.5 % (0.0-4.0); HEMOGLOBIN 13.5 g/dL (12.0-18.0); LYMPH # 2.5 K/uL (1.0-4.3); LYMPH % 24.2 % (20.0-40.0); MEAN CELL VOLUME 93.5 fL (80.0-94.0); MEAN CORPUSCULAR HEMOGLOBIN 33.2 pg (27.0-31.0); MEAN CORPUSCULAR HGB CONC 35.5 g/dL (33.0-37.0); MEAN PLATELET VOLUME 9.7 fL (7.2-11.7); MONO # 1.2 K/uL (0.0-0.8); MONO % 11.5 % (0.0-10.0); NEUT # 6.6 K/uL (1.8-7.0); NEUT % 63.6 % (50.0-75.0); NRBC % 0.2 % (0.0-2.0); RBC 4.07 Mil/uL (4.40-5.90); RED CELL DISTRIBUTION WIDTH 16.6 % (11.5-14.5); WHITE BLOOD COUNT 10.4 K/uL (4.8-10.8)
[2018-06-29 09:29] LABS: ALB/GLOB RATIO 0.8 (1.0-2.1); ALBUMIN 2.4 g/dL (3.5-5.0); ALT/SGPT 79 U/L (21-72); AST/SGOT 38 U/L (17-59); BLOOD UREA NITROGEN 34 mg/dL (9-20); CALCIUM 9.2 mg/dl (8.6-10.4); GFR NON-AFRICAN AMERICAN > 60
--- NOTE | 2018-06-29 16:33 | PN ---
DATE: 06/29/2018 SUBJECTIVE: The patient has been lethargic where he is barely oriented to place. No apparent respiratory distress. PHYSICAL EXAMINATION: VITAL SIGNS: Blood pressure 170/62, heart rate 93, temperature 97.4, respiratory rate 20. HEENT: Normocephalic CHEST: Diminished breath sounds on the bases. HEART: S1 and S2 regular. ABDOMEN: Soft. EXTREMITIES: No edema. ASSESSMENT: 1. Chronic atrial fibrillation. 2. History of patient right frontal lobe infarct, now patient is with new adjacent infarct. There is questionable hemorrhagic conversion. 3. 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 RECOMMENDATIONS: Continue Cozaar 60 mg once a day, Crestor at 5 mg once a day,Lopressor 25 mg twice a day, IV meropenem, and every 8 hours. Still awaiting the official report of the repeated study. Further anticoagulation regimen can be approved and ordered by the outplacement consultant neurologist. Ronny Solano MD
--- NOTE | 2018-06-29 19:11 | CP.PCM.PN ---
Subjective - Date & Time of Evaluation Date of Evaluation: 06/29/18 Time of Evaluation: 19:11 - Subjective Subjective: AFEBRILE, POORLY RESPONSIVE. NO ACUTE EVENTS OVERNIGHT. ON IV ABX. AWAITING 2D ECHO OFFICIAL REPORT. LABS REVIEWED. REPEAT URINE CULTURE -VE. ROS ; NA Objective - Vital Signs/Intake and Output Vital Signs (last 24 hours): Temp Pulse Resp BP Pulse Ox 97.8 F 90 18 117/62 96 06/29/18 15:00 06/29/18 15:52 06/29/18 15:00 06/29/18 17:58 06/29/18 15:00 - Medications Medications: Current Medications Acetaminophen (Tylenol 325mg Tab) 650 mg PO Q6 PRN PRN Reason: Pain, moderate (4-7) Aspirin (Aspirin Chewable) 81 mg PO DAILY [facility] Last Admin: 06/29/18 10:35 Dose: 81 mg Meropenem 1 gm/ Sodium (Chloride) 100 mls @ 100 mls/hr IVPB Q8H [facility]; Protocol Last Admin: 06/29/18 17:58 Dose: 100 mls/hr Sodium Chloride (Sodium Chloride 0.9%) 1,000 mls @ 50 mls/hr IV .Q20H [facility] Last Admin: 06/28/18 14:31 Dose: Not Given Losartan Potassium (Cozaar) 50 mg PO DAILY [facility] Last Admin: 06/29/18 10:35 Dose: 50 mg Memantine (Namenda) 5 mg PO BID [facility] Last Admin: 06/29/18 17:58 Dose: 5 mg Metoprolol Tartrate (Lopressor) 25 mg NG BID [facility] Last Admin: 06/29/18 17:58 Dose: 25 mg Rosuvastatin Calcium (Crestor) 5 mg PO HS [facility] Last Admin: 06/28/18 21:57 Dose: 5 mg - Labs Labs: 06/29/18 08:57 06/29/18 08:57 PT 20.2 SECONDS (9.7-12.2) H 06/25/18 22:16 INR 1.8 06/25/18 22:16 APTT 34 SECONDS (21-34) 06/25/18 22:16 - Constitutional Appears: No Acute Distress - Head Exam Head Exam: NORMAL INSPECTION - Eye Exam Eye Exam: PERRL - ENT Exam ENT Exam: Mucous Membranes Dry, Normal Oropharynx - Neck Exam Neck Exam: Normal Inspection - Respiratory Exam Respiratory Exam: Decreased Breath Sounds - Cardiovascular Exam Cardiovascular Exam: Irregular Rhythm, +S1, +S2, +S4, Murmur (+VE SYSTOLIC MURMUR, ) - GI/Abdominal Exam GI & Abdominal Exam: Soft, Normal Bowel Sounds. absent: Organomegaly - Extremities Exam Extremities Exam: Normal Capillary Refill, Pedal Edema. absent: Calf Tenderness - Neurological Exam Neurological Exam: Altered (LT SIDED WEAKNESS), Awake - Psychiatric Exam Psychiatric exam: Flat Affect - Skin Skin Exam: Normal Color, Warm Assessment and Plan (1) Gram negative sepsis Assessment & Plan: CONTINUE iv MERREM 1 G iv PIGGYBACK [id number].06/25/18. IV AMIKACIN 1 G iv PIGGYBACK INFUSED OVER 30 MINUTES X1 1 DOSE STAT.06/25/18 COMPLETED TOTAL OF 3 DOSES IV AMIKACIN 500MG IVPB Q24 [facility] ON 06/27/[address] BENNETT. F/U 2D ECHO-PENDING REPORT. REPEAT BLOOD CULTURES X2 SETS IN AM Status: Acute (2) NSTEMI (non-ST elevated myocardial infarction) Status: Acute (3) Aortic valve endocarditis Status: Chronic (4) Streptococcus viridans infection Status: Acute (5) Atrial fibrillation Status: Chronic (6) CVA (cerebral vascular accident) Status: Chronic (7) Enlarged prostate Status: Acute (8) Hypertension Status: Chronic (9) Alzheimer disease Status: Chronic
--- NOTE | 2018-06-29 20:18 | CP.PCM.PN ---
Subjective - Subjective Subjective: dictated Objective - Vital Signs/Intake and Output Vital Signs (last 24 hours): Temp Pulse Resp BP Pulse Ox 97.8 F 90 18 117/62 96 06/29/18 15:00 06/29/18 15:52 06/29/18 15:00 06/29/18 17:58 06/29/18 15:00 - Medications Medications: Current Medications Acetaminophen (Tylenol 325mg Tab) 650 mg PO Q6 PRN PRN Reason: Pain, moderate (4-7) Aspirin (Aspirin Chewable) 81 mg PO DAILY [facility] Last Admin: 06/29/18 10:35 Dose: 81 mg Meropenem 1 gm/ Sodium (Chloride) 100 mls @ 100 mls/hr IVPB Q8H [facility]; Protocol Last Admin: 06/29/18 17:58 Dose: 100 mls/hr Lactated Ringer's (Lactated Ringer's) 1,000 mls @ 60 mls/hr IV .[id number] [facility] Losartan Potassium (Cozaar) 50 mg PO DAILY [facility] Last Admin: 06/29/18 10:35 Dose: 50 mg Memantine (Namenda) 5 mg PO BID [facility] Last Admin: 06/29/18 17:58 Dose: 5 mg Metoprolol Tartrate (Lopressor) 25 mg NG BID [facility] Last Admin: 06/29/18 17:58 Dose: 25 mg Rosuvastatin Calcium (Crestor) 5 mg PO HS [facility] Last Admin: 06/28/18 21:57 Dose: 5 mg - Labs Labs: 06/29/18 08:57 06/29/18 08:57 PT 20.2 SECONDS (9.7-12.2) H 06/25/18 22:16 INR 1.8 06/25/18 22:16 APTT 34 SECONDS (21-34) 06/25/18 22:16
[2018-06-29] MEDS: Lactated Ringer's 1,000 ML IV SCH (20:52)
[2018-06-30] MEDS: Meropenem 1 GM in Sodium Chloride 0.9% 100 ML IVPB SCH ×3 (00:07→17:45)
--- NOTE | 2018-06-30 01:26 | PN ---
DATE: 06/29/2018 SUBJECTIVE: Juma is weak and drowsy. He had CVA. He is DNR and DNI. He is not in distress. Poor oral intake. No fever. No chills. PHYSICAL EXAMINATION VITAL SIGNS: Blood pressure 110/53, pulse 86, respiratory rate 15, temperature 97.8. LUNGS: Clear. No rales. No rhonchi. CARDIOVASCULAR SYSTEM: S1 and S2 plus S3 positive. ABDOMEN: Soft. Nontender. Bowel sounds are positive. ASSESSMENT: 1. Cerebrovascular accident. Continue current medication, physical therapy. 2. Alzheimer's. 3. Hypernatremia. PLAN: Change the IV fluids. Physical therapy and rehab. Monitor the patient. Esau Jacobs MD
[2018-06-30 08:53] LABS: BLOOD UREA NITROGEN 34 mg/dL (9-20); CALCIUM 8.8 mg/dl (8.6-10.4); GFR NON-AFRICAN AMERICAN > 60
[2018-06-30] MEDS ORDERED: Potassium Chloride 10 mEq ER Tab PO STA (10:10)
[2018-06-30] MEDS: Lactated Ringer's 1,000 ML IV SCH (14:43)
--- NOTE | 2018-06-30 21:46 | CP.PCM.PN ---
Subjective - Subjective Subjective: dciated Objective - Vital Signs/Intake and Output Vital Signs (last 24 hours): Temp Pulse Resp BP Pulse Ox 98.2 F 93 H 18 134/62 97 06/30/18 16:00 06/30/18 16:08 06/30/18 16:00 06/30/18 17:45 06/30/18 16:00 Intake and Output: 06/30/18 07/01/18 18:59 06:59 Intake Total 900 720 Balance 900 720 - Medications Medications: Current Medications Acetaminophen (Tylenol 325mg Tab) 650 mg PO Q6 PRN PRN Reason: Pain, moderate (4-7) Apixaban (Eliquis) 5 mg PO BID [facility] Last Admin: 06/30/18 17:46 Dose: 5 mg Aspirin (Aspirin Chewable) 81 mg PO DAILY [facility] Last Admin: 06/30/18 09:01 Dose: 81 mg Meropenem 1 gm/ Sodium (Chloride) 100 mls @ 100 mls/hr IVPB Q8H [facility]; Protocol Last Admin: 06/30/18 17:45 Dose: 100 mls/hr Lactated Ringer's (Lactated Ringer's) 1,000 mls @ 60 mls/hr IV .[id number] [facility] Last Admin: 06/30/18 14:43 Dose: 60 mls/hr Losartan Potassium (Cozaar) 50 mg PO DAILY [facility] Last Admin: 06/30/18 09:01 Dose: 50 mg Memantine (Namenda) 5 mg PO BID [facility] Last Admin: 06/30/18 17:45 Dose: 5 mg Metoprolol Tartrate (Lopressor) 25 mg NG BID [facility] Last Admin: 06/30/18 17:45 Dose: 25 mg Rosuvastatin Calcium (Crestor) 5 mg PO HS [facility] Last Admin: 06/30/18 21:31 Dose: 5 mg - Labs Labs: 06/29/18 08:57 06/30/18 08:31 PT 20.2 SECONDS (9.7-12.2) H 06/25/18 22:16 INR 1.8 06/25/18 22:16 APTT 34 SECONDS (21-34) 06/25/18 22:16
[2018-07-01] MEDS: Meropenem 1 GM in Sodium Chloride 0.9% 100 ML IVPB SCH ×3 (01:57→17:41)
--- NOTE | 2018-07-01 02:43 | PN ---
DATE: 06/30/2018 SUBJECTIVE: Fredrick Dennison remains drowsy. He is for physiotherapy rehab. He is on antibiotics. Seen by ID. No nausea or vomiting. No shortness of breath. PHYSICAL EXAMINATION: VITAL SIGNS: Blood pressure 119/48, pulse 94, respiratory rate 18, temperature 98.2. LUNGS: Clear. No rales. No rhonchi. CARDIOVASCULAR SYSTEM: S1 and S2 are regular. ABDOMEN: Soft, nontender. Bowel sounds are positive. CENTRAL NERVOUS SYSTEM: Drowsy. Moves all extremities. ASSESSMENT: 1. Acute cerebrovascular accident. 2. Infective endocarditis. 3. Hypertension. 4. Hypernatremia. PLAN: Change IV fluids. Neuro check. Physical therapy rehab. Monitor the patient. Blood cultures are positive for Klebsiella ozaenae. Esau Jacobs MD
[2018-07-01] MEDS: Lactated Ringer's 1,000 ML IV SCH (06:26)
--- NOTE | 2018-07-01 07:57 | PN ---
DATE: 06/30/2018 SUBJECTIVE: The patient is lethargic, but arousable and he knows he is in the hospital. He denies any chest pain. PHYSICAL EXAMINATION: VITAL SIGNS: Blood pressure 145/56, heart rate 100, temperature 97.3, respirations 18. HEENT: Normocephalic. CHEST: Clear. HEART: S1 and S2 regular. EXTREMITIES: No edema. LABORATORY DATA: Today's SMA-7: Sodium 151, potassium 3.5, chloride 122, CO2 of 25, glucose 110, BUN 34, creatinine 0.6. ASSESSMENT: 1. Gram-negative bacteremia Klebsiella ozaenae. 2. 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 3. Chronic atrial fibrillation. 4. New cerebrovascular accident status post recent right frontal lobe infarct with questionable hemorrhagic conversion. RECOMMENDATIONS: Continue aspirin 81 mg once a day, Cozaar 50 mg once a day, Crestor 5 mg once a day, Lopressor 25 mg twice a day, IV meropenem at 1 g every 8 hours. Ronny Solano MD
--- NOTE | 2018-07-01 12:10 | CARD ---
APPROVED REPORT Date of service: 06/26/2018 EXAM: LIMITED Two-dimensional and M-mode echocardiogram with Doppler and color Doppler. Other Information Quality : GoodRhythm : INDICATION Atrial Fibrillation Infection:Rule out subacute bacterial endocarditis RISK FACTORS Hypertension <Conclusion> Limited study Suboptimal imaging Thickened calcified nodular aortic leaflets with mild limiation in excursion No definitive evidence of acute endocarditis Suggest a [facility]
--- NOTE | 2018-07-01 13:13 | PN ---
DATE: 07/01/2018 TIME OF EVALUATION: 07:15 a.m. NEUROLOGICAL PROBLEM: Right parasagittal stroke with left-sided hemiplegia probably related to cardiac arrhythmias. The patient's followup CT of the head does not show any hemorrhagic component. The patient is potentially high risk of stroke secondary to his cardiac arrhythmias. The patient is on oral anticoagulation as well, which has been resumed because of no radiological evidence of hemorrhagic process. The patient should be kept for proper antihypertensive medications to keep mean arterial pressure of 100. Continue anticoagulation. DVT prophylaxis and bedside physical therapy. If medically stable the patient can be discharged and should have followup visit as outpatient if possible. Matthew Rendon MD
--- NOTE | 2018-07-01 13:59 | CP.PCM.PN ---
Subjective - Date & Time of Evaluation Date of Evaluation: 07/01/18 Time of Evaluation: 13:59 - Subjective Subjective: AFEBRILE, MORE RESPONSIVE. OPENS EYES TO NAME. NO ACUTE EVENTS OVERNIGHT. ON IV ABX. 2D ECHO OFFICIAL REPORT-SUBOPTIMAL NO EVIDENCE OF ACUTE VEGETATIONS SUGGEST [facility] BY CARDIOLOGY DR SCHAEFER (SEE FULL REPORT ) LABS REVIEWED. REPEAT URINE CULTURE -VE. ROS ; NA Objective - Vital Signs/Intake and Output Vital Signs (last 24 hours): Temp Pulse Resp BP Pulse Ox 99.1 F 92 H 20 131/60 96 07/01/18 08:00 07/01/18 12:00 07/01/18 08:00 07/01/18 09:15 07/01/18 08:00 Intake and Output: 07/01/18 07/01/18 06:59 18:59 Intake Total 1200 Balance 1200 - Medications Medications: Current Medications Acetaminophen (Tylenol 325mg Tab) 650 mg PO Q6 PRN PRN Reason: Pain, moderate (4-7) Apixaban (Eliquis) 5 mg PO BID [facility] Last Admin: 07/01/18 09:15 Dose: 5 mg Aspirin (Aspirin Chewable) 81 mg PO DAILY [facility] Last Admin: 07/01/18 09:15 Dose: 81 mg Meropenem 1 gm/ Sodium (Chloride) 100 mls @ 100 mls/hr IVPB Q8H [facility]; Protocol Last Admin: 07/01/18 08:55 Dose: 100 mls/hr Lactated Ringer's (Lactated Ringer's) 1,000 mls @ 60 mls/hr IV .[id number] [facility] Last Admin: 07/01/18 06:26 Dose: Not Given Losartan Potassium (Cozaar) 50 mg PO DAILY [facility] Last Admin: 07/01/18 09:15 Dose: 50 mg Memantine (Namenda) 5 mg PO BID [facility] Last Admin: 07/01/18 09:15 Dose: 5 mg Metoprolol Tartrate (Lopressor) 25 mg NG BID [facility] Last Admin: 07/01/18 09:15 Dose: 25 mg Rosuvastatin Calcium (Crestor) 5 mg PO HS [facility] Last Admin: 06/30/18 21:31 Dose: 5 mg - Labs Labs: 06/29/18 08:57 06/30/18 08:31 PT 20.2 SECONDS (9.7-12.2) H 11/27/18 22:16 INR 1.8 06/25/18 22:16 APTT 34 SECONDS (21-34) 06/25/18 22:16 - Constitutional Appears: No Acute Distress - Head Exam Head Exam: NORMAL INSPECTION - Eye Exam Eye Exam: EOMI, PERRL - ENT Exam ENT Exam: Normal Oropharynx - Neck Exam Neck Exam: Normal Inspection. absent: Meningismus - Respiratory Exam Respiratory Exam: Decreased Breath Sounds (B/L BASES) - GI/Abdominal Exam GI & Abdominal Exam: Soft, Normal Bowel Sounds - Extremities Exam Extremities Exam: Normal Capillary Refill, Pedal Edema. absent: Calf Tenderness - Neurological Exam Neurological Exam: Awake (LEFT SIDED WEAKNESS) Neuro motor strength exam: Right Upper Extremity: 5 - Psychiatric Exam Psychiatric exam: Normal Mood - Skin Skin Exam: Normal Color, Warm Assessment and Plan (1) Gram negative sepsis Assessment & Plan: CONTINUE iv MERREM 1 G iv PIGGYBACK [id number].06/25/18. IV AMIKACIN 1 G iv PIGGYBACK INFUSED OVER 30 MINUTES X1 1 DOSE STAT.06/25/18 COMPLETED TOTAL OF 3 DOSES IV AMIKACIN 500MG IVPB Q24 [facility] ON 06/27/[address] BENNETT. 2D ECHO-OFFICIAL REPORT NOTED--SUBOPTIMAL 2-d ECHO SUGGEST [facility]. REPEAT BLOOD CULTURES X2 SETS 07/01/18 -PENDING. Status: Acute (2) NSTEMI (non-ST elevated myocardial infarction) Status: Acute (3) Aortic valve endocarditis Status: Chronic (4) Streptococcus viridans infection Assessment & Plan: s/p strep.viridans AV ENDOCARDITIS. Status: Acute (5) Atrial fibrillation Status: Chronic (6) CVA (cerebral vascular accident) Status: Chronic (7) Enlarged prostate Status: Acute (8) Hypertension Status: Chronic (9) Alzheimer disease Status: Chronic
--- NOTE | 2018-07-01 16:24 | PN ---
DATE: 07/01/2018 SUBJECTIVE: The patient is confused about which hospital he is at. He is still lethargic. He denies any chest pain. PHYSICAL EXAMINATION: VITAL SIGNS: Blood pressure 128/60, heart rate 101, temperature 99.1, respirations 20. HEENT: Normocephalic. CHEST: Diminished breath sounds over the bases. HEART: S1 and S2 regular. EXTREMITIES: No edema. ASSESSMENT: 1. Klebsiella ozaenae bacteremia. 2. History of Streptococcus viridans endocarditis of aortic valve. 3. Chronic atrial fibrillation. 4. Altered mental status. 5. Extension of right frontal lobe infarct with questionable hemorrhagic conversion. RECOMMENDATIONS: Continue aspirin 81 mg once a day, Cozaar 50 mg daily, Crestor 5 mg once a day. The patient was Eliquis 5 mg twice a day. Continue Lopressor 25 mg twice a day, IV meropenem at 1 g every 8 hours. Ronny Solano MD
--- NOTE | 2018-07-01 21:54 | CP.PCM.PN ---
Subjective - Subjective Subjective: dictated Objective - Vital Signs/Intake and Output Vital Signs (last 24 hours): Temp Pulse Resp BP Pulse Ox 97.8 F 90 20 133/66 100 07/01/18 17:00 07/01/18 17:00 07/01/18 17:00 07/01/18 17:42 07/01/18 17:00 - Medications Medications: Current Medications Acetaminophen (Tylenol 325mg Tab) 650 mg PO Q6 PRN PRN Reason: Pain, moderate (4-7) Apixaban (Eliquis) 5 mg PO BID [facility] Last Admin: 07/01/18 17:43 Dose: 5 mg Aspirin (Aspirin Chewable) 81 mg PO DAILY [facility] Last Admin: 07/01/18 09:15 Dose: 81 mg Meropenem 1 gm/ Sodium (Chloride) 100 mls @ 100 mls/hr IVPB Q8H [facility]; Protocol Last Admin: 07/01/18 17:41 Dose: 100 mls/hr Lactated Ringer's (Lactated Ringer's) 1,000 mls @ 60 mls/hr IV .[id number] [facility] Last Admin: 07/01/18 06:26 Dose: Not Given Losartan Potassium (Cozaar) 50 mg PO DAILY [facility] Last Admin: 07/01/18 09:15 Dose: 50 mg Memantine (Namenda) 5 mg PO BID [facility] Last Admin: 07/01/18 17:43 Dose: 5 mg Metoprolol Tartrate (Lopressor) 25 mg NG BID [facility] Last Admin: 07/01/18 17:42 Dose: 25 mg Rosuvastatin Calcium (Crestor) 5 mg PO HS [facility] Last Admin: 06/30/18 21:31 Dose: 5 mg - Labs Labs: 06/29/18 08:57 06/30/18 08:31 PT 20.2 SECONDS (9.7-12.2) H 06/25/18 22:16 INR 1.8 06/25/18 22:16 APTT 34 SECONDS (21-34) 06/25/18 22:16
[2018-07-02] MEDS: Meropenem 1 GM in Sodium Chloride 0.9% 100 ML IVPB SCH ×3 (01:09→22:53)
--- NOTE | 2018-07-02 02:58 | PN ---
DATE: 07/01/2018 SUBJECTIVE: Mr. Dennison is awake and alert. He is opening his eyes. He is following commands. He is afebrile. No shortness of breath. No chest pain. PHYSICAL EXAMINATION: VITAL SIGNS: Blood pressure 133/66, pulse 90, respiratory rate 20, temperature 97.8. LUNGS: Clear. No rales or rhonchi. CARDIOPULMONARY: S1, S2 regular ABDOMEN: Soft. MICROFILM TECHNICIAN: Awake alert. The patient is not answering all the questions. ASSESSMENT: 1. Cerebrovascular accident, improved. 2. Hypernatremia. 3. Hypertension. 4. Alzheimer 5. The patient has septicemia due to Klebsiella ozaenae. PLAN: Physical therapy rehab. Continue antibiotic per IV. Monitor the patient. Esau Jacobs MD
[2018-07-02] MEDS: Lactated Ringer's 1,000 ML IV SCH (06:32)
[2018-07-02 11:14] LABS: BLOOD UREA NITROGEN 29 mg/dL (9-20); CALCIUM 8.9 mg/dl (8.6-10.4); GFR NON-AFRICAN AMERICAN > 60
--- NOTE | 2018-07-02 12:58 | EEG ---
DATE: 06/28/2018 This is a 16-channel electroencephalogram of an awake and obtunded adult. During the study, photic stimulation was performed. Hyperventilation was not performed. The resting electroencephalogram consists of diffuse amplitude, 3 to 4 Hz of delta activity seen at the and the central leads. There is high amplitude, high frequent activities at left temporal leads without any significance. Some frontal and temporal muscle artifact contaminated the background rhythm. Photic stimulation did not evoke driving response noted at 2 to 20 Hz. IMPRESSION: This is an abnormal electroencephalogram because of persistent slowing throughout the record suggestive of bilateral cerebral dysfunction. This is probably secondary to metabolic, vascular, or degenerative process. Please correlate the findings with the neurological and radiological studies. Matthew Rendon MD
--- NOTE | 2018-07-02 16:34 | RAD ---
Date of service: 07/02/2018 HISTORY: PICC Insertion COMPARISON: 06/24/2018 FINDINGS: LUNGS: Bilateral patchy low-density coalescent airspace opacities perihilar and mid to peripheral lung zones. Right greater than left. Coalescent areas of pulmonary edema compatible with this. Prior pulmonary venous congestion noted. Concomitant patchy infiltrates along with bilateral pulmonary edema-cannot be excluded. Correlation with presentation. Concomitant atelectasis and/or infiltrate left lung base not excluded-obscuration left hemidiaphragm with left pleural effusion re-noted. PLEURA: Small left pleural effusion. Right pleural effusion currently appears less than before. CARDIOVASCULAR: There is presence of aortic atherosclerotic calcification on x-ray. Cardiomegaly-similar bilateral pulmonary edema increased since prior exam. Interval insertion of a right PICC line tip believes faintly seen at the cavoatrial junction. No pneumothorax appreciated. OSSEOUS STRUCTURES: Thoracic spondylosis. Each acromioclavicular joint appears wide in than left appears wider than before-this could be projectional. VISUALIZED UPPER ABDOMEN: Normal. OTHER FINDINGS: None. IMPRESSION: Interval right PICC line insertion tip cavoatrial junction. No pneumothorax appreciated. Cardiomegaly. Pulmonary edema-increased since prior exam. Other findings as above.
--- NOTE | 2018-07-02 16:44 | PN ---
DATE: 07/02/2018 SUBJECTIVE: The patient is still lethargic. Does not appear to be in respiratory distress. PHYSICAL EXAMINATION: VITAL SIGNS: Blood pressure 128/72, heart rate 94, temperature 97.9, respirations 20. HEENT: Normocephalic. CHEST: Diminished breath sounds over the bases. HEART: S1 and S2 regular. EXTREMITIES: No edema. LABORATORY DATA: Today's SMA-7: Sodium 150, potassium 4, chloride 123, CO2 of 22, glucose 107, BUN 29, creatinine 0.5. Official echocardiographic study report a thickened calcified nodule on aortic leaflet with mild limitation in the excursion. No definite evidence of acute endocarditis. Suggested IRINA. ASSESSMENT: 1. Recent aortic valve endocarditis with Streptococcus viridans. The patient currently has Klebsiella bacteremia. 2. Extension of previously noted right frontal lobe infarct with questionable hemorrhagic conversion. 3. Hypertension. 4. Chronic atrial fibrillation. 5. Altered mental status. RECOMMENDATIONS: In view of overall complicated clinical condition, a repeat IRINA is not justified and the patient needs to be treated with a full course of appropriate antibiotics for presumptive aortic valve endocarditis in view of recent recurrent CVA. The patient can be maintained on Cozaar 50 mg once a day, Crestor 5 mg once a day, Eliquis 5 mg twice a day, IV meropenem at 1 g every 8 hours, and Lopressor 25 mg twice a day. Ronny Solano MD
--- NOTE | 2018-07-02 19:21 | CARD ---
APPROVED REPORT Date of service: 06/25/2018 EKG Measurement Heart [id number] [place] [id number] [id number] <Conclusion> a,fib with rvr,baseline artifact. please repeat Abnormal ECG
--- NOTE | 2018-07-02 23:46 | CP.PCM.PN ---
Subjective - Date & Time of Evaluation Date of Evaluation: 07/02/18 Time of Evaluation: 23:46 - Subjective Subjective: AFEBRILE LETHARGIC NO ACUTE EVENTS OVERNIGHT. ON IV MERREM FOR kLEBSIELLA OZANAE BACTEREMIA S- MERREM/CIPRO REPEAT BLOOD CULTURES 07/01/18 -VE GROWTH FOR 24 HOURS.. CARDIOLOGY FOLLOW-UP NOTED. PT IS S/P STREP VIRIDANS AORTIC VALVE ENDOCARDITIS DX 04/30/18 AND TREATED WITH AMPICILLIN/iv CEFTRIAXONE X 6WKS IN LT[facility]. PER CARDIOLOGY PT WITH RECENT HGIC EXTENSION OF STROKE LEFT HEMIPERESIS IS NOT A CANDIDATE FOR IRINA/OR SURGICAL CANDIDATE. TO RX ENDOCARDITIS. WILL CONTINUE IV MERREM 1G IVPB Q 8 HRLY X 6WEEKS ( STARTED 06/25/18 ) ADD IV CIPRO 400MG IVPB Q 24 HRLY X 4WKS 07/03/18 MONITOR RENAL AND LIVER FUNCTION TESTS PROGNOSIS POOR. CASE DISCUSSED WITH [employer]ER MS WELSH. WILL F/U PT WHILE IN HOSPITAL. Objective - Vital Signs/Intake and Output Vital Signs (last 24 hours): Temp Pulse Resp BP Pulse Ox 97.9 F 96 H 20 130/65 98 07/02/18 16:00 07/02/18 16:00 07/02/18 16:00 07/02/18 19:30 07/02/18 16:00 - Medications Medications: Current Medications Acetaminophen (Tylenol 325mg Tab) 650 mg PO Q6 PRN PRN Reason: Pain, moderate (4-7) Apixaban (Eliquis) 5 mg PO BID [facility] Last Admin: 07/02/18 19:30 Dose: 5 mg Aspirin (Aspirin Chewable) 81 mg PO DAILY [facility] Last Admin: 07/02/18 10:10 Dose: 81 mg Meropenem 1 gm/ Sodium (Chloride) 100 mls @ 100 mls/hr IVPB Q8H [facility]; Protocol Last Admin: 07/02/18 22:53 Dose: 100 mls/hr Dextrose (Dextrose 5% In Water 1000 Ml) 1,000 mls @ 50 mls/hr IV .Q20H [facility] Last Admin: 07/02/18 10:10 Dose: 50 mls/hr Losartan Potassium (Cozaar) 50 mg PO DAILY [facility] Last Admin: 07/02/18 10:10 Dose: 50 mg Memantine (Namenda) 5 mg PO BID [facility] Last Admin: 07/02/18 19:30 Dose: 5 mg Metoprolol Tartrate (Lopressor) 25 mg NG BID [facility] Last Admin: 07/02/18 19:30 Dose: 25 mg Rosuvastatin Calcium (Crestor) 5 mg PO HS [facility] Last Admin: 07/02/18 22:56 Dose: Not Given - Labs Labs: 06/29/18 08:57 07/02/18 10:56 PT 20.2 SECONDS (9.7-12.2) H 06/25/18 22:16 INR 1.8 06/25/18 22:16 APTT 34 SECONDS (21-34) 06/25/18 22:16 - Constitutional Appears: No Acute Distress, Chronically Ill - Eye Exam Eye Exam: EOMI, PERRL - Neck Exam Neck Exam: Normal Inspection - Respiratory Exam Respiratory Exam: Decreased Breath Sounds - Cardiovascular Exam Cardiovascular Exam: Irregular Rhythm, +S1, +S2 - GI/Abdominal Exam GI & Abdominal Exam: Soft, Normal Bowel Sounds - Extremities Exam Extremities Exam: Normal Capillary Refill, Pedal Edema. absent: Calf Tenderness - Neurological Exam Neurological Exam: Altered (AROUSABLE. LEFT-SIDED WEAKNESS.), Awake - Psychiatric Exam Psychiatric exam: Flat Affect - Skin Skin Exam: Normal Color, Warm Assessment and Plan (1) Gram negative sepsis Status: Acute (2) NSTEMI (non-ST elevated myocardial infarction) Status: Acute (3) Aortic valve endocarditis Status: Chronic (4) Streptococcus viridans infection Status: Acute (5) Atrial fibrillation Status: Chronic (6) CVA (cerebral vascular accident) Status: Chronic (7) Enlarged prostate Status: Acute (8) Hypertension Status: Chronic (9) Alzheimer disease Status: Chronic
--- NOTE | 2018-07-03 00:36 | CP.PCM.PN ---
Subjective - Subjective Subjective: deictated Objective - Vital Signs/Intake and Output Vital Signs (last 24 hours): Temp Pulse Resp BP Pulse Ox 97.9 F 96 H 20 130/65 98 07/02/18 16:00 07/02/18 16:00 07/02/18 16:00 07/02/18 19:30 07/02/18 16:00 - Medications Medications: Current Medications Acetaminophen (Tylenol 325mg Tab) 650 mg PO Q6 PRN PRN Reason: Pain, moderate (4-7) Apixaban (Eliquis) 5 mg PO BID [facility] Last Admin: 07/02/18 19:30 Dose: 5 mg Aspirin (Aspirin Chewable) 81 mg PO DAILY [facility] Last Admin: 07/02/18 10:10 Dose: 81 mg Meropenem 1 gm/ Sodium (Chloride) 100 mls @ 100 mls/hr IVPB Q8H [facility]; Protocol Last Admin: 07/02/18 22:53 Dose: 100 mls/hr Dextrose (Dextrose 5% In Water 1000 Ml) 1,000 mls @ 50 mls/hr IV .Q20H [facility] Last Admin: 07/02/18 10:10 Dose: 50 mls/hr Losartan Potassium (Cozaar) 50 mg PO DAILY [facility] Last Admin: 07/02/18 10:10 Dose: 50 mg Memantine (Namenda) 5 mg PO BID [facility] Last Admin: 07/02/18 19:30 Dose: 5 mg Metoprolol Tartrate (Lopressor) 25 mg NG BID [facility] Last Admin: 07/02/18 19:30 Dose: 25 mg Rosuvastatin Calcium (Crestor) 5 mg PO HS [facility] Last Admin: 07/02/18 22:56 Dose: Not Given - Labs Labs: 06/29/18 08:57 07/02/18 10:56 PT 20.2 SECONDS (9.7-12.2) H 06/25/18 22:16 INR 1.8 06/25/18 22:16 APTT 34 SECONDS (21-34) 06/25/18 22:16
[2018-07-03] MEDS: Meropenem 1 GM in Sodium Chloride 0.9% 100 ML IVPB SCH ×2 (02:00→10:15)
[2018-07-03 08:00] VITALS: RESP 20
[2018-07-03] MEDS ORDERED: Ciprofloxacin 400mg/200ml D5W 400 MG/200 ML BAG IVPB SCH ×2 (08:15→10:00)
[2018-07-03 08:39] LABS: EOS # 0.2 K/uL (0.0-0.7); MEAN CORPUSCULAR HGB CONC 35.3 g/dL (33.0-37.0); MEAN PLATELET VOLUME 9.3 fL (7.2-11.7); MONO # 0.7 K/uL (0.0-0.8); NRBC % 0.1 % (0.0-2.0); RED CELL DISTRIBUTION WIDTH 16.5 % (11.5-14.5)
[2018-07-03 08:45] LABS: BASO # 0.1 K/uL (0.0-0.2); BASO % 0.5 % (0.0-2.0); HEMOGLOBIN 11.7 g/dL (12.0-18.0); LYMPH # 3.6 K/uL (1.0-4.3); LYMPH % 29.4 % (20.0-40.0); MONO % 5.9 % (0.0-10.0); NEUT # 7.7 K/uL (1.8-7.0); NEUT % 62.2 % (50.0-75.0); RBC 3.66 Mil/uL (4.40-5.90); WHITE BLOOD COUNT 12.4 K/uL (4.8-10.8)
[2018-07-03 08:54] LABS: MEAN CELL VOLUME 90.6 fL (80.0-94.0)
[2018-07-03 09:37] LABS: ALB/GLOB RATIO 0.8 (1.0-2.1); ALBUMIN 2.3 g/dL (3.5-5.0); ALT/SGPT 55 U/L (21-72); AST/SGOT 32 U/L (17-59); BILIRUBIN,DIRECT 0.7 mg/dL (0.0-0.4); BLOOD UREA NITROGEN 30 mg/dL (9-20); CALCIUM 8.9 mg/dl (8.6-10.4); GFR NON-AFRICAN AMERICAN > 60
--- NOTE | 2018-07-03 10:27 | PN ---
DATE: 07/03/2018 SUBJECTIVE: The patientJuma is more alert, afebrile. No shortness of breath. physiotherapy. PHYSICAL EXAMINATION: VITAL SIGNS: Blood pressure 121/64, pulse 91, respiratory rate 18, temperature 98.7. LUNGS: Clear. CARDIOVASCULAR SYSTEM: S1 and S2, regular. ABDOMEN: Soft. CENTRAL NERVOUS SYSTEM: More alert. ASSESSMENT: 1. Cerebrovascular accident. 2. Infective endocarditis. 3. Hypertension. 4. Diabetes. 5. Alzheimer's. PLAN: Continue current medications. Monitor the patient. Esau Jacobs MD
--- NOTE | 2018-07-03 16:01 | CP.PCM.PN ---
Subjective - Date & Time of Evaluation Date of Evaluation: 07/03/18 Time of Evaluation: 11:00 Objective - Vital Signs/Intake and Output Vital Signs (last 24 hours): Temp Pulse Resp BP Pulse Ox 98.3 F 94 H 20 133/63 98 07/03/18 07:00 07/03/18 11:59 07/03/18 07:00 07/03/18 09:19 07/03/18 07:00 Intake and Output: 07/03/18 07/03/18 06:59 18:59 Intake Total 480 400 Balance 480 400 - Medications Medications: Current Medications Acetaminophen (Tylenol 325mg Tab) 650 mg PO Q6 PRN PRN Reason: Pain, moderate (4-7) Apixaban (Eliquis) 5 mg PO BID [facility] Last Admin: 07/03/18 09:19 Dose: 5 mg Aspirin (Aspirin Chewable) 81 mg PO DAILY [facility] Last Admin: 07/03/18 09:19 Dose: 81 mg Meropenem 1 gm/ Sodium (Chloride) 100 mls @ 100 mls/hr IVPB Q8H [facility]; Protocol Last Admin: 07/03/18 10:15 Dose: 100 mls/hr Dextrose (Dextrose 5% In Water 1000 Ml) 1,000 mls @ 50 mls/hr IV .Q20H [facility] Last Admin: 07/02/18 10:10 Dose: 50 mls/hr Ciprofloxacin (Cipro 400mg/200ml Dsw) 400 mg in 200 mls @ 133 mls/hr IVPB DAILY [facility]; Protocol Last Admin: 07/03/18 10:40 Dose: 133 mls/hr Losartan Potassium (Cozaar) 50 mg PO DAILY [facility] Last Admin: 07/03/18 09:19 Dose: 50 mg Memantine (Namenda) 5 mg PO BID [facility] Last Admin: 07/03/18 09:19 Dose: 5 mg Metoprolol Tartrate (Lopressor) 25 mg NG BID [facility] Last Admin: 07/03/18 09:19 Dose: 25 mg Rosuvastatin Calcium (Crestor) 5 mg PO HS [facility] Last Admin: 07/02/18 22:56 Dose: Not Given - Labs Labs: 07/03/18 08:28 07/03/18 08:28 PT 20.2 SECONDS (9.7-12.2) H 06/25/18 22:16 INR 1.8 06/25/18 22:16 APTT 34 SECONDS (21-34) 06/25/18 22:16 Assessment and Plan - Assessment and Plan (Free Text) Assessment: 83 year old male admitted from group home care facility, seen and examined. Awake, lethargic, tolerating oral intake, no acute distress. Discussed with DR Churchill and DR Jacobs, plan to discharge back to the long-term today. Will continue with meropenum and cipro for 4 more weeka as ordered. PICCline in place. Cleared by cardiologyst, not a candidate for surgery.
[2018-07-03 16:40] VITALS: BP 145/67; PULSE 98; TEMP 97.6; O2SAT 99
--- NOTE | 2018-07-03 21:46 | CP.PCM.DIS ---
Provider - Provider Date of Admission: 06/25/18 00:01 Attending physician: Esau Jacobs MD Consults: 06/25/18 03:11 Infectious Disease Consult Routine Comment: Consulting Provider: Tom Churchill Consulting Physician: Tom Churchill Reason for Consult: IE 06/25/18 07:00 Cardiology Consult Routine Comment: Consulting Provider: Orion Del Cid Consulting Physician: Orion Del Cid Reason for Consult: elevated troponin 06/25/18 14:54 Inpatient [employer] [employer] [employer] Me[employer] Referral Routine Comment: Physician Instructions: Reason For Exam: COPD Nursing Referral for Palliative Care Routine Comment: Physician Instructions: Reason For Exam: hx of CVA, COPD, from prison, dementia Nursing Referral for Wound Care Routine Comment: Physician Instructions: Reason For Exam: high risk for skin breakdown 06/25/18 20:22 Physician Consult Routine Comment: Consulting Provider: Ronny Solano Consulting Physician: Ronny Solano Reason for Consult: elvated trop. 06/27/18 10:46 Palliative Care Consult Routine Comment: Consulting Provider: Tesha Rivera Physician Instructions: Reason For Exam: goal of care 06/27/18 10:51 Neurology Consult Routine Comment: Consulting Provider: Matthew Rendon Consulting Physician: Matthew Rendon Reason for Consult: lathargic, abnormal CT , Hospital Course - Lab Results Lab Results: Micro Results 07/01/18 07:40 Blood-Venous Blood Culture - Preliminary NO GROWTH AFTER 48 HOURS 07/01/18 07:23 Blood-Venous Blood Culture - Preliminary NO GROWTH AFTER 48 HOURS 06/27/18 04:33 Urine,Brown Urine Culture - Final No Growth (<1,000 CFU/ML) 06/26/18 03:28 Urine,Brown Urine Culture - Final No Growth (<1,000 CFU/ML) 06/25/18 04:31 Blood-Venous Blood Culture - Final Klebsiella Ozaenae 06/25/18 04:31 Blood-Venous Gram Stain - Final 06/25/18 04:51 Blood-Venous Blood Culture - Final Klebsiella Ozaenae 06/25/18 04:51 Blood-Venous Gram Stain - Final Most Recent Lab Values WBC 12.4 K/uL (4.8-10.8) H 07/03/18 08:28 RBC 3.66 Mil/uL (4.40-5.90) L 07/03/18 08:28 Hgb 11.7 g/dL (12.0-18.0) L 07/03/18 08:28 Hct 33.1 % (35.0-51.0) L 07/03/18 08:28 MCV 90.6 fL (80.0-94.0) D 07/03/18 08:28 MCH 32.0 pg (27.0-31.0) H 07/03/18 08:28 MCHC 35.3 g/dL (33.0-37.0) 07/03/18 08:28 RDW 16.5 % (11.5-14.5) H 07/03/18 08:28 Plt Count 195 K/uL (130-400) 07/03/18 08:28 Manual Plt Count 102 K/uL (130-400) L 06/27/18 08:58 MPV 9.3 fL (7.2-11.7) 07/03/18 08:28 Neut % (Auto) 62.2 % (50.0-75.0) 07/03/18 08:28 Lymph % (Auto) 29.4 % (20.0-40.0) 07/03/18 08:28 Morrill % (Auto) 5.9 % (0.0-10.0) 07/03/18 08:28 Eos % (Auto) 2.0 % (0.0-4.0) 07/03/18 08:28 Baso % (Auto) 0.5 % (0.0-2.0) 07/03/18 08:28 Neut # (Auto) 7.7 K/uL (1.8-7.0) H 07/03/18 08:28 Lymph # (Auto) 3.6 K/uL (1.0-4.3) 07/03/18 08:28 Morrill # (Auto) 0.7 K/uL (0.0-0.8) 07/03/18 08:28 Eos # (Auto) 0.2 K/uL (0.0-0.7) 07/03/18 08:28 Baso # (Auto) 0.1 K/uL (0.0-0.2) 07/03/18 08:28 Neutrophils % (Manual) 80 % (50-75) H 06/24/18 21:54 Band Neutrophils % 4 % (0-2) H 06/24/18 21:54 Lymphocytes % (Manual) 12 % (20-40) L 06/24/18 21:54 Monocytes % (Manual) 4 % (0-10) 06/24/18 21:54 Differential Comment 06/29/18 08:57 Platelet Estimate Normal (NORMAL) 06/24/18 21:54 Anisocytosis (manual) Slight 06/24/18 21:54 ESR 66 mm/hr (0-15) H 06/26/18 07:44 PT 20.2 SECONDS (9.7-12.2) H 06/25/18 22:16 INR 1.8 06/25/18 22:16 APTT 34 SECONDS (21-34) 06/25/18 22:16 Sodium 151 mmol/L (132-148) H 07/03/18 08:28 Potassium 3.5 mmol/L (3.6-5.2) L 07/03/18 08:28 Chloride 118 mmol/L (98-107) H 07/03/18 08:28 Carbon Dioxide 30 mmol/L (22-30) 07/03/18 08:28 Anion Gap 7 (10-20) L 07/03/18 08:28 BUN 30 mg/dL (9-20) H 07/03/18 08:28 Creatinine 0.7 mg/dL (0.8-1.5) L 07/03/18 08:28 Est GFR ( Amer) > 60 07/03/18 08:28 Est GFR (Non-Af Amer) > 60 07/03/18 08:28 POC Glucose (mg/dL) 158 mg/dL (65-110) H 06/25/18 21:53 Random Glucose 98 mg/dL (75-110) 07/03/18 08:28 Lactic Acid 1.4 mmol/L (0.7-2.1) 06/26/18 03:07 Calcium 8.9 mg/dl (8.6-10.4) 07/03/18 08:28 Phosphorus 2.6 mg/dL (2.5-4.5) 06/26/18 07:44 Magnesium 1.8 mg/dL (1.6-2.3) 06/27/18 11:41 Total Bilirubin 2.0 mg/dL (0.2-1.3) H 07/03/18 08:28 Direct Bilirubin 0.7 mg/dL (0.0-0.4) H 07/03/18 08:28 AST 32 U/L (17-59) 07/03/18 08:28 ALT 55 U/L (21-72) 07/03/18 08:28 Alkaline Phosphatase 138 U/L (38-126) H 07/03/18 08:28 Total Creatine Kinase < 20 U/L (55-170) L 06/26/18 07:44 CK-MB (Mass) 0.47 ng/mL (0.0-3.38) 06/26/18 07:44 Troponin I 0.1940 ng/mL (0.00-0.120) H* 06/26/18 07:44 C-React Prot High Sens > 15.00 mg/L (1.00-3.00) H 06/26/18 07:44 NT-Pro-B Natriuret Pep 4860 pg/mL (0-900) H 06/24/18 22:52 Total Protein 5.2 g/dL (6.3-8.3) L 07/03/18 08:28 Albumin 2.3 g/dL (3.5-5.0) L 07/03/18 08:28 Globulin 3.0 gm/dL (2.2-3.9) 07/03/18 08:28 Albumin/Globulin Ratio 0.8 (1.0-2.1) L 07/03/18 08:28 Prostate Specific Ag 5.66 ng/mL (0.00-4.0) H 06/26/18 07:44 TSH 3rd Generation 0.69 mIU/L (0.46-4.68) 06/25/18 05:11 Urine Color Yellow (YELLOW) 06/27/18 04:33 Urine Clarity Hazy (Clear) 06/27/18 04:33 Urine pH 6.0 (5.0-8.0) 06/27/18 04:33 Ur Specific [place] 1.025 (1.003-1.030) 06/27/18 04:33 Urine Protein Negative mg/dL (NEGATIVE) 06/27/18 04:33 Urine Glucose (UA) Negative mg/dL (Normal) 06/27/18 04:33 Urine Ketones Trace mg/dL (NEGATIVE) H 06/27/18 04:33 Urine Blood Negative (NEGATIVE) 06/27/18 04:33 Urine Nitrate Negative (NEGATIVE) 06/27/18 04:33 Urine Bilirubin Small (NEGATIVE) 06/27/18 04:33 Urine Urobilinogen 4.0 mg/dL (0.2-1.0) 06/27/18 04:33 Ur Leukocyte Esterase Negative Jefe/uL (Negative) 06/27/18 04:33 Urine WBC (Auto) 4 /hpf (0-5) 06/27/18 04:33 Urine RBC (Auto) 1 /hpf (0-3) 06/27/18 04:33 Ur Squamous Epith Cells 3 /hpf (0-5) 06/27/18 04:33 Discharge Exam - Head Exam Head Exam: NORMAL INSPECTION Discharge Plan - Discharge Medications Prescriptions: Ciprofloxacin Lactate/D5w [Ciprofloxacn-D5w 200 mg/100 ml] 400 mg IV DAILY 28 Days ml - Follow Up Plan Condition: STABLE Disposition: REHAB FACILITY/REHAB UNIT Instructions: Atrial Fibrillation (DC), Exacerbation of COPD (DC) Additional Instructions: meropenum 500mg ivpb q8h for 5 weeks more till 07-28-18 cipro 400mg ivpb for 4 weeks till 07-30-18 labs q week start 07-05-18; CBC, BMP PICC line care as per protocol Referrals: Ronny Solano MD [Staff Provider] - Tom Churchill MD [Staff Provider] - Matthew Rendon MD [Staff Provider] - Esau Jacobs MD [Staff Provider] - Orion Del Cid MD [Staff Provider] -
--- NOTE | 2018-07-03 22:09 | PN ---
DATE: 07/03/2018 FOLLOWUP SUBJECTIVE: The patient is lethargic, but arousable and oriented to place. He denies any chest pain. PHYSICAL EXAMINATION: VITAL SIGNS: Blood pressure 133/63, heart rate 93, temperature 98.3, respirations 20. HEENT: Normocephalic. CHEST: Diminished breath sounds over the bases. HEART: S1 and S2 are regular. EXTREMITIES: No edema. LABORATORY DATA: Today's SMA-7: Sodium 151, potassium 3.5, chloride 118, CO2 of 30, glucose 98, BUN 30, creatinine 0.7. Today's hemoglobin and hematocrit 11.7 and 32.1, white count 12.4, and platelet count 195,000. Repeat blood cultures on 07/01/2018 are negative after 48 hours. I did review the infectious disease followup report by Dr. Tom Churchill. ASSESSMENT: 1. 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 The bacterial agent is different from the previous one, and it is Klebsiella compared to Streptococcus viridans. A definite diagnosis of endocarditis cannot be made and if there is a possibility of a valve abscess, then the initial pathogen which is Streptococcus viridans still persists rather than Klebsiella. In view of recurrent cerebrovascular accident and poor overall general condition, the patient is not a surgical candidate for aortic valve replacement. I recommend no invasive cardiac workup or vascular surgical consultation and rather treat the patient medically. 2. Chronic atrial fibrillation. 3. Hypertension. RECOMMENDATIONS: Continue aspirin 81 mg once a day, IV Cipro 400 mg intravenously daily, Cozaar 50 mg once a day, Lopressor 25 mg twice a day, IV meropenem at 1 g every 8 hours, and Eliquis by Dr. Rnedon, the neurologist. Ronny Solano MD
--- NOTE | 2018-07-04 08:03 | DS ---
DISCHARGE DIAGNOSES: Infective endocarditis, acute cerebrovascular accident, hypertension, Alzheimer's, hyperlipidemia, coronary artery disease. HISTORY OF PRESENT ILLNESS: This is an 83-year-old male with history of multiple medical problems including diabetes, hypertension, hyperlipidemia, infective endocarditis. Currently, he is transferred to subacute rehab. The patient was transferred to the emergency room because of changes in mental status. The patient was admitted to the hospital, found to have infective endocarditis. The patient is already undergoing treatment for infective endocarditis at [facility], atrial fibrillation, on blood thinners; and the patient was also found to have an acute stroke, hypernatremia, and altered mental status. The patient's condition started improving. He is feeling better. He is being discharged with outpatient followup. CONDITION UPON DISCHARGE: Stable. During the course of hospitalization, the patient was seen by Cardiology. The patient was seen by Infectious Disease and antibiotics were recommended. PHYSICAL EXAMINATION: VITAL SIGNS: Blood pressure 145/67, pulse 90, respiratory rate 20, temperature 97.6. LABORATORY DATA: WBC 12.4, hemoglobin 11.7, hematocrit 32.1, platelet 195. Sodium 151, potassium 3.5, chloride 118, bicarb 30, BUN 30, creatinine 0.7, calcium 8.9. LFTs were benign. Alk phos was 128. The patient's condition is stable upon discharge. He will be followed up by me as outpatient and 3 more weeks of IV antibiotics with physical therapy and rehab. Esau Jacobs MD
== END 2018-07-03 17:24 | DRG 871 ==
LOC: C.ER 17:14 → C.9E 06-25 00:01 → C.5S 06-25 12:55
PROVIDERS: ADMIT Internal Medicine; ATTEND Internal Medicine
PROC: 02HV33Z Insertion of Infusion Device into Superior Vena Cava, Percutaneous Approach (ICD-10-PCS; principal; 2018-07-02)
DX: A41.59 Other Gram-negative sepsis (principal); I33.0 Acute and subacute infective endocarditis; G92 Toxic encephalopathy; I21.4 Non-ST elevation (NSTEMI) myocardial infarction; I63.9 Cerebral infarction, unspecified; I61.9 Nontraumatic intracerebral hemorrhage, unspecified; E87.0 Hyperosmolality and hypernatremia; E87.1 Hypo-osmolality and hyponatremia; I69.354 Hemiplegia and hemiparesis following cerebral infarction affecting left non-dominant side; E78.5 Hyperlipidemia, unspecified; E86.0 Dehydration; E87.6 Hypokalemia; G30.9 Alzheimer's disease, unspecified; F02.80 Dementia in other diseases classified elsewhere, unspecified severity, without behavioral disturbance, psychotic disturbance, mood disturbance, and anxiety; R32 Unspecified urinary incontinence; Z51.5 Encounter for palliative care; Z66 Do not resuscitate; N40.0 Benign prostatic hyperplasia without lower urinary tract symptoms; I25.10 Atherosclerotic heart disease of native coronary artery without angina pectoris; I48.2 Chronic atrial fibrillation; E11.22 Type 2 diabetes mellitus with diabetic chronic kidney disease; I12.9 Hypertensive chronic kidney disease with stage 1 through stage 4 chronic kidney disease, or unspecified chronic kidney disease; J44.9 Chronic obstructive pulmonary disease, unspecified; N18.9 Chronic kidney disease, unspecified; M21.379 Foot drop, unspecified foot; L89.159 Pressure ulcer of sacral region, unspecified stage; D69.6 Thrombocytopenia, unspecified; B95.4 Other streptococcus as the cause of diseases classified elsewhere; B96.1 Klebsiella pneumoniae [K. pneumoniae] as the cause of diseases classified elsewhere

== ENCOUNTER 2018-08-06 13:38 | Inpatient (IN) | payer MEDICARE ==
[2018-08-06 13:39] VITALS: BMI 24.4
[2018-08-06 14:27] LABS: BASO % 0.5 % (0.0-2.0); EOS % 0.5 % (0.0-4.0); HEMOGLOBIN 11.6 g/dL (12.0-18.0); LYMPH # 2.8 K/uL (1.0-4.3); LYMPH % 28.1 % (20.0-40.0); MEAN CORPUSCULAR HEMOGLOBIN 35.2 pg (27.0-31.0); MEAN PLATELET VOLUME 10.3 fL (7.2-11.7); MONO # 0.5 K/uL (0.0-0.8); MONO % 4.8 % (0.0-10.0); NEUT # 6.5 K/uL (1.8-7.0); NEUT % 66.1 % (50.0-75.0); NRBC % 0.3 % (0.0-2.0); RBC 3.31 Mil/uL (4.40-5.90); RED CELL DISTRIBUTION WIDTH 16.3 % (11.5-14.5); WHITE BLOOD COUNT 9.9 K/uL (4.8-10.8)
[2018-08-06 14:32] LABS: MEAN CELL VOLUME 103.7 fL (80.0-94.0)
[2018-08-06 14:49] LABS: B-TYPE NATRIURETIC PEPTIDE 11600 pg/mL (0-900)
--- NOTE | 2018-08-06 15:11 | RAD ---
Date of service: 08/06/2018 PROCEDURE: CHEST RADIOGRAPH, 1 VIEW HISTORY: chest pain COMPARISON: 07/02/2018. FINDINGS: LUNGS: Stable pulmonary vascular congestion. PLEURA: No pneumothorax or pleural fluid seen. CARDIOVASCULAR: No aortic atherosclerotic calcification present. Normal. OSSEOUS STRUCTURES: No significant abnormalities. VISUALIZED UPPER ABDOMEN: Normal. OTHER FINDINGS: None. IMPRESSION: No significant interval change compared to the prior examination(s).
--- NOTE | 2018-08-06 15:16 | C.PDOC ---
History Of Present Illness 83 year old male is sent to the ED from [facility] for evaluation. As per [facility], patient has not been eating. Patient underwent hospitalization on 06/25/18 for NSTEMI and dehydration. The [facility] staff contacted patient's son, who granted permission for his treatment. Patient has history of [place], COPD, Alzheimer's, stroke. He is non-verbal at baseline. Patient is DNR/DNI. Time Seen by Provider: 08/06/18 13:47 Chief Complaint (Nursing): Weakness/Neurological Deficit History/Exam Limitations: other (non-verbal at baseline) Onset/Duration Of Symptoms: Hrs Current Symptoms Are (Timing): Still Present Additional History Per: Assisted Past Medical History Reviewed: Historical Data, Nursing Documentation, Vital Signs Vital Signs: Last Vital Signs Temp 99.5 F 08/06/18 13:44 Pulse 95 H 08/06/18 13:44 Resp 14 08/06/18 13:44 BP 102/37 L 08/06/18 13:44 Pulse Ox 100 08/06/18 13:44 - Medical History PMH: Alzheimer's Disease, Arthritis, COPD, CVA, Dementia, HTN, Pericarditis Denies: Chronic Kidney Disease Surgical History: No Surg Hx - [facility] Procedures INSERTION OF INFUSION DEV INTO SUP VENA CAVA, PERC APPROACH (06/25/18) Family History: States: Unknown Family Hx - Social History Hx Alcohol Use: No Hx Substance Use: No - Immunization History Hx Tetanus Toxoid Vaccination: No Hx Influenza Vaccination: Yes (2015) Hx Pneumococcal Vaccination: Yes (2016) Review Of Systems Review Of Systems: ROS cannot be obtained secondary to pt's inabilty to answer questions. Physical Exam - Physical Exam Appears: Non-toxic, No Acute Distress Skin: Warm, Dry, Other (stage 2 sacral decubitus ulcer on right. contusions to left forearm and hand. no open skin ) Head: Atraumatic, Normacephalic Eye(s): bilateral: Normal Inspection Oral Mucosa: Dry Neck: Supple Chest: Symmetrical, No Deformity, No Tenderness Cardiovascular: Rhythm Regular, No Murmur Respiratory: Normal Breath Sounds, No Rales, No Rhonchi, No Wheezing Gastrointestinal/Abdominal: Soft, No Tenderness, No Guarding, No Rebound Extremity: Normal ROM, Capillary Refill (less than 2 seconds ) Neurological/Psych: Other (nonverbal at baseline ) ED Course And Treatment - Laboratory Results Result Diagrams: 08/06/18 14:19 08/06/18 14:19 Lab Results: NT-Pro-B Natriuret Pep 45233 pg/mL (0-900) H 08/06/18 14:19 ECG: Interpreted By Me, Viewed By Me ECG Rhythm: Atrial Fibrillation Interpretation Of ECG: Atrial fibrillation at rate 92bpm. Normal QRS and QT intervals. Left axis deviation. No ST elevations. Artifact in V1. Rate From EC O2 Sat by Pulse Oximetry: 100 (on RA ) Pulse Ox Interpretation: Normal - Other Rad CXR X-Ray: Viewed By Me, Read By Radiologist Interpretation: Date of service: 08/06/2018. PROCEDURE: CHEST RADIOGRAPH, 1 VIEW. HISTORY: chest pain. COMPARISON: 07/02/2018. FINDINGS: LUNGS: Stable pulmonary vascular congestion. PLEURA: No pneumothorax or pleural fluid seen. CARDIOVASCULAR: No aortic atherosclerotic calcification present. Normal. OSSEOUS STRUCTURES: No significant abnormalities. VISUALIZED UPPER ABDOMEN: Normal. OTHER FINDINGS: None. IMPRESSION: No significant interval change compared to the prior examination(s). Medical Decision Making Medical Decision Making: Impression: 83 year old male sent from [facility], not eating well Plan: * bloodwork * urinalysis * CXR * EKG * Aspirin MA * IV Fluids * reassess and disposition Progress: Bloodwork, urinalysis, CXR, EKG ordered and reviewed. Aspirin MA and IV Fluids given. Case discussed with Dr. Jacobs at 1523, who instructs to place patient on regular floor due to his DNR/DNI status. Disposition - Disposition Disposition: HOSPITALIZED Disposition Time: 15:20 Condition: FAIR - POA Present On Arrival: None - Clinical Impression Clinical Impression: NSTEMI (non-ST elevated myocardial infarction), Dehydration, Hypernatremia - Scribe Statement The provider has reviewed the documentation as recorded by the Scribe Provider Attestation: All medical record entries made by the Scribe were at my direction and personally dictated by me. I have reviewed the chart and agree that the record accurately reflects my personal performance of the history, physical exam, medical decision making, and the department course for this patient. I have also personally directed, reviewed, and agree with the discharge instructions and disposition.
[2018-08-06 15:18] LABS: ALB/GLOB RATIO 0.9 (1.0-2.1); ALBUMIN 2.5 g/dL (3.5-5.0); ALT/SGPT 23 U/L (21-72); AST/SGOT 19 U/L (17-59); BLOOD UREA NITROGEN 57 mg/dL (9-20); CALCIUM 9.3 mg/dl (8.6-10.4); GFR NON-AFRICAN AMERICAN > 60
[2018-08-06] MEDS: Sodium Chloride 0.9% 1,000 ML IV SCH (15:59)
[2018-08-06 19:38] LABS: SQUAMOUS EPITHIAL 10 /hpf (0-5); URINE BILIRUBIN 1+ (NEGATIVE); URINE BLOOD 1+ (NEGATIVE); URINE CLARITY Clear (Clear); URINE COLOR Amber (YELLOW); URINE GLUCOSE (UA) NORMAL (Normal); URINE LEUKOCYTE ESTERASE 2+ Leu/uL (Negative); URINE PROTEIN NEGATIVE (NEGATIVE)
[2018-08-06] MEDS: Rosuvastatin Calcium 2.5 mg Tab PO SCH (21:04)
[2018-08-07] MEDS: Piperacill/Tazo 2.25gm in Dex 2.25 GM/50 ML BAG IVPB SCH ×4 (00:05→17:24)
[2018-08-07] MEDS: Sodium Chloride 0.9% 1,000 ML IV SCH (01:30)
[2018-08-07] MEDS: Magnesium Hydroxide Susp 30 ml UD PO SCH (10:42)
--- NOTE | 2018-08-07 11:02 | CP.PCM.CON ---
History of Present Illness - History of Present Illness History of Present Illness: Nephrology Consultation Note: Assessment: Stable Hypernatremia likely due to dehydration, limited oral fluid intake mild anemia hyperbilirubinemia COPD, CAD, dementia, CVA hypertension (years) aortic insuff with AV endocarditis Plan No acute need for renal replacement therapy at this time. Hypertension control with meds as ordered. Maintain hemodynamics stable. Avoid hypotension. Patient not on ACEI/ARB due to low BP Monitor Input/Output, daily weights and renal function with basic metabolic panel agree with hypotonic fluids as D5W @ 80 ml/hr. further rate titration will be based upon his response Check urine Na Osmol K and creat monitor for urine retention with bladder scans as needed. Dose meds/antibiotics for GFR>60 Glycemic control Further work up/management as per primary team Thanks for allowing me to participate in care of your patient. Will follow patient with you. Please call if any Qs Dr Chris Reese Office: [phone] Chief Complaint; unable Reason for consult: Hypernatremia HPI: Pt is a 83 M with hx of COPD, CAD, dementia, CVA hypertension (years) aortic insuff with AV endocarditis presented with complaints of dehydration and being managed for hypernatremia, elevated troponins renal consult for elevated BUN and hypernatremia no knwon OTC/herbal meds or NSAIDs No recent iodinated contrast exposure. No obvious episodes of low BP. pt unable to provide any hx ROS: Unable to obtain Physical Examination: General Appearance: Comfortable, in no acute respiratory distress, co-operative . non verbal/non communicative Vitals reviewed and noted as below Head; Atraumatic, normocephalic ENT: no ulcers no thrush. Tongue is midline/dry. Oropharynx: no rash or ulcers. EYES: Pupils are equal, round and reactive to light accommodation. Eye muscles and extraocular movement intact. Sclera is icteric. Neck; supple no lymphadenopathy, no thyromegaly or bruit Lungs: Normal respiratory rate/effort. Breath sounds bilateral equal and clear Heart: Normal rate. s1s2 normal. No rub or gallop. Extremities: no edema. No varicose veins Neurological: Patient is awake non verbal/non communicative Skin: Warm and dry. Normal turgor. No rash. Palpitation: Normal elasticity for age Abdomen: Abdomen is soft. Bowel sounds +. There is no abdominal tenderness, no guarding/rigidity no organomegaly Psych: unable MSK: no joint tenderness or swelling. Digits and nails normal, no deformity : kidney or bladder not palpable Labs/imaging reviewed. Past medical history, past surgical history, family history, social history, all ergy reviewed and noted as below Family hx: no hx of CKD. Rest non-contributory Past Patient History - Past Medical History & Family History Past Medical History?: Yes - Past Social History Smoking Status: Unknown If Ever Smoked - CARDIAC Hx Cardiac Disorders: Yes Hx Hypertension: Yes - PULMONARY Hx Respiratory Disorders: Yes Hx Chronic Obstructive Pulmonary Disease (COPD): Yes - NEUROLOGICAL Hx Neurological Disorder: Yes Hx Alzheimer's Disease: Yes Hx Dementia: Yes - HEENT Hx HEENT Problems: No - RENAL Hx Chronic Kidney Disease: No - ENDOCRINE/METABOLIC Hx Endocrine Disorders: No - HEMATOLOGICAL/ONCOLOGICAL Hx Blood Disorders: No - INTEGUMENTARY Hx Dermatological Problems: No - MUSCULOSKELETAL/RHEUMATOLOGICAL Hx Musculoskeletal Disorders: Yes Hx Arthritis: Yes Hx Falls: No - GASTROINTESTINAL Hx Gastrointestinal Disorders: No - GENITOURINARY/GYNECOLOGICAL Hx Genitourinary Disorders: Yes Hx Prostate Problems: Yes (enlarged prostate) Hx Urinary Tract Infection: Yes - PSYCHIATRIC Hx Psychophysiologic Disorder: No Hx Substance Use: No - SURGICAL HISTORY Hx Surgeries: No - ANESTHESIA Hx Anesthesia: Yes Hx Anesthesia Reactions: Yes Hx Malignant Hyperthermia: No Has any member of the family had a problem w/ anesthesia?: No Meds Allergies/Adverse Reactions: Allergies Allergy/AdvReac Type Severity Reaction Status Date / Time No Known Allergies Allergy Verified 06/24/18 17:23 - Medications Medications: Current Medications Acetaminophen (Tylenol 325mg Tab) 650 mg PO Q4 [facility] Last Admin: 08/07/18 08:09 Dose: Not Given Apixaban (Eliquis) 5 mg PO BID [facility] Last Admin: 08/07/18 10:42 Dose: Not Given Aspirin (Aspirin Chewable) 81 mg PO DAILY [facility] Last Admin: 08/07/18 10:41 Dose: Not Given Dextrose (Dextrose 5% In Water 1000 Ml) 1,000 mls @ 80 mls/hr IV .[id number] [facility] Last Admin: 08/07/18 10:41 Dose: 80 mls/hr Piperacillin Sod/Tazobactam Sod (Zosyn 2.25 Gm Iv Premix) 2.25 gm in 50 mls @ 200 mls/hr IVPB Q6 [facility]; Protocol Last Admin: 08/07/18 05:50 Dose: 200 mls/hr Magnesium Hydroxide (Milk Of Magnesia) 30 ml PO DAILY [facility] Last Admin: 08/07/18 10:42 Dose: Not Given Metoprolol Tartrate (Lopressor) 25 mg NG BID [facility] Last Admin: 08/07/18 10:42 Dose: Not Given Rosuvastatin Calcium (Crestor) 2.5 mg PO HS [facility] Last Admin: 08/06/18 21:04 Dose: Not Given Results - Vital Signs Recent Vital Signs: Last Vital Signs Temp 98.2 F 08/07/18 07:00 Pulse 80 08/07/18 07:00 Resp 20 08/07/18 07:00 BP 107/57 L 08/07/18 07:00 Pulse Ox 97 08/07/18 07:00 - Labs Result Diagrams: 08/06/18 14:19 08/06/18 14:19 Labs: Laboratory Results - last 24 hr 08/06/18 08/06/18 08/06/18 13:43 14:19 14:19 WBC 9.9 RBC 3.31 L Hgb 11.6 L Hct 34.3 L MCV 103.7 H D MCH 35.2 H MCHC 34.0 RDW 16.3 H Plt Count 167 MPV 10.3 Neut % (Auto) 66.1 Lymph % (Auto) 28.1 [place] % (Auto) 4.8 Eos % (Auto) 0.5 Baso % (Auto) 0.5 Neut # (Auto) 6.5 Lymph # (Auto) 2.8 [place] # (Auto) 0.5 Eos # (Auto) 0.0 Baso # (Auto) 0.0 Sodium 164 H* Potassium 3.8 Chloride 131 H Carbon Dioxide 32 H Anion Gap 6 L BUN 57 H Creatinine 0.8 Est GFR ( Amer) > 60 Est GFR (Non-Af Amer) > 60 POC Glucose (mg/dL) 95 Random Glucose 90 Calcium 9.3 Total Bilirubin 4.3 H AST 19 ALT 23 Alkaline Phosphatase 91 Total Creatine Kinase CK-MB (Mass) Troponin I 0.1850 H* NT-Pro-B Natriuret Pep 78138 H Total Protein 5.2 L Albumin 2.5 L Globulin 2.7 Albumin/Globulin Ratio 0.9 L Urine Color Urine Clarity Urine pH Ur Specific [place] Urine Protein Urine Glucose (UA) Urine Ketones Urine Blood Urine Nitrate Urine Bilirubin Urine Urobilinogen Ur Leukocyte Esterase Urine WBC (Auto) Urine RBC (Auto) Ur Squamous Epith Cells Urine Yeast (Budding) 08/06/18 08/06/18 08/06/18 18:31 19:29 21:43 WBC RBC Hgb Hct MCV MCH MCHC RDW Plt Count MPV Neut % (Auto) Lymph % (Auto) [place] % (Auto) Eos % (Auto) Baso % (Auto) Neut # (Auto) Lymph # (Auto) [place] # (Auto) Eos # (Auto) Baso # (Auto) Sodium Potassium Chloride Carbon Dioxide Anion Gap BUN Creatinine Est GFR ( Amer) Est GFR (Non-Af Amer) POC Glucose (mg/dL) 111 H Random Glucose Calcium Total Bilirubin AST ALT Alkaline Phosphatase Total Creatine Kinase < 20 L CK-MB (Mass) 0.90 Troponin I 0.3270 H* NT-Pro-B Natriuret Pep Total Protein Albumin Globulin Albumin/Globulin Ratio Urine Color Marni Urine Clarity Clear Urine pH 5.0 Ur Specific [place] 1.023 Urine Protein Negative Urine Glucose (UA) Normal Urine Ketones Negative Urine Blood 1+ H Urine Nitrate Negative Urine Bilirubin 1+ H Urine Urobilinogen 4.0 Ur Leukocyte Esterase 2+ H Urine WBC (Auto) 46 H Urine RBC (Auto) 12 H Ur Squamous Epith Cells 10 H Urine Yeast (Budding) Few H
[2018-08-07 12:23] LABS: BLOOD UREA NITROGEN 56 mg/dL (9-20); GFR NON-AFRICAN AMERICAN > 60
--- NOTE | 2018-08-07 13:33 | CP.PCM.CON ---
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 Cardio was consulted for possible NSTEMI with elevated troponins. Patient's baseline is following very minimal commands and inability to answer questions. Pt was admitted to hospital in 05/2018 with elevated troponins and was managed medically at that time because he was not deemed a suitable can didate for invasive cardiac workup. Currently ROS unobtainable due to mental status. PMHx: stated above All-NKDA Social- unknown Meds- reviewed Review of Systems - Review of Systems Systems not reviewed;Unavailable: Dementia Past Patient History - Past Medical History & Family History Past Medical History?: Yes - Past Social History Smoking Status: Unknown If Ever Smoked - CARDIAC Hx Cardiac Disorders: Yes Hx Hypertension: Yes - PULMONARY Hx Chronic Obstructive Pulmonary Disease (COPD): Yes - NEUROLOGICAL HX Cerebrovascular Accident: Yes - HEENT Hx HEENT Problems: No - RENAL Hx Chronic Kidney Disease: No - ENDOCRINE/METABOLIC Hx Endocrine Disorders: No - HEMATOLOGICAL/ONCOLOGICAL Hx Blood Disorders: No - INTEGUMENTARY Hx Dermatological Problems: No - MUSCULOSKELETAL/RHEUMATOLOGICAL Hx Musculoskeletal Disorders: Yes Hx Arthritis: Yes Hx Falls: No - GASTROINTESTINAL Hx Gastrointestinal Disorders: No - GENITOURINARY/GYNECOLOGICAL Hx Genitourinary Disorders: Yes Hx Prostate Problems: Yes (enlarged prostate) Hx Urinary Tract Infection: Yes - PSYCHIATRIC Hx Psychophysiologic Disorder: No Hx Substance Use: No - SURGICAL HISTORY Hx Surgeries: No - ANESTHESIA Hx Anesthesia: Yes Hx Anesthesia Reactions: Yes Hx Malignant Hyperthermia: No Has any member of the family had a problem w/ anesthesia?: No Meds Allergies/Adverse Reactions: Allergies Allergy/AdvReac Type Severity Reaction Status Date / Time No Known Allergies Allergy Verified 06/24/18 17:23 - Medications Medications: Current Medications Acetaminophen (Tylenol 325mg Tab) 650 mg PO Q4 [facility] Last Admin: 08/07/18 13:02 Dose: Not Given Apixaban (Eliquis) 5 mg PO BID [facility] Last Admin: 08/07/18 10:42 Dose: Not Given Aspirin (Aspirin Chewable) 81 mg PO DAILY [facility] Last Admin: 08/07/18 10:41 Dose: Not Given Dextrose (Dextrose 5% In Water 1000 Ml) 1,000 mls @ 80 mls/hr IV .[id number] [facility] Last Admin: 08/07/18 10:41 Dose: 80 mls/hr Piperacillin Sod/Tazobactam Sod (Zosyn 2.25 Gm Iv Premix) 2.25 gm in 50 mls @ 200 mls/hr IVPB Q6 [facility]; Protocol Last Admin: 08/07/18 11:32 Dose: 200 mls/hr Potassium Chloride (Potassium Chloride 20 Meq/100 Ml) 20 meq in 100 mls @ 50 mls/hr IVPB ONCE ONE Stop: 08/07/18 14:59 Last Admin: 08/07/18 13:21 Dose: 50 mls/hr Magnesium Hydroxide (Milk Of Magnesia) 30 ml PO DAILY [facility] Last Admin: 08/07/18 10:42 Dose: Not Given Metoprolol Tartrate (Lopressor) 25 mg NG BID [facility] Last Admin: 08/07/18 10:42 Dose: Not Given Rosuvastatin Calcium (Crestor) 2.5 mg PO HS [facility] Last Admin: 08/06/18 21:04 Dose: Not Given Physical Exam - Constitutional Appears: Non-toxic, No Acute Distress - Head Exam Head Exam: ATRAUMATIC, NORMOCEPHALIC - ENT Exam ENT Exam: Mucous Membranes Moist - Respiratory Exam Respiratory Exam: Clear to Auscultation Bilateral. absent: Accessory Muscle Use, Rales, Rhonchi, Wheezes, Respiratory Distress - Cardiovascular Exam Cardiovascular Exam: REGULAR RHYTHM, +S1, +S2. absent: Diastolic murmur, Gallop, Rubs, Systolic Murmur - GI/Abdominal Exam GI & Abdominal Exam: Normal Bowel Sounds, Soft. absent: Distended, Firm, Guarding, Tenderness - Extremities Exam Extremities exam: Negative for: pedal edema, tenderness - Neurological Exam Additional comments: hemiparesis of left side. follows very minimal commands. Dysarthria noted - Skin Skin Exam: Dry, Intact, Normal Color, Warm Results - Vital Signs Recent Vital Signs: Last Vital Signs Temp 98.2 F 08/07/18 07:00 Pulse 80 08/07/18 07:00 Resp 20 08/07/18 07:00 BP 107/57 L 08/07/18 07:00 Pulse Ox 97 08/07/18 07:00 - Labs Result Diagrams: 08/06/18 14:19 08/07/18 11:32 Labs: Laboratory Results - last 24 hr 08/06/18 08/06/18 08/06/18 13:43 14:19 14:19 WBC 9.9 RBC 3.31 L Hgb 11.6 L Hct 34.3 L MCV 103.7 H D MCH 35.2 H MCHC 34.0 RDW 16.3 H Plt Count 167 MPV 10.3 Neut % (Auto) 66.1 Lymph % (Auto) 28.1 [place] % (Auto) 4.8 Eos % (Auto) 0.5 Baso % (Auto) 0.5 Neut # (Auto) 6.5 Lymph # (Auto) 2.8 [place] # (Auto) 0.5 Eos # (Auto) 0.0 Baso # (Auto) 0.0 Sodium 164 H* Potassium 3.8 Chloride 131 H Carbon Dioxide 32 H Anion Gap 6 L BUN 57 H Creatinine 0.8 Est GFR ( Amer) > 60 Est GFR (Non-Af Amer) > 60 POC Glucose (mg/dL) 95 Random Glucose 90 Calcium 9.3 Total Bilirubin 4.3 H AST 19 ALT 23 Alkaline Phosphatase 91 Total Creatine Kinase CK-MB (Mass) Troponin I 0.1850 H* NT-Pro-B Natriuret Pep 56069 H Total Protein 5.2 L Albumin 2.5 L Globulin 2.7 Albumin/Globulin Ratio 0.9 L Urine Color Urine Clarity Urine pH Ur Specific [place] Urine Protein Urine Glucose (UA) Urine Ketones Urine Blood Urine Nitrate Urine Bilirubin Urine Urobilinogen Ur Leukocyte Esterase Urine WBC (Auto) Urine RBC (Auto) Ur Squamous Epith Cells Urine Yeast (Budding) Urine Osmolality 08/06/18 08/06/18 08/06/18 18:31 19:29 21:43 WBC RBC Hgb Hct MCV MCH MCHC RDW Plt Count MPV Neut % (Auto) Lymph % (Auto) [place] % (Auto) Eos % (Auto) Baso % (Auto) Neut # (Auto) Lymph # (Auto) [place] # (Auto) Eos # (Auto) Baso # (Auto) Sodium Potassium Chloride Carbon Dioxide Anion Gap BUN Creatinine Est GFR ( Amer) Est GFR (Non-Af Amer) POC Glucose (mg/dL) 111 H Random Glucose Calcium Total Bilirubin AST ALT Alkaline Phosphatase Total Creatine Kinase < 20 L CK-MB (Mass) 0.90 Troponin I 0.3270 H* NT-Pro-B Natriuret Pep Total Protein Albumin Globulin Albumin/Globulin Ratio Urine Color Marni Urine Clarity Clear Urine pH 5.0 Ur Specific [place] 1.023 Urine Protein Negative Urine Glucose (UA) Normal Urine Ketones Negative Urine Blood 1+ H Urine Nitrate Negative Urine Bilirubin 1+ H Urine Urobilinogen 4.0 Ur Leukocyte Esterase 2+ H Urine WBC (Auto) 46 H Urine RBC (Auto) 12 H Ur Squamous Epith Cells 10 H Urine Yeast (Budding) Few H Urine Osmolality 08/07/18 08/07/18 11:32 12:20 WBC RBC Hgb Hct MCV MCH MCHC RDW Plt Count MPV Neut % (Auto) Lymph % (Auto) [place] % (Auto) Eos % (Auto) Baso % (Auto) Neut # (Auto) Lymph # (Auto) [place] # (Auto) Eos # (Auto) Baso # (Auto) Sodium 160 H* Potassium 3.3 L Chloride 126 H Carbon Dioxide 31 H Anion Gap 6 L BUN 56 H Creatinine 0.9 Est GFR ( Amer) > 60 Est GFR (Non-Af Amer) > 60 POC Glucose (mg/dL) Random Glucose 105 Calcium 9.0 Total Bilirubin AST ALT Alkaline Phosphatase Total Creatine Kinase CK-MB (Mass) Troponin I NT-Pro-B Natriuret Pep Total Protein Albumin Globulin Albumin/Globulin Ratio Urine Color Urine Clarity Urine pH Ur Specific [place] Urine Protein Urine Glucose (UA) Urine Ketones Urine Blood Urine Nitrate Urine Bilirubin Urine Urobilinogen Ur Leukocyte Esterase Urine WBC (Auto) Urine RBC (Auto) Ur Squamous Epith Cells Urine Yeast (Budding) Urine Osmolality 758 Assessment & Plan - Assessment and Plan (Free Text) Assessment: 83 year old male with past medical history Alzheimer's dz., COPD, HTN, A fib, CVA with left hemiparesis and dysarthria, 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 Troponins elevated on admission at 0.18 (repeat 0.32). EKG on admission showed a fib with no specific ST changes. NSTEMI - At this time, pt is not deemed suitable for invasive cardiac intervention. - Will optimize medical management with Metoprolol tartrate 25 mg po qd, Aspirin and Crestor therapy. Afib - Continue rate control with Metoprolol and AC with eliquis 5 mg po bid Case discussed with attending, Dr. Simpson - Date & Time Date: 08/07/18 Time: 14:15 <Misael Simpson - Last Filed: 08/07/18 22:24> Meds - Medications Medications: Current Medications Acetaminophen (Tylenol 325mg Tab) 650 mg PO Q4 [facility] Last Admin: 08/07/18 17:25 Dose: Not Given Apixaban (Eliquis) 5 mg PO BID [facility] Last Admin: 08/07/18 10:42 Dose: Not Given Aspirin (Aspirin Chewable) 81 mg PO DAILY [facility] Last Admin: 08/07/18 10:41 Dose: Not Given Dextrose (Dextrose 5% In Water 1000 Ml) 1,000 mls @ 80 mls/hr IV .[id number] [facility] Last Admin: 08/07/18 10:41 Dose: 80 mls/hr Piperacillin Sod/Tazobactam Sod (Zosyn 2.25 Gm Iv Premix) 2.25 gm in 50 mls @ 200 mls/hr IVPB Q6 [facility]; Protocol Last Admin: 08/07/18 17:24 Dose: 200 mls/hr Magnesium Hydroxide (Milk Of Magnesia) 30 ml PO DAILY [facility] Last Admin: 08/07/18 10:42 Dose: Not Given Metoprolol Tartrate (Lopressor) 25 mg NG BID [facility] Last Admin: 08/07/18 10:42 Dose: Not Given Rosuvastatin Calcium (Crestor) 2.5 mg PO HS [facility] Last Admin: 08/07/18 21:29 Dose: Not Given Results - Vital Signs Recent Vital Signs: Last Vital Signs Temp 97.4 F L 08/07/18 16:00 Pulse 91 H 08/07/18 16:00 Resp 20 08/07/18 16:00 BP 118/62 08/07/18 16:00 Pulse Ox 96 08/07/18 16:00 - Labs Result Diagrams: 08/06/18 14:19 08/07/18 11:32 Labs: Laboratory Results - last 24 hr 08/07/18 08/07/18 11:32 12:20 Sodium 160 H* Potassium 3.3 L Chloride 126 H Carbon Dioxide 31 H Anion Gap 6 L BUN 56 H Creatinine 0.9 Est GFR ( Amer) > 60 Est GFR (Non-Af Amer) > 60 Random Glucose 105 Calcium 9.0 Urine Osmolality 758 Ur Random Creatinine 125.2 Ur Random Sodium 43 Ur Random Potassium 111.1 Assessment & Plan - Assessment and Plan (Free Text) Assessment: Patient seen and evaluated personally by me. Plan of care d/w the biomedical equipment specialist and as documented
[2018-08-07 13:52] LABS: CREATININE, RANDOM URINE 125.2 mg/dL
--- NOTE | 2018-08-07 20:46 | CP.PCM.HP ---
Present on Admission - Present on Admission Any Indicators Present on Admission: No Past Patient History - Past Medical History & Family History Past Medical History?: Yes - Past Social History Smoking Status: Unknown If Ever Smoked - CARDIAC Hx Cardiac Disorders: Yes Hx Hypertension: Yes - PULMONARY Hx Chronic Obstructive Pulmonary Disease (COPD): Yes - NEUROLOGICAL HX Cerebrovascular Accident: Yes - HEENT Hx HEENT Problems: No - RENAL Hx Chronic Kidney Disease: No - ENDOCRINE/METABOLIC Hx Endocrine Disorders: No - HEMATOLOGICAL/ONCOLOGICAL Hx Blood Disorders: No - INTEGUMENTARY Hx Dermatological Problems: No - MUSCULOSKELETAL/RHEUMATOLOGICAL Hx Musculoskeletal Disorders: Yes Hx Arthritis: Yes Hx Falls: No - GASTROINTESTINAL Hx Gastrointestinal Disorders: No - GENITOURINARY/GYNECOLOGICAL Hx Genitourinary Disorders: Yes Hx Prostate Problems: Yes (enlarged prostate) Hx Urinary Tract Infection: Yes - PSYCHIATRIC Hx Psychophysiologic Disorder: No Hx Substance Use: No - SURGICAL HISTORY Hx Surgeries: No - ANESTHESIA Hx Anesthesia: Yes Hx Anesthesia Reactions: Yes Hx Malignant Hyperthermia: No Has any member of the family had a problem w/ anesthesia?: No Meds Allergies/Adverse Reactions: Allergies Allergy/AdvReac Type Severity Reaction Status Date / Time No Known Allergies Allergy Verified 06/24/18 17:23 Results - Vital Signs Recent Vital Signs: Last Vital Signs Temp 97.4 F L 08/07/18 16:00 Pulse 91 H 08/07/18 16:00 Resp 20 08/07/18 16:00 BP 118/62 08/07/18 16:00 Pulse Ox 96 08/07/18 16:00 - Labs Result Diagrams: 08/19/18 11:30 08/19/18 11:30 Labs: Laboratory Results - last 24 hr 08/06/18 08/07/18 08/07/18 21:43 11:32 12:20 Sodium 160 H* Potassium 3.3 L Chloride 126 H Carbon Dioxide 31 H Anion Gap 6 L BUN 56 H Creatinine 0.9 Est GFR ( Amer) > 60 Est GFR (Non-Af Amer) > 60 Random Glucose 105 Calcium 9.0 Total Creatine Kinase < 20 L CK-MB (Mass) 0.90 Troponin I 0.3270 H* Urine Osmolality 758 Ur Random Creatinine 125.2 Ur Random Sodium 43 Ur Random Potassium 111.1
[2018-08-07] MEDS: Rosuvastatin Calcium 2.5 mg Tab PO SCH (21:29)
[2018-08-08] MEDS: Piperacill/Tazo 2.25gm in Dex 2.25 GM/50 ML BAG IVPB SCH ×4 (00:43→17:43)
--- NOTE | 2018-08-08 06:12 | HP ---
CHIEF COMPLAINT: Weakness and altered mental status. HISTORY OF PRESENT ILLNESS: This is an 83-year-old male, well known to me, with a history of diabetes, hypertension, and coronary artery disease, status post acute DC, and dehydration. Currently, the patient is in a subacute rehab facility in [place] and in his usual status health, he is bed bound, and he is dependent on rehab staff for activities of daily living. He is doing minimal physiotherapy with a little cooperation. On the day of admission, he was found to be weak, lethargic, tired, and even found barely arousable. The patient is nonverbal and no further details were obtainable. Per subacute rehab record, the patient did not have any nausea, vomiting, or diarrhea. There was no history of polyuria or polydipsia. There is no complaint of any kind of pain in the abdomen. The patient has not been able to do much physiotherapy. No further details obtainable. PAST MEDICAL HISTORY: Alzheimer's, hypertension, CVA, COPD, and arthritis. SOCIAL HISTORY: Nonsmoker, non-EtOH user. MEDICATIONS: His current medications are potassium chloride, milk of magnesia, hydrochlorothiazide, Lopressor, Namenda, Cozaar, aspirin, Eliquis, Tylenol, and Mylanta. FAMILY HISTORY: Not obtainable. SOCIAL HISTORY: Not obtainable. PHYSICAL EXAMINATION: GENERAL: An elderly male, weak, lethargic, and he is arousable. He moves all extremities. VITAL SIGNS: Blood pressure 107/57, pulse 80, respiratory rate 20, and temperature 96.2. SKIN: Dry, senile turgor. The patient has some bruises. No purpura. No petechiae. HEENT: Atraumatic and normocephalic. Positive pallor. Negative jaundice. NECK: Supple. Flat neck vein. No JVD. No lymph nodes. No thyromegaly. CHEST WALL: Bilateral symmetrical expansion. LUNGS: Bilateral basal crepitation. Decreased air entry. CARDIOVASCULAR SYSTEM: PMI not localized. S1 and S2 plus S3 positive. ABDOMEN: Soft and nontender. Bowel sounds are positive. RECTAL: Enlarged prostate. EXTREMITIES: No clubbing, cyanosis, or edema. CENTRAL NERVOUS SYSTEM: The patient is arousable, but he moves extremities, but he does not talk. ASSESSMENT: 1. Dehydration, hypernatremia with hypokalemia. 2. Acute myocardial infarction, coronary artery disease. 3. Alzheimer. 4. Rule out septicemia. PLAN: Admit. Detailed orders are written. Seen and examined. Esau Jacobs MD
[2018-08-08 08:19] LABS: INR 1.7; PROTHROMBIN TIME 18.2 SECONDS (9.7-12.2)
[2018-08-08] MEDS: Magnesium Hydroxide Susp 30 ml UD PO SCH (09:40)
[2018-08-08 12:31] LABS: BASO % 0.5 % (0.0-2.0); EOS # 0.1 K/uL (0.0-0.7); EOS % 1.1 % (0.0-4.0); HEMOGLOBIN 11.5 g/dL (12.0-18.0); LYMPH # 2.7 K/uL (1.0-4.3); LYMPH % 27.6 % (20.0-40.0); MEAN CELL VOLUME 104.3 fL (80.0-94.0); MEAN CORPUSCULAR HGB CONC 34.5 g/dL (33.0-37.0); MEAN PLATELET VOLUME 10.3 fL (7.2-11.7); MONO # 0.5 K/uL (0.0-0.8); MONO % 5.2 % (0.0-10.0); NEUT # 6.4 K/uL (1.8-7.0); NEUT % 65.6 % (50.0-75.0); NRBC % 0.2 % (0.0-2.0); RBC 3.2 Mil/uL (4.40-5.90); RED CELL DISTRIBUTION WIDTH 16.1 % (11.5-14.5); WHITE BLOOD COUNT 9.7 K/uL (4.8-10.8)
[2018-08-08 12:52] LABS: BLOOD UREA NITROGEN 53 mg/dL (9-20); CALCIUM 8.8 mg/dl (8.6-10.4); GFR NON-AFRICAN AMERICAN > 60
--- NOTE | 2018-08-08 14:13 | CP.PCM.PN ---
Subjective - Date & Time of Evaluation Date of Evaluation: 08/08/18 Time of Evaluation: 14:09 - Subjective Subjective: GI Fellow PGY4, progress note. Patient is not communicating with me on my exam. He does not appear to be in distress. He has butler with dark colored urine. I spoke with POA and son, Fredrick Dennison. We discussed patient status includ ing dehydration, poor po intake, recent NSTEMI, and recent anticoagulation use. He agrees to hold off any PEG placement at this time. We will continue to treat patient and discuss plan. Objective - Vital Signs/Intake and Output Vital Signs (last 24 hours): Temp Pulse Resp BP Pulse Ox 97.6 F 86 20 99/51 L 97 08/08/18 07:25 08/08/18 07:25 08/08/18 07:25 08/08/18 07:25 08/08/18 07:25 Intake and Output: 08/08/18 08/08/18 06:59 18:59 Intake Total 640 660 Output Total 350 Balance 640 310 - Medications Medications: Current Medications Acetaminophen (Tylenol 325mg Tab) 650 mg PO Q4 [facility] Last Admin: 08/08/18 14:03 Dose: Not Given Apixaban (Eliquis) 5 mg PO BID [facility] Last Admin: 08/08/18 09:40 Dose: Not Given Aspirin (Aspirin Chewable) 81 mg PO DAILY [facility] Last Admin: 08/08/18 09:40 Dose: Not Given Dextrose (Dextrose 5% In Water 1000 Ml) 1,000 mls @ 80 mls/hr IV .[id number] [facility] Last Admin: 08/08/18 03:21 Dose: 80 mls/hr Piperacillin Sod/Tazobactam Sod (Zosyn 2.25 Gm Iv Premix) 2.25 gm in 50 mls @ 200 mls/hr IVPB Q6 [facility]; Protocol Last Admin: 08/08/18 11:59 Dose: 200 mls/hr Magnesium Hydroxide (Milk Of Magnesia) 30 ml PO DAILY [facility] Last Admin: 08/08/18 09:40 Dose: Not Given Metoprolol Tartrate (Lopressor) 25 mg NG BID [facility] Last Admin: 08/08/18 09:40 Dose: Not Given Rosuvastatin Calcium (Crestor) 2.5 mg PO HS [facility] Last Admin: 08/07/18 21:29 Dose: Not Given - Labs Labs: 08/08/18 12:22 08/08/18 12:22 PT 18.2 SECONDS (9.7-12.2) H 08/08/18 08:01 INR 1.7 08/08/18 08:01 APTT 34 SECONDS (21-34) 08/08/18 08:01 - Constitutional Appears: Non-toxic, Confused, Chronically Ill - Head Exam Head Exam: ATRAUMATIC, NORMAL INSPECTION - Respiratory Exam Respiratory Exam: Clear to Ausculation Bilateral, NORMAL BREATHING PATTERN - Cardiovascular Exam Cardiovascular Exam: REGULAR RHYTHM, +S1, +S2 - GI/Abdominal Exam GI & Abdominal Exam: Soft, Normal Bowel Sounds. absent: Distended, Firm, Guarding, Tenderness - Neurological Exam Neurological Exam: Altered. absent: Oriented x3 - Psychiatric Exam Psychiatric exam: Agitated - Skin Skin Exam: Normal Color, Warm Assessment and Plan - Assessment and Plan (Free Text) Assessment: #Severe dehydration #NSTEMI #Coagulopathy due to Eliquis #Hypernatremia #Alzheimers #Failure to thrive PLAN: -Discussed possible PEG placement with sonDEDRICK and will hold off for now until patient is more stable and revisit the conversation. -If plan is for PEG we would hold Eliquis x3-5 days, but defer to cardiology if medication is critical at this point. -We would need cardiac clearance prior to PEG. -Correct electrolyte abnormalities per primary team -Sodium must be corrected slowly, no more than a change of 10mEq per day. -No endoscopic procedures planned at this time. Case discussed with Dr. Gonsalez, see attestation.
--- NOTE | 2018-08-08 14:55 | CP.PCM.PN ---
Subjective - Date & Time of Evaluation Date of Evaluation: 08/08/18 Time of Evaluation: 14:54 - Subjective Subjective: Nephrology Consultation Note: Assessment: Stable Hypernatremia likely due to dehydration, limited oral fluid intake Hypokalemia mild anemia hyperbilirubinemia COPD, CAD, dementia, CVA hypertension (years) aortic insuff with AV endocarditis Plan No acute need for renal replacement therapy at this time. Hypertension control with meds as ordered. Maintain hemodynamics stable. Avoid hypotension. Patient not on ACEI/ARB due to low BP Monitor Input/Output, daily weights and renal function with basic metabolic panel agree with hypotonic fluids as D5W increased to 100 ml/hr. further rate titration will be based upon his response supplement KCL monitor for urine retention with bladder scans as needed. Dose meds/antibiotics for GFR>60 Glycemic control Further work up/management as per primary team Thanks for allowing me to participate in care of your patient. Will follow patient with you. Please call if any Qs Dr Chris Reese Office: [phone] Chief Complaint; unable Reason for consult: Hypernatremia HPI: Pt is a 83 M with hx of COPD, CAD, dementia, CVA hypertension (years) aortic insuff with AV endocarditis presented with complaints of dehydration and being managed for hypernatremia, elevated troponins renal consult for elevated BUN and hypernatremia no knwon OTC/herbal meds or NSAIDs No recent iodinated contrast exposure. No obvious episodes of low BP. pt unable to provide any hx ROS: Unable to obtain Physical Examination: General Appearance: Comfortable, in no acute respiratory distress, co-operative . non verbal/non communicative Vitals reviewed and noted as below Head; Atraumatic, normocephalic ENT: no ulcers no thrush. Tongue is midline/dry. Oropharynx: no rash or ulcers. EYES: Pupils are equal, round and reactive to light accommodation. Eye muscles and extraocular movement intact. Sclera is icteric. Neck; supple no lymphadenopathy, no thyromegaly or bruit Lungs: Normal respiratory rate/effort. Breath sounds bilateral equal and clear Heart: Normal rate. s1s2 normal. No rub or gallop. Extremities: no edema. No varicose veins Neurological: Patient is awake non verbal/non communicative Skin: Warm and dry. Normal turgor. No rash. Palpitation: Normal elasticity for age Abdomen: Abdomen is soft. Bowel sounds +. There is no abdominal tenderness, no guarding/rigidity no organomegaly Psych: unable MSK: no joint tenderness or swelling. Digits and nails normal, no deformity : kidney or bladder not palpable Labs/imaging reviewed. Past medical history, past surgical history, family history, social history, allergy reviewed and noted as below Family hx: no hx of CKD. Rest non-contributory Objective - Vital Signs/Intake and Output Vital Signs (last 24 hours): Temp Pulse Resp BP Pulse Ox 97.6 F 86 20 99/51 L 97 08/08/18 07:25 08/08/18 07:25 08/08/18 07:25 08/08/18 07:25 08/08/18 07:25 Intake and Output: 08/08/18 08/08/18 06:59 18:59 Intake Total 640 1300 Output Total 550 Balance 640 750 - Medications Medications: Current Medications Acetaminophen (Tylenol 325mg Tab) 650 mg PO Q4 [facility] Last Admin: 08/08/18 14:03 Dose: Not Given Apixaban (Eliquis) 5 mg PO BID [facility] Last Admin: 08/08/18 09:40 Dose: Not Given Aspirin (Aspirin Chewable) 81 mg PO DAILY [facility] Last Admin: 08/08/18 09:40 Dose: Not Given Piperacillin Sod/Tazobactam Sod (Zosyn 2.25 Gm Iv Premix) 2.25 gm in 50 mls @ 200 mls/hr IVPB Q6 [facility]; Protocol Last Admin: 08/08/18 11:59 Dose: 200 mls/hr Potassium Chloride (Potassium Chloride 10 Meq/100 Ml) 10 meq in 100 mls @ 100 mls/hr IVPB ONCE ONE Stop: 08/08/18 15:53 Potassium Chloride 20 meq/ (Dextrose) 1,010 mls @ 100 mls/hr IV .Q10H6M [facility] Magnesium Hydroxide (Milk Of Magnesia) 30 ml PO DAILY [facility] Last Admin: 08/08/18 09:40 Dose: Not Given Metoprolol Tartrate (Lopressor) 25 mg NG BID [facility] Last Admin: 08/08/18 09:40 Dose: Not Given Rosuvastatin Calcium (Crestor) 2.5 mg PO HS [facility] Last Admin: 08/07/18 21:29 Dose: Not Given - Labs Labs: 08/08/18 12:22 08/08/18 12:22 PT 18.2 SECONDS (9.7-12.2) H 08/08/18 08:01 INR 1.7 08/08/18 08:01 APTT 34 SECONDS (21-34) 08/08/18 08:01
--- NOTE | 2018-08-08 20:52 | CP.PCM.PN ---
Subjective - Subjective Subjective: dictated Objective - Vital Signs/Intake and Output Vital Signs (last 24 hours): Temp Pulse Resp BP Pulse Ox 97.4 F L 89 20 133/67 100 08/08/18 16:00 08/08/18 16:00 08/08/18 16:00 08/08/18 16:00 08/08/18 16:00 Intake and Output: 08/08/18 08/09/18 18:59 06:59 Intake Total 1300 Output Total 550 Balance 750 - Medications Medications: Current Medications Acetaminophen (Tylenol 325mg Tab) 650 mg PO Q4 [facility] Last Admin: 08/08/18 17:43 Dose: Not Given Apixaban (Eliquis) 5 mg PO BID [facility] Last Admin: 08/08/18 17:41 Dose: Not Given Aspirin (Aspirin Chewable) 81 mg PO DAILY [facility] Last Admin: 08/08/18 09:40 Dose: Not Given Piperacillin Sod/Tazobactam Sod (Zosyn 2.25 Gm Iv Premix) 2.25 gm in 50 mls @ 2 00 mls/hr IVPB Q6 [facility]; Protocol Last Admin: 08/08/18 17:43 Dose: 200 mls/hr Potassium Chloride 20 meq/ (Dextrose) 1,010 mls @ 100 mls/hr IV .Q10H6M [facility] Last Admin: 08/08/18 17:44 Dose: 100 mls/hr Magnesium Hydroxide (Milk Of Magnesia) 30 ml PO DAILY [facility] Last Admin: 08/08/18 09:40 Dose: Not Given Metoprolol Tartrate (Lopressor) 25 mg NG BID [facility] Last Admin: 08/08/18 17:42 Dose: Not Given Rosuvastatin Calcium (Crestor) 2.5 mg PO HS [facility] Last Admin: 08/07/18 21:29 Dose: Not Given - Labs Labs: 08/08/18 12:22 08/08/18 12:22 PT 18.2 SECONDS (9.7-12.2) H 08/08/18 08:01 INR 1.7 08/08/18 08:01 APTT 34 SECONDS (21-34) 08/08/18 08:01
[2018-08-08] MEDS: Rosuvastatin Calcium 2.5 mg Tab PO SCH (22:00)
--- NOTE | 2018-08-08 22:58 | CP.PCM.PN ---
Subjective - Date & Time of Evaluation Date of Evaluation: 08/08/18 Time of Evaluation: 18:30 - Subjective Subjective: Patient seen and evaluated Physical Exam - Constitutional Appears: Non-toxic, No Acute Distress - Head Exam Head Exam: ATRAUMATIC, NORMOCEPHALIC - ENT Exam ENT Exam: Mucous Membranes Moist - Respiratory Exam Respiratory Exam: Clear to Auscultation Bilateral. absent: Accessory Muscle Use, Rales, Rhonchi, Wheezes, Respiratory Distress - Cardiovascular Exam Cardiovascular Exam: REGULAR RHYTHM, +S1, +S2. absent: Diastolic murmur, Gallop, Rubs, Systolic Murmur - GI/Abdominal Exam GI & Abdominal Exam: Normal Bowel Sounds, Soft. absent: Distended, Firm, Guarding, Tenderness - Extremities Exam Extremities exam: Negative for: pedal edema, tenderness - Neurological Exam Additional comments: hemiparesis of left side. follows very minimal commands. 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 Troponins elevated on admission at 0.18 (repeat 0.32). EKG on admission showed a fib with no specific ST changes. NSTEMI - At this time, pt is not deemed suitable for invasive cardiac intervention. - Will optimize medical management with Metoprolol tartrate 25 mg po qd, Aspirin and Crestor therapy. Afib - Continue rate control with Metoprolol and AC with eliquis 5 mg po bid Patient Objective - Vital Signs/Intake and Output Vital Signs (last 24 hours): Temp Pulse Resp BP Pulse Ox 97.4 F L 89 20 133/67 100 08/08/18 16:00 08/08/18 16:00 08/08/18 16:00 08/08/18 16:00 08/08/18 16:00 Intake and Output: 08/08/18 08/09/18 18:59 06:59 Intake Total 1300 Output Total 550 Balance 750 - Medications Medications: Current Medications Acetaminophen (Tylenol 325mg Tab) 650 mg PO Q4 [facility] Last Admin: 08/08/18 17:43 Dose: Not Given Apixaban (Eliquis) 5 mg PO BID [facility] Last Admin: 08/08/18 17:41 Dose: Not Given Aspirin (Aspirin Chewable) 81 mg PO DAILY [facility] Last Admin: 08/08/18 09:40 Dose: Not Given Piperacillin Sod/Tazobactam Sod (Zosyn 2.25 Gm Iv Premix) 2.25 gm in 50 mls @ 200 mls/hr IVPB Q6 [facility]; Protocol Last Admin: 08/08/18 17:43 Dose: 200 mls/hr Potassium Chloride 20 meq/ (Dextrose) 1,010 mls @ 100 mls/hr IV .Q10H6M [facility] Last Admin: 08/08/18 17:44 Dose: 100 mls/hr Magnesium Hydroxide (Milk Of Magnesia) 30 ml PO DAILY [facility] Last Admin: 08/08/18 09:40 Dose: Not Given Metoprolol Tartrate (Lopressor) 25 mg NG BID [facility] Last Admin: 08/08/18 17:42 Dose: Not Given Rosuvastatin Calcium (Crestor) 2.5 mg PO HS [facility] Last Admin: 08/07/18 21:29 Dose: Not Given - Labs Labs: 08/08/18 12:22 08/08/18 12:22 PT 18.2 SECONDS (9.7-12.2) H 08/08/18 08:01 INR 1.7 08/08/18 08:01 APTT 34 SECONDS (21-34) 08/08/18 08:01
[2018-08-09] MEDS: Piperacill/Tazo 2.25gm in Dex 2.25 GM/50 ML BAG IVPB SCH ×4 (00:32→17:25)
--- NOTE | 2018-08-09 02:44 | PN ---
DATE: 08/08/2018 SUBJECTIVE: The patient is afebrile. He is on IV fluid. Being seen by Nephrology. BUN and creatinine are coming down. Sodium is coming down. PHYSICAL EXAMINATION: VITAL SIGNS: BP 133/67, pulse 89, respiratory rate 20, temperature 97.4. LUNGS: Clear. CARDIOVASCULAR SYSTEM: S1 and S2 are regular. ABDOMEN: Soft, nontender. Bowels sounds are positive. LABORATORY DATA: Urine culture positive for gram-positive cocci. Blood cultures: One set is positive, two sets are negative, so it is contamination. ASSESSMENT: 1. Urinary tract infection. 2. Rule out septicemia. 3. Dehydration, hyponatremia, hypokalemia. 4. Alzheimer. 5. Coronary artery disease, acute myocardial infarction. PLAN: Continue IV fluid. Monitor the patient. Esau Jacobs MD
[2018-08-09 06:33] LABS: BLOOD UREA NITROGEN 47 mg/dL (9-20); CALCIUM 8.6 mg/dl (8.6-10.4); GFR NON-AFRICAN AMERICAN > 60
[2018-08-09] MEDS: Magnesium Hydroxide Susp 30 ml UD PO SCH (09:31)
--- NOTE | 2018-08-09 14:03 | CP.PCM.PN ---
Subjective - Date & Time of Evaluation Date of Evaluation: 08/09/18 Time of Evaluation: 14:03 - Subjective Subjective: Nephrology Consultation Note: Assessment: Stable Hypernatremia likely due to dehydration, limited oral fluid intake Hypokalemia mild anemia hyperbilirubinemia COPD, CAD, dementia, CVA hypertension (years) aortic insuff with AV endocarditis Plan No acute need for renal replacement therapy at this time. Hypertension control with meds as ordered. Maintain hemodynamics stable. Avoid hypotension. Patient not on ACEI/ARB due to low BP Monitor Input/Output, daily weights and renal function with basic metabolic panel agree with hypotonic fluids as D5W increased to 100 ml/hr. further rate titration will be based upon his response supplement KCL monitor for urine retention with bladder scans as needed. Dose meds/antibiotics for GFR>60 Glycemic control Further work up/management as per primary team Thanks for allowing me to participate in care of your patient. Will follow patient with you. Please call if any Qs Dr Chris Reese Office: [phone] Chief Complaint; unable Reason for consult: Hypernatremia HPI: Pt is a 83 M with hx of COPD, CAD, dementia, CVA hypertension (years) aortic insuff with AV endocarditis presented with complaints of dehydration and being managed for hypernatremia, elevated troponins renal consult for elevated BUN and hypernatremia no knwon OTC/herbal meds or NSAIDs No recent iodinated contrast exposure. No obvious episodes of low BP. pt unable to provide any hx ROS: Unable to obtain Physical Examination: General Appearance: Comfortable, in no acute respiratory distress, co-operative . non verbal/non communicative Vitals reviewed and noted as below Head; Atraumatic, normocephalic ENT: no ulcers no thrush. Tongue is midline/dry. Oropharynx: no rash or ulcers. EYES: Pupils are equal, round and reactive to light accommodation. Eye muscles and extraocular movement intact. Sclera is icteric. Neck; supple no lymphadenopathy, no thyromegaly or bruit Lungs: Normal respiratory rate/effort. Breath sounds bilateral equal and clear Heart: Normal rate. s1s2 normal. No rub or gallop. Extremities: no edema. No varicose veins Neurological: Patient is awake non verbal/non communicative Skin: Warm and dry. Normal turgor. No rash. Palpitation: Normal elasticity for age Abdomen: Abdomen is soft. Bowel sounds +. There is no abdominal tenderness, no guarding/rigidity no organomegaly Psych: unable MSK: no joint tenderness or swelling. Digits and nails normal, no deformity : kidney or bladder not palpable Labs/imaging reviewed. Past medical history, past surgical history, family history, social history, allergy reviewed and noted as below Family hx: no hx of CKD. Rest non-contributory Objective - Vital Signs/Intake and Output Vital Signs (last 24 hours): Temp Pulse Resp BP Pulse Ox 99.0 F 89 18 117/58 L 100 08/09/18 07:30 08/09/18 07:30 08/09/18 07:30 08/09/18 07:30 08/09/18 07:30 Intake and Output: 08/09/18 08/09/18 06:59 18:59 Intake Total 1450 Output Total 400 Balance 1050 - Medications Medications: Current Medications Acetaminophen (Tylenol 325mg Tab) 650 mg PO Q4 [facility] Last Admin: 08/09/18 09:31 Dose: Not Given Apixaban (Eliquis) 5 mg PO BID [facility] Last Admin: 08/09/18 09:31 Dose: Not Given Aspirin (Aspirin Chewable) 81 mg PO DAILY [facility] Last Admin: 08/09/18 09:43 Dose: Not Given Piperacillin Sod/Tazobactam Sod (Zosyn 2.25 Gm Iv Premix) 2.25 gm in 50 mls @ 2 00 mls/hr IVPB Q6 [facility]; Protocol Last Admin: 08/09/18 11:11 Dose: 200 mls/hr Potassium Chloride 40 meq/ (Dextrose) 1,020 mls @ 100 mls/hr IV .[id number] [facility] Last Admin: 08/09/18 12:09 Dose: 100 mls/hr Magnesium Hydroxide (Milk Of Magnesia) 30 ml PO DAILY [facility] Last Admin: 08/09/18 09:31 Dose: Not Given Metoprolol Tartrate (Lopressor) 25 mg NG BID [facility] Last Admin: 08/09/18 09:31 Dose: Not Given Rosuvastatin Calcium (Crestor) 2.5 mg PO HS [facility] Last Admin: 08/07/18 21:29 Dose: Not Given - Labs Labs: 08/08/18 12:22 08/09/18 06:13 PT 18.2 SECONDS (9.7-12.2) H 08/08/18 08:01 INR 1.7 08/08/18 08:01 APTT 34 SECONDS (21-34) 08/08/18 08:01
--- NOTE | 2018-08-09 19:33 | CP.PCM.CON ---
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 found to have NSTEMI with elevated troponins. ID consulted for VRE urine Blood 1/2 sets coag neg staph Patient cant provide history PMHx: stated above All-NKDA Social- unknown Meds- reviewed Review of Systems - Review of Systems All systems: reviewed and no additional remarkable complaints except - Constitutional Constitutional: As Per HPI - EENT Eyes: absent: As Per HPI, Blind Spots, Blurred Vision, Change in Vision, Decreased Night Vision, Diplopia, Discharge, Dry Eye, Exophthalmos, Floaters, Irritation, Itchy Eyes, Loss of Peripheral Vision, Pain, Photophobia, Requires Corrective Lenses, Sees Flashes, Spots in Vision, Tunnel Vision, Other Visual Disturbances, Loss of Vision, Other Ears: absent: As Per HPI, Decreased Hearing, Ear Discharge, Ear Pain, Tinnitus, Abnormal Hearing, Disequilibrium, Dizziness, Other Nose/Mouth/Throat: absent: As Per HPI, Epistaxis, Nasal Congestion, Nasal Discharge, Nasal Obstruction, Nasal Trauma, Nose Pain, Post Nasal Drip, Sinus Pain, Sinus Pressure, Bleeding Gums, Change in Voice, Dental Pain, Dry Mouth, Dysphagia, Halitosis, Hoarsness, Lip Swelling, Mouth Lesions, Mouth Pain, Odynophagia, Sore Throat, Throat Swelling, Tongue Swelling, Facial Pain, Neck Pain, Neck Mass, Other - Cardiovascular Cardiovascular: As Per HPI - Respiratory Respiratory: As Per HPI, Cough, Dyspnea - Gastrointestinal Gastrointestinal: absent: As Per HPI, Abdominal Pain, Belching, Bloating, Change in Bowel Habits, Change in Stool Character, Coffee Ground Emesis, Constipation, Cramping, Diarrhea, Dyspepsia, Dysphagia, Early Satiety, Excessive Flatus, Fecal Incontinence, Heartburn, Hematemesis, Hematochezia, Loose Stools, Melena, Nausea, Odynophagia, Temesmus, Vomiting, Other - Genitourinary Genitourinary: absent: As Per HPI, Change in Urinary Stream, Difficulty Urinating, Dysuria, Flank Pain, Hematuria, Pyuria, Nocturia, Urinary Incontinence, Urinary Frequency, Urinary Hesitance, Urinary Urgency, Voiding Freq/Small Amts, Freq UTI, Hx Renal/Bladder Calculi, Hx /Renal Surgery, Bladder Distension, Other Past Patient History - Past Medical History & Family History Past Medical History?: Yes - Past Social History Smoking Status: Unknown If Ever Smoked - CARDIAC Hx Cardiac Disorders: Yes Hx Hypertension: Yes - PULMONARY Hx Chronic Obstructive Pulmonary Disease (COPD): Yes - NEUROLOGICAL HX Cerebrovascular Accident: Yes - HEENT Hx HEENT Problems: No - RENAL Hx Chronic Kidney Disease: No - ENDOCRINE/METABOLIC Hx Endocrine Disorders: No - HEMATOLOGICAL/ONCOLOGICAL Hx Blood Disorders: No - INTEGUMENTARY Hx Dermatological Problems: No - MUSCULOSKELETAL/RHEUMATOLOGICAL Hx Arthritis: Yes - GASTROINTESTINAL Hx Gastrointestinal Disorders: No - GENITOURINARY/GYNECOLOGICAL Hx Genitourinary Disorders: Yes Hx Prostate Problems: Yes (enlarged prostate) Hx Urinary Tract Infection: Yes - PSYCHIATRIC Hx Psychophysiologic Disorder: No Hx Substance Use: No - SURGICAL HISTORY Hx Surgeries: No - ANESTHESIA Hx Anesthesia: Yes Hx Anesthesia Reactions: Yes Hx Malignant Hyperthermia: No Has any member of the family had a problem w/ anesthesia?: No Meds Allergies/Adverse Reactions: Allergies Allergy/AdvReac Type Severity Reaction Status Date / Time No Known Allergies Allergy Verified 06/24/18 17:23 - Medications Medications: Current Medications Acetaminophen (Tylenol 325mg Tab) 650 mg PO Q4 [facility] Last Admin: 08/09/18 17:26 Dose: Not Given Apixaban (Eliquis) 5 mg PO BID [facility] Last Admin: 08/09/18 17:27 Dose: Not Given Aspirin (Aspirin Chewable) 81 mg PO DAILY [facility] Last Admin: 08/09/18 09:43 Dose: Not Given Piperacillin Sod/Tazobactam Sod (Zosyn 2.25 Gm Iv Premix) 2.25 gm in 50 mls @ 200 mls/hr IVPB Q6 [facility]; Protocol Last Admin: 08/09/18 17:25 Dose: 200 mls/hr Potassium Chloride 40 meq/ (Dextrose) 1,020 mls @ 100 mls/hr IV .[id number] [facility] Last Admin: 08/09/18 12:09 Dose: 100 mls/hr Magnesium Hydroxide (Milk Of Magnesia) 30 ml PO DAILY [facility] Last Admin: 08/09/18 09:31 Dose: Not Given Metoprolol Tartrate (Lopressor) 25 mg NG BID [facility] Last Admin: 08/09/18 17:27 Dose: Not Given Rosuvastatin Calcium (Crestor) 2.5 mg PO HS [facility] Last Admin: 08/08/18 22:00 Dose: Not Given Physical Exam - Constitutional Appears: Confused, Chronically Ill - Head Exam Head Exam: ATRAUMATIC, NORMOCEPHALIC - Eye Exam Eye Exam: absent: Scleral icterus - ENT Exam ENT Exam: Mucous Membranes Dry, Normal External Ear Exam - Neck Exam Neck exam: Negative for: Lymphadenopathy - Respiratory Exam Respiratory Exam: Decreased Breath Sounds, Prolonged Expiratory Phase, Rhonchi - Cardiovascular Exam Cardiovascular Exam: REGULAR RHYTHM, +S1, +S2 - GI/Abdominal Exam GI & Abdominal Exam: Diminished Bowel Sounds, Soft. absent: Tenderness - Rectal Exam Rectal Exam: Deferred - Exam Exam: NORMAL INSPECTION - Extremities Exam Extremities exam: Positive for: pedal pulses present. Negative for: calf tenderness, pedal edema, tenderness - Back Exam Back exam: absent: CVA tenderness (L), CVA tenderness (R), paraspinal tenderness - Neurological Exam Neurological exam: Alert, Altered, CN II-XII Intact - Psychiatric Exam Psychiatric exam: Depressed - Skin Skin Exam: Dry Results - Vital Signs Recent Vital Signs: Last Vital Signs Temp 97.9 F 08/09/18 16:00 Pulse 99 H 08/09/18 16:00 Resp 21 08/09/18 16:00 BP 120/59 L 08/09/18 16:00 Pulse Ox 98 08/09/18 16:00 - Labs Result Diagrams: 08/08/18 12:22 08/12/18 07:04 Labs: Laboratory Results - last 24 hr 08/09/18 06:13 Sodium 155 H Potassium 3.1 L Chloride 123 H Carbon Dioxide 29 Anion Gap 6 L BUN 47 H Creatinine 0.7 L Est GFR ( Amer) > 60 Est GFR (Non-Af Amer) > 60 Random Glucose 121 H Calcium 8.6 Assessment & Plan (1) Dehydration Status: Acute (2) Hypernatremia Status: Acute (3) NSTEMI (non-ST elevated myocardial infarction) Status: Acute (4) VRE (vancomycin-resistant Enterococci) infection Status: Acute (5) Fever Status: Acute - Assessment and Plan (Free Text) Assessment: WILL ADD ZYVOX FOR VRE
[2018-08-09] MEDS: Rosuvastatin Calcium 2.5 mg Tab PO SCH (21:18)
[2018-08-09] MEDS: Linezolid 600 mg in D5W 300 ml 600 MG/300 ML BAG IVPB SCH (21:19)
--- NOTE | 2018-08-09 23:04 | PN ---
DATE: 08/09/2018 SUBJECTIVE: The patient is on . The patient is weak. The patient is lethargic. He is on IV fluids. His BUN, creatinine, sodium and potassium are improving. He has VRE in the urine. He is now being seen by Urology. No nausea or vomiting. PHYSICAL EXAMINATION VITAL SIGNS: Blood pressure 128/67, pulse 74, respiratory rate 16, temperature 99. LUNGS: Bilateral congestion. Decreased air entry. CARDIOVASCULAR SYSTEM: S1 and S2 regular. ABDOMEN: Soft, nontender. Bowel sounds are positive. ASSESSMENT: 1. Toxic metabolic encephalopathy with altered mental status. 2. Dehydration with poor oral intake with sepsis. 3. Urinary tract infection. 4. Obstructive uropathy. PLAN: Supportive care and antibiotics according to the patient. Esau Jacobs MD
--- NOTE | 2018-08-09 23:25 | PN ---
DATE: 08/09/2018 LOCATION: 351, bed B. SUBJECTIVE: This is an 83-year-old male, seen early in rounds today in a state of DNR and DNI, unstable clinically, was scheduled initially for potential PEG insertion. However, due to the patient's clinical status and respiratory and cardiac disorders, the procedure had to be canceled until the patient is more stable clinically. It was reported that the patient had massive NJ with excessive increase of troponin level with very poor oral intake. Also, it was reported that the patient has a known history of aortic insufficiency with AV endocarditis. The entire chart is reviewed including but not limited to the most recent lab and radiology study results, current and the previous medication list, current and the previous medical events and today's lab showed sodium of 155, potassium 3.1, BUN of 47, creatinine of 0.7, blood glucose level of 131. The patient is seen by the Nephrology middleware consultant. PHYSICAL EXAMINATION: GENERAL: A 83-year-old male. VITAL SIGNS: Afebrile with pulse of 94, respiratory rate of 20-24, blood pressure of 124/62. HEENT: Showed pale dry mucoid membrane. Nonicteric sclerae. LUNGS: Few scattered crepitation. Decreased air entry at bases. HEART: Positive S1 and S2. ABDOMEN: Soft with mild generalized tenderness. No mass or organomegaly. No rebound tenderness or guarding. EXTREMITIES: Without significant edema, clubbing, or cyanosis. NEUROLOGIC: No reported new neurological deficits, sensory or motor. The patient is not communicating well. IMPRESSION: 1. Malnutrition with hypoalbuminemia, hypoproteinemia. 2. Severe dehydration. 3. Myocardial infarction. 4. Electrolyte imbalance with hypernatremia, hypokalemia. 5. Failure to thrive with poor oral intake. 6. Known history of Alzheimer's disease. 7. Reported history of chronic obstructive pulmonary disease, anemia, cerebrovascular accident, dementia as well as aortic insufficiency with aortic valve endocarditis. SUGGESTIONS: 1. Continue current management. 2. Peripheral hyperalimentation. 3. The patient to be scheduled for colonoscopy only when he is more stable clinically. Otherwise, close observation to follow. Antoni Duran MD [facility] # [id number]
--- NOTE | 2018-08-10 08:07 | PN ---
DATE: 08/10/2018 LOCATION: 351, bed B. SUBJECTIVE: This is an 83-year-old male, seen early in rounds today, in a status of DNR/DNI, somewhat aphasic, but appears to be awake without reported active bleeding with poor oral intake. The entire chart is reviewed and today's lab results still pending. However, the patient was found to have persistent elevation of sodium, low potassium, increased BUN with low creatinine and elevated blood glucose level with persistently elevated troponin level. PHYSICAL EXAMINATION GENERAL: An 83-year-old female. VITAL SIGNS: Afebrile with pulse of 82, respiratory rate 20 to 22, blood pressure of 118/60. HEENT: Showed pale dry oral mucoid membrane. Nonicteric sclerae. LUNGS: Few scattered crepitation. Decreased air entry at bases. HEART: Positive S1 and S2. ABDOMEN: Soft with slight distention. No mass or organomegaly. No rebound tenderness or guarding. EXTREMITIES: With evidence of muscle wasting syndrome. No clubbing or cyanosis. NEUROLOGIC: No reported new neurological deficits, sensory or motor. LABORATORY DATA: It has to be mentioned that the patient's blood culture showed offset of coag-negative staph for which ID consultation was performed by Dr. Ford. IMPRESSION: 1. Malnutrition, poor oral intake, hypoalbuminemia, hypoproteinemia. 2. The patient is a candidate for percutaneous endoscopic gastrostomy insertion only when he is stable clinically, otherwise close observation and medical management to follow. 3. Multiple past medical history including but not limited to percutaneous endoscopic gastrostomy, hypertension, atrial fibrillation as well as Alzheimer's disease with recent MRI 4. Cerebrovascular accident with left hemiparesis with dysarthria. 5. Reported history of infected endocarditis. 6. Known history of coronary artery disease. 7. Electrolyte imbalance with dehydration and hypernatremia, hypokalemia. 8. Anemia, most likely secondary to above. SUGGESTIONS: 1. Continue current management. 2. Peripheral hyperalimentation 3. No plan for aggressive GI treatment in the meantime. 4. Further recommendation to follow. Antoni Duran MD
[2018-08-10] MEDS ORDERED: Influenza Vaccine 60 mcg/0.5 mL SYR (4YR UP) IM ONE (10:00)
--- NOTE | 2018-08-10 10:18 | CARD ---
APPROVED REPORT Date of service: 08/06/2018 EKG Measurement Heart [id number] P24 [id number] <Conclusion> Undetermined rhythm Possible Inferior infarct, age undetermined Possible Anterior infarct, age undetermined Abnormal ECG
[2018-08-10] MEDS: Magnesium Hydroxide Susp 30 ml UD PO SCH (10:28)
[2018-08-10] MEDS: Linezolid 600 mg in D5W 300 ml 600 MG/300 ML BAG IVPB SCH ×2 (11:19→19:09)
[2018-08-10 11:38] LABS: BLOOD UREA NITROGEN 38 mg/dL (9-20); CALCIUM 8.5 mg/dl (8.6-10.4); GFR NON-AFRICAN AMERICAN > 60
--- NOTE | 2018-08-10 14:45 | CP.PCM.PN ---
Subjective - Date & Time of Evaluation Date of Evaluation: 08/09/18 Time of Evaluation: 19:25 - Subjective Subjective: Patient seen and evaluated. No cardiac events noted Physical Exam - Constitutional Appears: Non-toxic, No Acute Distress - Head Exam Head Exam: ATRAUMATIC, NORMOCEPHALIC - ENT Exam ENT Exam: Mucous Membranes Moist - Respiratory Exam Respiratory Exam: Clear to Auscultation Bilateral. absent: Accessory Muscle Use, Rales, Rhonchi, Wheezes, Respiratory Distress - Cardiovascular Exam Cardiovascular Exam: REGULAR RHYTHM, +S1, +S2. absent: Diastolic murmur, Gallop, Rubs, Systolic Murmur - GI/Abdominal Exam GI & Abdominal Exam: Normal Bowel Sounds, Soft. absent: Distended, Firm, Guarding, Tenderness - Extremities Exam Extremities exam: Negative for: pedal edema, tenderness - Neurological Exam Additional comments: hemiparesis of left side. follows very minimal commands. 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 Troponins elevated on admission at 0.18 (repeat 0.32). EKG on admission showed a fib with no specific ST changes. NSTEMI - At this time, pt is not deemed suitable for invasive cardiac intervention. - Will optimize medical management with Metoprolol tartrate 25 mg po qd, Aspirin and Crestor therapy. Afib - Continue rate control with Metoprolol and AC with eliquis 5 mg po bid Patient Objective - Vital Signs/Intake and Output Vital Signs (last 24 hours): Temp Pulse Resp BP Pulse Ox 97.5 F L 82 20 96/59 L 96 08/10/18 08:19 08/10/18 08:19 08/10/18 08:19 08/10/18 08:19 08/10/18 08:19 Intake and Output: 08/10/18 08/10/18 06:59 18:59 Intake Total 500 Balance 500 - Medications Medications: Current Medications Acetaminophen (Tylenol 325mg Tab) 650 mg PO Q4 [facility] Last Admin: 08/10/18 13:33 Dose: Not Given Apixaban (Eliquis) 5 mg PO BID [facility] Last Admin: 08/10/18 10:28 Dose: Not Given Aspirin (Aspirin Chewable) 81 mg PO DAILY [facility] Last Admin: 08/10/18 10:27 Dose: Not Given Potassium Chloride 40 meq/ (Dextrose) 1,020 mls @ 100 mls/hr IV .[id number] [facility] Last Admin: 08/10/18 11:40 Dose: Not Given Linezolid (Zyvox 600mg/300ml D5w) 600 mg in 300 mls @ 200 mls/hr IVPB Q12H [facility]; Protocol Last Admin: 08/10/18 11:19 Dose: 200 mls/hr Magnesium Hydroxide (Milk Of Magnesia) 30 ml PO DAILY [facility] Last Admin: 08/10/18 10:28 Dose: Not Given Metoprolol Tartrate (Lopressor) 25 mg NG BID [facility] Last Admin: 08/10/18 10:28 Dose: Not Given Rosuvastatin Calcium (Crestor) 2.5 mg PO HS [facility] Last Admin: 08/09/18 21:18 Dose: Not Given - Labs Labs: 08/08/18 12:22 08/10/18 11:16 PT 18.2 SECONDS (9.7-12.2) H 08/08/18 08:01 INR 1.7 08/08/18 08:01 APTT 34 SECONDS (21-34) 08/08/18 08:01
[2018-08-10] MEDS: SILVASORB ANTIMICROBIAL WOUND GEL TOP SCH (15:45)
--- NOTE | 2018-08-10 18:07 | CP.PCM.PN ---
Subjective - Date & Time of Evaluation Date of Evaluation: 08/10/18 Time of Evaluation: 18:06 - Subjective Subjective: Nephrology Consultation Note: Assessment: Stable Hypernatremia likely due to dehydration, limited oral fluid intake Hypokalemia mild anemia hyperbilirubinemia COPD, CAD, dementia, CVA hypertension (years) aortic insuff with AV endocarditis Plan No acute need for renal replacement therapy at this time. Hypertension control with meds as ordered. Maintain hemodynamics stable. Avoid hypotension. Patient not on ACEI/ARB due to low BP Monitor Input/Output, daily weights and renal function with basic metabolic panel agree with hypotonic fluids as D5W increased to 100 ml/hr. further rate titration will be based upon his response supplement KCL monitor for urine retention with bladder scans as needed. Dose meds/antibiotics for GFR>60 Glycemic control Further work up/management as per primary team Thanks for allowing me to participate in care of your patient. Will follow patient with you. Please call if any Qs Dr Chris Reese Office: [phone] Chief Complaint; unable Reason for consult: Hypernatremia HPI: Pt is a 83 M with hx of COPD, CAD, dementia, CVA hypertension (years) aortic insuff with AV endocarditis presented with complaints of dehydration and being managed for hypernatremia, elevated troponins renal consult for elevated BUN and hypernatremia no knwon OTC/herbal meds or NSAIDs No recent iodinated contrast exposure. No obvious episodes of low BP. pt unable to provide any hx ROS: Unable to obtain Physical Examination: General Appearance: Comfortable, in no acute respiratory distress, co-operative . non verbal/non communicative Vitals reviewed and noted as below Head; Atraumatic, normocephalic ENT: no ulcers no thrush. Tongue is midline/dry. Oropharynx: no rash or ulcers. EYES: Pupils are equal, round and reactive to light accommodation. Eye muscles and extraocular movement intact. Sclera is icteric. Neck; supple no lymphadenopathy, no thyromegaly or bruit Lungs: Normal respiratory rate/effort. Breath sounds bilateral equal and clear Heart: Normal rate. s1s2 normal. No rub or gallop. Extremities: no edema. No varicose veins Neurological: Patient is awake non verbal/non communicative Skin: Warm and dry. Normal turgor. No rash. Palpitation: Normal elasticity for age Abdomen: Abdomen is soft. Bowel sounds +. There is no abdominal tenderness, no guarding/rigidity no organomegaly Psych: unable MSK: no joint tenderness or swelling. Digits and nails normal, no deformity : kidney or bladder not palpable Labs/imaging reviewed. Past medical history, past surgical history, family history, social history, allergy reviewed and noted as below Family hx: no hx of CKD. Rest non-contributory Objective - Vital Signs/Intake and Output Vital Signs (last 24 hours): Temp Pulse Resp BP Pulse Ox 97.9 F 79 20 114/57 L 96 08/10/18 15:00 08/10/18 15:00 08/10/18 15:00 08/10/18 15:00 08/10/18 15:00 Intake and Output: 08/10/18 08/10/18 06:59 18:59 Intake Total 500 Balance 500 - Medications Medications: Current Medications Acetaminophen (Tylenol 325mg Tab) 650 mg PO Q4 [facility] Last Admin: 08/10/18 13:33 Dose: Not Given Apixaban (Eliquis) 5 mg PO BID [facility] Last Admin: 08/10/18 10:28 Dose: Not Given Aspirin (Aspirin Chewable) 81 mg PO DAILY [facility] Last Admin: 08/10/18 10:27 Dose: Not Given Potassium Chloride 40 meq/ (Dextrose) 1,020 mls @ 100 mls/hr IV .[id number] [facility] Last Admin: 08/10/18 15:44 Dose: 100 mls/hr Linezolid (Zyvox 600mg/300ml D5w) 600 mg in 300 mls @ 200 mls/hr IVPB Q12H [facility]; Protocol Last Admin: 08/10/18 11:19 Dose: 200 mls/hr Magnesium Hydroxide (Milk Of Magnesia) 30 ml PO DAILY [facility] Last Admin: 08/10/18 10:28 Dose: Not Given Metoprolol Tartrate (Lopressor) 25 mg NG BID [facility] Last Admin: 08/10/18 10:28 Dose: Not Given Rosuvastatin Calcium (Crestor) 2.5 mg PO HS [facility] Last Admin: 08/09/18 21:18 Dose: Not Given - Labs Labs: 08/08/18 12:22 08/10/18 11:16 PT 18.2 SECONDS (9.7-12.2) H 08/08/18 08:01 INR 1.7 08/08/18 08:01 APTT 34 SECONDS (21-34) 08/08/18 08:01
[2018-08-10] MEDS: Rosuvastatin Calcium 2.5 mg Tab PO SCH (21:35)
--- NOTE | 2018-08-10 23:22 | CP.PCM.PN ---
Subjective - Date & Time of Evaluation Date of Evaluation: 08/10/18 Time of Evaluation: 16:15 - Subjective Subjective: Patient seen and evaluated. No cardiac events noted Physical Exam - Constitutional Appears: Non-toxic, No Acute Distress - Head Exam Head Exam: ATRAUMATIC, NORMOCEPHALIC - ENT Exam ENT Exam: Mucous Membranes Moist - Respiratory Exam Respiratory Exam: Clear to Auscultation Bilateral. absent: Accessory Muscle Use, Rales, Rhonchi, Wheezes, Respiratory Distress - Cardiovascular Exam Cardiovascular Exam: REGULAR RHYTHM, +S1, +S2. absent: Diastolic murmur, Gallop, Rubs, Systolic Murmur - GI/Abdominal Exam GI & Abdominal Exam: Normal Bowel Sounds, Soft. absent: Distended, Firm, Guarding, Tenderness - Extremities Exam Extremities exam: Negative for: pedal edema, tenderness - Neurological Exam Additional comments: hemiparesis of left side. follows very minimal commands. 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 Troponins elevated on admission at 0.18 (repeat 0.32). EKG on admission showed a fib with no specific ST changes. NSTEMI - At this time, pt is not deemed suitable for invasive cardiac intervention. - Will optimize medical management with Metoprolol tartrate 25 mg po qd, Aspirin and Crestor therapy. Afib - Continue rate control with Metoprolol and AC with eliquis 5 mg po bid Patient Objective - Vital Signs/Intake and Output Vital Signs (last 24 hours): Temp Pulse Resp BP Pulse Ox 97.9 F 79 20 114/57 L 96 08/10/18 15:00 08/10/18 15:00 08/10/18 15:00 08/10/18 15:00 08/10/18 15:00 Intake and Output: 08/10/18 08/11/18 18:59 06:59 Intake Total 800 Output Total 120 Balance 680 - Medications Medications: Current Medications Acetaminophen (Tylenol 325mg Tab) 650 mg PO Q4 [facility] Last Admin: 08/10/18 21:35 Dose: Not Given Apixaban (Eliquis) 5 mg PO BID [facility] Last Admin: 08/10/18 18:44 Dose: Not Given Aspirin (Aspirin Chewable) 81 mg PO DAILY [facility] Last Admin: 08/10/18 10:27 Dose: Not Given Potassium Chloride 40 meq/ (Dextrose) 1,020 mls @ 100 mls/hr IV .[id number] [facility] Last Admin: 08/10/18 18:44 Dose: Not Given Linezolid (Zyvox 600mg/300ml D5w) 600 mg in 300 mls @ 200 mls/hr IVPB Q12H [facility]; Protocol Last Admin: 08/10/18 19:09 Dose: 200 mls/hr Magnesium Hydroxide (Milk Of Magnesia) 30 ml PO DAILY [facility] Last Admin: 08/10/18 10:28 Dose: Not Given Metoprolol Tartrate (Lopressor) 25 mg NG BID [facility] Last Admin: 08/10/18 18:44 Dose: Not Given Rosuvastatin Calcium (Crestor) 2.5 mg PO HS [facility] Last Admin: 08/10/18 21:35 Dose: Not Given - Labs Labs: 08/08/18 12:22 08/10/18 11:16 PT 18.2 SECONDS (9.7-12.2) H 08/08/18 08:01 INR 1.7 08/08/18 08:01 APTT 34 SECONDS (21-34) 08/08/18 08:01
[2018-08-11] MEDS: Linezolid 600 mg in D5W 300 ml 600 MG/300 ML BAG IVPB SCH ×2 (09:08→20:25)
[2018-08-11] MEDS: Magnesium Hydroxide Susp 30 ml UD PO SCH (09:47)
--- NOTE | 2018-08-11 10:17 | PN ---
DATE: 08/11/2018 LOCATION: 351, bed B. SUBJECTIVE: This is an 83-year-old male in a state of DNR and DNI, seen and examined in rounds, with reported incontinence of urine and fecal material, not cooperative and not communicating verbally well, this morning appears to be somewhat lethargic. The entire chart is reviewed including but not limited to the most recent lab and radiology study results and the previous medication list, current and the previous medical events. Today's labs results are still pending and the patient still has persistent low hemoglobin and hematocrit with increased sodium, decreased potassium, increased BUN, normal creatinine with elevated blood glucose level. PHYSICAL EXAMINATION: GENERAL: An 83-year-old male. VITAL SIGNS: Afebrile with pulse of 84, respiratory rate 18 to 20, blood pressure of 120/62. HEENT: Pale dry oral mucous membrane. Nonicteric sclerae. LUNGS: Few scattered crepitation. Decreased air entry at bases. HEART: Positive S1 and S2. ABDOMEN: Soft with mild distention. No mass or organomegaly. No rebound tenderness or guarding. EXTREMITIES: Without significant clubbing, cyanosis, or edema. NEUROLOGIC: No new reported neurological deficits, sensory or motor. No reported new focal deficits. IMPRESSION: 1. Poor oral intake with malnutrition, hypoalbuminemia, and hypoproteinemia. 2. The patient is a candidate for percutaneous endoscopic gastrostomy tube insertion when he is more stable clinically. 3. Extensive cardiac history and diagnoses including possible recent myocardial infarction. 4. Cerebrovascular accident by recent history. 5. History of hypertension, atrial fibrillation, as well as Alzheimer's disease. 6. Reported history of infected endocarditis. 7. Known history of hypertension, hyperlipidemia, and coronary artery disease. 8. Electrolyte imbalance. 9. Anemia secondary to above. SUGGESTIONS: 1. Continue current management. 2. Peripheral versus central hyperalimentation. 3. No need for aggressive GI workup, as the patient is not stable clinically. In the meantime, further recommendation to follow. Antoni Duran MD
--- NOTE | 2018-08-11 10:23 | PN ---
DATE: 08/10/2018 SUBJECTIVE: The patient is still weak, drowsy, lethargic. He is awake. He is afebrile. He is on antibiotics. The patient's family refused PEG, so we will correct his electrolyte and transfer the patient back to subacute rehab as a DNR/DNI patient. No fever. No chills. PHYSICAL EXAMINATION: VITAL SIGNS: Blood pressure 112/70, pulse 74, respiratory rate 16, temperature 99. LUNGS: Bilateral scattered rhonchi. CARDIOVASCULAR SYSTEM: S1 and S2, regular. ABDOMEN: Soft. ASSESSMENT: 1. Acute kidney injury due to prerenal azotemia due to poor oral intake. 2. Urinary tract infection. 3. Coronary artery disease with acute myocardial infarction. PLAN: Supportive medical care, DNR, DNI, IV fluids, IV hydration, prevention of complication, and no PEG. Transfer the patient back to rehab. Esau Jacobs MD
--- NOTE | 2018-08-11 13:02 | CP.PCM.PN ---
Subjective - Date & Time of Evaluation Date of Evaluation: 08/11/18 Time of Evaluation: 13:01 - Subjective Subjective: Nephrology Consultation Note: Assessment: Stable Hypernatremia likely due to dehydration, limited oral fluid intake Hypokalemia mild anemia hyperbilirubinemia COPD, CAD, dementia, CVA hypertension (years) aortic insuff with AV endocarditis Plan No acute need for renal replacement therapy at this time. Hypertension control with meds as ordered. Maintain hemodynamics stable. Avoid hypotension. Patient not on ACEI/ARB due to low BP Monitor Input/Output, daily weights and renal function with basic metabolic panel agree with hypotonic fluids as D5W decreased to 60 ml/hr. further rate titration will be based upon his response supplement KCL in IVF as ordered monitor for urine retention with bladder scans as needed. Dose meds/antibiotics for GFR>60 Glycemic control Further work up/management as per primary team Thanks for allowing me to participate in care of your patient. Will follow patient with you. Please call if any Qs Dr Chris Reese Office: [phone] Chief Complaint; unable Reason for consult: Hypernatremia HPI: Pt is a 83 M with hx of COPD, CAD, dementia, CVA hypertension (years) aortic insuff with AV endocarditis presented with complaints of dehydration and being managed for hypernatremia, elevated troponins renal consult for elevated BUN and hypernatremia no knwon OTC/herbal meds or NSAIDs No recent iodinated contrast exposure. No obvious episodes of low BP. pt unable to provide any hx ROS: Unable to obtain Physical Examination: General Appearance: Comfortable, in no acute respiratory distress, co-operative . non verbal/non communicative Vitals reviewed and noted as below Head; Atraumatic, normocephalic ENT: no ulcers no thrush. Tongue is midline/dry. Oropharynx: no rash or ulcers. EYES: Pupils are equal, round and reactive to light accommodation. Eye muscles and extraocular movement intact. Sclera is icteric. Neck; supple no lymphadenopathy, no thyromegaly or bruit Lungs:Increased respiratory rate/effort. Breath sounds bilateral equal and clear Heart: Normal rate. s1s2 normal. No rub or gallop. Extremities: no edema. No varicose veins. upper ext edema + Neurological: Patient is awake non verbal/non communicative Skin: Warm and dry. Normal turgor. No rash. Palpitation: Normal elasticity for age Abdomen: Abdomen is soft. Bowel sounds +. There is no abdominal tenderness, no guarding/rigidity no organomegaly Psych: unable MSK: no joint tenderness or swelling. Digits and nails normal, no deformity : kidney or bladder not palpable Labs/imaging reviewed. Past medical history, past surgical history, family history, social history, allergy reviewed and noted as below Family hx: no hx of CKD. Rest non-contributory Objective - Vital Signs/Intake and Output Vital Signs (last 24 hours): Temp Pulse Resp BP Pulse Ox 98 F 95 H 20 103/59 L 96 08/11/18 08:07 08/11/18 08:07 08/11/18 08:07 08/11/18 08:07 08/11/18 08:07 Intake and Output: 08/11/18 08/11/18 06:59 18:59 Intake Total 1600 Output Total 220 Balance 1380 - Medications Medications: Current Medications Acetaminophen (Tylenol 325mg Tab) 650 mg PO Q4 [facility] Last Admin: 08/11/18 12:50 Dose: Not Given Apixaban (Eliquis) 5 mg PO BID [facility] Last Admin: 08/11/18 09:47 Dose: Not Given Aspirin (Aspirin Chewable) 81 mg PO DAILY [facility] Last Admin: 08/11/18 09:47 Dose: Not Given Linezolid (Zyvox 600mg/300ml D5w) 600 mg in 300 mls @ 200 mls/hr IVPB Q12H [facility]; Protocol Last Admin: 08/11/18 09:08 Dose: 200 mls/hr Potassium Chloride 40 meq/ (Dextrose) 1,020 mls @ 60 mls/hr IV .Q17H [facility] Stop: 08/13/18 13:01 Magnesium Hydroxide (Milk Of Magnesia) 30 ml PO DAILY [facility] Last Admin: 08/11/18 09:47 Dose: Not Given Metoprolol Tartrate (Lopressor) 25 mg NG BID [facility] Last Admin: 08/11/18 09:47 Dose: Not Given Rosuvastatin Calcium (Crestor) 2.5 mg PO HS [facility] Last Admin: 08/10/18 21:35 Dose: Not Given - Labs Labs: 08/08/18 12:22 08/10/18 11:16 PT 18.2 SECONDS (9.7-12.2) H 08/08/18 08:01 INR 1.7 08/08/18 08:01 APTT 34 SECONDS (21-34) 08/08/18 08:01
--- NOTE | 2018-08-11 14:32 | CP.PCM.PN ---
Subjective - Date & Time of Evaluation Date of Evaluation: 08/11/18 Time of Evaluation: 09:00 - Subjective Subjective: remains weak lethargic but NAD afeb Objective - Vital Signs/Intake and Output Vital Signs (last 24 hours): Temp Pulse Resp BP Pulse Ox 98 F 95 H 20 103/59 L 96 08/11/18 08:07 08/11/18 08:07 08/11/18 08:07 08/11/18 08:07 08/11/18 08:07 Intake and Output: 08/11/18 08/11/18 06:59 18:59 Intake Total 1600 Output Total 220 Balance 1380 - Medications Medications: Current Medications Acetaminophen (Tylenol 325mg Tab) 650 mg PO Q4 [facility] Last Admin: 08/11/18 12:50 Dose: Not Given Apixaban (Eliquis) 5 mg PO BID [facility] Last Admin: 08/11/18 09:47 Dose: Not Given Aspirin (Aspirin Chewable) 81 mg PO DAILY [facility] Last Admin: 08/11/18 09:47 Dose: Not Given Linezolid (Zyvox 600mg/300ml D5w) 600 mg in 300 mls @ 200 mls/hr IVPB Q12H [facility]; Protocol Last Admin: 08/11/18 09:08 Dose: 200 mls/hr Potassium Chloride 40 meq/ (Dextrose) 1,020 mls @ 60 mls/hr IV .Q17H [facility] Stop: 08/13/18 13:01 Magnesium Hydroxide (Milk Of Magnesia) 30 ml PO DAILY [facility] Last Admin: 08/11/18 09:47 Dose: Not Given Metoprolol Tartrate (Lopressor) 25 mg NG BID [facility] Last Admin: 08/11/18 09:47 Dose: Not Given Rosuvastatin Calcium (Crestor) 2.5 mg PO HS [facility] Last Admin: 08/10/18 21:35 Dose: Not Given - Labs Labs: 08/08/18 12:22 08/10/18 11:16 PT 18.2 SECONDS (9.7-12.2) H 08/08/18 08:01 INR 1.7 08/08/18 08:01 APTT 34 SECONDS (21-34) 08/08/18 08:01 - Constitutional Appears: Non-toxic, Confused, Cachectic, Chronically Ill - Head Exam Head Exam: NORMOCEPHALIC - Eye Exam Eye Exam: absent: Scleral icterus - ENT Exam ENT Exam: Mucous Membranes Dry - Neck Exam Neck Exam: absent: Lymphadenopathy - Respiratory Exam Respiratory Exam: Decreased Breath Sounds - Cardiovascular Exam Cardiovascular Exam: REGULAR RHYTHM, +S1, +S2 - GI/Abdominal Exam GI & Abdominal Exam: Distended, Soft. absent: Tenderness - Rectal Exam Rectal Exam: Deferred - Exam Exam: NORMAL INSPECTION - Extremities Exam Extremities Exam: Pedal Edema - Back Exam Back Exam: absent: CVA tenderness (L), CVA tenderness (R) - Neurological Exam Neurological Exam: Altered - Psychiatric Exam Psychiatric exam: Depressed - Skin Skin Exam: Dry Assessment and Plan (1) VRE (vancomycin-resistant Enterococci) infection Status: Acute - Assessment and Plan (Free Text) Assessment: admitted with sepsis NSTEMI Dr Simpson on board c/s + VRE urine IV Linezolid ordered prognosis guarded
--- NOTE | 2018-08-11 20:23 | CP.PCM.PN ---
Subjective - Date & Time of Evaluation Date of Evaluation: 08/11/18 Time of Evaluation: 18:10 - Subjective Subjective: Patient seen and evaluated. No cardiac events noted Lethargic and weak Physical Exam - Constitutional Appears: Non-toxic, No Acute Distress - Head Exam Head Exam: ATRAUMATIC, NORMOCEPHALIC - ENT Exam ENT Exam: Mucous Membranes Moist - Respiratory Exam Respiratory Exam: Clear to Auscultation Bilateral. absent: Accessory Muscle Use, Rales, Rhonchi, Wheezes, Respiratory Distress - Cardiovascular Exam Cardiovascular Exam: REGULAR RHYTHM, +S1, +S2. absent: Diastolic murmur, Gallop, Rubs, Systolic Murmur - GI/Abdominal Exam GI & Abdominal Exam: Normal Bowel Sounds, Soft. absent: Distended, Firm, Guarding, Tenderness - Extremities Exam Extremities exam: Negative for: pedal edema, tenderness - Neurological Exam Additional comments: hemiparesis of left side. follows very minimal commands. 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 Troponins elevated on admission at 0.18 (repeat 0.32). EKG on admission showed a fib with no specific ST changes. NSTEMI - At this time, pt is not deemed suitable for invasive cardiac intervention. - Will optimize medical management with Metoprolol tartrate 25 mg po qd, and Crestor therapy. Afib - Continue rate control with Metoprolol and AC with eliquis 5 mg po bid Patient Objective - Vital Signs/Intake and Output Vital Signs (last 24 hours): Temp Pulse Resp BP Pulse Ox 97.1 F L 85 20 124/63 98 08/11/18 15:00 08/11/18 15:00 08/11/18 15:00 08/11/18 15:00 08/11/18 15:00 Intake and Output: 08/11/18 08/12/18 18:59 06:59 Intake Total 800 Output Total 150 Balance 650 - Medications Medications: Current Medications Acetaminophen (Tylenol 325mg Tab) 650 mg PO Q4 [facility] Last Admin: 08/11/18 17:29 Dose: Not Given Apixaban (Eliquis) 5 mg PO BID [facility] Last Admin: 08/11/18 17:28 Dose: Not Given Linezolid (Zyvox 600mg/300ml D5w) 600 mg in 300 mls @ 200 mls/hr IVPB Q12H [facility]; Protocol Last Admin: 08/11/18 09:08 Dose: 200 mls/hr Potassium Chloride 40 meq/ (Dextrose) 1,020 mls @ 60 mls/hr IV .Q17H [facility] Stop: 08/13/18 13:01 Last Admin: 08/11/18 15:26 Dose: 60 mls/hr Magnesium Hydroxide (Milk Of Magnesia) 30 ml PO DAILY [facility] Last Admin: 08/11/18 09:47 Dose: Not Given Metoprolol Tartrate (Lopressor) 25 mg NG BID [facility] Last Admin: 08/11/18 17:28 Dose: Not Given Rosuvastatin Calcium (Crestor) 2.5 mg PO HS [facility] Last Admin: 08/10/18 21:35 Dose: Not Given - Labs Labs: 08/08/18 12:22 08/10/18 11:16 PT 18.2 SECONDS (9.7-12.2) H 08/08/18 08:01 INR 1.7 08/08/18 08:01 APTT 34 SECONDS (21-34) 08/08/18 08:01
[2018-08-11] MEDS: Rosuvastatin Calcium 2.5 mg Tab PO SCH (21:42)
--- NOTE | 2018-08-11 22:19 | CP.PCM.PN ---
Subjective - Subjective Subjective: dictated Objective - Vital Signs/Intake and Output Vital Signs (last 24 hours): Temp Pulse Resp BP Pulse Ox 97.1 F L 85 20 124/63 98 08/11/18 15:00 08/11/18 15:00 08/11/18 15:00 08/11/18 15:00 08/11/18 15:00 Intake and Output: 08/11/18 08/12/18 18:59 06:59 Intake Total 800 Output Total 150 Balance 650 - Medications Medications: Current Medications Acetaminophen (Tylenol 325mg Tab) 650 mg PO Q4 [facility] Last Admin: 08/11/18 21:26 Dose: Not Given Apixaban (Eliquis) 5 mg PO BID [facility] Last Admin: 08/11/18 17:28 Dose: Not Given Linezolid (Zyvox 600mg/300ml D5w) 600 mg in 300 mls @ 200 mls/hr IVPB Q12H [facility]; Protocol Last Admin: 08/11/18 20:25 Dose: 200 mls/hr Potassium Chloride 40 meq/ (Dextrose) 1,020 mls @ 60 mls/hr IV .Q17H [facility] Stop: 08/13/18 13:01 Last Admin: 08/11/18 15:26 Dose: 60 mls/hr Magnesium Hydroxide (Milk Of Magnesia) 30 ml PO DAILY [facility] Last Admin: 08/11/18 09:47 Dose: Not Given Metoprolol Tartrate (Lopressor) 25 mg NG BID [facility] Last Admin: 08/11/18 17:28 Dose: Not Given Rosuvastatin Calcium (Crestor) 2.5 mg PO HS [facility] Last Admin: 08/11/18 21:42 Dose: Not Given - Labs Labs: 08/08/18 12:22 08/10/18 11:16 PT 18.2 SECONDS (9.7-12.2) H 08/08/18 08:01 INR 1.7 08/08/18 08:01 APTT 34 SECONDS (21-34) 08/08/18 08:01
--- NOTE | 2018-08-11 22:20 | CP.PCM.PN ---
Subjective - Subjective Subjective: dictated Objective - Vital Signs/Intake and Output Vital Signs (last 24 hours): Temp Pulse Resp BP Pulse Ox 97.1 F L 85 20 124/63 98 08/11/18 15:00 08/11/18 15:00 08/11/18 15:00 08/11/18 15:00 08/11/18 15:00 Intake and Output: 08/11/18 08/12/18 18:59 06:59 Intake Total 800 Output Total 150 Balance 650 - Medications Medications: Current Medications Acetaminophen (Tylenol 325mg Tab) 650 mg PO Q4 [facility] Last Admin: 08/11/18 21:26 Dose: Not Given Apixaban (Eliquis) 5 mg PO BID [facility] Last Admin: 08/11/18 17:28 Dose: Not Given Linezolid (Zyvox 600mg/300ml D5w) 600 mg in 300 mls @ 200 mls/hr IVPB Q12H [facility]; Protocol Last Admin: 08/11/18 20:25 Dose: 200 mls/hr Potassium Chloride 40 meq/ (Dextrose) 1,020 mls @ 60 mls/hr IV .Q17H [facility] Stop: 08/13/18 13:01 Last Admin: 08/11/18 15:26 Dose: 60 mls/hr Magnesium Hydroxide (Milk Of Magnesia) 30 ml PO DAILY [facility] Last Admin: 08/11/18 09:47 Dose: Not Given Metoprolol Tartrate (Lopressor) 25 mg NG BID [facility] Last Admin: 08/11/18 17:28 Dose: Not Given Rosuvastatin Calcium (Crestor) 2.5 mg PO HS [facility] Last Admin: 08/11/18 21:42 Dose: Not Given - Labs Labs: 08/08/18 12:22 08/10/18 11:16 PT 18.2 SECONDS (9.7-12.2) H 08/08/18 08:01 INR 1.7 08/08/18 08:01 APTT 34 SECONDS (21-34) 08/08/18 08:01
--- NOTE | 2018-08-12 04:01 | PN ---
DATE: 08/11/2018 SUBJECTIVE: The patient, Fredrick Dennison, is improving. His sodium is coming down. His potassium is improving. His BUN and creatinine are going down. The patient is seen by Cardiology, and the patient's family is refusing PEG placement. He is on supportive care, pending transfer to subacute rehab. PHYSICAL EXAMINATION: VITAL SIGNS: Blood pressure 124/66, pulse 85, respiratory rate 20, temperature 97.1. LUNGS: Bilateral scattered rhonchi. CARDIOVASCULAR SYSTEM: S1 and S2 are regular. ABDOMEN: Soft. ASSESSMENT: 1. Dehydration, hypernatremia, hypokalemia. 2. Acute myocardial infarction. 3. Alzheimer's. PLAN: Continue current medications. Monitor the patient. Esau Jacobs MD
[2018-08-12 07:53] LABS: BLOOD UREA NITROGEN 29 mg/dL (9-20); CALCIUM 8.4 mg/dl (8.6-10.4); GFR NON-AFRICAN AMERICAN > 60
[2018-08-12] MEDS: Linezolid 600 mg in D5W 300 ml 600 MG/300 ML BAG IVPB SCH ×2 (09:00→13:25)
[2018-08-12] MEDS: Magnesium Hydroxide Susp 30 ml UD PO SCH (11:00)
--- NOTE | 2018-08-12 12:18 | CP.PCM.PN ---
Subjective - Date & Time of Evaluation Date of Evaluation: 08/12/18 Time of Evaluation: 09:00 - Subjective Subjective: afeb on IV rx Objective - Vital Signs/Intake and Output Vital Signs (last 24 hours): Temp Pulse Resp BP Pulse Ox 97.9 F 90 20 100/60 95 08/12/18 07:42 08/12/18 07:42 08/12/18 07:42 08/12/18 07:42 08/12/18 07:42 Intake and Output: 08/12/18 08/12/18 06:59 18:59 Intake Total 480 480 Output Total 150 200 Balance 330 280 - Medications Medications: Current Medications Acetaminophen (Tylenol 325mg Tab) 650 mg PO Q4 [facility] Last Admin: 08/12/18 11:00 Dose: Not Given Apixaban (Eliquis) 5 mg PO BID [facility] Last Admin: 08/12/18 10:00 Dose: Not Given Linezolid (Zyvox 600mg/300ml D5w) 600 mg in 300 mls @ 200 mls/hr IVPB Q12H [facility]; Protocol Last Admin: 08/12/18 09:00 Dose: Not Given Potassium Chloride 40 meq/ (Dextrose) 1,020 mls @ 60 mls/hr IV .Q17H [facility] Stop: 08/13/18 13:01 Last Admin: 08/12/18 05:26 Dose: Not Given Magnesium Hydroxide (Milk Of Magnesia) 30 ml PO DAILY [facility] Last Admin: 08/12/18 11:00 Dose: Not Given Metoprolol Tartrate (Lopressor) 25 mg NG BID [facility] Last Admin: 08/12/18 11:00 Dose: Not Given Rosuvastatin Calcium (Crestor) 2.5 mg PO HS [facility] Last Admin: 08/11/18 21:42 Dose: Not Given - Labs Labs: 08/08/18 12:22 08/12/18 07:04 PT 18.2 SECONDS (9.7-12.2) H 08/08/18 08:01 INR 1.7 08/08/18 08:01 APTT 34 SECONDS (21-34) 08/08/18 08:01 - Constitutional Appears: Non-toxic, Confused, Chronically Ill - Head Exam Head Exam: NORMOCEPHALIC - Eye Exam Eye Exam: absent: Scleral icterus - ENT Exam ENT Exam: Mucous Membranes Dry - Neck Exam Neck Exam: absent: Lymphadenopathy - Respiratory Exam Respiratory Exam: Decreased Breath Sounds - Cardiovascular Exam Cardiovascular Exam: REGULAR RHYTHM - GI/Abdominal Exam GI & Abdominal Exam: Distended, Soft - Rectal Exam Rectal Exam: Deferred - Exam Exam: NORMAL INSPECTION - Extremities Exam Extremities Exam: absent: Pedal Edema - Back Exam Back Exam: absent: CVA tenderness (L), CVA tenderness (R) - Neurological Exam Neurological Exam: Altered Assessment and Plan (1) VRE (vancomycin-resistant Enterococci) infection Status: Acute (2) NSTEMI (non-ST elevated myocardial infarction) Status: Acute - Assessment and Plan (Free Text) Assessment: s/p NSTEMI dr valle on board cont iv antibiotics
--- NOTE | 2018-08-12 14:44 | PN ---
DATE: 08/12/2018 LOCATION: 351, bed B. SUBJECTIVE: This is an 83-year-old male seen in rounds without significant clinical changes. No reported active bleeding, appeared to be somewhat lethargic with reported generalized weakness and malaise but no actual chest pain, palpitation, with very poor oral intake and mild respiratory distress. The entire chart is reviewed including but not limited to the most recent lab and radiology study results, current and the previous medication list, current and the previous medical events and today's lab results showed BUN of 29 with low creatinine of 0.7, calcium 8.4. The patient previously reported to have low hemoglobin and hematocrit. PHYSICAL EXAMINATION: GENERAL: An 83-year-old male in a state of DNR and DNI. VITAL SIGNS: Afebrile with pulse of 88, respiratory rate 20-22, blood pressure of 110/62. HEENT: Showed pale dry oral mucous membranes. Nonicteric sclerae. LUNGS: Few scattered crepitation. Decreased air entry at bases. HEART: Positive S1 and S2. ABDOMEN: Soft with mild generalized tenderness. No mass or organomegaly. No rebound tenderness or guarding. EXTREMITIES: With evidence of muscle wasting syndrome in the lower extremities bilaterally with slight lower extremity edematous changes. No clubbing or cyanosis. NEUROLOGIC: No reported new neurological deficits, sensory or motor. IMPRESSION: 1. Malnutrition, hypoalbuminemia with hypoproteinemia. 2. Extensive cardiac history with possible recent myocardial infarction. 3. Cerebrovascular accident by history. 4. Known history of hypertension, hyperlipidemia, coronary artery disease, atrial fibrillation with Alzheimer's disease. 5. Electrolyte imbalance with hypocalcemia. 6. Anemia, most likely secondary to above. The patient is a candidate for PEG insertion when he is more stable clinically, otherwise close observation to follow. Antoni Duran MD
--- NOTE | 2018-08-12 15:21 | CP.PCM.PN ---
Subjective - Date & Time of Evaluation Date of Evaluation: 08/12/18 Time of Evaluation: 15:20 - Subjective Subjective: Nephrology Consultation Note: Assessment: Stable Hypernatremia likely due to dehydration, limited oral fluid intake Hypokalemia mild anemia hyperbilirubinemia COPD, CAD, dementia, CVA hypertension (years) aortic insuff with AV endocarditis Plan Maintain hemodynamics stable. Avoid hypotension. Patient not on ACEI/ARB due to low BP Monitor Input/Output, daily weights and renal function with basic metabolic panel fluid as D5 1/2 NS with 40 meq kcl @ 50 ml/hr. d/c IVF once pt has peg and on feeds monitor for urine retention with bladder scans as needed. antibiotics per ID Dose meds/antibiotics for GFR>60 Glycemic control Further work up/management as per primary team Thanks for allowing me to participate in care of your patient. Will follow patient with you. Please call if any Qs Dr Chris Reese Office: [phone] Chief Complaint; unable Reason for consult: Hypernatremia HPI: Pt is a 83 M with hx of COPD, CAD, dementia, CVA hypertension (years) aortic insuff with AV endocarditis presented with complaints of dehydration and being managed for hypernatremia, elevated troponins renal consult for elevated BUN and hypernatremia no knwon OTC/herbal meds or NSAIDs No recent iodinated contrast exposure. No obvious episodes of low BP. pt unable to provide any hx ROS: Unable to obtain Physical Examination: General Appearance: Comfortable, in no acute respiratory distress, co-operative . non verbal/non communicative Vitals reviewed and noted as below Head; Atraumatic, normocephalic ENT: no ulcers no thrush. Tongue is midline/dry. Oropharynx: no rash or ulcers. EYES: Pupils are equal, round and reactive to light accommodation. Eye muscles and extraocular movement intact. Sclera is icteric. Neck; supple no lymphadenopathy, no thyromegaly or bruit Lungs:Increased respiratory rate/effort. Breath sounds bilateral equal and clear Heart: Normal rate. s1s2 normal. No rub or gallop. Extremities: no edema. No varicose veins. upper ext edema + Neurological: Patient is awake non verbal/non communicative Skin: Warm and dry. Normal turgor. No rash. Palpitation: Normal elasticity for age Abdomen: Abdomen is soft. Bowel sounds +. There is no abdominal tenderness, no guarding/rigidity no organomegaly Psych: unable MSK: no joint tenderness or swelling. Digits and nails normal, no deformity : kidney or bladder not palpable Labs/imaging reviewed. Past medical history, past surgical history, family history, social history, allergy reviewed and noted as below Family hx: no hx of CKD. Rest non-contributory Objective - Vital Signs/Intake and Output Vital Signs (last 24 hours): Temp Pulse Resp BP Pulse Ox 97.9 F 90 20 100/60 95 08/12/18 07:42 08/12/18 07:42 08/12/18 07:42 08/12/18 07:42 08/12/18 07:42 Intake and Output: 08/12/18 08/12/18 06:59 18:59 Intake Total 480 960 Output Total 150 400 Balance 330 560 - Medications Medications: Current Medications Acetaminophen (Tylenol 325mg Tab) 650 mg PO Q4 [facility] Last Admin: 08/12/18 12:26 Dose: Not Given Apixaban (Eliquis) 5 mg PO BID [facility] Last Admin: 08/12/18 10:00 Dose: Not Given Linezolid (Zyvox 600mg/300ml D5w) 600 mg in 300 mls @ 200 mls/hr IVPB Q12H [facility]; Protocol Last Admin: 08/12/18 13:25 Dose: 200 mls/hr Potassium Chloride/Dextrose/Sod Cl (Potassium Chl 40 Meq In D5-1/2ns) 1,000 mls @ 50 mls/hr IV .Q20H [facility] Magnesium Hydroxide (Milk Of Magnesia) 30 ml PO DAILY [facility] Last Admin: 08/12/18 11:00 Dose: Not Given Metoprolol Tartrate (Lopressor) 25 mg NG BID [facility] Last Admin: 08/12/18 11:00 Dose: Not Given Rosuvastatin Calcium (Crestor) 2.5 mg PO HS [facility] Last Admin: 08/11/18 21:42 Dose: Not Given - Labs Labs: 08/08/18 12:22 08/12/18 07:04 PT 18.2 SECONDS (9.7-12.2) H 08/08/18 08:01 INR 1.7 08/08/18 08:01 APTT 34 SECONDS (21-34) 08/08/18 08:01
--- NOTE | 2018-08-12 15:56 | CP.PCM.CON ---
History of Present Illness - History of Present Illness History of Present Illness: Palliative consult requested by [facility] for goals of care discussion, poor prognosis Patient is a 83 yo male admitted from [place] where he was found with poor PO intake . Patient was diagnosed with dehydration and Hypernatremia, Na 160 on this admission , and treated with IV fluids. Patient also found with VRE in the urine and TRPI elevated. Doctor Calvin called on consult and Zyvox IV started for UTI. Patient was treated for similar symptoms back in 05/2018. PMH: NSTEMI, CVA, aphasia, dysphagia, CA, COPD Soc. Hx: , [place] resident, son Fredrick involved with care Fam. Hx: Unknown Review of Systems - Review of Systems All systems: reviewed and no additional remarkable complaints except Review of Systems: ROS unobtainable from patient due to aphasia and lethargy. ROS obtained from nursing. Per nursing patient had been lethargic, NPO and on IV fluids Past Patient History - Past Medical History & Family History Past Medical History?: Yes - Past Social History Smoking Status: Unknown If Ever Smoked - CARDIAC Hx Cardiac Disorders: Yes Hx Hypertension: Yes - PULMONARY Hx Chronic Obstructive Pulmonary Disease (COPD): Yes - NEUROLOGICAL HX Cerebrovascular Accident: Yes - HEENT Hx HEENT Problems: No - RENAL Hx Chronic Kidney Disease: No - ENDOCRINE/METABOLIC Hx Endocrine Disorders: No - HEMATOLOGICAL/ONCOLOGICAL Hx Blood Disorders: No - INTEGUMENTARY Hx Dermatological Problems: No - MUSCULOSKELETAL/RHEUMATOLOGICAL Hx Arthritis: Yes - GASTROINTESTINAL Hx Gastrointestinal Disorders: No - GENITOURINARY/GYNECOLOGICAL Hx Genitourinary Disorders: Yes Hx Prostate Problems: Yes (enlarged prostate) Hx Urinary Tract Infection: Yes - PSYCHIATRIC Hx Psychophysiologic Disorder: No Hx Substance Use: No - SURGICAL HISTORY Hx Surgeries: No - ANESTHESIA Hx Anesthesia: Yes Hx Anesthesia Reactions: Yes Hx Malignant Hyperthermia: No Has any member of the family had a problem w/ anesthesia?: No Meds Allergies/Adverse Reactions: Allergies Allergy/AdvReac Type Severity Reaction Status Date / Time No Known Allergies Allergy Verified 06/24/18 17:23 - Medications Medications: Current Medications Acetaminophen (Tylenol 325mg Tab) 650 mg PO Q4 [facility] Last Admin: 08/12/18 12:26 Dose: Not Given Apixaban (Eliquis) 5 mg PO BID [facility] Last Admin: 08/12/18 10:00 Dose: Not Given Linezolid (Zyvox 600mg/300ml D5w) 600 mg in 300 mls @ 200 mls/hr IVPB Q12H [facility]; Protocol Last Admin: 08/12/18 13:25 Dose: 200 mls/hr Potassium Chloride/Dextrose/Sod Cl (Potassium Chl 40 Meq In D5-1/2ns) 1,000 mls @ 50 mls/hr IV .Q20H [facility] Magnesium Hydroxide (Milk Of Magnesia) 30 ml PO DAILY [facility] Last Admin: 08/12/18 11:00 Dose: Not Given Metoprolol Tartrate (Lopressor) 25 mg NG BID [facility] Last Admin: 08/12/18 11:00 Dose: Not Given Rosuvastatin Calcium (Crestor) 2.5 mg PO [facility] Last Admin: 08/11/18 21:42 Dose: Not Given Physical Exam - Constitutional Appears: Chronically Ill - Head Exam Head Exam: ATRAUMATIC, NORMAL INSPECTION, NORMOCEPHALIC - Eye Exam Eye Exam: EOMI, Normal appearance, PERRL Pupil Exam: NORMAL ACCOMODATION, PERRL - ENT Exam ENT Exam: Mucous Membranes Dry - Neck Exam Neck exam: Positive for: Normal Inspection - Respiratory Exam Respiratory Exam: Decreased Breath Sounds, Rales, Rhonchi - Cardiovascular Exam Cardiovascular Exam: Tachycardia - GI/Abdominal Exam GI & Abdominal Exam: Hypoactive Bowel Sounds, Soft - Rectal Exam Rectal Exam: Deferred - Exam Exam: NORMAL INSPECTION - Extremities Exam Extremities exam: Positive for: normal inspection - Back Exam Back exam: NORMAL INSPECTION - Neurological Exam Neurological exam: Altered - Psychiatric Exam Psychiatric exam: Flat Affect - Skin Skin Exam: Dry, Intact Results - Vital Signs Recent Vital Signs: Last Vital Signs Temp 97.9 F 08/12/18 07:42 Pulse 90 08/12/18 07:42 Resp 20 08/12/18 07:42 BP 100/60 08/12/18 07:42 Pulse Ox 95 08/12/18 07:42 - Labs Result Diagrams: 08/08/18 12:22 08/12/18 07:04 Labs: Laboratory Results - last 24 hr 08/12/18 07:04 Sodium 146 Potassium 3.7 Chloride 118 H Carbon Dioxide 26 Anion Gap 6 L BUN 29 H Creatinine 0.7 L Est GFR ( Amer) > 60 Est GFR (Non-Af Amer) > 60 Random Glucose 86 D Calcium 8.4 L Assessment & Plan - Assessment and Plan (Free Text) Assessment: Palliative consult Full Code, there is no Advance Directive on chart, PPS 10 % I reviewed all Medical records, and diagnostic studies, examined patient in the bed Patient is lethargic, unresponsive to tactile / verbal stimuli. Physical exam reveals a chronically ill male, with pale skin and edema to upper and lower extremities. Breathing is diminished, ronchi and rales on auscultation. Abdomen flat, diminished bowel sounds. Oral mucousa dry. NPO. IVF for hydration. There are no Active ROM. BP 100/60, HR 90, O2Sat 95 % NC Goals of care discussed with patient's son Fredrick , over the phone. I reviewed patient's clinical presentation and shared with him suggestion by Doctor Jacobs regarding the Hospice care. Mr. Alcala presented as well educated on the matter . He stated having discussion about PEG placement and his biggest concern was quality of life of his 82 yo father. Mr. Alcala was under the impression that PEG would only " prolong his father ". I supported his view. I made sure Mr. Alcala understood that without nutrition and hydration his father will most likely faster and NH will not accept him back unless patient's status was declared as Comfort Care only, if PEG was refused. Mr. Alcala said he was almost positive he wanted his father to comfortably under the Hospice care, but before he makes final decision he was to come in tonight and see his father again. Mr. Alcala said he was to talk Doctor Jacobs and discuss his decision. I shared this with Caser Up and Erick BUENROSTRO. Mr. Alcala confirmed previously signed DNR/DNI. Copy of POLST on chart. Impression * Chronically ill male with AMS * Lethargy * Weakness * Dehydration * Malnutrition * Patient unable to advocate for himself * Patient's son Fredrick is considering Comfort measures Suggestion * Continue IV hydration * Oral care * promote hygiene and skin integrity * NPO * DNR/DNI * Hospice evaluation when patient's son decides on it Advance Care planing 40 min Palliative care will fallow up on decision about Hospice care
[2018-08-12] MEDS: Potassium Chl 40 mEq in D5-1/2 1,000 ML IV SCH (18:20)
[2018-08-12] MEDS: Rosuvastatin Calcium 2.5 mg Tab PO SCH (22:29)
--- NOTE | 2018-08-12 22:43 | CP.PCM.PN ---
Subjective - Subjective Subjective: dictated Objective - Vital Signs/Intake and Output Vital Signs (last 24 hours): Temp Pulse Resp BP Pulse Ox 97.7 F 90 20 104/57 L 95 08/12/18 17:29 08/12/18 17:29 08/12/18 17:29 08/12/18 17:29 08/12/18 17:29 Intake and Output: 08/12/18 08/13/18 18:59 06:59 Intake Total 960 Output Total 400 Balance 560 - Medications Medications: Current Medications Acetaminophen (Tylenol 325mg Tab) 650 mg PO Q4 [facility] Last Admin: 08/12/18 22:30 Dose: Not Given Apixaban (Eliquis) 5 mg PO BID [facility] Last Admin: 08/12/18 18:22 Dose: Not Given Linezolid (Zyvox 600mg/300ml D5w) 600 mg in 300 mls @ 200 mls/hr IVPB Q12H [facility]; Protocol Last Admin: 08/12/18 13:25 Dose: 200 mls/hr Potassium Chloride/Dextrose/Sod Cl (Potassium Chl 40 Meq In D5-1/2ns) 1,000 mls @ 50 mls/hr IV .Q20H [facility] Last Admin: 08/12/18 18:20 Dose: 50 mls/hr Magnesium Hydroxide (Milk Of Magnesia) 30 ml PO DAILY [facility] Last Admin: 08/12/18 11:00 Dose: Not Given Metoprolol Tartrate (Lopressor) 25 mg NG BID [facility] Last Admin: 08/12/18 18:21 Dose: Not Given Rosuvastatin Calcium (Crestor) 2.5 mg PO HS [facility] Last Admin: 08/12/18 22:29 Dose: Not Given - Labs Labs: 08/08/18 12:22 08/12/18 07:04 PT 18.2 SECONDS (9.7-12.2) H 08/08/18 08:01 INR 1.7 08/08/18 08:01 APTT 34 SECONDS (21-34) 08/08/18 08:01
[2018-08-13] MEDS: Linezolid 600 mg in D5W 300 ml 600 MG/300 ML BAG IVPB SCH ×2 (00:33→12:23)
--- NOTE | 2018-08-13 04:08 | PN ---
DATE: 08/12/2018 SUBJECTIVE: The patient is weak. He is responsive. He opens eyes and responds to verbal stimuli. The patient's [id number] was there and I had extensive discussion with [id number] over the phone and [id number] after questioning agreed for PEG tube placement, and the patient will have a PEG placed. The patient in the meantime is weak. He is arousable. He is afebrile. He is on Zyvox. PHYSICAL EXAMINATION: VITAL SIGNS: Blood pressure 104/57, pulse 90, respiratory rate 20, temperature 97.7. LUNGS: Bilateral scattered rhonchi. CARDIOVASCULAR: S1, S2 regular. ABDOMEN: Soft, nontender. Bowel sounds are positive. ASSESSMENT: 1. Urinary tract infection due to vancomycin resistant enterococcus, on Zyvox. 2. Obstructive uropathy due to benign prostatic hypertrophy. 3. Dehydration, hypernatremia, hypokalemia, improved. 4. Inability to ____ for percutaneous endoscopic gastrostomy placement. PLAN: PEG. Esau Jacobs MD
--- NOTE | 2018-08-13 08:44 | CP.PCM.PN ---
Subjective - Date & Time of Evaluation Date of Evaluation: 08/12/18 Time of Evaluation: 16:30 - Subjective Subjective: Patient's general condition remains poor Lethargic and weak Physical Exam - Constitutional Appears: Non-toxic, No Acute Distress - Head Exam Head Exam: ATRAUMATIC, NORMOCEPHALIC - ENT Exam ENT Exam: Mucous Membranes Moist - Respiratory Exam Respiratory Exam: Clear to Auscultation Bilateral. absent: Accessory Muscle Use, Rales, Rhonchi, Wheezes, Respiratory Distress - Cardiovascular Exam Cardiovascular Exam: REGULAR RHYTHM, +S1, +S2. absent: Diastolic murmur, Gallop, Rubs, Systolic Murmur - GI/Abdominal Exam GI & Abdominal Exam: Normal Bowel Sounds, Soft. absent: Distended, Firm, Guarding, Tenderness - Extremities Exam Extremities exam: Negative for: pedal edema, tenderness - Neurological Exam Additional comments: hemiparesis of left side. follows very minimal commands. 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 Troponins elevated on admission at 0.18 (repeat 0.32). EKG on admission showed a fib with no specific ST changes. NSTEMI - At this time, pt is not deemed suitable for invasive cardiac intervention. - Will optimize medical management with Metoprolol tartrate 25 mg po qd, and Crestor therapy. Afib - Continue rate control with Metoprolol and AC with eliquis 5 mg po bid Patient Patient DNR/DNI Objective - Vital Signs/Intake and Output Vital Signs (last 24 hours): Temp Pulse Resp BP Pulse Ox 97.5 F L 94 H 20 109/63 97 08/12/18 23:43 08/12/18 23:43 08/12/18 23:43 08/12/18 23:43 08/12/18 23:43 Intake and Output: 08/13/18 08/13/18 06:59 18:59 Intake Total 400 Output Total 200 Balance 200 - Medications Medications: Current Medications Acetaminophen (Tylenol 325mg Tab) 650 mg PO Q4 [facility] Last Admin: 08/13/18 04:00 Dose: Not Given Apixaban (Eliquis) 5 mg PO BID [facility] Last Admin: 08/12/18 18:22 Dose: Not Given Linezolid (Zyvox 600mg/300ml D5w) 600 mg in 300 mls @ 200 mls/hr IVPB Q12H [facility]; Protocol Last Admin: 08/13/18 00:33 Dose: 200 mls/hr Potassium Chloride/Dextrose/Sod Cl (Potassium Chl 40 Meq In D5-1/2ns) 1,000 mls @ 50 mls/hr IV .Q20H [facility] Last Admin: 08/12/18 18:20 Dose: 50 mls/hr Magnesium Hydroxide (Milk Of Magnesia) 30 ml PO DAILY [facility] Last Admin: 08/12/18 11:00 Dose: Not Given Metoprolol Tartrate (Lopressor) 25 mg NG BID [facility] Last Admin: 08/12/18 18:21 Dose: Not Given Rosuvastatin Calcium (Crestor) 2.5 mg PO HS [facility] Last Admin: 08/12/18 22:29 Dose: Not Given - Labs Labs: 08/08/18 12:22 08/12/18 07:04 PT 18.2 SECONDS (9.7-12.2) H 08/08/18 08:01 INR 1.7 08/08/18 08:01 APTT 34 SECONDS (21-34) 08/08/18 08:01
[2018-08-13] MEDS: Magnesium Hydroxide Susp 30 ml UD PO SCH (09:53)
--- NOTE | 2018-08-13 10:37 | PN ---
DATE: 08/13/2018 LOCATION: 367. SUBJECTIVE: This is an 83-year-old male in the state of DNR/DNI, seen early in rounds without significant clinical changes with period of semi confusion and mild disorientation with very poor oral intake, seen for potential palliative treatments. No reported active bleeding, actual chest pain, palpitation but slight shortness of breath with very poor oral intake. This is a patient with possible high risk of aspiration. The entire chart is reviewed including but not limited to the most recent lab results, which showed low hemoglobin and hematocrit, low calcium, increased BUN but low creatinine with mildly low calcium. PHYSICAL EXAMINATION: GENERAL: An 83-year-old male. VITAL SIGNS: Afebrile with pulse of 90, respiratory rate 20 to 22, blood pressure of 112/60. HEENT: Showed pale dry oral mucous membranes. Nonicteric sclerae. LUNGS: Few scattered crepitation. Decreased air entry at bases. HEART: Positive S1 and S2. ABDOMEN: Soft with mild generalized tenderness. No mass or organomegaly. No rebound tenderness or guarding. EXTREMITIES: No significant edema, clubbing, or cyanosis. NEUROLOGIC: No reported new neurological deficits, sensory or motor. IMPRESSION: 1. Hypoalbuminemia, hypoproteinemia, malnutrition. 2. Electrolyte imbalance. 3. Poorly controlled diabetes mellitus. 4. Recent history of myocardial infarction. 5. Cerebrovascular accident. 6. anemia, most likely secondary to above. 7. No known history of hypertension, coronary artery disease with hyperlipidemia, and atrial fibrillation with Alzheimer's disease. SUGGESTIONS: 1. Agree with your plan. 2. Central hyperalimentation. 3. Antireflux measures. 4. Further recommendations to follow. Antoni Duran MD
[2018-08-13] MEDS: Potassium Chl 40 mEq in D5-1/2 1,000 ML IV SCH (11:09)
--- NOTE | 2018-08-13 11:16 | CP.PCM.PN ---
Subjective - Date & Time of Evaluation Date of Evaluation: 08/13/18 Time of Evaluation: 11:15 - Subjective Subjective: Nephrology Consultation Note: Assessment: Stable Hypernatremia likely due to dehydration, limited oral fluid intake Hypokalemia mild anemia hyperbilirubinemia COPD, CAD, dementia, CVA hypertension (years) aortic insuff with AV endocarditis Plan Maintain hemodynamics stable. Avoid hypotension. Patient not on ACEI/ARB due to low BP Monitor Input/Output, daily weights and renal function with basic metabolic panel fluid as D5 1/2 NS with 40 meq kcl @ 50 ml/hr. d/c IVF once pt has peg and on feeds monitor for urine retention with bladder scans as needed. antibiotics per ID pall care involved. hospice being contemplated by family Dose meds/antibiotics for GFR>60 Glycemic control Further work up/management as per primary team Thanks for allowing me to participate in care of your patient. Will follow patient with you. Please call if any Qs Dr Chris Reese Office: [phone] Chief Complaint; unable Reason for consult: Hypernatremia HPI: Pt is a 83 M with hx of COPD, CAD, dementia, CVA hypertension (years) aortic insuff with AV endocarditis presented with complaints of dehydration and being managed for hypernatremia, elevated troponins renal consult for elevated BUN and hypernatremia no knwon OTC/herbal meds or NSAIDs No recent iodinated contrast exposure. No obvious episodes of low BP. pt unable to provide any hx ROS: Unable to obtain. pt more awake and responsive today Physical Examination: General Appearance: Comfortable, in no acute respiratory distress, co-operative . mostly non verbal/non communicative Vitals reviewed and noted as below Head; Atraumatic, normocephalic ENT: no ulcers no thrush. Tongue is midline/dry. Oropharynx: no rash or ulcers. EYES: Pupils are equal, round and reactive to light accommodation. Eye muscles and extraocular movement intact. Sclera is icteric. Neck; supple no lymphadenopathy, no thyromegaly or bruit Lungs:Increased respiratory rate/effort. Breath sounds bilateral equal and clear Heart: Normal rate. s1s2 normal. No rub or gallop. Extremities: no edema. No varicose veins. upper ext edema + Neurological: Patient is awake non verbal/non communicative. able to follow some commands Skin: Warm and dry. Normal turgor. No rash. Palpitation: Normal elasticity for age Abdomen: Abdomen is soft. Bowel sounds +. There is no abdominal tenderness, no guarding/rigidity no organomegaly Psych: unable MSK: no joint tenderness or swelling. Digits and nails normal, no deformity : kidney or bladder not palpable Labs/imaging reviewed. Past medical history, past surgical history, family history, social history, allergy reviewed and noted as below Family hx: no hx of CKD. Rest non-contributory Objective - Vital Signs/Intake and Output Vital Signs (last 24 hours): Temp Pulse Resp BP Pulse Ox 97.5 F L 94 H 20 109/63 97 08/12/18 23:43 08/12/18 23:43 08/12/18 23:43 08/12/18 23:43 08/12/18 23:43 Intake and Output: 08/13/18 08/13/18 06:59 18:59 Intake Total 400 Output Total 200 Balance 200 - Medications Medications: Current Medications Acetaminophen (Tylenol 325mg Tab) 650 mg PO Q4 [facility] Last Admin: 08/13/18 04:00 Dose: Not Given Apixaban (Eliquis) 5 mg PO BID [facility] Last Admin: 08/13/18 09:53 Dose: Not Given Linezolid (Zyvox 600mg/300ml D5w) 600 mg in 300 mls @ 200 mls/hr IVPB Q12H [facility]; Protocol Last Admin: 08/13/18 00:33 Dose: 200 mls/hr Potassium Chloride/Dextrose/Sod Cl (Potassium Chl 40 Meq In D5-1/2ns) 1,000 mls @ 50 mls/hr IV .Q20H [facility] Last Admin: 08/13/18 11:09 Dose: Not Given Magnesium Hydroxide (Milk Of Magnesia) 30 ml PO DAILY [facility] Last Admin: 08/13/18 09:53 Dose: Not Given Metoprolol Tartrate (Lopressor) 25 mg NG BID [facility] Last Admin: 08/13/18 09:53 Dose: Not Given Rosuvastatin Calcium (Crestor) 2.5 mg PO HS [facility] Last Admin: 08/12/18 22:29 Dose: Not Given - Labs Labs: 08/08/18 12:22 08/12/18 07:04 PT 18.2 SECONDS (9.7-12.2) H 08/08/18 08:01 INR 1.7 08/08/18 08:01 APTT 34 SECONDS (21-34) 08/08/18 08:01
[2018-08-13] MEDS: SILVASORB ANTIMICROBIAL WOUND GEL TOP SCH (14:37)
--- NOTE | 2018-08-13 14:46 | CP.PCM.PN ---
<Becky Snell - Last Filed: 08/13/18 14:41> Subjective - Date & Time of Evaluation Date of Evaluation: 08/13/18 Time of Evaluation: 09:00 - Subjective Subjective: Cardiology Progress Note: Patient was seen and examined at bedside. Patient's general condition remains poor. Currently ROS unobtainable due to mental status. Objective - Vital Signs/Intake and Output Vital Signs (last 24 hours): Temp Pulse Resp BP Pulse Ox 97.9 F 97 H 24 115/63 94 L 08/13/18 07:00 08/13/18 07:00 08/13/18 07:00 08/13/18 07:00 08/13/18 07:00 Intake and Output: 08/13/18 08/13/18 06:59 18:59 Intake Total 400 Output Total 200 Balance 200 - Medications Medications: Current Medications Acetaminophen (Tylenol 325mg Tab) 650 mg PO Q4 [facility] Last Admin: 08/13/18 12:23 Dose: Not Given Apixaban (Eliquis) 5 mg PO BID [facility] Last Admin: 08/13/18 09:53 Dose: Not Given Linezolid (Zyvox 600mg/300ml D5w) 600 mg in 300 mls @ 200 mls/hr IVPB Q12H [facility]; Protocol Last Admin: 08/13/18 12:23 Dose: 200 mls/hr Potassium Chloride/Dextrose/Sod Cl (Potassium Chl 40 Meq In D5-1/2ns) 1,000 mls @ 50 mls/hr IV .Q20H [facility] Last Admin: 08/13/18 11:09 Dose: Not Given Magnesium Hydroxide (Milk Of Magnesia) 30 ml PO DAILY [facility] Last Admin: 08/13/18 09:53 Dose: Not Given Metoprolol Tartrate (Lopressor) 25 mg NG BID [facility] Last Admin: 08/13/18 09:53 Dose: Not Given Rosuvastatin Calcium (Crestor) 2.5 mg PO HS [facility] Last Admin: 08/12/18 22:29 Dose: Not Given - Labs Labs: 08/08/18 12:22 08/12/18 07:04 PT 18.2 SECONDS (9.7-12.2) H 08/08/18 08:01 INR 1.7 08/08/18 08:01 APTT 34 SECONDS (21-34) 08/08/18 08:01 - Constitutional Appears: No Acute Distress, Chronically Ill - Head Exam Head Exam: ATRAUMATIC, NORMAL INSPECTION - ENT Exam ENT Exam: Mucous Membranes Moist - Respiratory Exam Respiratory Exam: NORMAL BREATHING PATTERN - Cardiovascular Exam Cardiovascular Exam: REGULAR RHYTHM, +S1, +S2 - GI/Abdominal Exam GI & Abdominal Exam: Soft - Neurological Exam Neurological Exam: Awake. 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 NSTEMI - At this time, pt is not deemed suitable for invasive cardiac intervention. - Will optimize medical management with Metoprolol tartrate 25 mg po qd, and Crestor therapy. Afib - Continue rate control with Metoprolol and AC with eliquis 5 mg po bid - Eliquis currently placed on hold as patient will be going for a PEG procedure. Case discussed with Dr. Calvin Snell PGY-2 <Misael Simpson - Last Filed: 08/14/18 22:54> Objective - Vital Signs/Intake and Output Vital Signs (last 24 hours): Temp Pulse Resp BP Pulse Ox 97.2 F L 106 H 20 109/60 97 08/14/18 16:07 08/14/18 16:07 08/14/18 16:07 08/14/18 16:07 08/14/18 16:07 Intake and Output: 08/14/18 08/15/18 18:59 06:59 Intake Total 700 400 Balance 700 400 - Medications Medications: Current Medications Acetaminophen (Tylenol 325mg Tab) 650 mg PO Q4 [facility] Last Admin: 08/14/18 21:03 Dose: Not Given Apixaban (Eliquis) 5 mg PO BID [facility] Last Admin: 08/13/18 09:53 Dose: Not Given Linezolid (Zyvox 600mg/300ml D5w) 600 mg in 300 mls @ 200 mls/hr IVPB Q12H [facility]; Protocol Last Admin: 01/16/19 12:21 Dose: 200 mls/hr Potassium Chloride/Dextrose/Sod Cl (Potassium Chl 40 Meq In D5-1/2ns) 1,000 mls @ 50 mls/hr IV .Q20H [facility] Last Admin: 08/14/18 07:00 Dose: Not Given Magnesium Hydroxide (Milk Of Magnesia) 30 ml PO DAILY [facility] Last Admin: 08/14/18 09:10 Dose: Not Given Metoprolol Tartrate (Lopressor) 25 mg NG BID [facility] Last Admin: 08/14/18 17:11 Dose: Not Given Rosuvastatin Calcium (Crestor) 2.5 mg PO HS [facility] Last Admin: 08/14/18 21:03 Dose: Not Given - Labs Labs: 08/14/18 10:45 08/14/18 10:45 PT 13.6 SECONDS (9.7-12.2) H 08/14/18 10:45 INR 1.2 08/14/18 10:45 APTT 34 SECONDS (21-34) 08/14/18 10:45 Assessment and Plan - Assessment and Plan (Free Text) Assessment: Patient examined and evaluated personally by me. Plan of care d/w the resident and as documented
--- NOTE | 2018-08-13 21:17 | CP.PCM.PN ---
Subjective - Subjective Subjective: dictated Objective - Vital Signs/Intake and Output Vital Signs (last 24 hours): Temp Pulse Resp BP Pulse Ox 97.9 F 97 H 24 115/63 94 L 08/13/18 07:00 08/13/18 07:00 08/13/18 07:00 08/13/18 07:00 08/13/18 07:00 Intake and Output: 08/13/18 08/14/18 18:59 06:59 Intake Total 700 Balance 700 - Medications Medications: Current Medications Acetaminophen (Tylenol 325mg Tab) 650 mg PO Q4 [facility] Last Admin: 08/13/18 12:23 Dose: Not Given Apixaban (Eliquis) 5 mg PO BID [facility] Last Admin: 08/13/18 09:53 Dose: Not Given Linezolid (Zyvox 600mg/300ml D5w) 600 mg in 300 mls @ 200 mls/hr IVPB Q12H [facility]; Protocol Last Admin: 08/13/18 12:23 Dose: 200 mls/hr Potassium Chloride/Dextrose/Sod Cl (Potassium Chl 40 Meq In D5-1/2ns) 1,000 mls @ 50 mls/hr IV .Q20H [facility] Last Admin: 08/13/18 11:09 Dose: Not Given Magnesium Hydroxide (Milk Of Magnesia) 30 ml PO DAILY [facility] Last Admin: 08/13/18 09:53 Dose: Not Given Metoprolol Tartrate (Lopressor) 25 mg NG BID [facility] Last Admin: 08/13/18 09:53 Dose: Not Given Rosuvastatin Calcium (Crestor) 2.5 mg PO HS [facility] Last Admin: 08/12/18 22:29 Dose: Not Given - Labs Labs: 08/08/18 12:22 08/12/18 07:04 PT 18.2 SECONDS (9.7-12.2) H 08/08/18 08:01 INR 1.7 08/08/18 08:01 APTT 34 SECONDS (21-34) 08/08/18 08:01
[2018-08-13] MEDS: Rosuvastatin Calcium 2.5 mg Tab PO SCH (22:31)
[2018-08-14] MEDS: Linezolid 600 mg in D5W 300 ml 600 MG/300 ML BAG IVPB SCH ×2 (00:01→12:21)
[2018-08-14] MEDS: Potassium Chl 40 mEq in D5-1/2 1,000 ML IV SCH ×2 (00:03→07:00)
--- NOTE | 2018-08-14 03:16 | PN ---
DATE: 08/13/2017 SUBJECTIVE: This is for PEG placement. He is arousable and he opens his eyes. He does not follow my command. No fever. PHYSICAL EXAMINATION: VITAL SIGNS: Blood pressure 115/63, pulse 80, respiratory rate 24, temperature 97.9. LUNGS: Clear. CARDIOVASCULAR SYSTEM: S1, S2 regular. ABDOMEN: Soft. ASSESSMENT: 1. Urinary tract infection and the patient is on Zyvox for vancomycin-resistant enterococcus. Repeat urine cultures are negative. 2. Hypertension. 3. Alzheimer. 4. Obstructive uropathy. PLAN: Continue antibiotics. PEG placement. Esau Jacobs MD
[2018-08-14] MEDS: Magnesium Hydroxide Susp 30 ml UD PO SCH (09:10)
[2018-08-14] MEDS ORDERED: Phytonadione 10 mg/ml Inj (Adult) SC ONE (10:15)
--- NOTE | 2018-08-14 10:31 | CP.PCM.PN ---
<Becky Snell - Last Filed: 08/14/18 14:04> Subjective - Date & Time of Evaluation Date of Evaluation: 08/14/18 Time of Evaluation: 11:00 - Subjective Subjective: Cardiology Progress Note: Patient was seen and examined at bedside. Patient's general condition remains poor. Currently ROS unobtainable due to mental status. Objective - Vital Signs/Intake and Output Vital Signs (last 24 hours): Temp Pulse Resp BP Pulse Ox 97.2 F L 101 H 20 137/60 96 08/14/18 07:52 08/14/18 07:52 08/14/18 07:52 08/14/18 07:52 08/14/18 07:52 Intake and Output: 08/14/18 08/14/18 06:59 18:59 Intake Total 400 Balance 400 - Medications Medications: Current Medications Acetaminophen (Tylenol 325mg Tab) 650 mg PO Q4 [facility] Last Admin: 08/14/18 04:00 Dose: Not Given Apixaban (Eliquis) 5 mg PO BID [facility] Last Admin: 08/13/18 09:53 Dose: Not Given Linezolid (Zyvox 600mg/300ml D5w) 600 mg in 300 mls @ 200 mls/hr IVPB Q12H [facility]; Protocol Last Admin: 08/14/18 00:01 Dose: 200 mls/hr Potassium Chloride/Dextrose/Sod Cl (Potassium Chl 40 Meq In D5-1/2ns) 1,000 mls @ 50 mls/hr IV .Q20H [facility] Last Admin: 08/14/18 07:00 Dose: Not Given Magnesium Hydroxide (Milk Of Magnesia) 30 ml PO DAILY [facility] Last Admin: 08/14/18 09:10 Dose: Not Given Metoprolol Tartrate (Lopressor) 25 mg NG BID [facility] Last Admin: 08/14/18 09:10 Dose: Not Given Rosuvastatin Calcium (Crestor) 2.5 mg PO HS [facility] Last Admin: 08/13/18 22:31 Dose: Not Given - Labs Labs: 08/08/18 12:22 08/12/18 07:04 PT 18.2 SECONDS (9.7-12.2) H 08/08/18 08:01 INR 1.7 08/08/18 08:01 APTT 34 SECONDS (21-34) 08/08/18 08:01 - Constitutional Appears: Chronically Ill - Head Exam Head Exam: ATRAUMATIC, NORMAL INSPECTION - Eye Exam Eye Exam: Normal appearance - ENT Exam ENT Exam: Mucous Membranes Moist - Respiratory Exam Respiratory Exam: NORMAL BREATHING PATTERN - Cardiovascular Exam Cardiovascular Exam: REGULAR RHYTHM, +S1, +S2 - Neurological Exam Neurological Exam: Awake. 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 NSTEMI - At this time, pt is not deemed suitable for invasive cardiac intervention. - Will optimize medical management with Metoprolol tartrate 25 mg po qd, and Crestor therapy. Afib - Continue rate control with Metoprolol and AC with eliquis 5 mg po bid - Eliquis currently placed on hold as patient will be going for a PEG procedure. Thank you for this consult. Please reconsult as needed. Thank you. Case discussed with Dr. Calvin Snell PGY-2 <Misael Simpson - Last Filed: 08/14/18 22:54> Objective - Vital Signs/Intake and Output Vital Signs (last 24 hours): Temp Pulse Resp BP Pulse Ox 97.2 F L 106 H 20 109/60 97 08/14/18 16:07 08/14/18 16:07 08/14/18 16:07 08/14/18 16:07 08/14/18 16:07 Intake and Output: 08/14/18 08/15/18 18:59 06:59 Intake Total 700 400 Balance 700 400 - Medications Medications: Current Medications Acetaminophen (Tylenol 325mg Tab) 650 mg PO Q4 [facility] Last Admin: 08/14/18 21:03 Dose: Not Given Apixaban (Eliquis) 5 mg PO BID [facility] Last Admin: 08/13/18 09:53 Dose: Not Given Linezolid (Zyvox 600mg/300ml D5w) 600 mg in 300 mls @ 200 mls/hr IVPB Q12H [facility]; Protocol Last Admin: 08/14/18 12:21 Dose: 200 mls/hr Potassium Chloride/Dextrose/Sod Cl (Potassium Chl 40 Meq In D5-1/2ns) 1,000 mls @ 50 mls/hr IV .Q20H [facility] Last Admin: 08/14/18 07:00 Dose: Not Given Magnesium Hydroxide (Milk Of Magnesia) 30 ml PO DAILY [facility] Last Admin: 08/14/18 09:10 Dose: Not Given Metoprolol Tartrate (Lopressor) 25 mg NG BID [facility] Last Admin: 08/14/18 17:11 Dose: Not Given Rosuvastatin Calcium (Crestor) 2.5 mg PO HS [facility] Last Admin: 08/14/18 21:03 Dose: Not Given - Labs Labs: 08/14/18 10:45 08/14/18 10:45 PT 13.6 SECONDS (9.7-12.2) H 08/14/18 10:45 INR 1.2 08/14/18 10:45 APTT 34 SECONDS (21-34) 08/14/18 10:45 Assessment and Plan - Assessment and Plan (Free Text) Assessment: Patient examined and evaluated personally by me. Plan of care d/w the resident and as documented
[2018-08-14 11:03] LABS: BASO % 0.3 % (0.0-2.0); EOS % 0.2 % (0.0-4.0); HEMOGLOBIN 11.4 g/dL (12.0-18.0); LYMPH # 1.1 K/uL (1.0-4.3); LYMPH % 13.9 % (20.0-40.0); MEAN CELL VOLUME 104.3 fL (80.0-94.0); MEAN CORPUSCULAR HEMOGLOBIN 36.6 pg (27.0-31.0); MEAN CORPUSCULAR HGB CONC 35.1 g/dL (33.0-37.0); MEAN PLATELET VOLUME 9.8 fL (7.2-11.7); MONO # 0.6 K/uL (0.0-0.8); MONO % 6.7 % (0.0-10.0); NEUT # 6.5 K/uL (1.8-7.0); NEUT % 78.9 % (50.0-75.0); NRBC % 0.3 % (0.0-2.0); RBC 3.11 Mil/uL (4.40-5.90); RED CELL DISTRIBUTION WIDTH 16.1 % (11.5-14.5); WHITE BLOOD COUNT 8.3 K/uL (4.8-10.8)
[2018-08-14 11:07] LABS: INR 1.2; PROTHROMBIN TIME 13.6 SECONDS (9.7-12.2)
--- NOTE | 2018-08-14 11:29 | CP.PCM.PN ---
Subjective - Date & Time of Evaluation Date of Evaluation: 08/14/18 Time of Evaluation: 11:27 - Subjective Subjective: Nephrology Consultation Note: Assessment: Stable Hypernatremia likely due to dehydration, limited oral fluid intake Hypokalemia mild anemia hyperbilirubinemia COPD, CAD, dementia, CVA hypertension (years) aortic insuff with AV endocarditis Plan Maintain hemodynamics stable. Avoid hypotension. Patient not on ACEI/ARB due to low BP Monitor Input/Output, daily weights and renal function with basic metabolic panel fluid as D5 1/2 NS with 40 meq kcl @ 50 ml/hr. d/c IVF once pt has peg and on feeds monitor for urine retention with bladder scans as needed. straight cath as needed for urine retention. he is urine incontinent. antibiotics per ID cardiology and GI following Dose meds/antibiotics for GFR>60 Glycemic control Further work up/management as per primary team Thanks for allowing me to participate in care of your patient. Will follow patient with you. Please call if any Qs Dr Chris Reese Office: [phone] Chief Complaint; unable Reason for consult: Hypernatremia HPI: Pt is a 83 M with hx of COPD, CAD, dementia, CVA hypertension (years) aortic insuff with AV endocarditis presented with complaints of dehydration and being managed for hypernatremia, elevated troponins renal consult for elevated BUN and hypernatremia no knwon OTC/herbal meds or NSAIDs No recent iodinated contrast exposure. No obvious episodes of low BP. pt unable to provide any hx ROS: Unable to obtain. pt non communicative Physical Examination: General Appearance: Comfortable, in no acute respiratory distress, co-operative . mostly non verbal/non communicative Vitals reviewed and noted as below Head; Atraumatic, normocephalic ENT: no ulcers no thrush. Tongue is midline/dry. Oropharynx: no rash or ulcers. EYES: Pupils are equal, round and reactive to light accommodation. Eye muscles and extraocular movement intact. Sclera is icteric. Neck; supple no lymphadenopathy, no thyromegaly or bruit Lungs: normal respiratory rate/effort. Breath sounds bilateral equal and clear Heart: Normal rate. s1s2 normal. No rub or gallop. Extremities: no edema. No varicose veins. upper ext edema + Neurological: Patient is non verbal/non communicative. not able to follow commands Skin: Warm and dry. Normal turgor. No rash. Palpitation: Normal elasticity for age. skin echymose + Abdomen: Abdomen is soft. Bowel sounds +. There is no abdominal tenderness, no guarding/rigidity no organomegaly Psych: unable MSK: no joint tenderness or swelling. Digits and nails normal, no deformity : kidney or bladder not palpable Labs/imaging reviewed. Past medical history, past surgical history, family history, social history, allergy reviewed and noted as below Family hx: no hx of CKD. Rest non-contributory Objective - Vital Signs/Intake and Output Vital Signs (last 24 hours): Temp Pulse Resp BP Pulse Ox 97.2 F L 101 H 20 137/60 96 08/14/18 07:52 08/14/18 07:52 08/14/18 07:52 08/14/18 07:52 08/14/18 07:52 Intake and Output: 08/14/18 08/14/18 06:59 18:59 Intake Total 400 Balance 400 - Medications Medications: Current Medications Acetaminophen (Tylenol 325mg Tab) 650 mg PO Q4 [facility] Last Admin: 08/14/18 04:00 Dose: Not Given Apixaban (Eliquis) 5 mg PO BID [facility] Last Admin: 08/13/18 09:53 Dose: Not Given Linezolid (Zyvox 600mg/300ml D5w) 600 mg in 300 mls @ 200 mls/hr IVPB Q12H [facility]; Protocol Last Admin: 08/14/18 00:01 Dose: 200 mls/hr Potassium Chloride/Dextrose/Sod Cl (Potassium Chl 40 Meq In D5-1/2ns) 1,000 mls @ 50 mls/hr IV .Q20H [facility] Last Admin: 08/14/18 07:00 Dose: Not Given Magnesium Hydroxide (Milk Of Magnesia) 30 ml PO DAILY [facility] Last Admin: 08/14/18 09:10 Dose: Not Given Metoprolol Tartrate (Lopressor) 25 mg NG BID [facility] Last Admin: 08/14/18 09:10 Dose: Not Given Rosuvastatin Calcium (Crestor) 2.5 mg PO HS [facility] Last Admin: 08/13/18 22:31 Dose: Not Given - Labs Labs: 08/14/18 10:45 08/12/18 07:04 PT 13.6 SECONDS (9.7-12.2) H 08/14/18 10:45 INR 1.2 08/14/18 10:45 APTT 34 SECONDS (21-34) 08/14/18 10:45
[2018-08-14 11:39] LABS: ALB/GLOB RATIO 0.9 (1.0-2.1); ALBUMIN 2.4 g/dL (3.5-5.0); ALT/SGPT 15 U/L (21-72); AST/SGOT 13 U/L (17-59); BLOOD UREA NITROGEN 27 mg/dL (9-20); CALCIUM 8.6 mg/dl (8.6-10.4); GFR NON-AFRICAN AMERICAN > 60
--- NOTE | 2018-08-14 15:43 | PN ---
DATE: 08/14/2018 LOCATION: 367, bed A. SUBJECTIVE: This is an 83-year-old male in a state of DNR and DNI, seen and examined in rounds, is still incontinent of urine and stool for which was applied with period of mild semi confusion and poor oral intake. The entire chart is reviewed including but not limited to most recent lab and radiology study results, current and previous medication list, current and previous medical events with intermittent period of mild shortness of breath. No chest pain or palpitation. No rebound tenderness or guarding. Today's lab result is still pending. However, the patient reported to have leukocytosis with increased BUN, but low creatinine, low calcium with low albumin and low total protein. The latest PT and PTT were 18.2. PHYSICAL EXAMINATION: GENERAL: An 83-year-old male. VITAL SIGNS: Afebrile with pulse of 96, respiratory rate 20-22, blood pressure 130/62. HEENT: Showed pale dry oral mucous membrane. Nonicteric sclerae. LUNGS: Few scattered crepitation. Decreased air entry at bases. HEART: Positive S1 and S2. ABDOMEN: Soft with mild generalized tenderness and slight distention. No mass or organomegaly. No rebound tenderness or guarding. EXTREMITIES: With lower extremities, mild edematous changes. No clubbing or cyanosis. NEUROLOGIC: No reported new neurological deficits, sensory or motor. No focal deficits reported. IMPRESSION: 1. Malnutrition with hypoalbuminemia, hypoproteinemia. 2. Failure to thrive. 3. Electrolyte imbalance. 4. Reported history of possible myocardial infarction. Anemia secondary to above. 5. Known history of hypertension, coronary artery disease, atrial fibrillation, hyperlipidemia with Alzheimer's disease. SUGGESTIONS: 1. Continue current management. 2. Peripheral hyperalimentation. 3. The patient is to be scheduled for PEG insertion at a.m. after correcting his coagulopathy. Further recommendation to follow. Case to be discussed with the family for potential legal consent. Antoni Duran MD
--- NOTE | 2018-08-14 16:09 | CP.PCM.PN ---
Subjective - Date & Time of Evaluation Date of Evaluation: 08/14/18 Time of Evaluation: 09:00 - Subjective Subjective: seen on rounds remains bed bound / confused in NAD Objective - Vital Signs/Intake and Output Vital Signs (last 24 hours): Temp Pulse Resp BP Pulse Ox 97.2 F L 101 H 20 137/60 96 08/14/18 07:52 08/14/18 07:52 08/14/18 07:52 08/14/18 07:52 08/14/18 07:52 Intake and Output: 08/14/18 08/14/18 06:59 18:59 Intake Total 400 700 Balance 400 700 - Medications Medications: Current Medications Acetaminophen (Tylenol 325mg Tab) 650 mg PO Q4 [facility] Last Admin: 08/14/18 12:21 Dose: Not Given Apixaban (Eliquis) 5 mg PO BID [facility] Last Admin: 08/13/18 09:53 Dose: Not Given Linezolid (Zyvox 600mg/300ml D5w) 600 mg in 300 mls @ 200 mls/hr IVPB Q12H [facility]; Protocol Last Admin: 08/14/18 12:21 Dose: 200 mls/hr Potassium Chloride/Dextrose/Sod Cl (Potassium Chl 40 Meq In D5-1/2ns) 1,000 mls @ 50 mls/hr IV .Q20H [facility] Last Admin: 08/14/18 07:00 Dose: Not Given Magnesium Hydroxide (Milk Of Magnesia) 30 ml PO DAILY [facility] Last Admin: 08/14/18 09:10 Dose: Not Given Metoprolol Tartrate (Lopressor) 25 mg NG BID [facility] Last Admin: 08/14/18 09:10 Dose: Not Given Rosuvastatin Calcium (Crestor) 2.5 mg PO HS [facility] Last Admin: 08/13/18 22:31 Dose: Not Given - Labs Labs: 08/14/18 10:45 08/14/18 10:45 PT 13.6 SECONDS (9.7-12.2) H 08/14/18 10:45 INR 1.2 08/14/18 10:45 APTT 34 SECONDS (21-34) 08/14/18 10:45 - Constitutional Appears: Non-toxic, Confused, Chronically Ill - Head Exam Head Exam: NORMOCEPHALIC - Eye Exam Eye Exam: absent: Scleral icterus - ENT Exam ENT Exam: Mucous Membranes Dry, Normal External Ear Exam - Neck Exam Neck Exam: absent: Lymphadenopathy - Respiratory Exam Respiratory Exam: Decreased Breath Sounds, Prolonged Expiratory Phase, Rhonchi - Cardiovascular Exam Cardiovascular Exam: REGULAR RHYTHM, +S1, +S2 - GI/Abdominal Exam GI & Abdominal Exam: Distended, Soft. absent: Tenderness - Rectal Exam Rectal Exam: Deferred - Exam Exam: NORMAL INSPECTION - Extremities Exam Extremities Exam: absent: Pedal Edema - Back Exam Back Exam: absent: CVA tenderness (L), CVA tenderness (R), paraspinal tenderness - Neurological Exam Neurological Exam: Altered Neuro motor strength exam: Left Upper Extremity: 0, Right Upper Extremity: 3, Left Lower Extremity: 0, Right Lower Extremity: 3 - Psychiatric Exam Psychiatric exam: Depressed - Skin Skin Exam: Dry Assessment and Plan (1) Dehydration Status: Acute (2) Hypernatremia Status: Acute (3) NSTEMI (non-ST elevated myocardial infarction) Status: Acute (4) VRE (vancomycin-resistant Enterococci) infection Status: Acute (5) Fever Status: Acute - Assessment and Plan (Free Text) Assessment: repeat urine c/s neg cont rx for VRE sepsis for min 10 days
[2018-08-14] MEDS: Rosuvastatin Calcium 2.5 mg Tab PO SCH (21:03)
--- NOTE | 2018-08-14 23:11 | CP.PCM.PN ---
Subjective - Date & Time of Evaluation Date of Evaluation: 08/14/18 Time of Evaluation: 07:21 - Subjective Subjective: dictated Objective - Vital Signs/Intake and Output Vital Signs (last 24 hours): Temp Pulse Resp BP Pulse Ox 97.2 F L 106 H 20 109/60 97 08/14/18 16:07 08/14/18 16:07 08/14/18 16:07 08/14/18 16:07 08/14/18 16:07 Intake and Output: 08/14/18 08/15/18 18:59 06:59 Intake Total 700 400 Balance 700 400 - Medications Medications: Current Medications Acetaminophen (Tylenol 325mg Tab) 650 mg PO Q4 [facility] Last Admin: 08/14/18 21:03 Dose: Not Given Apixaban (Eliquis) 5 mg PO BID [facility] Last Admin: 08/13/18 09:53 Dose: Not Given Linezolid (Zyvox 600mg/300ml D5w) 600 mg in 300 mls @ 200 mls/hr IVPB Q12H [facility]; Protocol Last Admin: 08/14/18 12:21 Dose: 200 mls/hr Potassium Chloride/Dextrose/Sod Cl (Potassium Chl 40 Meq In D5-1/2ns) 1,000 mls @ 50 mls/hr IV .Q20H [facility] Last Admin: 08/14/18 07:00 Dose: Not Given Magnesium Hydroxide (Milk Of Magnesia) 30 ml PO DAILY [facility] Last Admin: 08/14/18 09:10 Dose: Not Given Metoprolol Tartrate (Lopressor) 25 mg NG BID [facility] Last Admin: 08/14/18 17:11 Dose: Not Given Rosuvastatin Calcium (Crestor) 2.5 mg PO HS [facility] Last Admin: 08/14/18 21:03 Dose: Not Given - Labs Labs: 08/14/18 10:45 08/14/18 10:45 PT 13.6 SECONDS (9.7-12.2) H 08/14/18 10:45 INR 1.2 08/14/18 10:45 APTT 34 SECONDS (21-34) 08/14/18 10:45
[2018-08-15] MEDS: Linezolid 600 mg in D5W 300 ml 600 MG/300 ML BAG IVPB SCH ×2 (00:19→12:52)
--- NOTE | 2018-08-15 02:18 | PN ---
DATE: 08/14/2018 SUBJECTIVE: The patient, Fredrick Dennison, is more alert. He is afebrile. His urine cultures repeat have been negative. His family is not cooperative despite successive attempts to speak to them about consent for a gastrostomy tube. His family is not responding as per nursing staff. No fever. No chills. PHYSICAL EXAMINATION: VITAL SIGNS: Blood pressure 109/60, pulse 106, respiratory rate 20, temperature 97.2. LUNGS: Bilateral respiratory rhonchi. CARDIOVASCULAR SYSTEM: S1, S2 regular. ABDOMEN: Soft. Nontender. Bowel sounds are positive. GENITOURINARY: Brown catheter in place. ASSESSMENT: 1. Urinary tract infection due to vancomycin resistant enterococcus. 2. Obstructive uropathy. 3. Inability to try for percutaneous endoscopic gastrostomy placement. 4. Dehydration. 5. Dementia. PLAN: Continue current medication. Percutaneous endoscopic gastrostomy placement was signed consent. Esau Jacobs MD
[2018-08-15] MEDS: Potassium Chl 40 mEq in D5-1/2 1,000 ML IV SCH ×2 (03:15→22:24)
[2018-08-15] MEDS: Magnesium Hydroxide Susp 30 ml UD PO SCH (09:28)
[2018-08-15] MEDS ORDERED: Propofol 10 mg/ml Inj (20 ML) ONE (10:59)
--- NOTE | 2018-08-15 15:10 | CP.PCM.PN ---
Subjective - Date & Time of Evaluation Date of Evaluation: 08/15/18 Time of Evaluation: 15:09 - Subjective Subjective: Nephrology Consultation Note: Assessment: Stable Hypernatremia likely due to dehydration, limited oral fluid intake Hypokalemia mild anemia hyperbilirubinemia COPD, CAD, dementia, CVA hypertension (years) aortic insuff with AV endocarditis Plan Maintain hemodynamics stable. Avoid hypotension. Patient not on ACEI/ARB due to low BP Monitor Input/Output, daily weights and renal function with basic metabolic panel fluid as D5 1/2 NS with 40 meq kcl @ 50 ml/hr. d/c IVF once pt has alternative source of feed/nutrition monitor for urine retention with bladder scans as needed. straight cath as needed for urine retention. he is urine incontinent. antibiotics per ID cardiology and GI following Dose meds/antibiotics for GFR>60 Glycemic control Further work up/management as per primary team Thanks for allowing me to participate in care of your patient. Will follow patient with you. Please call if any Qs. had d/w team and family Dr hCris Reese Office: [phone] Chief Complaint; unable Reason for consult: Hypernatremia HPI: Pt is a 83 M with hx of COPD, CAD, dementia, CVA hypertension (years) aortic insuff with AV endocarditis presented with complaints of dehydration and being managed for hypernatremia, elevated troponins renal consult for elevated BUN and hypernatremia no knwon OTC/herbal meds or NSAIDs No recent iodinated contrast exposure. No obvious episodes of low BP. pt unable to provide any hx ROS: Unable to obtain. pt non communicative PEG tube placement not successful. he also found to have esophageal mass 08/15/18 Physical Examination: General Appearance: Comfortable, in no acute respiratory distress, co-operative . mostly non verbal/non communicative Vitals reviewed and noted as below Head; Atraumatic, normocephalic ENT: no ulcers no thrush. Tongue is midline/dry. Oropharynx: no rash or ulcers. EYES: Pupils are equal, round and reactive to light accommodation. Eye muscles and extraocular movement intact. Sclera is icteric. Neck; supple no lymphadenopathy, no thyromegaly or bruit Lungs: normal respiratory rate/effort. Breath sounds bilateral equal and clear Heart: Normal rate. s1s2 normal. No rub or gallop. Extremities: no edema. No varicose veins. upper ext edema + Neurological: Patient is non verbal/non communicative. not able to follow commands Skin: Warm and dry. Normal turgor. No rash. Palpitation: Normal elasticity for age. skin echymose + Abdomen: Abdomen is soft. Bowel sounds +. There is no abdominal tenderness, no guarding/rigidity no organomegaly Psych: unable MSK: no joint tenderness or swelling. Digits and nails normal, no deformity : kidney or bladder not palpable Labs/imaging reviewed. Past medical history, past surgical history, family history, social history, allergy reviewed and noted as below Family hx: no hx of CKD. Rest non-contributory Objective - Vital Signs/Intake and Output Vital Signs (last 24 hours): Temp Pulse Resp BP Pulse Ox 98 F 113 H 22 120/52 L 98 08/15/18 11:23 08/15/18 11:53 08/15/18 11:53 08/15/18 11:53 08/15/18 11:53 Intake and Output: 08/15/18 08/15/18 06:59 18:59 Intake Total 400 750 Output Total 200 Balance 400 550 - Medications Medications: Current Medications Acetaminophen (Tylenol 325mg Tab) 650 mg PO Q4 [facility] Last Admin: 08/15/18 12:34 Dose: Not Given Apixaban (Eliquis) 5 mg PO BID [facility] Last Admin: 08/13/18 09:53 Dose: Not Given Linezolid (Zyvox 600mg/300ml D5w) 600 mg in 300 mls @ 200 mls/hr IVPB Q12H [facility]; Protocol Last Admin: 08/15/18 12:52 Dose: 200 mls/hr Potassium Chloride/Dextrose/Sod Cl (Potassium Chl 40 Meq In D5-1/2ns) 1,000 mls @ 50 mls/hr IV .Q20H [facility] Last Admin: 08/15/18 03:15 Dose: Not Given Lactated Ringer's (Lactated Ringer's 500ml) 500 mls @ 75 mls/hr IV .Q6H40M [facility] Magnesium Hydroxide (Milk Of Magnesia) 30 ml PO DAILY [facility] Last Admin: 08/15/18 09:28 Dose: Not Given Metoprolol Tartrate (Lopressor) 25 mg NG BID [facility] Last Admin: 08/15/18 09:28 Dose: Not Given Rosuvastatin Calcium (Crestor) 2.5 mg PO HS [facility] Last Admin: 08/14/18 21:03 Dose: Not Given - Labs Labs: 08/14/18 10:45 08/14/18 10:45 PT 13.6 SECONDS (9.7-12.2) H 08/14/18 10:45 INR 1.2 08/14/18 10:45 APTT 34 SECONDS (21-34) 08/14/18 10:45
[2018-08-15] MEDS ORDERED: Iodixanol 320 MG/ML 100 ML BOTTLE IV ONE (15:20)
--- NOTE | 2018-08-15 16:23 | CT ---
Date of service: 08/15/2018 PROCEDURE: CT Chest with contrast HISTORY: Esophageal mass COMPARISON: None available. TECHNIQUE: Contiguous axial images were obtained through the chest with intravenous contrast enhancement. Sagittal and coronal reconstructions were performed. IV contrast: 100 mL Visipaque 320 Radiation dose: Total exam DLP = 959.05 mGy-cm. This CT exam was performed using one or more of the following dose reduction techniques: Automated exposure control, adjustment of the mA and/or kV according to patient size, and/or use of iterative reconstruction technique. FINDINGS: Examination limited by respiratory motion artifact. Examination also limited by beam hardening artifact arising from dense central intravenous contrast. LUNGS: Bilateral lower lobe compressive atelectasis. No ward infiltrate. Thickening of interlobular septae day in right apex. Probable congestive change with Tracee B lines. MEDIASTINUM: No evidence of thoracic aortic aneurysm. Mild cardiomegaly.. No dilatation of main pulmonary artery. No evidence of pulmonary arterial embolism. No lymphadenopathy. There is a right PICC catheter which is following an atypical course to the left brachiocephalic vein. There is marked enlargement of the mid thoracic esophagus to a diameter approximately 4.3 x 6.7 cm, over a length of approximately 5.5 cm. This is concerning for malignancy. There is atherosclerotic calcification of the thoracic aorta. PLEURA: Large bilateral pleural effusion. No pneumothorax. BONES: No fracture. No destructive lesion. UPPER ABDOMEN: Cholelithiasis without evidence of cholecystitis. Nonspecific low-density splenic lesion, 2.3 x 1.7 cm. 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 Limited evaluation due to patient motion and beam hardening artifact. Bilateral large pleural effusion. Probable congestive change. Bilateral lower lobe subsegmental atelectasis. Abnormal positioning of PICC catheter as described above. Consider replacement or repositioning. Cholelithiasis. Nonspecific 2.3 cm splenic lesion evaluated only in a limited fashion
--- NOTE | 2018-08-15 20:48 | CP.PCM.PN ---
Subjective - Date & Time of Evaluation Date of Evaluation: 08/15/18 Time of Evaluation: 12:10 - Subjective Subjective: dictated Objective - Vital Signs/Intake and Output Vital Signs (last 24 hours): Temp Pulse Resp BP Pulse Ox 98 F 113 H 22 120/52 L 98 08/15/18 11:23 08/15/18 11:53 08/15/18 11:53 08/15/18 11:53 08/15/18 11:53 Intake and Output: 08/15/18 08/16/18 18:59 06:59 Intake Total 750 Output Total 200 Balance 550 - Medications Medications: Current Medications Acetaminophen (Tylenol 325mg Tab) 650 mg PO Q4 [facility] Last Admin: 08/15/18 12:34 Dose: Not Given Apixaban (Eliquis) 5 mg PO BID [facility] Last Admin: 08/13/18 09:53 Dose: Not Given Linezolid (Zyvox 600mg/300ml D5w) 600 mg in 300 mls @ 200 mls/hr IVPB Q12H [facility]; Protocol Last Admin: 08/15/18 12:52 Dose: 200 mls/hr Potassium Chloride/Dextrose/Sod Cl (Potassium Chl 40 Meq In D5-1/2ns) 1,000 mls @ 50 mls/hr IV .Q20H [facility] Last Admin: 08/15/18 03:15 Dose: Not Given Lactated Ringer's (Lactated Ringer's 500ml) 500 mls @ 75 mls/hr IV .Q6H40M [facility] Magnesium Hydroxide (Milk Of Magnesia) 30 ml PO DAILY [facility] Last Admin: 08/15/18 09:28 Dose: Not Given Metoprolol Tartrate (Lopressor) 25 mg NG BID [facility] Last Admin: 08/15/18 09:28 Dose: Not Given Rosuvastatin Calcium (Crestor) 2.5 mg PO HS [facility] Last Admin: 08/14/18 21:03 Dose: Not Given - Labs Labs: 08/14/18 10:45 08/14/18 10:45 PT 13.6 SECONDS (9.7-12.2) H 08/14/18 10:45 INR 1.2 08/14/18 10:45 APTT 34 SECONDS (21-34) 08/14/18 10:45
[2018-08-15] MEDS: Rosuvastatin Calcium 2.5 mg Tab PO SCH (21:54)
[2018-08-16] MEDS: Linezolid 600 mg in D5W 300 ml 600 MG/300 ML BAG IVPB SCH ×2 (00:03→15:05)
--- NOTE | 2018-08-16 00:27 | PN ---
DATE: 08/15/2018 SUBJECTIVE: We are still waiting for family to sign consent for PEG placement, and PEG will done by Surgery. In the meantime, the patient is afebrile. He is on IV Zyvox. He is awake, alert, tachycardic, not tachypneic. No fever. No nausea or vomiting. PHYSICAL EXAMINATION VITAL SIGNS: Blood pressure 128/52, pulse 113, respiratory rate 22, temperature 98. LUNGS: Bilateral scattered rales. CARDIOVASCULAR SYSTEM: S1 and S2 regular. ABDOMEN: Soft. ASSESSMENT: 1. Vancomycin-resistant Enterococcus urinary tract infection. 2. Obstructive uropathy. 3. Dementia. 4. Hypertension. 5. Atrial fibrillation. PLAN: Continue medical management. PEG placement. Esau Jacobs MD
[2018-08-16] MEDS: Lactated Ringer's 500 ML IV SCH ×3 (00:50→15:00)
[2018-08-16] MEDS: Magnesium Hydroxide Susp 30 ml UD PO SCH (09:43)
--- NOTE | 2018-08-16 13:13 | CP.PCM.PN ---
Subjective - Date & Time of Evaluation Date of Evaluation: 08/16/18 Time of Evaluation: 13:12 - Subjective Subjective: Nephrology Consultation Note: Assessment: Stable Hypernatremia likely due to dehydration, limited oral fluid intake Hypokalemia mild anemia hyperbilirubinemia COPD, CAD, dementia, CVA hypertension (years) aortic insuff with AV endocarditis b/l pleural effusion esophageal mass Plan Maintain hemodynamics stable. Avoid hypotension. Patient not on ACEI/ARB due to low BP Monitor Input/Output, daily weights and renal function with basic metabolic budget counselor for urine retention with bladder scans as needed. straight cath as needed for urine retention. he is urine incontinent. antibiotics per ID GI following in view of pleural effusion, will d/c IVF and give lasix IV for few days cardiology and GI following Dose meds/antibiotics for GFR>60 Glycemic control. overall prognosis poor. seen by [facility] care Further work up/management as per primary team Thanks for allowing me to participate in care of your patient. Will follow patient with you. Please call if any Qs. had d/w team and family Dr Chris Reese Office: [phone] Chief Complaint; unable Reason for consult: Hypernatremia HPI: Pt is a 83 M with hx of COPD, CAD, dementia, CVA hypertension (years) aortic insuff with AV endocarditis presented with complaints of dehydration and being managed for hypernatremia, elevated troponins renal consult for elevated BUN and hypernatremia no knwon OTC/herbal meds or NSAIDs No recent iodinated contrast exposure. No obvious episodes of low BP. pt unable to provide any hx ROS: Unable to obtain. pt non communicative PEG tube placement not successful. he also found to have esophageal mass 08/15/18 Physical Examination: General Appearance: Comfortable, in no acute respiratory distress, co-operative . mostly non verbal/non communicative Vitals reviewed and noted as below Head; Atraumatic, normocephalic ENT: no ulcers no thrush. Tongue is midline/dry. Oropharynx: no rash or ulcers. EYES: Pupils are equal, round and reactive to light accommodation. Eye muscles and extraocular movement intact. Sclera is icteric. Neck; supple no lymphadenopathy, no thyromegaly or bruit Lungs: normal respiratory rate/effort. Breath sounds bilateral reduced at bases Heart: Normal rate. s1s2 normal. No rub or gallop. Extremities: no edema. No varicose veins. upper ext edema + Neurological: Patient is non verbal/non communicative. not able to follow commands Skin: Warm and dry. Normal turgor. No rash. Palpitation: Normal elasticity for age. skin echymose + Abdomen: Abdomen is soft. Bowel sounds +. There is no abdominal tenderness, no guarding/rigidity no organomegaly Psych: unable MSK: no joint tenderness or swelling. Digits and nails normal, no deformity : kidney or bladder not palpable Labs/imaging reviewed. Past medical history, past surgical history, family history, social history, allergy reviewed and noted as below Family hx: no hx of CKD. Rest non-contributory Objective - Vital Signs/Intake and Output Vital Signs (last 24 hours): Temp Pulse Resp BP Pulse Ox 97.8 F 112 H 20 109/61 97 08/16/18 07:38 08/16/18 07:38 08/16/18 07:38 08/16/18 07:38 08/16/18 07:38 Intake and Output: 08/16/18 08/16/18 06:59 18:59 Intake Total 800 Balance 800 - Medications Medications: Current Medications Acetaminophen (Tylenol 325mg Tab) 650 mg PO Q4 [facility] Last Admin: 08/16/18 09:43 Dose: Not Given Apixaban (Eliquis) 5 mg PO BID [facility] Last Admin: 08/13/18 09:53 Dose: Not Given Linezolid (Zyvox 600mg/300ml D5w) 600 mg in 300 mls @ 200 mls/hr IVPB Q12H [facility]; Protocol Last Admin: 08/16/18 00:03 Dose: 200 mls/hr Lactated Ringer's (Lactated Ringer's 500ml) 500 mls @ 75 mls/hr IV .Q6H40M [facility] Last Admin: 08/16/18 09:42 Dose: Not Given Magnesium Hydroxide (Milk Of Magnesia) 30 ml PO DAILY [facility] Last Admin: 08/16/18 09:43 Dose: Not Given Metoprolol Tartrate (Lopressor) 25 mg NG BID [facility] Last Admin: 08/16/18 09:43 Dose: Not Given Rosuvastatin Calcium (Crestor) 2.5 mg PO HS [facility] Last Admin: 08/15/18 21:54 Dose: Not Given - Labs Labs: 08/14/18 10:45 08/14/18 10:45 PT 13.6 SECONDS (9.7-12.2) H 08/14/18 10:45 INR 1.2 08/14/18 10:45 APTT 34 SECONDS (21-34) 08/14/18 10:45
--- NOTE | 2018-08-16 14:17 | CP.PCM.CON ---
Past Patient History - Past Medical History & Family History Past Medical History?: Yes - Past Social History Smoking Status: Unknown If Ever Smoked - CARDIAC Hx Cardiac Disorders: Yes Hx Hypertension: Yes - PULMONARY Hx Chronic Obstructive Pulmonary Disease (COPD): Yes - NEUROLOGICAL HX Cerebrovascular Accident: Yes - HEENT Hx HEENT Problems: No - RENAL Hx Chronic Kidney Disease: No - ENDOCRINE/METABOLIC Hx Endocrine Disorders: No - HEMATOLOGICAL/ONCOLOGICAL Hx Blood Disorders: No - INTEGUMENTARY Hx Dermatological Problems: No - MUSCULOSKELETAL/RHEUMATOLOGICAL Hx Arthritis: Yes - GASTROINTESTINAL Hx Gastrointestinal Disorders: No - GENITOURINARY/GYNECOLOGICAL Hx Genitourinary Disorders: Yes Hx Prostate Problems: Yes (enlarged prostate) Hx Urinary Tract Infection: Yes - PSYCHIATRIC Hx Psychophysiologic Disorder: No Hx Substance Use: No - SURGICAL HISTORY Hx Surgeries: No - ANESTHESIA Hx Anesthesia: Yes Hx Anesthesia Reactions: Yes Hx Malignant Hyperthermia: No Has any member of the family had a problem w/ anesthesia?: No Meds Allergies/Adverse Reactions: Allergies Allergy/AdvReac Type Severity Reaction Status Date / Time No Known Allergies Allergy Verified 06/24/18 17:23 - Medications Medications: Current Medications Acetaminophen (Tylenol 325mg Tab) 650 mg PO Q4 [facility] Last Admin: 08/16/18 09:43 Dose: Not Given Apixaban (Eliquis) 5 mg PO BID [facility] Last Admin: 08/13/18 09:53 Dose: Not Given Furosemide (Lasix) 20 mg IVP DAILY [facility] Stop: 08/18/18 10:01 Linezolid (Zyvox 600mg/300ml D5w) 600 mg in 300 mls @ 200 mls/hr IVPB Q12H [facility]; Protocol Last Admin: 08/16/18 00:03 Dose: 200 mls/hr Lactated Ringer's (Lactated Ringer's 500ml) 500 mls @ 75 mls/hr IV .Q6H40M [facility] Last Admin: 08/16/18 09:42 Dose: Not Given Magnesium Hydroxide (Milk Of Magnesia) 30 ml PO DAILY [facility] Last Admin: 08/16/18 09:43 Dose: Not Given Metoprolol Tartrate (Lopressor) 25 mg NG BID [facility] Last Admin: 08/16/18 09:43 Dose: Not Given Rosuvastatin Calcium (Crestor) 2.5 mg PO HS [facility] Last Admin: 08/15/18 21:54 Dose: Not Given Results - Vital Signs Recent Vital Signs: Last Vital Signs Temp 97.8 F 08/16/18 07:38 Pulse 112 H 08/16/18 07:38 Resp 20 08/16/18 07:38 BP 109/61 08/16/18 07:38 Pulse Ox 97 08/16/18 07:38 - Labs Result Diagrams: 08/14/18 10:45 08/14/18 10:45
--- NOTE | 2018-08-16 15:02 | CP.PCM.CON ---
<Federico Ritter M - Last Filed: 08/16/18 16:01> History of Present Illness - History of Present Illness History of Present Illness: Surgical consult note for Dr. Natarajan Following information obtained through chart review as patient is nonverbal: 83 male w/ PMhx of OH, DM, HTN, CAD, Afib, CVA,dementia presented to ED following found to be weak, lethargic at a subacute facility. Patient is bedbound and dependent on healthcare facility. Previous attempt at peg tube unsuccessful as esophageal mass found and obstructed access. Unable to obtain ROS due to patient baseline condition. Surgery consulted for gastrostomy tube placement. PMHx: OH, DM, HTN, CAD, Afib, CVA,dementia Meds: See chart PSHx: previous PEG attempt Allergies: NKDA SHx: Non smoker, no ETOH use Review of Systems - Review of Systems All systems: reviewed and no additional remarkable complaints except - Constitutional Constitutional: As Per HPI Past Patient History - Past Medical History & Family History Past Medical History?: Yes - Past Social History Smoking Status: Unknown If Ever Smoked - CARDIAC Hx Cardiac Disorders: Yes Hx Hypertension: Yes - PULMONARY Hx Chronic Obstructive Pulmonary Disease (COPD): Yes - NEUROLOGICAL HX Cerebrovascular Accident: Yes - HEENT Hx HEENT Problems: No - RENAL Hx Chronic Kidney Disease: No - ENDOCRINE/METABOLIC Hx Endocrine Disorders: No - HEMATOLOGICAL/ONCOLOGICAL Hx Blood Disorders: No - INTEGUMENTARY Hx Dermatological Problems: No - MUSCULOSKELETAL/RHEUMATOLOGICAL Hx Arthritis: Yes - GASTROINTESTINAL Hx Gastrointestinal Disorders: No - GENITOURINARY/GYNECOLOGICAL Hx Genitourinary Disorders: Yes Hx Prostate Problems: Yes (enlarged prostate) Hx Urinary Tract Infection: Yes - PSYCHIATRIC Hx Psychophysiologic Disorder: No Hx Substance Use: No - SURGICAL HISTORY Hx Surgeries: No - ANESTHESIA Hx Anesthesia: Yes Hx Anesthesia Reactions: Yes Hx Malignant Hyperthermia: No Has any member of the family had a problem w/ anesthesia?: No Meds Allergies/Adverse Reactions: Allergies Allergy/AdvReac Type Severity Reaction Status Date / Time No Known Allergies Allergy Verified 06/24/18 17:23 - Medications Medications: Current Medications Acetaminophen (Tylenol 325mg Tab) 650 mg PO Q4 [facility] Last Admin: 08/16/18 09:43 Dose: Not Given Apixaban (Eliquis) 5 mg PO BID [facility] Last Admin: 08/13/18 09:53 Dose: Not Given Furosemide (Lasix) 20 mg IVP DAILY [facility] Stop: 08/18/18 10:01 Linezolid (Zyvox 600mg/300ml D5w) 600 mg in 300 mls @ 200 mls/hr IVPB Q12H [facility]; Protocol Last Admin: 08/16/18 00:03 Dose: 200 mls/hr Lactated Ringer's (Lactated Ringer's 500ml) 500 mls @ 75 mls/hr IV .Q6H40M [facility] Last Admin: 08/16/18 15:00 Dose: Not Given Magnesium Hydroxide (Milk Of Magnesia) 30 ml PO DAILY [facility] Last Admin: 08/16/18 09:43 Dose: Not Given Metoprolol Tartrate (Lopressor) 25 mg NG BID [facility] Last Admin: 08/16/18 09:43 Dose: Not Given Rosuvastatin Calcium (Crestor) 2.5 mg PO HS [facility] Last Admin: 08/15/18 21:54 Dose: Not Given Physical Exam - Constitutional Appears: No Acute Distress - Head Exam Head Exam: NORMAL INSPECTION - Eye Exam Eye Exam: Normal appearance - ENT Exam ENT Exam: Mucous Membranes Moist - Respiratory Exam Respiratory Exam: NORMAL BREATHING PATTERN - Cardiovascular Exam Cardiovascular Exam: Tachycardia - GI/Abdominal Exam GI & Abdominal Exam: Soft - Neurological Exam Additional comments: Not alert, no oriented, unable to arouse patient Results - Vital Signs Recent Vital Signs: Last Vital Signs Temp 97.8 F 08/16/18 07:38 Pulse 112 H 08/16/18 07:38 Resp 20 08/16/18 07:38 BP 128/84 08/16/18 13:01 Pulse Ox 97 08/16/18 07:38 - Labs Result Diagrams: 08/14/18 10:45 08/14/18 10:45 Assessment & Plan - Assessment and Plan (Free Text) Assessment: 83M w/ multiple comorbiditis, consulted for gastrostomy tube placement Plan: - Plan for OR for Gastrostomy tube on 08/19 - Medical optimization - Cardiac risk stratification Further recs per Dr. Delgado Ritter, PGY 1 <Cliff Natarajan - Last Filed: 08/16/18 19:51> Meds - Medications Medications: Current Medications Acetaminophen (Tylenol 325mg Tab) 650 mg PO Q4 [facility] Last Admin: 08/16/18 17:42 Dose: Not Given Apixaban (Eliquis) 5 mg PO BID [facility] Last Admin: 08/13/18 09:53 Dose: Not Given Furosemide (Lasix) 20 mg IVP DAILY [facility] Stop: 08/18/18 10:01 Last Admin: 08/16/18 15:02 Dose: 20 mg Linezolid (Zyvox 600mg/300ml D5w) 600 mg in 300 mls @ 200 mls/hr IVPB Q12H [facility]; Protocol Last Admin: 08/16/18 15:05 Dose: 200 mls/hr Lactated Ringer's (Lactated Ringer's 500ml) 500 mls @ 75 mls/hr IV .Q6H40M [facility] Last Admin: 08/16/18 15:00 Dose: Not Given Magnesium Hydroxide (Milk Of Magnesia) 30 ml PO DAILY [facility] Last Admin: 08/16/18 09:43 Dose: Not Given Metoprolol Tartrate (Lopressor) 25 mg NG BID [facility] Last Admin: 08/16/18 17:42 Dose: Not Given Rosuvastatin Calcium (Crestor) 2.5 mg PO HS [facility] Last Admin: 08/15/18 21:54 Dose: Not Given Results - Vital Signs Recent Vital Signs: Last Vital Signs Temp 98.4 F 08/16/18 15:48 Pulse 115 H 08/16/18 15:48 Resp 20 08/16/18 15:48 BP 102/45 L 08/16/18 15:48 Pulse Ox 97 08/16/18 15:48 - Labs Result Diagrams: 08/14/18 10:45 08/14/18 10:45 Attending/Attestation - Attestation I have personally seen and examined this patient.: Yes I have fully participated in the care of the patient.: Yes I have reviewed all pertinent clinical information: Yes Notes (Text): Pt was seen and examined at bedside Agree with above note and assessment Pt with Esophageal mass and AMS Abdomen: Soft, NT, ND Labs and radiology reviewed Ass: Esophageal mass, Failed IR guided G tube Plan: OR for Open G tube on Sunday Medical clearance by Primary team cHetalw current mx Avoid ASA, Plavix Plan d.w primary team in detail Risk and benefit explained in detail.
[2018-08-16] MEDS: SILVASORB ANTIMICROBIAL WOUND GEL TOP SCH (15:14)
--- NOTE | 2018-08-16 16:43 | CP.PCM.PN ---
Subjective - Date & Time of Evaluation Date of Evaluation: 08/16/18 Time of Evaluation: 10:00 - Subjective Subjective: FOR OR GT INSERTION AFEBRILE nad ON ZYVOX Objective - Vital Signs/Intake and Output Vital Signs (last 24 hours): Temp Pulse Resp BP Pulse Ox 98.4 F 115 H 20 102/45 L 97 08/16/18 15:48 08/16/18 15:48 08/16/18 15:48 08/16/18 15:48 08/16/18 15:48 Intake and Output: 08/16/18 08/16/18 06:59 18:59 Intake Total 800 400 Balance 800 400 - Medications Medications: Current Medications Acetaminophen (Tylenol 325mg Tab) 650 mg PO Q4 [facility] Last Admin: 08/16/18 15:10 Dose: Not Given Apixaban (Eliquis) 5 mg PO BID [facility] Last Admin: 08/13/18 09:53 Dose: Not Given Furosemide (Lasix) 20 mg IVP DAILY [facility] Stop: 08/18/18 10:01 Last Admin: 08/16/18 15:02 Dose: 20 mg Linezolid (Zyvox 600mg/300ml D5w) 600 mg in 300 mls @ 200 mls/hr IVPB Q12H [facility]; Protocol Last Admin: 08/16/18 15:05 Dose: 200 mls/hr Lactated Ringer's (Lactated Ringer's 500ml) 500 mls @ 75 mls/hr IV .Q6H40M [facility] Last Admin: 08/16/18 15:00 Dose: Not Given Magnesium Hydroxide (Milk Of Magnesia) 30 ml PO DAILY [facility] Last Admin: 08/16/18 09:43 Dose: Not Given Metoprolol Tartrate (Lopressor) 25 mg NG BID [facility] Last Admin: 08/16/18 09:43 Dose: Not Given Rosuvastatin Calcium (Crestor) 2.5 mg PO HS [facility] Last Admin: 08/15/18 21:54 Dose: Not Given - Labs Labs: 08/14/18 10:45 08/14/18 10:45 PT 13.6 SECONDS (9.7-12.2) H 08/14/18 10:45 INR 1.2 08/14/18 10:45 APTT 34 SECONDS (21-34) 08/14/18 10:45 - Constitutional Appears: Confused, Chronically Ill - Head Exam Head Exam: NORMOCEPHALIC - Eye Exam Eye Exam: absent: Scleral icterus - ENT Exam ENT Exam: Mucous Membranes Dry - Neck Exam Neck Exam: absent: Lymphadenopathy - Respiratory Exam Respiratory Exam: Decreased Breath Sounds, Wheezes - Cardiovascular Exam Cardiovascular Exam: REGULAR RHYTHM - GI/Abdominal Exam GI & Abdominal Exam: Soft. absent: Tenderness - Rectal Exam Rectal Exam: Deferred - Exam Exam: NORMAL INSPECTION - Extremities Exam Extremities Exam: absent: Pedal Edema - Back Exam Back Exam: absent: CVA tenderness (L), CVA tenderness (R) Assessment and Plan (1) Dehydration Status: Acute (2) Hypernatremia Status: Acute (3) NSTEMI (non-ST elevated myocardial infarction) Status: Acute (4) VRE (vancomycin-resistant Enterococci) infection Status: Acute (5) Fever Status: Acute - Assessment and Plan (Free Text) Assessment: FOR OR GT INSERTION OK TO D/C ANTIBIOTICS AFTER 10 DAYS TOTAL
--- NOTE | 2018-08-16 17:36 | PN ---
DATE: 08/16/2018 LOCATION: 367, bed A. SUBJECTIVE: This is an 83-year-old male seen and examined in rounds without significant clinical changes with very poor oral intake with intermittent period of coughing, but no chills, fever, chest pain or palpitation. Mild shortness of breath. No evidence of active GI bleeding. The patient is in a status of DNR and DNI. He PEG Insertion trial yesterday with upper endoscopy. The entire chart is reviewed including but not limited to the most recent lab and radiology study results, current and previous medication list discussed with the staff at length and today's lab results still pending. The patient still has low hemoglobin and hematocrit with increased BUN, blood glucose level, total bilirubin and low albumin and low total protein. PHYSICAL EXAMINATION: GENERAL: An 83-year-old male. VITAL SIGNS: Afebrile with pulse of 106, respiratory rate 20-22, blood pressure of 112/68. HEENT: Showed pale dry oral mucous membrane. Bilateral icteric sclera. LUNGS: Few scattered crepitation. Decreased air entry at bases. HEART: Positive S1 and S2. ABDOMEN: Soft with mild generalized tenderness. No mass or organomegaly. No rebound tenderness or guarding. EXTREMITIES: Without significant clubbing, cyanosis or edema. NEUROLOGIC: No reported neurological deficits, sensory or motor. Yesterday, CAT scan of the chest, report is seen. IMPRESSION: 1. 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 2. Peptic ulcer disease. 3. Abnormal CAT scan of the abdomen and pelvis. 4. Malnutrition with hypoalbuminemia, hypoproteinemia. 5. Dehydration. 6. Known history of chronic obstructive pulmonary disease, coronary artery disease, hypertension, cerebrovascular accident by history. 7. Bilateral pleural effusion. 8. Cholelithiasis by radiology study results. SUGGESTIONS: 1. Continue current management. 2. Due to the patient's dysphagia, hyperalimentation central versus peripheral to be considered. 3. Surgical consultation for potential gastrostomy tube insertion, to be done surgically. Antoni Duran MD
--- NOTE | 2018-08-16 18:58 | CP.PCM.PN ---
Subjective - Date & Time of Evaluation Date of Evaluation: 08/16/18 Time of Evaluation: 17:20 - Subjective Subjective: dictated Objective - Vital Signs/Intake and Output Vital Signs (last 24 hours): Temp Pulse Resp BP Pulse Ox 98.4 F 115 H 20 102/45 L 97 08/16/18 15:48 08/16/18 15:48 08/16/18 15:48 08/16/18 15:48 08/16/18 15:48 Intake and Output: 08/16/18 08/16/18 06:59 18:59 Intake Total 800 400 Balance 800 400 - Medications Medications: Current Medications Acetaminophen (Tylenol 325mg Tab) 650 mg PO Q4 [facility] Last Admin: 08/16/18 17:42 Dose: Not Given Apixaban (Eliquis) 5 mg PO BID [facility] Last Admin: 08/13/18 09:53 Dose: Not Given Furosemide (Lasix) 20 mg IVP DAILY [facility] Stop: 08/18/18 10:01 Last Admin: 08/16/18 15:02 Dose: 20 mg Linezolid (Zyvox 600mg/300ml D5w) 600 mg in 300 mls @ 200 mls/hr IVPB Q12H [facility]; Protocol Last Admin: 08/16/18 15:05 Dose: 200 mls/hr Lactated Ringer's (Lactated Ringer's 500ml) 500 mls @ 75 mls/hr IV .Q6H40M [facility] Last Admin: 08/16/18 15:00 Dose: Not Given Magnesium Hydroxide (Milk Of Magnesia) 30 ml PO DAILY [facility] Last Admin: 08/16/18 09:43 Dose: Not Given Metoprolol Tartrate (Lopressor) 25 mg NG BID [facility] Last Admin: 08/16/18 17:42 Dose: Not Given Rosuvastatin Calcium (Crestor) 2.5 mg PO HS [facility] Last Admin: 08/15/18 21:54 Dose: Not Given - Labs Labs: 08/14/18 10:45 08/14/18 10:45 PT 13.6 SECONDS (9.7-12.2) H 08/14/18 10:45 INR 1.2 08/14/18 10:45 APTT 34 SECONDS (21-34) 08/14/18 10:45
--- NOTE | 2018-08-16 21:02 | CP.PCM.PN ---
Subjective - Date & Time of Evaluation Date of Evaluation: 08/16/18 Time of Evaluation: 09:40 - Subjective Subjective: Patient was seen and examined at bedside. Patient's general condition remains poor. Currently ROS unobtainable due to mental status. Physical examination - Constitutional Appears: Chronically Ill - Head Exam Head Exam: ATRAUMATIC, NORMAL INSPECTION - Eye Exam Eye Exam: Normal appearance - ENT Exam ENT Exam: Mucous Membranes Moist - Respiratory Exam Respiratory Exam: NORMAL BREATHING PATTERN - Cardiovascular Exam Cardiovascular Exam: REGULAR RHYTHM, +S1, +S2 - Neurological Exam Neurological Exam: Awake. 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 NSTEMI - At this time, pt is not deemed suitable for invasive cardiac intervention. - Will optimize medical management with Metoprolol tartrate 25 mg po qd, and Crestor therapy. Afib - Continue rate control with Metoprolol and AC with eliquis 5 mg po bid - Eliquis currently placed on hold as patient will be going for a PEG procedure. Objective - Vital Signs/Intake and Output Vital Signs (last 24 hours): Temp Pulse Resp BP Pulse Ox 98.4 F 115 H 20 102/45 L 97 08/16/18 15:48 08/16/18 15:48 08/16/18 15:48 08/16/18 15:48 08/16/18 15:48 Intake and Output: 08/16/18 08/17/18 18:59 06:59 Intake Total 400 Balance 400 - Medications Medications: Current Medications Acetaminophen (Tylenol 325mg Tab) 650 mg PO Q4 [facility] Last Admin: 08/16/18 17:42 Dose: Not Given Apixaban (Eliquis) 5 mg PO BID [facility] Last Admin: 08/13/18 09:53 Dose: Not Given Furosemide (Lasix) 20 mg IVP DAILY [facility] Stop: 08/18/18 10:01 Last Admin: 08/16/18 15:02 Dose: 20 mg Linezolid (Zyvox 600mg/300ml D5w) 600 mg in 300 mls @ 200 mls/hr IVPB Q12H [facility]; Protocol Last Admin: 08/16/18 15:05 Dose: 200 mls/hr Lactated Ringer's (Lactated Ringer's 500ml) 500 mls @ 75 mls/hr IV .Q6H40M [facility] Last Admin: 08/16/18 15:00 Dose: Not Given Magnesium Hydroxide (Milk Of Magnesia) 30 ml PO DAILY [facility] Last Admin: 08/16/18 09:43 Dose: Not Given Metoprolol Tartrate (Lopressor) 25 mg NG BID [facility] Last Admin: 08/16/18 17:42 Dose: Not Given Rosuvastatin Calcium (Crestor) 2.5 mg PO HS [facility] Last Admin: 08/15/18 21:54 Dose: Not Given - Labs Labs: 08/14/18 10:45 08/14/18 10:45 PT 13.6 SECONDS (9.7-12.2) H 08/14/18 10:45 INR 1.2 08/14/18 10:45 APTT 34 SECONDS (21-34) 08/14/18 10:45
[2018-08-16] MEDS: Rosuvastatin Calcium 2.5 mg Tab PO SCH (21:28)
[2018-08-17] MEDS: Linezolid 600 mg in D5W 300 ml 600 MG/300 ML BAG IVPB SCH ×2 (00:25→12:08)
--- NOTE | 2018-08-17 00:35 | PN ---
DATE: 08/16/2018 SUBJECTIVE: The patient is afebrile. Urine culture repeat has been negative. The patient is waiting for a PEG pending family's consent. No fever. She is confused, drowsy. PHYSICAL EXAMINATION: VITAL SIGNS: Blood pressure 102/45, pulse 115, respiratory rate 20, temperature 98.4. LABORATORY DATA: WBC 8.3, hemoglobin 9.4, hematocrit 32.4, platelets 147, PT 13.6, INR 1.2, PTT 34. Sodium 141, potassium 4.4, chloride 118, BUN 27, creatinine 0.8. ASSESSMENT AND PLAN: The patient is improving. The patient needs a PEG and family needs to sign . Esau Jacobs MD
[2018-08-17] MEDS: Lactated Ringer's 500 ML IV SCH ×2 (03:30→17:47)
[2018-08-17 06:49] LABS: BLOOD UREA NITROGEN 38 mg/dL (9-20); CALCIUM 8.7 mg/dl (8.6-10.4); GFR NON-AFRICAN AMERICAN > 60
--- NOTE | 2018-08-17 07:44 | PN ---
DATE: 08/17/2018LOCATION: 367, bed A. SUBJECTIVE: This is an 83-year-old male, seen and examined in rounds without reported new complaints of active GI bleeding, chest pain, palpitation, or significant increase of shortness of breath. The patient is seen in a status of DNR and DNI with dysphagia and choking feeling with any oral intake including liquid diet. On record, this case discussed with the family at length, and surgical consultation for potential gastrostomy tube insertion is recommended and suggested to the family and the medical staff. The entire chart is reviewed, and the most recent lab results today showed BUN of 38, but normal creatinine with CO2 content of 19, indicative of metabolic acidosis. Rest of the lab results still pending. PHYSICAL EXAMINATION: GENERAL: An 83-year-old male. VITAL SIGNS: Afebrile with pulse of 108, respiratory rate 20-22, blood pressure 110/58. HEENT: Showed pale dry oral mucous membrane. Nonicteric sclerae. LUNGS: Scattered crepitation. Decreased air entry at bases. HEART: Positive S1 and S2. ABDOMEN: Soft. Bowel sounds are present with mild generalized tenderness. No mass or organomegaly. No rebound tenderness or guarding. Mildly obese. EXTREMITIES: With mild lower extremity edematous changes. No clubbing or cyanosis. NEUROLOGIC: No reported new neurological deficits, sensory or motor. LABORATORY DATA: The patient is status post upper endoscopy recently with diagnosis of large esophageal mass which appears to be submucosal. CAT scan of the chest was reviewed again. IMPRESSION: 1. Esophageal mass. 2. Re-exacerbation of peptic ulcer disease. 3. Dysphagia with malnutrition, hypoalbuminemia, hypoproteinemia, secondary to above. 4. Abnormal chest CAT scan. 5. Known history of chronic obstructive pulmonary disease, hypertension, coronary artery disease, cerebrovascular accident, by history. 6. Bilateral pleural effusion. Cholelithiasis by radiology study results. 7. Anemia, most likely secondary to above. SUGGESTIONS: 1. Continue current management. 2. Surgically inserted gastrostomy tube. 3. Peripheral hyperalimentation. Further recommendation to follow. Antoni Duran MD
--- NOTE | 2018-08-17 09:40 | CP.PCM.PN ---
<Darryl Trevino - Last Filed: 08/17/18 09:36> Subjective - Date & Time of Evaluation Date of Evaluation: 08/17/18 Time of Evaluation: 07:25 - Subjective Subjective: General Surgery Pt seen and examined. No acute events overnight. Pt does not give verbal responses but did open eyes to voice. Objective - Vital Signs/Intake and Output Vital Signs (last 24 hours): Temp Pulse Resp BP Pulse Ox 98.0 F 116 H 20 117/53 L 96 08/17/18 08:27 08/17/18 08:27 08/17/18 08:27 08/17/18 09:31 08/17/18 08:27 Intake and Output: 08/17/18 08/17/18 06:59 18:59 Intake Total 600 Balance 600 - Medications Medications: Current Medications Acetaminophen (Tylenol 325mg Tab) 650 mg PO Q4 [facility] Last Admin: 08/17/18 04:00 Dose: Not Given Apixaban (Eliquis) 5 mg PO BID [facility] Last Admin: 08/13/18 09:53 Dose: Not Given Furosemide (Lasix) 20 mg IVP DAILY [facility] Stop: 08/18/18 10:01 Last Admin: 08/17/18 09:31 Dose: 20 mg Linezolid (Zyvox 600mg/300ml D5w) 600 mg in 300 mls @ 200 mls/hr IVPB Q12H [facility]; Protocol Last Admin: 08/17/18 00:25 Dose: 200 mls/hr Lactated Ringer's (Lactated Ringer's 500ml) 500 mls @ 75 mls/hr IV .Q6H40M [facility] Last Admin: 08/17/18 03:30 Dose: Not Given Magnesium Hydroxide (Milk Of Magnesia) 30 ml PO DAILY [facility] Last Admin: 08/16/18 09:43 Dose: Not Given Metoprolol Tartrate (Lopressor) 25 mg NG BID [facility] Last Admin: 08/16/18 17:42 Dose: Not Given Rosuvastatin Calcium (Crestor) 2.5 mg PO HS [facility] Last Admin: 08/16/18 21:28 Dose: Not Given - Labs Labs: 08/14/18 10:45 08/17/18 06:26 PT 13.6 SECONDS (9.7-12.2) H 08/14/18 10:45 INR 1.2 08/14/18 10:45 APTT 34 SECONDS (21-34) 08/14/18 10:45 - Constitutional Appears: Non-toxic, No Acute Distress, Chronically Ill - Head Exam Head Exam: ATRAUMATIC, NORMOCEPHALIC - Eye Exam Eye Exam: absent: Conjunctival injection, Scleral icterus - Respiratory Exam Respiratory Exam: NORMAL BREATHING PATTERN. absent: Accessory Muscle Use, Respiratory Distress - GI/Abdominal Exam GI & Abdominal Exam: Soft. absent: Distended, Firm, Guarding, Rigid, Tenderness, Rebound - Skin Skin Exam: Dry, Warm Assessment and Plan - Assessment and Plan (Free Text) Assessment: 83M w/ multiple comorbidities, consulted for gastrostomy tube placement Plan: - Plan for OR for Gastrostomy tube on 08/19 - Medical optimization - Cardiac risk stratification as able D/W Dr. Delgado Trevino PGY4 <Cliff Natarajan - Last Filed: 08/20/18 16:18> Objective - Vital Signs/Intake and Output Vital Signs (last 24 hours): Temp Pulse Resp BP Pulse Ox 97.6 F 106 H 34 H 106/48 L 96 08/19/18 08:00 08/19/18 08:00 08/19/18 08:00 08/19/18 09:07 08/19/18 08:00 - Labs Labs: 08/19/18 11:30 08/19/18 11:30 PT 14.1 SECONDS (9.7-12.2) H 08/19/18 06:25 INR 1.3 08/19/18 06:25 APTT 40 SECONDS (21-34) H 08/19/18 06:25 Attending/Attestation - Attestation I have personally seen and examined this patient.: Yes I have fully participated in the care of the patient.: Yes I have reviewed all pertinent clinical information, including history, physical exam and plan: Yes Notes (Text): Pt with AMS and esophageal mass OR for Open G tube on sunday c/w current mx Plan d.w family Plan d.w primaty team in detail.
[2018-08-17] MEDS: Magnesium Hydroxide Susp 30 ml UD PO SCH (10:09)
--- NOTE | 2018-08-17 12:50 | CP.PCM.PN ---
Subjective - Date & Time of Evaluation Date of Evaluation: 08/17/18 Time of Evaluation: 12:47 - Subjective Subjective: Nephrology Consultation Note: Assessment: Stable Hypernatremia likely due to dehydration, limited oral fluid intake Hypokalemia mild anemia hyperbilirubinemia COPD, CAD, dementia, CVA hypertension (years) aortic insuff with AV endocarditis b/l pleural effusion esophageal mass Plan Maintain hemodynamics stable. Avoid hypotension. Patient not on ACEI/ARB due to low BP cr slightly up will hold the lasix that was recently started na is improving monitor for urine retention with bladder scans as needed. straight cath as needed for urine retention. he is urine incontinent. antibiotics per ID GI following S: seen and examined Physical Examination: General Appearance: Comfortable, in no acute respiratory distress, co-operative . mostly non verbal/non communicative Vitals reviewed and noted as below Head; Atraumatic, normocephalic ENT: no ulcers no thrush. Tongue is midline/dry. Oropharynx: no rash or ulcers. EYES: Pupils are equal, round and reactive to light accommodation. Eye muscles and extraocular movement intact. Sclera is icteric. Neck; supple no lymphadenopathy, no thyromegaly or bruit Lungs: normal respiratory rate/effort. Breath sounds bilateral reduced at bases Heart: Normal rate. s1s2 normal. No rub or gallop. Extremities: no edema. No varicose veins. upper ext edema + Neurological: Patient is non verbal/non communicative. not able to follow commands Skin: Warm and dry. Normal turgor. No rash. Palpitation: Normal elasticity for age. + bruising Abdomen: Abdomen is soft. Bowel sounds +. There is no abdominal tenderness, no guarding/rigidity no organomegaly Psych: unable to assess, flat MSK: no joint tenderness or swelling. Digits and nails normal, no deformity : kidney or bladder not palpable Labs/imaging reviewed. Past medical history, past surgical history, family history, social history, allergy reviewed and noted as below Family hx: no hx of CKD. Rest non-contributory Objective - Vital Signs/Intake and Output Vital Signs (last 24 hours): Temp Pulse Resp BP Pulse Ox 98.0 F 116 H 20 117/53 L 96 08/17/18 08:27 08/17/18 08:27 08/17/18 08:27 08/17/18 09:31 08/17/18 08:27 Intake and Output: 08/17/18 08/17/18 06:59 18:59 Intake Total 600 Balance 600 - Medications Medications: Current Medications Acetaminophen (Tylenol 325mg Tab) 650 mg PO Q4 [facility] Last Admin: 08/17/18 08:09 Dose: Not Given Apixaban (Eliquis) 5 mg PO BID [facility] Last Admin: 08/13/18 09:53 Dose: Not Given Furosemide (Lasix) 20 mg IVP DAILY [facility] Stop: 08/18/18 10:01 Last Admin: 08/17/18 09:31 Dose: 20 mg Linezolid (Zyvox 600mg/300ml D5w) 600 mg in 300 mls @ 200 mls/hr IVPB Q12H [facility]; Protocol Last Admin: 08/17/18 12:08 Dose: 200 mls/hr Lactated Ringer's (Lactated Ringer's 500ml) 500 mls @ 75 mls/hr IV .Q6H40M [facility] Last Admin: 08/17/18 03:30 Dose: Not Given Magnesium Hydroxide (Milk Of Magnesia) 30 ml PO DAILY [facility] Last Admin: 08/17/18 10:09 Dose: Not Given Metoprolol Tartrate (Lopressor) 25 mg NG BID [facility] Last Admin: 08/17/18 10:09 Dose: Not Given Rosuvastatin Calcium (Crestor) 2.5 mg PO HS [facility] Last Admin: 08/16/18 21:28 Dose: Not Given - Labs Labs: 08/14/18 10:45 08/17/18 06:26 PT 13.6 SECONDS (9.7-12.2) H 08/14/18 10:45 INR 1.2 08/14/18 10:45 APTT 34 SECONDS (21-34) 08/14/18 10:45
--- NOTE | 2018-08-17 20:54 | CP.PCM.PCO ---
Physician Communication Note - Physician Communication Note Physician Communication Note: MEDICALLY SATBLE FOR OR AVERAGE RISK
--- NOTE | 2018-08-17 20:55 | CP.PCM.PN ---
Subjective - Date & Time of Evaluation Date of Evaluation: 08/17/18 Time of Evaluation: 13:00 - Subjective Subjective: DICTATED Objective - Vital Signs/Intake and Output Vital Signs (last 24 hours): Temp Pulse Resp BP Pulse Ox 98.1 F 109 H 20 112/58 L 97 08/17/18 17:46 08/17/18 17:46 08/17/18 17:46 08/17/18 20:40 08/17/18 17:46 Intake and Output: 08/17/18 08/18/18 18:59 06:59 Intake Total 1500 Balance 1500 - Medications Medications: Current Medications Acetaminophen (Tylenol 325mg Tab) 650 mg PO Q4 [facility] Last Admin: 08/17/18 17:48 Dose: Not Given Apixaban (Eliquis) 5 mg PO BID [facility] Last Admin: 08/13/18 09:53 Dose: Not Given Linezolid (Zyvox 600mg/300ml D5w) 600 mg in 300 mls @ 200 mls/hr IVPB Q12H [facility]; Protocol Last Admin: 08/17/18 12:08 Dose: 200 mls/hr Lactated Ringer's (Lactated Ringer's 500ml) 500 mls @ 75 mls/hr IV .Q6H40M [facility] Last Admin: 08/17/18 17:47 Dose: Not Given Magnesium Hydroxide (Milk Of Magnesia) 30 ml PO DAILY [facility] Last Admin: 08/17/18 10:09 Dose: Not Given Metoprolol Tartrate (Lopressor) 25 mg NG BID [facility] Last Admin: 08/17/18 17:48 Dose: Not Given Rosuvastatin Calcium (Crestor) 2.5 mg PO HS [facility] Last Admin: 08/16/18 21:28 Dose: Not Given - Labs Labs: 08/14/18 10:45 08/17/18 06:26 PT 13.6 SECONDS (9.7-12.2) H 08/14/18 10:45 INR 1.2 08/14/18 10:45 APTT 34 SECONDS (21-34) 08/14/18 10:45
[2018-08-17] MEDS: Rosuvastatin Calcium 2.5 mg Tab PO SCH (22:08)
--- NOTE | 2018-08-18 00:19 | CP.PCM.PN ---
Subjective - Date & Time of Evaluation Date of Evaluation: 08/17/18 Time of Evaluation: 16:20 - Subjective Subjective: Patient seen and evaluated Not in distress Physical Examination - Head Exam Head Exam: ATRAUMATIC, NORMAL INSPECTION - Eye Exam Eye Exam: EOMI, Normal appearance Pupil Exam: NORMAL ACCOMODATION, PERRL - ENT Exam ENT Exam: Mucous Membranes Moist, Normal Exam - Neck Exam Neck Exam: Normal Inspection - Respiratory Exam Respiratory Exam: Clear to Ausculation Bilateral, NORMAL BREATHING PATTERN. absent: Stridor - Cardiovascular Exam Cardiovascular Exam: REGULAR RHYTHM, +S1, +S2 - GI/Abdominal Exam GI & Abdominal Exam: Soft, Normal Bowel Sounds - Extremities Exam Extremities Exam: Normal Inspection - Back Exam Back Exam: NORMAL INSPECTION - Neurological Exam Neurological Exam: Alert, Awake, CN II-XII Intact - Psychiatric Exam Psychiatric exam: Normal Affect, Normal Mood - Skin Skin Exam: Dry, Intact Assessment and Plan - Assessment and Plan (Free Text) Assessment: 85 year old male with no pertinent past medical history presents with shortness of breath in conjunction with cough for the past couple of weeks. Plan: 1.Pneumonia Chest xray: Right upper lobe pneumonia. Right lower lobe subsegmemental atelectasis and mucous plugging. Pulmonary consulted. Help appreciated. Medications: Acetaminophen 650mg PO Q6 PRN Rocephin 1gm IVPB Daily Duoneb 3ml INH RQ6 [facility] Robitussin 200mg PO Q4H PRN Azithromycin 500mg IVPB Q24H 2.Shortness of breath. bnp 293 Echo EF:60-65% Grade I abnormal relaxation Mitral regurgitation mild Tricuspid regurgitation mild to moderate Pulmonary hypertension mild Pulmonary valvular regurgitation trace Cardiology consulted. Help appreciated. PPX -Lovenox -Protonix Objective - Vital Signs/Intake and Output Vital Signs (last 24 hours): Temp Pulse Resp BP Pulse Ox 98.4 F 110 H 20 102/53 L 97 08/17/18 23:44 08/17/18 23:44 08/17/18 23:44 08/17/18 23:44 08/17/18 23:44 Intake and Output: 08/17/18 08/18/18 18:59 06:59 Intake Total 1500 525 Balance 1500 525 - Medications Medications: Current Medications Acetaminophen (Tylenol 325mg Tab) 650 mg PO Q4 [facility] Last Admin: 08/17/18 20:57 Dose: Not Given Apixaban (Eliquis) 5 mg PO BID [facility] Last Admin: 08/13/18 09:53 Dose: Not Given Linezolid (Zyvox 600mg/300ml D5w) 600 mg in 300 mls @ 200 mls/hr IVPB Q12H [facility]; Protocol Last Admin: 08/17/18 12:08 Dose: 200 mls/hr Lactated Ringer's (Lactated Ringer's 500ml) 500 mls @ 75 mls/hr IV .Q6H40M [facility] Last Admin: 08/17/18 17:47 Dose: Not Given Magnesium Hydroxide (Milk Of Magnesia) 30 ml PO DAILY [facility] Last Admin: 08/17/18 10:09 Dose: Not Given Metoprolol Tartrate (Lopressor) 25 mg NG BID [facility] Last Admin: 08/17/18 17:48 Dose: Not Given Rosuvastatin Calcium (Crestor) 2.5 mg PO HS [facility] Last Admin: 08/17/18 22:08 Dose: Not Given - Labs Labs: 08/14/18 10:45 08/17/18 06:26 PT 13.6 SECONDS (9.7-12.2) H 08/14/18 10:45 INR 1.2 08/14/18 10:45 APTT 34 SECONDS (21-34) 08/14/18 10:45
[2018-08-18] MEDS: Linezolid 600 mg in D5W 300 ml 600 MG/300 ML BAG IVPB SCH ×2 (00:23→12:22)
--- NOTE | 2018-08-18 01:59 | PN ---
DATE: 08/17/2018 SUBJECTIVE: The patient is for PEG placement on Sunday. He is afebrile. He is weak. He is drowsy. He is demented. PHYSICAL EXAMINATION: VITAL SIGNS: Blood pressure 112/58, pulse 109, respiratory rate 20, temperature 98.1. LUNGS: Scattered rhonchi. CVS: S1 and S2 regular. ABDOMEN: Soft. ASSESSMENT: 1. Inability to thrive. percutaneous endoscopic gastrostomy placement on Sunday. 2. Dehydration. 3. Urinary tract infection with vancomycin-resistant Enterococcus. PLAN: Continue current medication. Monitor patient. Esau Jacobs MD
[2018-08-18] MEDS ORDERED: Lactated Ringer's 1,000 ML IV SCH (07:00)
[2018-08-18] MEDS: Lactated Ringer's 500 ML IV SCH ×2 (07:09→17:38)
--- NOTE | 2018-08-18 09:11 | CP.PCM.PN ---
<MedAlexys - Last Filed: 08/18/18 11:55> Subjective - Date & Time of Evaluation Date of Evaluation: 08/18/18 Time of Evaluation: 07:00 - Subjective Subjective: Surgery Progress note. Dr. Natarajan PT seen and evaluated at bedside this morning. no acute events reported overnight as per the nursing staff. No new complaints. Objective - Vital Signs/Intake and Output Vital Signs (last 24 hours): Temp Pulse Resp BP Pulse Ox 97.3 F L 110 H 23 97/59 L 93 L 08/18/18 08:00 08/18/18 08:00 08/18/18 08:00 08/18/18 08:00 08/18/18 08:00 Intake and Output: 08/18/18 08/18/18 06:59 18:59 Intake Total 525 400 Balance 525 400 - Medications Medications: Current Medications Acetaminophen (Tylenol 325mg Tab) 650 mg PO Q4 [facility] Last Admin: 08/18/18 04:00 Dose: Not Given Apixaban (Eliquis) 5 mg PO BID [facility] Last Admin: 08/13/18 09:53 Dose: Not Given Linezolid (Zyvox 600mg/300ml D5w) 600 mg in 300 mls @ 200 mls/hr IVPB Q12H [facility]; Protocol Last Admin: 08/18/18 00:23 Dose: 200 mls/hr Lactated Ringer's (Lactated Ringer's 500ml) 500 mls @ 50 mls/hr IV .Q10H [facility] Last Admin: 08/18/18 07:09 Dose: Not Given Lactated Ringer's (Lactated Ringer's) 1,000 mls @ 50 mls/hr IV .Q20H [facility] Last Admin: 08/18/18 07:08 Dose: 50 mls/hr Magnesium Hydroxide (Milk Of Magnesia) 30 ml PO DAILY [facility] Last Admin: 08/17/18 10:09 Dose: Not Given Metoprolol Tartrate (Lopressor) 25 mg NG BID [facility] Last Admin: 08/17/18 17:48 Dose: Not Given Rosuvastatin Calcium (Crestor) 2.5 mg PO HS [facility] Last Admin: 08/17/18 22:08 Dose: Not Given - Labs Labs: 08/14/18 10:45 08/17/18 06:26 PT 13.6 SECONDS (9.7-12.2) H 08/14/18 10:45 INR 1.2 08/14/18 10:45 APTT 34 SECONDS (21-34) 08/14/18 10:45 - Constitutional Appears: Non-toxic, Older Than Stated Age - Head Exam Head Exam: ATRAUMATIC, NORMAL INSPECTION, NORMOCEPHALIC - Eye Exam Eye Exam: EOMI, Normal appearance. absent: Scleral icterus - ENT Exam ENT Exam: Mucous Membranes Moist - Respiratory Exam Respiratory Exam: NORMAL BREATHING PATTERN. absent: Accessory Muscle Use, Respiratory Distress - GI/Abdominal Exam GI & Abdominal Exam: Soft. absent: Distended, Guarding, Tenderness, Rebound - Extremities Exam Extremities Exam: Normal Inspection. absent: Calf Tenderness Assessment and Plan - Assessment and Plan (Free Text) Assessment: 83yo M with dysphagia. Surgery consulted for gastrostomy placement. Failed attempt at PEG placement 08/15/18 by GI. Plan: - Will plan for OR tomorrow, 08/19/18 - Will attempt to obtain consent from family Further recs as per Dr. Delgado Jovel PGY2 surgery <Cliff Natarajan - Last Filed: 08/20/18 16:20> Objective - Vital Signs/Intake and Output Vital Signs (last 24 hours): Temp Pulse Resp BP Pulse Ox 97.6 F 106 H 34 H 106/48 L 96 08/19/18 08:00 08/19/18 08:00 08/19/18 08:00 08/19/18 09:07 08/19/18 08:00 - Labs Labs: 08/19/18 11:30 08/19/18 11:30 PT 14.1 SECONDS (9.7-12.2) H 08/19/18 06:25 INR 1.3 08/19/18 06:25 APTT 40 SECONDS (21-34) H 08/19/18 06:25 Attending/Attestation - Attestation I have personally seen and examined this patient.: Yes I have fully participated in the care of the patient.: Yes I have reviewed all pertinent clinical information, including history, physical exam and plan: Yes Notes (Text): Pt was seen and examined at bedside Agree with above note and assessment OR for Open G tube tomorrow Consent from family Medical clearance NPO, IVF Plan d.w primary team and family in detail. Risk and benefit explained in detail.
[2018-08-18] MEDS: Magnesium Hydroxide Susp 30 ml UD PO SCH (09:30)
--- NOTE | 2018-08-18 13:16 | PN ---
DATE: 08/18/2018 LOCATION: 367, bed A. SUBJECTIVE: This is an 83-year-old male in a state of DNR/DNI, seen and examined early in rounds and requested by the staff without reported significant clinical changes, but with very poor oral intake. The entire chart is reviewed and the patient reported not to have any recent history of chest pain, palpitation, significant shortness of breath, but poor oral intake. Today's lab results are still pending, but the patient reported to have low hemoglobin and hematocrit with low CO2 content, elevated BUN and normal creatinine with increased total bilirubin as well as low albumin and low total protein. PHYSICAL EXAMINATION: GENERAL: A 83-year-old male. VITAL SIGNS: Afebrile with pulse of 102, respiratory rate 20-22, blood pressure of 104/64. HEENT: Showed pale dry oral mucous membrane. Nonicteric sclerae. LUNGS: Few scattered crepitation. Decreased air entry at bases. HEART: Positive S1 and S2. ABDOMEN: Soft with mild generalized tenderness. No mass or organomegaly. No rebound tenderness or guarding. EXTREMITIES: Without significant clubbing, cyanosis or edema. No reported new neurological deficits, sensory or motor. IMPRESSION: 1. Malnutrition with hypoalbuminemia, hypoproteinemia. 2. Esophageal mass lesion with dysphagia. 3. Peptic ulcer disease. 4. Abnormal chest CAT scan. 5. Anemia most likely secondary to above with metabolic acidosis. 6. Reported history of chronic obstructive pulmonary disease, coronary artery disease, hypertension, cerebrovascular accident. 7. Bilateral pleural effusion with cholelithiasis and elevated total bilirubin mildly, by radiology study results. SUGGESTIONS: 1. Continue current management. 2. Antireflux measure. 3. The patient will need surgically inserted gastrostomy tube for nutritional support. 4. Oncology Hematology consult. 5. Thoracic surgical consultation. Antoni Duran MD
--- NOTE | 2018-08-18 20:16 | CP.PCM.PN ---
Subjective - Date & Time of Evaluation Date of Evaluation: 08/18/18 Time of Evaluation: 09:42 - Subjective Subjective: dictated Objective - Vital Signs/Intake and Output Vital Signs (last 24 hours): Temp Pulse Resp BP Pulse Ox 97.6 F 119 H 20 99/43 L 93 L 08/18/18 16:24 08/18/18 16:24 08/18/18 16:24 08/18/18 16:24 08/18/18 16:24 Intake and Output: 08/18/18 08/19/18 18:59 06:59 Intake Total 400 Balance 400 - Medications Medications: Current Medications Acetaminophen (Tylenol 325mg Tab) 650 mg PO Q4 [facility] Last Admin: 08/18/18 17:37 Dose: Not Given Albuterol/Ipratropium (Duoneb 3 Mg/0.5 Mg (3 Ml) Ud) 3 ml INH RQ6 [facility] Apixaban (Eliquis) 5 mg PO BID [facility] Last Admin: 08/13/18 09:53 Dose: Not Given Linezolid (Zyvox 600mg/300ml D5w) 600 mg in 300 mls @ 200 mls/hr IVPB Q12H [facility]; Protocol Last Admin: 08/18/18 12:22 Dose: 200 mls/hr Lactated Ringer's (Lactated Ringer's 500ml) 500 mls @ 50 mls/hr IV .Q10H [facility] Last Admin: 08/18/18 17:38 Dose: Not Given Lactated Ringer's (Lactated Ringer's) 1,000 mls @ 50 mls/hr IV .Q20H [facility] Last Admin: 08/18/18 07:08 Dose: 50 mls/hr Magnesium Hydroxide (Milk Of Magnesia) 30 ml PO DAILY [facility] Last Admin: 08/18/18 09:30 Dose: Not Given Metoprolol Tartrate (Lopressor) 25 mg NG BID [facility] Last Admin: 08/18/18 17:37 Dose: Not Given Rosuvastatin Calcium (Crestor) 2.5 mg PO HS [facility] Last Admin: 08/17/18 22:08 Dose: Not Given - Labs Labs: 08/14/18 10:45 08/17/18 06:26 PT 13.6 SECONDS (9.7-12.2) H 08/14/18 10:45 INR 1.2 08/14/18 10:45 APTT 34 SECONDS (21-34) 08/14/18 10:45
[2018-08-18] MEDS: Albuterol-Ipratrop 3 mg / 0.5 (3 ml) UD INH SCH (20:59)
[2018-08-18] MEDS: Rosuvastatin Calcium 2.5 mg Tab PO SCH (21:59)
--- NOTE | 2018-08-18 22:32 | CP.PCM.PN ---
Subjective - Date & Time of Evaluation Date of Evaluation: 08/18/18 Time of Evaluation: 17:15 - Subjective Subjective: Patient seen and evaluated Not in distress Physical Examination - Head Exam Head Exam: ATRAUMATIC, NORMAL INSPECTION - Eye Exam Eye Exam: EOMI, Normal appearance Pupil Exam: NORMAL ACCOMODATION, PERRL - ENT Exam ENT Exam: Mucous Membranes Moist, Normal Exam - Neck Exam Neck Exam: Normal Inspection - Respiratory Exam Respiratory Exam: Clear to Ausculation Bilateral, NORMAL BREATHING PATTERN. absent: Stridor - Cardiovascular Exam Cardiovascular Exam: REGULAR RHYTHM, +S1, +S2 - GI/Abdominal Exam GI & Abdominal Exam: Soft, Normal Bowel Sounds - Extremities Exam Extremities Exam: Normal Inspection - Back Exam Back Exam: NORMAL INSPECTION - Neurological Exam Neurological Exam: Alert, Awake, CN II-XII Intact - Psychiatric Exam Psychiatric exam: Normal Affect, Normal Mood - Skin Skin Exam: Dry, Intact Assessment and Plan - Assessment and Plan (Free Text) Assessment: 85 year old male with no pertinent past medical history presents with shortness of breath in conjunction with cough for the past couple of weeks. Plan: 1.Pneumonia Chest xray: Right upper lobe pneumonia. Right lower lobe subsegmemental atelectasis and mucous plugging. Pulmonary consulted. Help appreciated. Medications: Acetaminophen 650mg PO Q6 PRN Rocephin 1gm IVPB Daily Duoneb 3ml INH RQ6 [facility] Robitussin 200mg PO Q4H PRN Azithromycin 500mg IVPB Q24H 2.Shortness of breath. bnp 293 Echo EF:60-65% Grade I abnormal relaxation Mitral regurgitation mild Tricuspid regurgitation mild to moderate Pulmonary hypertension mild Pulmonary valvular regurgitation trace Cardiology consulted. Help appreciated. PPX -Lovenox -Protonix Objective - Vital Signs/Intake and Output Vital Signs (last 24 hours): Temp Pulse Resp BP Pulse Ox 97.6 F 119 H 20 99/43 L 93 L 08/18/18 16:24 08/18/18 16:24 08/18/18 16:24 08/18/18 16:24 08/18/18 16:24 Intake and Output: 08/18/18 08/19/18 18:59 06:59 Intake Total 400 400 Balance 400 400 - Medications Medications: Current Medications Acetaminophen (Tylenol 325mg Tab) 650 mg PO Q4 [facility] Last Admin: 08/18/18 21:59 Dose: Not Given Albuterol/Ipratropium (Duoneb 3 Mg/0.5 Mg (3 Ml) Ud) 3 ml INH RQ6 [facility] Last Admin: 08/18/18 20:59 Dose: 3 ml Apixaban (Eliquis) 5 mg PO BID [facility] Last Admin: 08/13/18 09:53 Dose: Not Given Linezolid (Zyvox 600mg/300ml D5w) 600 mg in 300 mls @ 200 mls/hr IVPB Q12H [facility]; Protocol Last Admin: 08/18/18 12:22 Dose: 200 mls/hr Lactated Ringer's (Lactated Ringer's 500ml) 500 mls @ 50 mls/hr IV .Q10H [facility] Last Admin: 08/18/18 17:38 Dose: Not Given Lactated Ringer's (Lactated Ringer's) 1,000 mls @ 50 mls/hr IV .Q20H [facility] Last Admin: 08/18/18 07:08 Dose: 50 mls/hr Magnesium Hydroxide (Milk Of Magnesia) 30 ml PO DAILY [facility] Last Admin: 08/18/18 09:30 Dose: Not Given Metoprolol Tartrate (Lopressor) 25 mg NG BID [facility] Last Admin: 08/18/18 17:37 Dose: Not Given Rosuvastatin Calcium (Crestor) 2.5 mg PO HS [facility] Last Admin: 08/18/18 21:59 Dose: Not Given - Labs Labs: 08/14/18 10:45 08/17/18 06:26 PT 13.6 SECONDS (9.7-12.2) H 08/14/18 10:45 INR 1.2 08/14/18 10:45 APTT 34 SECONDS (21-34) 08/14/18 10:45
[2018-08-18] MEDS ORDERED: Sodium Chloride 0.9% 1,000 ML IV SCH (23:15)
[2018-08-19] MEDS: Linezolid 600 mg in D5W 300 ml 600 MG/300 ML BAG IVPB SCH ×4 (00:02→13:57)
--- NOTE | 2018-08-19 01:36 | PN ---
DATE: 08/18/2018 SUBJECTIVE: The patient is afebrile, hemodynamically stable. He is medically stable per OR. PHYSICAL EXAMINATION: VITAL SIGNS: Blood pressure 99/53, pulse 90, respiratory rate 20, temperature 97.6. LUNGS: Clear. CARDIOVASCULAR: S1, S2. Regular. ABDOMEN: Soft. ASSESSMENT AND PLAN: 1. Urinary tract infection. 2. Inability to thrive. 3. Obstructive uropathy. PLAN: OR, PEG placement. Esau Jacobs MD
[2018-08-19] MEDS: Albuterol-Ipratrop 3 mg / 0.5 (3 ml) UD INH SCH ×3 (02:24→13:45)
[2018-08-19 06:43] LABS: INR 1.3; PROTHROMBIN TIME 14.1 SECONDS (9.7-12.2)
[2018-08-19 06:50] LABS: CALCIUM 8.4 mg/dl (8.6-10.4)
[2018-08-19] MEDS ORDERED: Dextrose 50% SYRINGE Inj (50 ml) IV STA (07:37)
[2018-08-19 07:50] VITALS: O2SAT 96
[2018-08-19] MEDS ORDERED: (Novolin R) Insulin Human Regular 100 units/ml vial IVP ONE (08:00)
[2018-08-19 08:23] VITALS: PULSE 106; RESP 34; TEMP 97.6
[2018-08-19 09:08] VITALS: BP 106/48
[2018-08-19] MEDS: Magnesium Hydroxide Susp 30 ml UD PO SCH (09:54)
[2018-08-19 11:53] LABS: BASO % 0.1 % (0.0-2.0)
[2018-08-19 12:03] LABS: EOS % 0.1 % (0.0-4.0); HEMOGLOBIN 10.7 g/dL (12.0-18.0); LYMPH # 1.6 K/uL (1.0-4.3); LYMPH % 10.4 % (20.0-40.0); MEAN CORPUSCULAR HEMOGLOBIN 34.3 pg (27.0-31.0); MEAN CORPUSCULAR HGB CONC 32.2 g/dL (33.0-37.0); MEAN PLATELET VOLUME 10.8 fL (7.2-11.7); MONO # 0.9 K/uL (0.0-0.8); MONO % 6.1 % (0.0-10.0); NEUT # 12.9 K/uL (1.8-7.0); NEUT % 83.3 % (50.0-75.0); NRBC % 0.2 % (0.0-2.0); RBC 3.13 Mil/uL (4.40-5.90)
[2018-08-19 12:04] LABS: MEAN CELL VOLUME 106.6 fL (80.0-94.0); WHITE BLOOD COUNT 15.5 K/uL (4.8-10.8)
[2018-08-19 12:23] LABS: CALCIUM 8.6 mg/dl (8.6-10.4)
[2018-08-19] MEDS ORDERED: Sodium Chloride 0.9% 250 ML IV ONE (12:33)
[2018-08-19] MEDS ORDERED: Sodium Bicarbonate (8.4%) 50 Meq Syringe ONE (13:00)
[2018-08-19] MEDS ORDERED: Vasopressin 20 Units/ml Inj ONE (13:00)
[2018-08-19] MEDS ORDERED: Calcium Chloride 1000 mg/10 ml Syringe ONE (13:00)
[2018-08-19] MEDS ORDERED: Propofol 10 mg/ml Inj (20 ML) ONE (13:13)
--- NOTE | 2018-08-19 13:14 | CP.PCM.PN ---
Subjective - Date & Time of Evaluation Date of Evaluation: 08/19/18 Time of Evaluation: 13:06 - Subjective Subjective: Nephrology Consultation Note: Assessment: worsening HAGMA, JENNIFER ? developing sepsis Hypernatremia likely due to dehydration, limited oral fluid intake Hypokalemia mild anemia hyperbilirubinemia COPD, CAD, dementia, CVA hypertension (years) aortic insuff with AV endocarditis b/l pleural effusion esophageal mass Plan check bladder sonogram today check lactic acid. may be CXR. if elevated lactic acid, consider to switch linezolid to alternative antibiotics will start bicarb drip Maintain hemodynamics stable. Avoid hypotension. Patient not on ACEI/ARB due to low BP Monitor Input/Output, daily weights and renal function with basic metabolic panel antibiotics per ID GI following cardiology and GI following Dose meds/antibiotics for GFR>60 Glycemic control. overall prognosis poor. seen by [facility] care Further work up/management as per primary team Thanks for allowing me to participate in care of your patient. Will follow patient with you. Please call if any Qs. had d/w team and family Dr Chris Reese Office: [phone] Chief Complaint; unable Reason for consult: Hypernatremia HPI: Pt is a 83 M with hx of COPD, CAD, dementia, CVA hypertension (years) aortic insuff with AV endocarditis presented with complaints of dehydration and being managed for hypernatremia, elevated troponins renal consult for elevated BUN and hypernatremia no knwon OTC/herbal meds or NSAIDs No recent iodinated contrast exposure. No obvious episodes of low BP. pt unable to provide any hx ROS: Unable to obtain. pt non communicative PEG tube placement not successful. he also found to have esophageal mass 08/15/18 Physical Examination: General Appearance: uncomfortable, mostly non verbal/non communicative Vitals reviewed and noted as below Head; Atraumatic, normocephalic ENT: no ulcers no thrush. Tongue is midline/dry. Oropharynx: no rash or ulcers. EYES: Pupils are equal, round and reactive to light accommodation. Eye muscles and extraocular movement intact. Sclera is icteric. Neck; supple no lymphadenopathy, no thyromegaly or bruit Lungs: Increased respiratory rate/effort. Breath sounds bilateral reduced at bases with few cracl;e Heart: Normal rate. s1s2 normal. No rub or gallop. Extremities: No varicose veins. upper ext edema + Neurological: Patient is non verbal/non communicative. not able to follow commands Skin: Warm and dry. Normal turgor. No rash. Palpitation: Normal elasticity for age. skin echymose + Abdomen: Abdomen is soft. Bowel sounds +. There is no abdominal tenderness, no guarding/rigidity no organomegaly Psych: unable MSK: no joint tenderness or swelling. Digits and nails normal, no deformity : kidney or bladder not palpable Labs/imaging reviewed. Past medical history, past surgical history, family history, social history, allergy reviewed and noted as below Family hx: no hx of CKD. Rest non-contributory Objective - Vital Signs/Intake and Output Vital Signs (last 24 hours): Temp Pulse Resp BP Pulse Ox 97.6 F 106 H 34 H 106/48 L 96 08/19/18 08:00 08/19/18 08:00 08/19/18 08:00 08/19/18 09:07 08/19/18 08:00 Intake and Output: 08/19/18 08/19/18 06:59 18:59 Intake Total 400 400 Balance 400 400 - Medications Medications: Current Medications Acetaminophen (Tylenol 325mg Tab) 650 mg PO Q4 [facility] Last Admin: 08/19/18 12:43 Dose: Not Given Albuterol/Ipratropium (Duoneb 3 Mg/0.5 Mg (3 Ml) Ud) 3 ml INH RQ6 [facility] Last Admin: 08/19/18 07:50 Dose: 3 ml Apixaban (Eliquis) 5 mg PO BID [facility] Last Admin: 08/13/18 09:53 Dose: Not Given Linezolid (Zyvox 600mg/300ml D5w) 600 mg in 300 mls @ 200 mls/hr IVPB Q12H [facility]; Protocol Last Admin: 08/19/18 12:22 Dose: 200 mls/hr Sodium Chloride (Sodium Chloride 0.9%) 250 mls @ 250 mls/hr IV .Q1H [facility] Stop: 08/19/18 13:32 Sodium Bicarbonate 150 meq/ (Dextrose) 1,150 mls @ 75 mls/hr IV .[id number] [facility] Metoprolol Tartrate (Lopressor) 25 mg NG BID [facility] Last Admin: 08/19/18 09:54 Dose: Not Given Rosuvastatin Calcium (Crestor) 2.5 mg PO HS [facility] Last Admin: 08/18/18 21:59 Dose: Not Given - Labs Labs: 08/19/18 11:30 08/19/18 11:30 PT 14.1 SECONDS (9.7-12.2) H 08/19/18 06:25 INR 1.3 08/19/18 06:25 APTT 40 SECONDS (21-34) H 08/19/18 06:25
[2018-08-19] MEDS ORDERED: Bupivacaine 0.25% 20 ML INJ IJ ONE (13:17)
[2018-08-19] MEDS ORDERED: Lidocaine/Epinephrine 1% 1:100000 10 ML IJ ONE (13:17)
[2018-08-19] MEDS ORDERED: ceFAZolin 1 gm in NS 0 GM/0 ML BAG IVPB ONE (13:17)
--- NOTE | 2018-08-19 13:39 | PN ---
DATE: 08/19/2018 LOCATION: 367, bed A. SUBJECTIVE: This is an 83-year-old male seen and examined in rounds without significant clinical changes or reported active bleeding with poor oral intake. The entire chart is reviewed including but not limited to the most recent lab results, current and the previous medication list. Case discussed with the staff at length. Today's lab results showed PT of 14.1, PTT 40, potassium 5.6 with low CO2 content of 12, BUN 57, creatinine 2, calcium 8.24, phosphorus 6.9. PHYSICAL EXAMINATION: GENERAL: An 83-year-old male. VITAL SIGNS: Afebrile with pulse of 102, respiratory rate 24 to 26, blood pressure 102/54. HEENT: Showed pale dry oral mucous membrane. Nonicteric sclerae. LUNGS: Few scattered crepitation. Decreased air entry at bases. HEART: Positive S1 and S2. ABDOMEN: Soft with mild generalized tenderness. No mass or organomegaly. No rebound tenderness or guarding. EXTREMITIES: Without significant clubbing, cyanosis, or edema. NEUROLOGIC: No reported new neurological deficits, sensory or motor. The patient is in a state of DNR and DNI. IMPRESSION: 1. Hypoalbuminemia with malnutrition. 2. Electrolyte imbalance. 3. Renal failure. 4. Peptic ulcer disease. 5. Abnormal CAT scan of the chest. 6. Esophageal mass lesion by recent upper endoscopy with dysphagia. 7. Anemia secondary to above. 8. History of chronic obstructive pulmonary disease, coronary artery disease, hypertension with cerebrovascular accident. 9. Bilateral pleural effusion with cholelithiasis. 10. Mild jaundice with increased total protein level, total bilirubin level of unclear etiology at this point. SUGGESTIONS: 1. Continue conservative current treatment. 2. Peripheral hyperalimentation. 3. The patient will need surgical consultation for potential gastrostomy tube insertion. Antoni Duran MD
[2018-08-19] MEDS ORDERED: ePHEDrine 50 mg/ml Inj ONE (13:41)
--- NOTE | 2018-08-19 13:44 | US ---
Date of service: 08/19/2018 PROCEDURE: Ultrasound of the Kidneys HISTORY: r/o retention COMPARISON: Renal/urinary bladder ultrasound performed 04/09/18 TECHNIQUE: Sonogram of the kidneys. FINDINGS: RIGHT KIDNEY: Measures: 11.5 x 4.9 x 4.9 cm. Echogenic renal parenchyma. Cortical thinning. No obstructing calculus, hydronephrosis, or renal cyst identified. LEFT KIDNEY: Measures: 11.2 x 5.4 x 4.3 cm. Echogenic renal parenchyma. Cortical thinning. No obstructing calculus, hydronephrosis, or renal cyst identified. OTHER FINDINGS: Decompressed urinary bladder precludes adequate evaluation. Enlarged prostate gland measures approximately 7.3 x 6.7 x 6.3 cm, volume 162.0 mL. IMPRESSION: No obstructing calculus, hydronephrosis, or renal cyst identified. Echogenic renal parenchyma may be seen in the setting of medical renal disease. Bilateral cortical thinning. Enlarged prostate gland with volume 162.0 mL. Recommend correlation with PSA. Decompressed urinary bladder precludes adequate evaluation.
[2018-08-19] MEDS ORDERED: Sodium Bicarbonate 8.4% 150 MEQ in Dextrose 5% In Water 850 ML IV SCH (14:00)
--- NOTE | 2018-08-19 15:08 | PCM.ANES ---
Assessment/Plan - Assessment and Plan (Free Text) Assessment: Pt is a 83 yo m ho afib, cad, cva, nstemi, DNR/ DNi scheduled for open gastromy tube. Upon arrival to OR, pt was placed on monitors Spo2 varied between 81-92% on 100% fio2 mask. Case d/w with [place] to either abort case at that time or continue with the patient going to ICU intubated until they could be successfully extubated. After discussion, a decision was made to proceed with plan for ICU post -op. Pt was induced inhalationally. During induction, BP dropped and pulse oximeter wavered. residential support worker check a pulse - none was found to be present. CPR was initiated. After 6 minutes of CPR (chest compression/ epi), pt had ROSC at 13:46. Plans as this time were to proceed to ICU. As arrangements were being made, pt had PEA and CPR resumed. After ~35-45 mins of CPR, son was called. He understood we did everything in our power to resuscitate him at that time. was called shortly afterwards.
--- NOTE | 2018-08-19 15:28 | CP.PCM.PN ---
Subjective - Date & Time of Evaluation Date of Evaluation: 08/19/18 Time of Evaluation: 13:40 - Subjective Subjective: General Surgery Pt had been brought to operating room and was being positioned for surgery when it was noted that his O2 sat was 89%. Decision was made to intubate and then send to ICU post op. However, before intubation could occur, the pt developed PEA and CPR was initiated at 13:40. Pulses returned briefly and were lost again at 13:56. ACLS was continued unto 14:20, at which time time of was called. Objective - Vital Signs/Intake and Output Vital Signs (last 24 hours): Temp Pulse Resp BP Pulse Ox 97.6 F 106 H 34 H 106/48 L 96 08/19/18 08:00 08/19/18 08:00 08/19/18 08:00 08/19/18 09:07 08/19/18 08:00 Intake and Output: 08/19/18 08/19/18 06:59 18:59 Intake Total 400 400 Balance 400 400 - Medications Medications: Current Medications Acetaminophen (Tylenol 325mg Tab) 650 mg PO Q4 GARRET Last Admin: 08/19/18 12:43 Dose: Not Given Albuterol/Ipratropium (Duoneb 3 Mg/0.5 Mg (3 Ml) Ud) 3 ml INH RQ6 GARRET Last Admin: 08/19/18 13:45 Dose: Not Given Apixaban (Eliquis) 5 mg PO BID GARRET Last Admin: 08/13/18 09:53 Dose: Not Given Linezolid (Zyvox 600mg/300ml D5w) 600 mg in 300 mls @ 200 mls/hr IVPB Q12H GARRET; Protocol Last Admin: 08/19/18 13:57 Dose: Not Given Sodium Bicarbonate 150 meq/ (Dextrose) 1,000 mls @ 75 mls/hr IV .[id number] GARRET Metoprolol Tartrate (Lopressor) 25 mg NG BID GARRET Last Admin: 08/19/18 09:54 Dose: Not Given Rosuvastatin Calcium (Crestor) 2.5 mg PO HS GARRET Last Admin: 08/18/18 21:59 Dose: Not Given - Labs Labs: 08/19/18 11:30 08/19/18 11:30 PT 14.1 SECONDS (9.7-12.2) H 08/19/18 06:25 INR 1.3 08/19/18 06:25 APTT 40 SECONDS (21-34) H 08/19/18 06:25
--- NOTE | 2018-08-19 21:22 | CP.PCM.DIS ---
Provider - Provider Date of Admission: 08/06/18 15:24 Attending physician: Esau Jacobs MD Consults: 08/06/18 20:56 Cardiology Consult Routine Comment: cad Consulting Provider: Misael Simpson Consulting Physician: Misael Simpson Reason for Consult: cad 08/06/18 20:58 Nephrology Consult Routine Comment: Consulting Provider: Chris Reese Consulting Physician: Chris Reese Reason for Consult: lola 08/07/18 08:00 Nursing Referral for Wound Care Routine Comment: Physician Instructions: Reason For Exam: pressure ulcer right gluteus 08/07/18 14:55 Gastroenterology Consult Routine Comment: Consulting Provider: Antoni Gonsalez Consulting Physician: Antoni Gonsalez Reason for Consult: for peg 08/09/18 12:30 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 Consulting Provider: Cesar Ford Consulting Physician: Cesar Ford 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 08/12/18 13:17 Palliative Care Consult Routine Comment: Consulting Provider: Tesha Rivera Physician Instructions: Reason For Exam: poor prognosis 08/16/18 12:53 Physician Consult Routine Comment: dysphagia Consulting Provider: Cliff Natarajan Consulting Physician: Cliff Natarajan Reason for Consult: feeding tube placement Additional Comments: has a pelvic mass, failed attempt by IR and DR Gonsalez Time Spent in preparation of Discharge (in minutes): 30 Hospital Course - Lab Results Lab Results: Micro Results 08/12/18 Unknown Urine,Clean Catch Urine Culture - Final No Growth (<1,000 CFU/ML) 08/07/18 19:30 Blood Blood Culture - Final NO GROWTH AFTER 5 DAYS 08/07/18 19:30 Blood Gram Stain - Final TEST NOT PERFORMED 08/06/18 14:00 Blood Blood Culture - Final NO GROWTH AFTER 5 DAYS 08/06/18 14:00 Blood Gram Stain - Final TEST NOT PERFORMED 08/06/18 19:36 Urine Random Urine Culture - Final Vancomycin Resistant E.faecium 08/06/18 14:03 Blood Blood Culture - Final Coagulase Neg Staphylococcus 08/06/18 14:03 Blood Gram Stain - Final Most Recent Lab Values WBC 15.5 K/uL (4.8-10.8) H D 08/19/18 11:30 RBC 3.13 Mil/uL (4.40-5.90) L 08/19/18 11:30 Hgb 10.7 g/dL (12.0-18.0) L 08/19/18 11:30 Hct 33.4 % (35.0-51.0) L 08/19/18 11:30 MCV 106.6 fL (80.0-94.0) H D 08/19/18 11:30 MCH 34.3 pg (27.0-31.0) H 08/19/18 11:30 MCHC 32.2 g/dL (33.0-37.0) L 08/19/18 11:30 RDW 16.0 % (11.5-14.5) H 08/19/18 11:30 Plt Count 46 K/uL (130-400) L D 08/19/18 11:30 MPV 10.8 fL (7.2-11.7) 08/19/18 11:30 Neut % (Auto) 83.3 % (50.0-75.0) H 08/19/18 11:30 Lymph % (Auto) 10.4 % (20.0-40.0) L 08/19/18 11:30 [place] % (Auto) 6.1 % (0.0-10.0) 08/19/18 11:30 Eos % (Auto) 0.1 % (0.0-4.0) 08/19/18 11:30 Baso % (Auto) 0.1 % (0.0-2.0) 08/19/18 11:30 Neut # (Auto) 12.9 K/uL (1.8-7.0) H 08/19/18 11:30 Lymph # (Auto) 1.6 K/uL (1.0-4.3) 08/19/18 11:30 [place] # (Auto) 0.9 K/uL (0.0-0.8) H 08/19/18 11:30 Eos # (Auto) 0.0 K/uL (0.0-0.7) 08/19/18 11:30 Baso # (Auto) 0.0 K/uL (0.0-0.2) 08/19/18 11:30 Differential Comment 08/19/18 11:30 PT 14.1 SECONDS (9.7-12.2) H 08/19/18 06:25 INR 1.3 08/19/18 06:25 APTT 40 SECONDS (21-34) H 08/19/18 06:25 Sodium 144 mmol/L (132-148) 08/19/18 11:30 Potassium 5.5 mmol/L (3.6-5.2) H 08/19/18 11:30 Chloride 115 mmol/L (98-107) H 08/19/18 11:30 Carbon Dioxide 11 mmol/L (22-30) L* 08/19/18 11:30 Anion Gap 23 (10-20) H 08/19/18 11:30 BUN 57 mg/dL (9-20) H 08/19/18 11:30 Creatinine 2.0 mg/dL (0.8-1.5) H 08/19/18 11:30 Est GFR ( Amer) 39 08/19/18 11:30 Est GFR (Non-Af Amer) 32 08/19/18 11:30 POC Glucose (mg/dL) 111 mg/dL (65-110) H 08/06/18 18:31 Random Glucose 93 mg/dL (75-110) 08/19/18 11:30 Calcium 8.6 mg/dl (8.6-10.4) 08/19/18 11:30 Phosphorus 6.9 mg/dL (2.5-4.5) H 08/19/18 06:25 Magnesium 1.6 mg/dL (1.6-2.3) 08/19/18 06:25 Total Bilirubin 3.3 mg/dL (0.2-1.3) H 08/14/18 10:45 AST 13 U/L (17-59) L D 08/14/18 10:45 ALT 15 U/L (21-72) L D 08/14/18 10:45 Alkaline Phosphatase 87 U/L (38-126) 08/14/18 10:45 Total Creatine Kinase < 20 U/L (55-170) L 08/06/18 21:43 CK-MB (Mass) 0.90 ng/mL (0.0-3.38) 08/06/18 21:43 Troponin I 0.3270 ng/mL (0.00-0.120) H* 08/06/18 21:43 NT-Pro-B Natriuret Pep 18918 pg/mL (0-900) H 08/06/18 14:19 Total Protein 5.0 g/dL (6.3-8.3) L 08/14/18 10:45 Albumin 2.4 g/dL (3.5-5.0) L 08/14/18 10:45 Globulin 2.6 gm/dL (2.2-3.9) 08/14/18 10:45 Albumin/Globulin Ratio 0.9 (1.0-2.1) L 08/14/18 10:45 Procalcitonin 0.09 NG/ML (0.19-0.49) L 08/10/18 07:10 Urine Color Marni (YELLOW) 08/06/18 19: Urine Clarity Clear (Clear) 08/06/18 19: Urine pH 5.0 (5.0-8.0) 08/06/18 19:29 Ur Specific [place] 1.023 (1.003-1.030) 08/06/18 19: Urine Protein Negative mg/dL (NEGATIVE) 08/06/18 19: Urine Glucose (UA) Normal mg/dL (Normal) 08/06/18 19: Urine Ketones Negative mg/dL (NEGATIVE) 08/06/18 19: Urine Blood 1+ (NEGATIVE) H 08/06/18 19: Urine Nitrate Negative (NEGATIVE) 08/06/18 19: Urine Bilirubin 1+ (NEGATIVE) H 08/06/18 19: Urine Urobilinogen 4.0 mg/dL (0.2-1.0) 08/06/18 19:29 Ur Leukocyte Esterase 2+ Jefe/uL (Negative) H 08/06/18 19:29 Urine WBC (Auto) 46 /hpf (0-5) H 08/06/18 19:29 Urine RBC (Auto) 12 /hpf (0-3) H 08/06/18 19: Ur Squamous Epith Cells 10 /hpf (0-5) H 08/06/18 19:29 Urine Yeast (Budding) Few /hpf (NEGATIVE) H 08/06/18 19:29 Urine Osmolality 758 mosm/kg (300-1000) 08/07/18 12:20 Ur Random Creatinine 125.2 mg/dL 01/09/19 12:20 Ur Random Sodium 43 mmol/L 08/07/18 12:20 Ur Random Potassium 111.1 mmol/L 08/07/18 12:20 Discharge Exam - Head Exam Head Exam: ATRAUMATIC, NORMAL INSPECTION, NORMOCEPHALIC Discharge Plan - Follow Up Plan Condition: FAIR Disposition: WITH WITHOUT AUTOPSY
--- NOTE | 2018-08-20 01:02 | DS ---
DISCHARGE DIAGNOSES: 1. Urinary tract infection. 2. Alzheimer's advanced. 3. Hypertension. 4. Obstructive uropathy with benign prostatic hyperplasia. HISTORY OF PRESENT ILLNESS: This is an 83-year-old male with history of obstructive uropathy. He has a Brown catheter in place, history of Alzheimer, hypertension, hyperlipidemia, prior stroke. The patient was in the subacute rehab facility and discharged to [facility] because of not improving, febrile, altered mental status, weak. He was found to be hypernatremic with prerenal azotemia, elevated BUN and creatinine. He was admitted to the floor. He has not been eating because of his worsening underlying condition. The patient was given IV fluids. His sodium, potassium, BUN, and creatinine improved. He felt better. The patient's family was explained about his terminal nature of his condition, suspected advanced Alzheimer and recurrent urinary tract infection. The patient's daughter requested a PEG placement and today the patient, while he was waiting for PEG, he deteriorated, he developed respiratory distress and cardiac arrest and then after coding he . PHYSICAL EXAMINATION: VITAL SIGNS: Blood pressure is 106/48, pulse 106, respiratory rate 34, temperature 97.6. LABORATORY DATA: WBC 15.5, hemoglobin 10.7, hematocrit 33.4, platelets 46. Sodium 144, potassium 5.5, chloride 115, bicarb 23, BUN 57, creatinine 2. The patient . Esau Jacobs MD
--- NOTE | 2018-08-20 21:53 | PQF ---
PROVIDER RESPONSE TEXT: Sepsis REVIEWER QUERY TEXT: Rule Out Sepsis Clarification Rule out Sepsis is documented in the Medical Record. Please clarify whether: -- Patient has sepsis - Please document confirmed, suspected or probable causative organism - Please document confirmed, suspected or probable localized infection - Please clarify if sepsis is related to a device - Please clarify if sepsis was present on admission -- Sepsis was ruled out (include corresponding diagnosis for patient?s clinical picture and treatment ) -- Patient had sepsis which is resolved -- Other, please specify The patient's Clinical Indicators include: 83 year old male is sent to the ED [facility] for evaluation for weakness. History of alzheimers, [place], COPD. HTN CVA, Dementia. 08/09 Prog. Note - Sepsis 08/11 Prog. Note - Darren Ford MD - Assessment - Admitted with Sepsis and NSTEMI 08/14 - Prog. Note - Darren Ford MD - " continue Rx for VRE Sepsis for min. 10 days." Please document if you concur. Query created by: Yahaira Wetzel on 08/20/2018 1:12 PM Electronically signed by: Esau Jacobs MD 08/20/2018 9:50 PM
== END 2018-08-19 15:57 | DRG 871 ==
LOC: C.ER 13:38 → C.9E 15:24 → C.3T 20:46 → C.9E 21:01 → C.3T 21:12
PROVIDERS: ADMIT Internal Medicine; ATTEND Internal Medicine
PROC: 0DJ08ZZ Inspection of Upper Intestinal Tract, Via Natural or Artificial Opening Endoscopic (ICD-10-PCS; principal; 2018-08-15 10:15)
DX: A41.81 Sepsis due to Enterococcus (principal); I21.4 Non-ST elevation (NSTEMI) myocardial infarction; E87.0 Hyperosmolality and hypernatremia; I69.354 Hemiplegia and hemiparesis following cerebral infarction affecting left non-dominant side; N39.0 Urinary tract infection, site not specified; E46 Unspecified protein-calorie malnutrition; N13.8 Other obstructive and reflux uropathy; R65.20 Severe sepsis without septic shock; G30.9 Alzheimer's disease, unspecified; F02.80 Dementia in other diseases classified elsewhere, unspecified severity, without behavioral disturbance, psychotic disturbance, mood disturbance, and anxiety; J44.9 Chronic obstructive pulmonary disease, unspecified; I48.91 Unspecified atrial fibrillation; E86.0 Dehydration; Z74.01 Bed confinement status; E87.6 Hypokalemia; I35.8 Other nonrheumatic aortic valve disorders; I10 Essential (primary) hypertension; B95.2 Enterococcus as the cause of diseases classified elsewhere; Z16.21 Resistance to vancomycin; I69.320 Aphasia following cerebral infarction; Z51.5 Encounter for palliative care; Z66 Do not resuscitate; N40.1 Benign prostatic hyperplasia with lower urinary tract symptoms; I46.9 Cardiac arrest, cause unspecified